=== PATIENT | male | born 1970 | race Two or more races ===

== ENCOUNTER 2017-05-06 15:58 | Inpatient (IN) | payer MEDICAID ==
--- NOTE | 2017-05-06 16:45 | ED Physician Chart ---
ED Chief Complaint/HPI - Patient Information Date Seen:: 05/06/17 Time Seen:: 16:15 Chief Complaint:: TROUBLE WITH FOOD INTAKE History of Present Illness:: THIS IS A 46 YO MALE WITH BARETT'S ESOPHAGUS WITH DYSPHAGIA, SCHIZOPHRENIA AND THYROID DISEASE. Allergies:: Allergies Allergy/AdvReac Type Severity Reaction Status Date / Time No Known Allergies Allergy Verified 05/06/17 16:04 Vitals:: Vital Signs - 8 hr 05/06/17 16:05 Temp 98.7 F HR 67 RR 17 BP 138/91 O2 Sat % 97 Historian:: Patient Review:: Nurse's Note Reviewed, Transfer documents Reviewed ED Review of Systems - Review of Systems General/Constitutional: No fever, No chills, No weight loss, No weakness, No diaphoresis, No edema, No loss of appetite, Other (THIS PATIENT IS NOT ABLE TO GIVE A RELIABLE REVIEW OF SYSTEMS.) Skin: No skin lesions, No rash, No bruising Head: No headache, No light-headedness Eyes: No loss of vision, No pain, No diplopia ENT: No earache, No nasal drainage, No sore throat, No tinnitus Neck: No neck pain, No swelling, No thyromegaly, No stiffness, No mass noted Cardio Vascular: No chest pain, No palpitations, No PND, No orthopnea, No edema Pulmonary: No SOB, No cough, No sputum, No wheezing GI: No nausea, No vomiting, No diarrhea, No pain, No melena, No hematochezia, No constipation, No hematemesis G/U: No dysuria, No frequency, No hematuria Musculoskeletal: No bone or joint pain, No back pain, No muscle pain Endocrine: No polyuria, No polydipsia Psychiatric: No prior psych history, No depression, No anxiety, No suicidal ideation Hematopoietic: No bruising, No lymphadenopathy Allergic/Immuno: No urticaria, No angioedema Neurological: No syncope, No focal symptoms, No weakness, No paresthesia, No headache, No seizure, No dizziness, No confusion, No vertigo ED Past Medical History - Past Medical History Obtainable: Yes Past Medical History: CVA/TIA, PUD/GERD, Thyroid disorder, Arthritis, Dementia Family History: None Social History: Non Smoker, No Alcohol, No Drug Use, Care Facility Surgical History: None Psychiatricy History: Schizophrenia, Dementia Medication: Reviewed Family Medical History - Family Member Mother History Unknown: Yes ED Physical Exam - Physical Examination General/Constitutional: Awake, Well-developed, well-nourished, Alert, No distress, GCS 15, Non-toxic appearing, Ambulatory Other Gen/Cons comments:: DIFFICULTY WITH SPEECH AND THROAT DISORDER. HE IS VERY THIN. Head: Atraumatic Eyes: Lids, conjuctiva normal, PERRL, EOMI Skin: Nl inspection, No rash, No skin lesions, No ecchymosis, Well hydrated, No lymphadenopathy ENMT: External ears, nose nl, Nasal exam nl, Lips, teeth, gums nl Neck: Nontender, Full ROM w/o pain, No JVD, No nuchal rigidity, No bruit, No mass, No stridor Respiratory: Nl effort/Exclusion, Clear to Auscultation, No Wheeze/Rhonchi/Rales Cardio Vascular: RRR, No murmur, gallop, rubs, NL S1 S2 GI: No tenderness/rebounding/guarding, No organomegaly, No hernia, Normal BS's, Nondistended, No mass/bruits, No McBurney tenderness : No CVA tenderness Extremities: No tenderness or effusion, Full ROM, normal strength in all extremities, No edema, Normal digits & nails Neuro/Psych: Alert/oriented, DTR's symmetric, Normal sensory exam, Normal motor strength, Judgement/insight normal, Mood normal, Normal gait, No focal deficits Misc: normal gait, Normal back, No paraspinal tenderness ED Labs/Radiology/EKG Results - Lab Results Results: Abnormal Lab Results 05/06/17 05/06/17 05/06/17 16:20 16:46 16:46 WBC RBC Hgb Hct MCV MCH MCHC Differential RDW Plt Count MPV Neutrophils % Lymphocytes % Monocytes % Eosinophils % Basophils % PT 10.9 INR 1.05 PTT (Actin FS) 25.7 L Sodium Potassium Chloride Carbon Dioxide Anion Gap BUN Creatinine Est GFR ( Amer) Est GFR (Non-Af Amer) BUN/Creatinine Ratio Glucose Calcium Total Bilirubin AST ALT Alkaline Phosphatase Troponin I Total Protein Albumin Globulin Albumin/Globulin Ratio Triglycerides 88 Cholesterol 126 LDL Cholesterol Direct 89 HDL Cholesterol 30 TSH Urine Source CLEAN C Urine Color YELLOW Urine Clarity HAZY Urine pH 5.5 Ur Specific [place] 1.030 Urine Protein 30 H Urine Glucose (UA) NEGATIVE Urine Ketones NEGATIVE Urine Blood NEGATIVE Urine Nitrate NEGATIVE Urine Bilirubin SMALL H Urine Urobilinogen 2.0 Ur Leukocyte Esterase NEGATIVE Urine RBC 0-1 Urine WBC 0-2 Ur Epithelial Cells OCCASIONAL Amorphous Sediment FEW URATES Urine Bacteria FEW Urine Mucus MODERATE 05/06/17 05/06/17 05/06/17 16:46 16:46 16:46 WBC 10.1 RBC 4.43 Hgb 13.8 Hct 41.1 MCV 92.8 MCH 31.1 H MCHC Differential 33.6 RDW 12.2 Plt Count 221 MPV 9.8 Neutrophils % 56.0 Lymphocytes % 35.4 Monocytes % 7.2 Eosinophils % 1.0 Basophils % 0.4 PT INR PTT (Actin FS) Sodium 131 L Potassium 3.4 L Chloride 90 L Carbon Dioxide 36.0 H Anion Gap 8.4 BUN 13 Creatinine 1.2 Est GFR ( Amer) > 60.0 Est GFR (Non-Af Amer) > 60.0 BUN/Creatinine Ratio 10.8 Glucose 98 Calcium 9.9 Total Bilirubin 0.6 AST 18 ALT 18 Alkaline Phosphatase 48 Troponin I 0.03 Total Protein 7.6 Albumin 3.9 L Globulin 3.7 Albumin/Globulin Ratio 1.1 Triglycerides Cholesterol LDL Cholesterol Direct HDL Cholesterol TSH Urine Source Urine Color Urine Clarity Urine pH Ur Specific [place] Urine Protein Urine Glucose (UA) Urine Ketones Urine Blood Urine Nitrate Urine Bilirubin Urine Urobilinogen Ur Leukocyte Esterase Urine RBC Urine WBC Ur Epithelial Cells Amorphous Sediment Urine Bacteria Urine Mucus 05/06/17 16:46 WBC RBC Hgb Hct MCV MCH MCHC Differential RDW Plt Count MPV Neutrophils % Lymphocytes % Monocytes % Eosinophils % Basophils % PT INR PTT (Actin FS) Sodium Potassium Chloride Carbon Dioxide Anion Gap BUN Creatinine Est GFR ( Amer) Est GFR (Non-Af Amer) BUN/Creatinine Ratio Glucose Calcium Total Bilirubin AST ALT Alkaline Phosphatase Troponin I Total Protein Albumin Globulin Albumin/Globulin Ratio Triglycerides Cholesterol LDL Cholesterol Direct HDL Cholesterol TSH 1.23 Urine Source Urine Color Urine Clarity Urine pH Ur Specific [place] Urine Protein Urine Glucose (UA) Urine Ketones Urine Blood Urine Nitrate Urine Bilirubin Urine Urobilinogen Ur Leukocyte Esterase Urine RBC Urine WBC Ur Epithelial Cells Amorphous Sediment Urine Bacteria Urine Mucus ED Assessment - Assessment General Assessment: DYSPHASIA DEMENTIA ED Septic Shock - . Is Septic Shock (SBP<90, OR Lactate>4 mmol\L) present?: No - <6hrs of presentation: Vital Signs: Vital Signs - 8 hr 05/06/17 16:05 Temp 98.7 F HR 67 RR 17 BP 138/91 O2 Sat % 97 ED Reassessment (Disposition) - Reassessment Reassessment Condition:: Unchanged - Diagnosis Diagnosis:: DYSPHAGIA DEHYDRATION DEMENTIA - Patient Disposition Discharge/Transfer:: Acute Care w/in this hosp Admitting Medical Physician:: Gelacio Sterling Condition at Disposition:: Unchanged
[2017-05-06 16:52] LABS: % BASOPHILS 0.4 % (0.0-2.0); % LYMPHOCYTES 35.4 % (20.0-50.0); % MONOCYTES 7.2 % (2.0-10.0); HEMATOCRIT 41.1 % (41.0-60); HEMOGLOBIN 13.8 gm/dL (12-16); MEAN CELL VOLUME 92.8 fl (80-99); MEAN CORPUSCULAR HEMOGLOBIN 31.1 pg (26.0-30.0); MEAN CORPUSCULAR HGB CONC 33.6 pg (28.0-36.0); MEAN PLATELET VOLUME 9.8 fl; NEUTROPHILE ABSOLUTE 5.7 Th/cmm (1.8-8.0); PLATELET COUNT 221 Th/cmm (150-400); RED BLOOD COUNT 4.43 Mil/cmm (4.30-5.70); RED CELL DISTRIBUTION WIDTH 12.2 % (11.5-20.0); WHITE BLOOD COUNT 10.1 Th/cmm (4.8-10.8)
[2017-05-06 17:11] LABS: ALB/GLOB RATIO 1.1 (1.0-1.8); ALKALINE PHOSPHATASE 48 U/L (34-104); ANION GAP 8.4 (7.0-16.0); BILIRUBIN,TOTAL 0.6 mg/dL (0.3-1.0); BUN - UREA NITROGEN 13 mg/dL (7-25); BUN/CREATININE RATIO 10.8; CALCIUM SERUM 9.9 mg/dL (8.6-10.3); CHLORIDE 90 mEq/L (98-107); CHOLESTEROL 126 mg/dL (<200); CREATININE - SERUM 1.2 mg/dL (0.7-1.3); GLUCOSE 98 mg/dL (70-105); POTASSIUM SERUM 3.4 mEq/L (3.5-5.1); SGOT 18 U/L (13-39); SGPT/ALT 18 U/L (7-52); SODIUM SERUM 131 mEq/L (136-145); TRIGLYCERIDES 88 mg/dL (<150)
[2017-05-06 17:12] LABS: INR 1.05 (0.5-1.4); PROTHROMBIN TIME (TEST) 10.9 SECONDS (9.5-11.5)
[2017-05-06 18:27] LABS: URINE BILIRUBIN SMALL (NEGATIVE); URINE BLOOD NEGATIVE (NEGATIVE); URINE COLOR YELLOW; URINE GLUCOSE (UA) NEGATIVE (NEGATIVE); URINE KETONE NEGATIVE (NEGATIVE); URINE PH 5.5 (4.6 - 8.0); URINE PROTEIN 30 mg/dL (NEGATIVE)
[2017-05-06 18:29] LABS: URINE AMORPHOUS SEDIMENT FEW URATES (NONE SEEN); URINE BACTERIA FEW /hpf (NONE SEEN); URINE EPITHELIAL CELLS OCCASIONAL /lpf (FEW); URINE RBC 0-1 /hpf (0-5); URINE WBC 0-2 /hpf (0-5)
[2017-05-06] MEDS ORDERED: guaiFENesin 200 MG/10 ML UDC PO PRN (19:14)
[2017-05-06] MEDS ORDERED: Maalox 30 mL Cup PO PRN (19:14)
[2017-05-06] MEDS ORDERED: Ipratropium Neb 0.5 mg/2.5 mL UD HHN PRN (19:14)
[2017-05-06] MEDS ORDERED: Albuterol Nebulizer 2.5mg/3mL HHN PRN (19:14)
[2017-05-06] MEDS ORDERED: D5-0.9%NS 1,000 ML IV SCH (19:15)
[2017-05-06 20:59] VITALS: BP 118/73
[2017-05-07] MEDS: Levothyroxine 0.075 Mg Tab PO SCH (07:06)
[2017-05-07] MEDS: Pantoprazole 40 mg EC Tab PO SCH ×2 (08:45→17:17)
[2017-05-07] MEDS: Ferrous Sulfate 325 MG TAB PO SCH ×2 (10:00→17:17)
[2017-05-07] MEDS ORDERED: Influenza Vaccine 0.5 mL Syr IM ONE (10:52)
--- NOTE | 2017-05-07 10:56 | Consultation ---
DATE OF CONSULTATION: 05/07/2017 INPATIENT GASTROINTESTINAL CONSULT REFERRING PHYSICIAN: Dr. Sterling. REASON FOR CONSULTATION: Dysphagia. HISTORY OF PRESENT ILLNESS: A 46-year-old male who has underlying schizophrenia, somewhat of an unreliable historian, but is complaining of difficult time swallowing. He denies having any abdominal pain. Denies hematemesis or coffee ground emesis. Denies having any melena or hematochezia. Denies having any diarrhea. PAST MEDICAL HISTORY: Schizophrenia, stroke, TIA, GERD, thyroid disease, arthritis, dementia. PAST SURGICAL HISTORY: None to abdomen. FAMILY HISTORY: Negative for stomach or colon cancer. SOCIAL HISTORY: He denies tobacco, alcohol or IV drug usage. ALLERGIES: None. CURRENT MEDICATIONS: Tylenol, Maalox, albuterol, Depakote, Robitussin, heparin, Atrovent, Synthroid, Zyprexa, Zofran, Protonix, Carafate, and Ambien. REVIEW OF SYSTEMS: Notable for the dysphagia. All other systems were otherwise negative. PHYSICAL EXAMINATION: VITAL SIGNS: Temperature 98.2, breathing 18, pulse of 78, blood pressure is 110/70, satting 98%. GENERAL: In no apparent distress. EYES: Anicteric, normal conjunctivae. HEENT: Normocephalic, atraumatic. Moist mucous membranes. NECK: Soft, supple. CHEST: Clear. No effort. CARDIOVASCULAR: Regular rate and rhythm. ABDOMEN: Soft, nontender, nondistended. SKIN: Warm, dry. EXTREMITIES: Reveal no cyanosis. PSYCHOLOGIC: Awake. LABORATORY DATA: Show white count 10.1, hemoglobin 13.8, platelets of 221. INR 1.05. Total bilirubin 0.6, AST 18, ALT 18, alkaline phosphatase 48. IMPRESSION: A 46-year-old male with complaints of dysphagia. Records indicate the patient may have underlying history of Serna's and gastroesophageal reflux disease, therefore endoscopy can be performed to further evaluate ____ potential therapeutic intervention shows this dilatation can be performed. PLAN: 1. Consider EGD. 2. Continue proton pump inhibitor and Carafate in the meantime. 3. We will need to get consent. Thank you for allowing me to participate. Please call me if any questions. JOB# [id number]
--- NOTE | 2017-05-07 12:20 | Internal Medicine Prog Note ---
Internal Medicine Subjective - Subjective Service Date: 05/07/17 ([id number] dictated hnp) Internal Medicine Objective - Results Result Diagrams: 05/06/17 16:46 05/06/17 16:46 Recent Labs: Laboratory Last Values WBC 10.1 Th/cmm (4.8-10.8) 05/06/17 16:46 RBC 4.43 Mil/cmm (4.30-5.70) 05/06/17 16:46 Hgb 13.8 gm/dL (12-16) 05/06/17 16:46 Hct 41.1 % (41.0-60) 05/06/17 16:46 MCV 92.8 fl (80-99) 05/06/17 16:46 MCH 31.1 pg (26.0-30.0) H 05/06/17 16:46 MCHC Differential 33.6 pg (28.0-36.0) 05/06/17 16:46 RDW 12.2 % (11.5-20.0) 05/06/17 16:46 Plt Count 221 Th/cmm (150-400) 05/06/17 16:46 MPV 9.8 fl 05/06/17 16:46 Neutrophils % 56.0 % (40.0-80.0) 05/06/17 16:46 Lymphocytes % 35.4 % (20.0-50.0) 05/06/17 16:46 Monocytes % 7.2 % (2.0-10.0) 05/06/17 16:46 Eosinophils % 1.0 % (0.0-5.0) 05/06/17 16:46 Basophils % 0.4 % (0.0-2.0) 05/06/17 16:46 PT 10.9 SECONDS (9.5-11.5) 05/06/17 16:46 INR 1.05 (0.5-1.4) 05/06/17 16:46 PTT (Actin FS) 25.7 SECONDS (26.0-38.0) L 05/06/17 16:46 Sodium 131 mEq/L (136-145) L 05/06/17 16:46 Potassium 3.4 mEq/L (3.5-5.1) L 05/06/17 16:46 Chloride 90 mEq/L (98-107) L 05/06/17 16:46 Carbon Dioxide 36.0 mEq/L (21.0-31.0) H 05/06/17 16:46 Anion Gap 8.4 (7.0-16.0) 05/06/17 16:46 BUN 13 mg/dL (7-25) 05/06/17 16:46 Creatinine 1.2 mg/dL (0.7-1.3) 05/06/17 16:46 Est GFR ( Amer) > 60.0 ml/min (>90) 05/06/17 16:46 Est GFR (Non-Af Amer) > 60.0 ml/min 05/06/17 16:46 BUN/Creatinine Ratio 10.8 05/06/17 16:46 Glucose 98 mg/dL (70-105) 05/06/17 16:46 Calcium 9.9 mg/dL (8.6-10.3) 05/06/17 16:46 Total Bilirubin 0.6 mg/dL (0.3-1.0) 05/06/17 16:46 AST 18 U/L (13-39) 05/06/17 16:46 ALT 18 U/L (7-52) 05/06/17 16:46 Alkaline Phosphatase 48 U/L (34-104) 05/06/17 16:46 Troponin I 0.03 ng/mL (0.01-0.05) 05/06/17 16:46 Total Protein 7.6 gm/dL (6.0-8.3) 05/06/17 16:46 Albumin 3.9 gm/dL (4.2-5.5) L 05/06/17 16:46 Globulin 3.7 gm/dL 05/06/17 16:46 Albumin/Globulin Ratio 1.1 (1.0-1.8) 05/06/17 16:46 Triglycerides 88 mg/dL (<150) 05/06/17 16:46 Cholesterol 126 mg/dL (<200) 05/06/17 16:46 LDL Cholesterol Direct 89 mg/dL (75-193) 05/06/17 16:46 HDL Cholesterol 30 mg/dL (23-92) 05/06/17 16:46 TSH 1.23 uIU/ml (0.34-5.60) 05/06/17 16:46 Urine Source CLEAN C 05/06/17 16:20 Urine Color YELLOW 05/06/17 16:20 Urine Clarity HAZY (CLEAR) 05/06/17 16:20 Urine pH 5.5 (4.6 - 8.0) 05/06/17 16:20 Ur Specific [place] 1.030 (1.005-1.030) 05/06/17 16:20 Urine Protein 30 mg/dL (NEGATIVE) H 05/06/17 16:20 Urine Glucose (UA) NEGATIVE mg/dL (NEGATIVE) 05/06/17 16:20 Urine Ketones NEGATIVE mg/dL (NEGATIVE) 05/06/17 16:20 Urine Blood NEGATIVE (NEGATIVE) 05/06/17 16:20 Urine Nitrate NEGATIVE (NEGATIVE) 05/06/17 16:20 Urine Bilirubin SMALL (NEGATIVE) H 05/06/17 16:20 Urine Urobilinogen 2.0 E.U./dL (0.2 - 1.0) 05/06/17 16:20 Ur Leukocyte Esterase NEGATIVE (NEGATIVE) 05/06/17 16:20 Urine RBC 0-1 /hpf (0-5) 05/06/17 16:20 Urine WBC 0-2 /hpf (0-5) 05/06/17 16:20 Ur Epithelial Cells OCCASIONAL /lpf (FEW) 05/06/17 16:20 Amorphous Sediment FEW URATES (NONE SEEN) 05/06/17 16:20 Urine Bacteria FEW /hpf (NONE SEEN) 05/06/17 16:20 Urine Mucus MODERATE /lpf (FEW) 05/06/17 16:20 RPR NONREACTIVE (NONREACTIVE) 05/06/17 16:46 - Physical Exam Vitals and I&O: Vital Signs Temp 98.2 F 05/07/17 08:06 Pulse 74 05/07/17 08:06 Resp 19 05/07/17 08:06 BP 118/86 05/07/17 08:06 Pulse Ox 100 05/07/17 08:06 Intake & Output 05/06/17 05/07/17 05/07/17 18:59 06:59 18:59 Intake Total 200 Balance 200 Weight (lbs) 147 lb Intake: Oral 200 Other: # Voids 2 # Bowel Movements 0 Stool Characteristics Soft Hard Active Medications: Current Medications Acetaminophen (Tylenol) 650 mg PO Q4H PRN PRN Reason: Pain Or Fever above 101 Stop: 11/17/17 19:13 Al Hydrox/Mg Hydrox/Simethicone (Maalox) 30 ml PO Q6H PRN PRN Reason: Dyspepsia Stop: 07/05/17 19:13 Albuterol Sulfate (Albuterol 2.5mg/3ml Neb Ud) 2.5 mg HHN Q2HRT PRN PRN Reason: Shortness of Breath or Wheeze Stop: 07/05/17 19:13 Divalproex Sodium (Depakote Er) 1,000 mg PO BID KAM PRN Reason: Protocol Stop: 07/06/17 08:59 Last Admin: 05/07/17 08:45 Dose: Not Given Ferrous Sulfate (Iron) 325 mg PO BID KAM Stop: 07/06/17 08:59 Last Admin: 05/07/17 10:00 Dose: Not Given Guaifenesin (Robitussin) 200 mg PO Q4HR PRN PRN Reason: Cough or Congestion Stop: 07/05/17 19:13 Heparin Sodium (Porcine) (Heparin) 5,000 units SUBQ Q12HR KAM Stop: 07/05/17 20:59 Last Admin: 05/07/17 08:45 Dose: Not Given Dextrose/Sodium Chloride (D5-0.9%Ns) 1,000 mls @ 100 mls/hr IV .Q10H KAM Stop: 07/05/17 19:14 Ipratropium [place] (Atrovent Neb 0.5mg/2.5ml) 0.5 mg HHN Q2HRT PRN PRN Reason: Shortness of Breath or Wheeze Stop: 07/05/17 19:13 Levothyroxine Sodium (Synthroid) 0.075 mg PO QDAC KAM Stop: 07/06/17 07:29 Last Admin: 05/07/17 07:06 Dose: Not Given Olanzapine (Zyprexa) 10 mg PO HS KAM PRN Reason: Protocol Stop: 07/07/17 20:59 Ondansetron HCl (Zofran) 4 mg IV Q8H PRN PRN Reason: Nausea / Vomiting Stop: 07/05/17 19:13 Pantoprazole Sodium (Protonix) 40 mg PO BID KAM Stop: 07/06/17 08:59 Last Admin: 05/07/17 08:45 Dose: Not Given Sucralfate (Carafate) 1 gm PO QID [facility] Stop: 07/05/17 20:59 Last Admin: 05/07/17 08:45 Dose: Not Given Zolpidem Tartrate (Ambien) 5 mg PO HS PRN PRN Reason: Insomnia Stop: 07/05/17 19:12 Internal Medicine Assmt/Plan - Assessment Assessment: DYSPHAGIA DEHYDRATION FAILURE TO THRIVE HYPONATREMIA HYPOKALEMIA GERD HTN BARETT'S ESOPHAGUS
--- NOTE | 2017-05-07 13:18 | Consultation ---
DATE OF CONSULTATION: 05/07/2017 AGE: 46. SEX: Male. PHYSICIAN: Dr. Sterling. AUTO BODY STRAIGHTENER: Dr. Dunaway. REASON FOR THE CONSULT: Agitation. HISTORY OF PRESENT ILLNESS: The patient is a 46-year-old male with history of schizophrenia. The patient was admitted to the hospital and noted that he has been agitated. The patient has been repeating himself and has been having difficulty expressing himself. Also, has been loud. The patient has been taking Seroquel and Zyprexa. Seroquel is given on a p.r.n. basis. The patient also has hypothyroidism. PAST PSYCHIATRIC HISTORY: The patient has history of what seems to be schizophrenia and also mental challenge. PAST MEDICAL HISTORY: As per Dr. Sterling. SOCIAL HISTORY: The patient lives in [facility]. He was under conservatorship. Drug use, no known alcohol or drug use. MENTAL STATUS EXAM: Anxious. Restless. Repeating answers to the questions. Loud tone of voice, disorganized thoughts. Seems to be preoccupied and paranoid. Also seems to be of mild to moderate mental retardation based on his verbal ability. Denies suicidal or homicidal ideations and denies auditory or visual hallucinations, but seems to be paranoid. PRIMARY DIAGNOSIS: Chronic paranoid schizophrenia with acute exacerbation. SECONDARY DIAGNOSIS: Mental retardation, moderate to severe. TREATMENT PLAN: Continue Seroquel and Zyprexa and we will reevaluate and monitor his condition closely. [facility]# [id number]
--- NOTE | 2017-05-07 13:47 | History & Physical ---
ADMIT DATE: 05/07/2017 CHIEF COMPLAINT: Difficulty swallowing. HISTORY OF PRESENT ILLNESS: This is a 46-year-old -[place] male who is a resident of [facility] who is brought here to [facility] for 1-day history of trouble swallowing. According to the patient, he has been having a hard time swallowing and unable to swallow meat. If he tries to swallow, the patient starts to vomit. For this reason, the patient is now admitted. PAST MEDICAL HISTORY: CVA, TIA, PUD, GERD, hypothyroidism, arthritis, dementia. FAMILY HISTORY: Noncontributory. SOCIAL HISTORY: The [facility] is a [facility], requiring 24-hour nursing care. PAST SURGICAL HISTORY: Previous EGD. PSYCHIATRIC HISTORY: Schizophrenia and dementia. MEDICATIONS: Ferrous gluconate, Synthroid, Zyprexa, Protonix, sucralfate, Depakote. REVIEW OF SYSTEMS: GENERAL: Denies any fevers, any chills. CARDIOVASCULAR: Denies chest pain. RESPIRATORY: Denies any shortness of breath. GASTROINTESTINAL: Denies any abdominal pain complaints of difficulty swallowing. GENITOURINARY: Denies any dysuria. All other systems are reviewed by me and are negative. PHYSICAL EXAMINATION: EXTREMITIES: The patient is well developed, well nourished, no acute distress. VITAL SIGNS: Temperature 98.2, heart rate 74, blood pressure 118/86, respirations 19, O2 100%. HEENT: Head; normocephalic, atraumatic. NECK: Supple. No mass. LUNGS: Clear bilaterally. HEART: Regular rate and rhythm. ABDOMEN: Soft, nontender. LABORATORY DATA: WBC 10.1, H and H 13.8 and 41.1, platelet of 221. Sodium 131, potassium 3.4, chloride 98, carbon dioxide 36.0, BUN 13, creatinine 1.2. Albumin 3.9. ASSESSMENT: Dysphagia, dehydration and failure to thrive, schizophrenia, gastroesophageal reflux disease, hypothyroidism, Serna esophagus, protein-calorie malnutrition, hypokalemia, hyponatremia. PLAN: The patient will be admitted to the med/surg unit. The patient will have a GI consultation, also swallow evaluation as well. The patient to be kept n.p.o. for now and the patient will be kept on IV fluids for hydration. We will monitor patient's electrolytes level and continue to monitor this patient. [facility]# [id number]
[2017-05-08 06:08] LABS: NEUTROPHILE ABSOLUTE 4.1 Th/cmm (1.8-8.0); RED BLOOD COUNT 4.19 Mil/cmm (4.30-5.70)
[2017-05-08 06:15] LABS: % EOSINOPHILS 1.7 % (0.0-5.0); % LYMPHOCYTES 36.4 % (20.0-50.0); % MONOCYTES 8.2 % (2.0-10.0); % NEUTROPHILS 53.7 % (40.0-80.0); HEMATOCRIT 38.4 % (41.0-60); MEAN CELL VOLUME 91.7 fl (80-99); MEAN CORPUSCULAR HGB CONC 33.8 pg (28.0-36.0); RED CELL DISTRIBUTION WIDTH 12.5 % (11.5-20.0)
[2017-05-08 06:16] LABS: PLATELET COUNT 190 Th/cmm (150-400); WHITE BLOOD COUNT 7.5 Th/cmm (4.8-10.8)
[2017-05-08 06:20] LABS: INR 1.09 (0.5-1.4); PROTHROMBIN TIME (TEST) 11.3 SECONDS (9.5-11.5)
[2017-05-08 06:27] LABS: ANION GAP 7.5 (7.0-16.0); BUN - UREA NITROGEN 8 mg/dL (7-25); CALCIUM SERUM 9.5 mg/dL (8.6-10.3); CARBON DIOXIDE 33.4 mEq/L (21.0-31.0); CHLORIDE 95 mEq/L (98-107); GLUCOSE 102 mg/dL (70-105); SODIUM SERUM 133 mEq/L (136-145)
[2017-05-08] MEDS: Levothyroxine 0.075 Mg Tab PO SCH (06:38)
[2017-05-08 06:49] LABS: POTASSIUM SERUM 2.9 mEq/L (3.5-5.1)
--- NOTE | 2017-05-08 08:15 | Diagnostic Imaging Report ---
Portable chest x-ray History: Shortness of breath Allowing for portable technique the heart size is normal. Slight elevation of the right hemidiaphragm. No focal pulmonary parenchymal processes. No hilar or mediastinal abnormalities. Impression: No acute abnormalities.
[2017-05-08] MEDS ORDERED: Potassium Chloride 40 MEQ, Lidocaine 1% 20mL Vial 25 MG in Sodium Chloride 0.9% 250 ML IV ONE (08:30)
[2017-05-08] MEDS: Ferrous Sulfate 325 MG TAB PO SCH ×2 (10:02→17:19)
[2017-05-08] MEDS: Pantoprazole 40 mg EC Tab PO SCH ×2 (10:03→17:19)
[2017-05-08] MEDS ORDERED: Potassium Chloride 20 mEq ER Tab PO ONE (12:30)
--- NOTE | 2017-05-08 12:47 | Internal Medicine Prog Note ---
Internal Medicine Subjective - Subjective Service Date: 05/08/17 Patient seen and examined:: with staff Patient is:: awake, verbal Patient Complaints of:: vomitting Per staff patient has:: tolerating meds Internal Medicine Objective - Results Result Diagrams: 05/08/17 05:45 05/08/17 05:45 Recent Labs: Laboratory Last Values WBC 7.5 Th/cmm (4.8-10.8) D 05/08/17 05:45 RBC 4.19 Mil/cmm (4.30-5.70) L 05/08/17 05:45 Hgb 13.0 gm/dL (12-16) 05/08/17 05:45 Hct 38.4 % (41.0-60) L 05/08/17 05:45 MCV 91.7 fl (80-99) 05/08/17 05:45 MCH 31.0 pg (26.0-30.0) H 05/08/17 05:45 MCHC Differential 33.8 pg (28.0-36.0) 05/08/17 05:45 RDW 12.5 % (11.5-20.0) 05/08/17 05:45 Plt Count 190 Th/cmm (150-400) 05/08/17 05:45 MPV 10.0 fl 05/08/17 05:45 Neutrophils % 53.7 % (40.0-80.0) 05/08/17 05:45 Lymphocytes % 36.4 % (20.0-50.0) 05/08/17 05:45 Monocytes % 8.2 % (2.0-10.0) 05/08/17 05:45 Eosinophils % 1.7 % (0.0-5.0) 05/08/17 05:45 Basophils % 0.0 % (0.0-2.0) 05/08/17 05:45 PT 11.3 SECONDS (9.5-11.5) 05/08/17 05:45 INR 1.09 (0.5-1.4) 05/08/17 05:45 PTT (Actin FS) 25.7 SECONDS (26.0-38.0) L 05/06/17 16:46 Sodium 133 mEq/L (136-145) L 05/08/17 05:45 Potassium 2.9 mEq/L (3.5-5.1) L* 05/08/17 05:45 Chloride 95 mEq/L (98-107) L 05/08/17 05:45 Carbon Dioxide 33.4 mEq/L (21.0-31.0) H 05/08/17 05:45 Anion Gap 7.5 (7.0-16.0) 05/08/17 05:45 BUN 8 mg/dL (7-25) 05/08/17 05:45 Creatinine 1.0 mg/dL (0.7-1.3) 05/08/17 05:45 Est GFR ( Amer) > 60.0 ml/min (>90) 05/08/17 05:45 Est GFR (Non-Af Amer) > 60.0 ml/min 05/08/17 05:45 BUN/Creatinine Ratio 8.0 05/08/17 05:45 Glucose 102 mg/dL (70-105) 05/08/17 05:45 Calcium 9.5 mg/dL (8.6-10.3) 05/08/17 05:45 Total Bilirubin 0.6 mg/dL (0.3-1.0) 05/06/17 16:46 AST 18 U/L (13-39) 05/06/17 16:46 ALT 18 U/L (7-52) 05/06/17 16:46 Alkaline Phosphatase 48 U/L (34-104) 05/06/17 16:46 Troponin I 0.03 ng/mL (0.01-0.05) 05/06/17 16:46 Total Protein 7.6 gm/dL (6.0-8.3) 05/06/17 16:46 Albumin 3.9 gm/dL (4.2-5.5) L 05/06/17 16:46 Globulin 3.7 gm/dL 05/06/17 16:46 Albumin/Globulin Ratio 1.1 (1.0-1.8) 05/06/17 16:46 Triglycerides 88 mg/dL (<150) 05/06/17 16:46 Cholesterol 126 mg/dL (<200) 05/06/17 16:46 LDL Cholesterol Direct 89 mg/dL (75-193) 05/06/17 16:46 HDL Cholesterol 30 mg/dL (23-92) 09/18/17 16:46 TSH 1.23 uIU/ml (0.34-5.60) 05/06/17 16:46 Urine Source CLEAN C 05/06/17 16:20 Urine Color YELLOW 05/06/17 16:20 Urine Clarity HAZY (CLEAR) 05/06/17 16:20 Urine pH 5.5 (4.6 - 8.0) 05/06/17 16:20 Ur Specific [place] 1.030 (1.005-1.030) 05/06/17 16:20 Urine Protein 30 mg/dL (NEGATIVE) H 05/06/17 16:20 Urine Glucose (UA) NEGATIVE mg/dL (NEGATIVE) 05/06/17 16:20 Urine Ketones NEGATIVE mg/dL (NEGATIVE) 05/06/17 16:20 Urine Blood NEGATIVE (NEGATIVE) 05/06/17 16:20 Urine Nitrate NEGATIVE (NEGATIVE) 05/06/17 16:20 Urine Bilirubin SMALL (NEGATIVE) H 05/06/17 16:20 Urine Urobilinogen 2.0 E.U./dL (0.2 - 1.0) 05/06/17 16:20 Ur Leukocyte Esterase NEGATIVE (NEGATIVE) 05/06/17 16:20 Urine RBC 0-1 /hpf (0-5) 05/06/17 16:20 Urine WBC 0-2 /hpf (0-5) 05/06/17 16:20 Ur Epithelial Cells OCCASIONAL /lpf (FEW) 05/06/17 16:20 Amorphous Sediment FEW URATES (NONE SEEN) 05/06/17 16:20 Urine Bacteria FEW /hpf (NONE SEEN) 05/06/17 16:20 Urine Mucus MODERATE /lpf (FEW) 05/06/17 16:20 RPR NONREACTIVE (NONREACTIVE) 05/06/17 16:46 - Physical Exam Vitals and I&O: Vital Signs Temp 99.0 F 05/08/17 11:50 Pulse 68 05/08/17 11:50 Resp 18 05/08/17 11:50 BP 109/65 05/08/17 11:50 Pulse Ox 98 05/08/17 11:50 Intake & Output 05/07/17 05/08/17 05/08/17 18:59 06:59 18:59 Intake Total 1020 Output Total 400 850 Balance 620 -850 Weight (lbs) 147 lb 145 lb Intake: Oral 1020 Output: Urine 400 850 Other: # Voids 2 # Bowel Movements 0 0 Active Medications: Current Medications Acetaminophen (Tylenol) 650 mg PO Q4H PRN PRN Reason: Pain Or Fever above 101 Stop: 07/05/17 19:13 Al Hydrox/Mg Hydrox/Simethicone (Maalox) 30 ml PO Q6H PRN PRN Reason: Dyspepsia Stop: 07/05/17 19:13 Albuterol Sulfate (Albuterol 2.5mg/3ml Neb Ud) 2.5 mg HHN Q2HRT PRN PRN Reason: Shortness of Breath or Wheeze Stop: 07/05/17 19:13 Divalproex Sodium (Depakote Er) 1,000 mg PO BID KAM PRN Reason: Protocol Stop: 07/06/17 08:59 Last Admin: 05/08/17 10:02 Dose: Not Given Ferrous Sulfate (Iron) 325 mg PO BID KAM Stop: 07/06/17 08:59 Last Admin: 05/08/17 10:02 Dose: Not Given Guaifenesin (Robitussin) 200 mg PO Q4HR PRN PRN Reason: Cough or Congestion Stop: 07/05/17 19:13 Heparin Sodium (Porcine) (Heparin) 5,000 units SUBQ Q12HR KAM Stop: 07/05/17 20:59 Last Admin: 05/08/17 10:02 Dose: Not Given Dextrose/Sodium Chloride (D5-0.9%Ns) 1,000 mls @ 100 mls/hr IV .Q10H KAM Stop: 07/05/17 19:14 Last Admin: 05/08/17 10:01 Dose: 100 mls/hr Ipratropium [place] (Atrovent Neb 0.5mg/2.5ml) 0.5 mg HHN Q2HRT PRN PRN Reason: Shortness of Breath or Wheeze Stop: 07/05/17 19:13 Levothyroxine Sodium (Synthroid) 0.075 mg PO QDAC KAM Stop: 07/06/17 07:29 Last Admin: 05/08/17 06:38 Dose: Not Given Olanzapine (Zyprexa) 10 mg PO HS KAM PRN Reason: Protocol Stop: 07/07/17 20:59 Ondansetron HCl (Zofran) 4 mg IV Q8H PRN PRN Reason: Nausea / Vomiting Stop: 07/05/17 19:13 Pantoprazole Sodium (Protonix) 40 mg PO BID KAM Stop: 07/06/17 08:59 Last Admin: 05/08/17 10:03 Dose: Not Given Sucralfate (Carafate) 1 gm PO QID KAM Stop: 07/05/17 20:59 Last Admin: 05/08/17 10:03 Dose: Not Given Zolpidem Tartrate (Ambien) 5 mg PO HS PRN PRN Reason: Insomnia Stop: 07/05/17 19:12 General: alert HEENT: NC/AT, PERRLA Neck: Supple Abdomen: soft, non-tender, non-distended, positive bowel sound Extremities: excoriation Neurological: alert Internal Medicine Assmt/Plan - Assessment Assessment: DYSPHAGIA DEHYDRATION FAILURE TO THRIVE HYPONATREMIA HYPOKALEMIA GERD HTN BARETT'S ESOPHAGUS - Plan Plan: midline to be placed today egd tomorrow replace k+ monitor cbc/bmp ivf for hydration Nutritional Asmnt/Malnutr-PDOC - Dietary Evaluation Malnutrition Findings (Please click <Entered> for more info): Nutritional Asmnt/Malnutrition Start: 05/07/17 10: 39 Text: Status: Complete Freq: Document 05/07/17 14:31 GSUN (Rec: 05/07/17 15:03 [email or web address] [id number]) Nutritional Asmnt/Malnutrition Patient General Information Nutritional Screening Consult Diagnosis Dysphagia, dehydration, FTT, Serna esophagus, PCM Pertinent Medical Hx/Surgical Hx Schizophrenia, stroke, TIA, GERD, thyroid disease, arthritis, dementia Subjective Information 46 year old male from SNF. RD consult for dysphagia. Spoke to ELISE Christina, pt has ulcer in the throat, unable to eat, swallow eval ordered nad pending. Pt is a questionable historian, talkative, however speech unclear and difficult to understand. 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 Pt appeared thin, mild muscle fat wasting to chest and temporals. Current Diet Order/ Nutrition Support Clear liquid Pertinent Medications D5-0.9%ns, Iron, Synthroid, Zofran, Protonix, Carafate Pertinent Labs Reviewed. Nutritional Hx/Data Height 5 ft 9 in Height (Calculated Centimeters) 175.3 Current Weight (lbs) 147 lb Weight (Calculated Kilograms) 66.7 Weight (Calculated Grams) 31826.1 [place] Body Weight 160 Weight Status Approriate GI Symptoms Food Allergies No Skin Integrity/Comment: [place] 13. Skin intact. Estimated Nutritional Goals BEE in Kcals: Using Current wt Calories/Kcals/Kg CBW 147lb/66.8kg Kcals Calculated 1670-2004kcal (25-30kcal/kg) Protein: Using Current wt Protein Calculated 67g (1g/kg) Fluid: ml 1670-2004ml (1ml/kcal) Nutritional Problem 1. 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 GI consult and swallow eval pending, recommend regular diet with diet texture per ST if pt is able to resume oral diet. Nursing staff to ensure pt sit upright during meals to minimize possible reflux. 2. Monitor weight. 3. If unable to resume oral diet, recommend enteral nutrition. Expected Outcomes/Goals Expected Outcomes/Goals 1. Pt to meet at least 75% of estimated nutritional needs orally or enterally.
--- NOTE | 2017-05-08 13:18 | GI Progress Note ---
Subjective - Review of Systems Subjective: HAS DIFFICULTY SWALLOWING Objective - Results Result Diagrams: 05/08/17 05:45 05/08/17 05:45 Recent Labs: Laboratory Last Values WBC 7.5 Th/cmm (4.8-10.8) D 05/08/17 05:45 RBC 4.19 Mil/cmm (4.30-5.70) L 05/08/17 05:45 Hgb 13.0 gm/dL (12-16) 05/08/17 05:45 Hct 38.4 % (41.0-60) L 05/08/17 05:45 MCV 91.7 fl (80-99) 05/08/17 05:45 MCH 31.0 pg (26.0-30.0) H 05/08/17 05:45 MCHC Differential 33.8 pg (28.0-36.0) 05/08/17 05:45 RDW 12.5 % (11.5-20.0) 05/08/17 05:45 Plt Count 190 Th/cmm (150-400) 05/08/17 05:45 MPV 10.0 fl 05/08/17 05:45 Neutrophils % 53.7 % (40.0-80.0) 05/08/17 05:45 Lymphocytes % 36.4 % (20.0-50.0) 05/08/17 05:45 Monocytes % 8.2 % (2.0-10.0) 05/08/17 05:45 Eosinophils % 1.7 % (0.0-5.0) 05/08/17 05:45 Basophils % 0.0 % (0.0-2.0) 05/08/17 05:45 PT 11.3 SECONDS (9.5-11.5) 05/08/17 05:45 INR 1.09 (0.5-1.4) 05/08/17 05:45 PTT (Actin FS) 25.7 SECONDS (26.0-38.0) L 05/06/17 16:46 Sodium 133 mEq/L (136-145) L 05/08/17 05:45 Potassium 2.9 mEq/L (3.5-5.1) L* 05/08/17 05:45 Chloride 95 mEq/L (98-107) L 05/08/17 05:45 Carbon Dioxide 33.4 mEq/L (21.0-31.0) H 05/08/17 05:45 Anion Gap 7.5 (7.0-16.0) 05/08/17 05:45 BUN 8 mg/dL (7-25) 05/08/17 05:45 Creatinine 1.0 mg/dL (0.7-1.3) 05/08/17 05:45 Est GFR ( Amer) > 60.0 ml/min (>90) 05/08/17 05:45 Est GFR (Non-Af Amer) > 60.0 ml/min 05/08/17 05:45 BUN/Creatinine Ratio 8.0 05/08/17 05:45 Glucose 102 mg/dL (70-105) 05/08/17 05:45 Calcium 9.5 mg/dL (8.6-10.3) 05/08/17 05:45 Total Bilirubin 0.6 mg/dL (0.3-1.0) 05/06/17 16:46 AST 18 U/L (13-39) 05/06/17 16:46 ALT 18 U/L (7-52) 05/06/17 16:46 Alkaline Phosphatase 48 U/L (34-104) 05/06/17 16:46 Troponin I 0.03 ng/mL (0.01-0.05) 05/06/17 16:46 Total Protein 7.6 gm/dL (6.0-8.3) 05/06/17 16:46 Albumin 3.9 gm/dL (4.2-5.5) L 05/06/17 16:46 Globulin 3.7 gm/dL 05/06/17 16:46 Albumin/Globulin Ratio 1.1 (1.0-1.8) 05/06/17 16:46 Triglycerides 88 mg/dL (<150) 05/06/17 16:46 Cholesterol 126 mg/dL (<200) 05/06/17 16:46 LDL Cholesterol Direct 89 mg/dL (75-193) 05/06/17 16:46 HDL Cholesterol 30 mg/dL (23-92) 05/06/17 16:46 TSH 1.23 uIU/ml (0.34-5.60) 05/06/17 16:46 Urine Source CLEAN C 05/06/17 16:20 Urine Color YELLOW 05/06/17 16:20 Urine Clarity HAZY (CLEAR) 05/06/17 16:20 Urine pH 5.5 (4.6 - 8.0) 05/06/17 16:20 Ur Specific [place] 1.030 (1.005-1.030) 05/06/17 16:20 Urine Protein 30 mg/dL (NEGATIVE) H 05/06/17 16:20 Urine Glucose (UA) NEGATIVE mg/dL (NEGATIVE) 05/06/17 16:20 Urine Ketones NEGATIVE mg/dL (NEGATIVE) 05/06/17 16:20 Urine Blood NEGATIVE (NEGATIVE) 05/06/17 16:20 Urine Nitrate NEGATIVE (NEGATIVE) 05/06/17 16:20 Urine Bilirubin SMALL (NEGATIVE) H 05/06/17 16:20 Urine Urobilinogen 2.0 E.U./dL (0.2 - 1.0) 05/06/17 16:20 Ur Leukocyte Esterase NEGATIVE (NEGATIVE) 05/06/17 16:20 Urine RBC 0-1 /hpf (0-5) 05/06/17 16:20 Urine WBC 0-2 /hpf (0-5) 05/06/17 16:20 Ur Epithelial Cells OCCASIONAL /lpf (FEW) 05/06/17 16:20 Amorphous Sediment FEW URATES (NONE SEEN) 05/06/17 16:20 Urine Bacteria FEW /hpf (NONE SEEN) 05/06/17 16:20 Urine Mucus MODERATE /lpf (FEW) 05/06/17 16:20 RPR NONREACTIVE (NONREACTIVE) 05/06/17 16:46 - Physical Exam Vitals and I&O: Vital Signs Temp 99.0 F 05/08/17 11:50 Pulse 68 05/08/17 11:50 Resp 18 05/08/17 11:50 BP 109/65 05/08/17 11:50 Pulse Ox 98 05/08/17 11:50 Intake & Output 05/07/17 05/08/17 05/08/17 18:59 06:59 18:59 Intake Total 1020 Output Total 400 850 Balance 620 -850 Weight (lbs) 66.678 kg 65.771 kg Intake: Oral 1020 Output: Urine 400 850 Other: # Voids 2 # Bowel Movements 0 0 Active Medications: Current Medications Acetaminophen (Tylenol) 650 mg PO Q4H PRN PRN Reason: Pain Or Fever above 101 Stop: 07/05/17 19:13 Al Hydrox/Mg Hydrox/Simethicone (Maalox) 30 ml PO Q6H PRN PRN Reason: Dyspepsia Stop: 07/05/17 19:13 Albuterol Sulfate (Albuterol 2.5mg/3ml Neb Ud) 2.5 mg HHN Q2HRT PRN PRN Reason: Shortness of Breath or Wheeze Stop: 07/05/17 19:13 Divalproex Sodium (Depakote Er) 1,000 mg PO BID KAM PRN Reason: Protocol Stop: 07/06/17 08:59 Last Admin: 05/08/17 10:02 Dose: Not Given Ferrous Sulfate (Iron) 325 mg PO BID [facility] Stop: 07/06/17 08:59 Last Admin: 05/08/17 10:02 Dose: Not Given Guaifenesin (Robitussin) 200 mg PO Q4HR PRN PRN Reason: Cough or Congestion Stop: 07/05/17 19:13 Heparin Sodium (Porcine) (Heparin) 5,000 units SUBQ Q12HR KAM Stop: 07/05/17 20:59 Last Admin: 05/08/17 10:02 Dose: Not Given Dextrose/Sodium Chloride (D5-0.9%Ns) 1,000 mls @ 100 mls/hr IV .Q10H [facility] Stop: 07/05/17 19:14 Last Admin: 05/08/17 10:01 Dose: 100 mls/hr Ipratropium [place] (Atrovent Neb 0.5mg/2.5ml) 0.5 mg HHN Q2HRT PRN PRN Reason: Shortness of Breath or Wheeze Stop: 07/05/17 19:13 Levothyroxine Sodium (Synthroid) 0.075 mg PO QDAC KAM Stop: 07/06/17 07:29 Last Admin: 05/08/17 06:38 Dose: Not Given Olanzapine (Zyprexa) 10 mg PO HS KAM PRN Reason: Protocol Stop: 07/07/17 20:59 Ondansetron HCl (Zofran) 4 mg IV Q8H PRN PRN Reason: Nausea / Vomiting Stop: 07/05/17 19:13 Pantoprazole Sodium (Protonix) 40 mg PO BID [facility] Stop: 07/06/17 08:59 Last Admin: 05/08/17 10:03 Dose: Not Given Sucralfate (Carafate) 1 gm PO QID KAM Stop: 07/05/17 20:59 Last Admin: 05/08/17 12:50 Dose: 1 gm Zolpidem Tartrate (Ambien) 5 mg PO HS PRN PRN Reason: Insomnia Stop: 07/05/17 19:12 Assessment/Plan - Problem List Patient Problems: All Active Problems DIFFICULTY IN SWALLOWING/POOR ORAL INTAK (Acute) - Assessment Assessment: 46 YO MALE WITH DYSPHAGIA HAD EGD 1-2 WEEKS AGO BUT DOES NOT FEEL BETTER AND WANTS ANOTHER EGD 1.EGD CAN BE DONE WHEN PT HAS IV ACCESS 2.CONT SUPP CARE 3.CONSIDER ESOPHOGRAM
[2017-05-09 06:19] LABS: % EOSINOPHILS 1.9 % (0.0-5.0); % LYMPHOCYTES 36.5 % (20.0-50.0); % MONOCYTES 9.5 % (2.0-10.0); % NEUTROPHILS 52.1 % (40.0-80.0); HEMATOCRIT 35.8 % (41.0-60); MEAN CELL VOLUME 93.4 fl (80-99); MEAN CORPUSCULAR HEMOGLOBIN 31.2 pg (26.0-30.0); MEAN CORPUSCULAR HGB CONC 33.4 pg (28.0-36.0); MEAN PLATELET VOLUME 10.1 fl; NEUTROPHILE ABSOLUTE 3.4 Th/cmm (1.8-8.0); PLATELET COUNT 171 Th/cmm (150-400); RED BLOOD COUNT 3.84 Mil/cmm (4.30-5.70); RED CELL DISTRIBUTION WIDTH 12.8 % (11.5-20.0); WHITE BLOOD COUNT 6.5 Th/cmm (4.8-10.8)
[2017-05-09 06:32] LABS: INR 1.09 (0.5-1.4); PROTHROMBIN TIME (TEST) 11.3 SECONDS (9.5-11.5)
[2017-05-09 06:39] LABS: ANION GAP 7.7 (7.0-16.0); BUN - UREA NITROGEN 9 mg/dL (7-25); CALCIUM SERUM 9.3 mg/dL (8.6-10.3); CARBON DIOXIDE 28.9 mEq/L (21.0-31.0); CHLORIDE 101 mEq/L (98-107); CREATININE - SERUM 0.9 mg/dL (0.7-1.3); GLUCOSE 108 mg/dL (70-105); MAGNESIUM 1.6 mg/dL (1.9-2.7); POTASSIUM SERUM 3.6 mEq/L (3.5-5.1); SODIUM SERUM 134 mEq/L (136-145)
[2017-05-09] MEDS: Levothyroxine 0.075 Mg Tab PO SCH (11:29)
[2017-05-09] MEDS: Ferrous Sulfate 325 MG TAB PO SCH ×2 (11:30→17:18)
[2017-05-09] MEDS: OLANZapine 5 mg Oral Disintegrating Tab PO SCH (11:31)
[2017-05-09] MEDS: Pantoprazole 40 mg EC Tab PO SCH ×2 (11:32→17:18)
[2017-05-09] MEDS ORDERED: Mag Sulfate 2gm/50mL Premix 2 GM/50 ML BAG IV ONE (12:49)
--- NOTE | 2017-05-09 14:03 | Internal Medicine Prog Note ---
Internal Medicine Subjective - Subjective Service Date: 05/09/17 Patient is:: awake, verbal Patient Complaints of:: vomitting Per staff patient has:: tolerating meds Internal Medicine Objective - Results Result Diagrams: 05/09/17 05:45 05/09/17 05:45 Recent Labs: Laboratory Last Values WBC 6.5 Th/cmm (4.8-10.8) 05/09/17 05:45 RBC 3.84 Mil/cmm (4.30-5.70) L 05/09/17 05:45 Hgb 12.0 gm/dL (12-16) 05/09/17 05:45 Hct 35.8 % (41.0-60) L 05/09/17 05:45 MCV 93.4 fl (80-99) 05/09/17 05:45 MCH 31.2 pg (26.0-30.0) H 05/09/17 05:45 MCHC Differential 33.4 pg (28.0-36.0) 05/09/17 05:45 RDW 12.8 % (11.5-20.0) 05/09/17 05:45 Plt Count 171 Th/cmm (150-400) 05/09/17 05:45 MPV 10.1 fl 05/09/17 05:45 Neutrophils % 52.1 % (40.0-80.0) 05/09/17 05:45 Lymphocytes % 36.5 % (20.0-50.0) 05/09/17 05:45 Monocytes % 9.5 % (2.0-10.0) 05/09/17 05:45 Eosinophils % 1.9 % (0.0-5.0) 05/09/17 05:45 Basophils % 0.0 % (0.0-2.0) 05/09/17 05:45 PT 11.3 SECONDS (9.5-11.5) 05/09/17 05:45 INR 1.09 (0.5-1.4) 05/09/17 05:45 PTT (Actin FS) 25.7 SECONDS (26.0-38.0) L 05/06/17 16:46 Sodium 134 mEq/L (136-145) L 05/09/17 05:45 Potassium 3.6 mEq/L (3.5-5.1) 05/09/17 05:45 Chloride 101 mEq/L (98-107) 05/09/17 05:45 Carbon Dioxide 28.9 mEq/L (21.0-31.0) 05/09/17 05:45 Anion Gap 7.7 (7.0-16.0) 05/09/17 05:45 BUN 9 mg/dL (7-25) 05/09/17 05:45 Creatinine 0.9 mg/dL (0.7-1.3) 05/09/17 05:45 Est GFR ( Amer) > 60.0 ml/min (>90) 05/09/17 05:45 Est GFR (Non-Af Amer) > 60.0 ml/min 05/09/17 05:45 BUN/Creatinine Ratio 10.0 05/09/17 05:45 Glucose 108 mg/dL (70-105) H 05/09/17 05:45 Calcium 9.3 mg/dL (8.6-10.3) 05/09/17 05:45 Magnesium 1.6 mg/dL (1.9-2.7) L 05/09/17 05:45 Total Bilirubin 0.6 mg/dL (0.3-1.0) 05/06/17 16:46 AST 18 U/L (13-39) 05/06/17 16:46 ALT 18 U/L (7-52) 05/06/17 16:46 Alkaline Phosphatase 48 U/L (34-104) 05/06/17 16:46 Troponin I 0.03 ng/mL (0.01-0.05) 05/06/17 16:46 Total Protein 7.6 gm/dL (6.0-8.3) 05/06/17 16:46 Albumin 3.9 gm/dL (4.2-5.5) L 05/06/17 16:46 Globulin 3.7 gm/dL 05/06/17 16:46 Albumin/Globulin Ratio 1.1 (1.0-1.8) 05/06/17 16:46 Triglycerides 88 mg/dL (<150) 05/06/17 16:46 Cholesterol 126 mg/dL (<200) 05/06/17 16:46 LDL Cholesterol Direct 89 mg/dL (75-193) 05/06/17 16:46 HDL Cholesterol 30 mg/dL (23-92) 05/06/17 16:46 TSH 1.23 uIU/ml (0.34-5.60) 05/06/17 16:46 Urine Source CLEAN C 05/06/17 16:20 Urine Color YELLOW 05/06/17 16:20 Urine Clarity HAZY (CLEAR) 05/06/17 16:20 Urine pH 5.5 (4.6 - 8.0) 05/06/17 16:20 Ur Specific [place] 1.030 (1.005-1.030) 05/06/17 16:20 Urine Protein 30 mg/dL (NEGATIVE) H 05/06/17 16:20 Urine Glucose (UA) NEGATIVE mg/dL (NEGATIVE) 05/06/17 16:20 Urine Ketones NEGATIVE mg/dL (NEGATIVE) 05/06/17 16:20 Urine Blood NEGATIVE (NEGATIVE) 05/06/17 16:20 Urine Nitrate NEGATIVE (NEGATIVE) 05/06/17 16:20 Urine Bilirubin SMALL (NEGATIVE) H 05/06/17 16:20 Urine Urobilinogen 2.0 E.U./dL (0.2 - 1.0) 05/06/17 16:20 Ur Leukocyte Esterase NEGATIVE (NEGATIVE) 05/06/17 16:20 Urine RBC 0-1 /hpf (0-5) 05/06/17 16:20 Urine WBC 0-2 /hpf (0-5) 05/06/17 16:20 Ur Epithelial Cells OCCASIONAL /lpf (FEW) 05/06/17 16:20 Amorphous Sediment FEW URATES (NONE SEEN) 05/06/17 16:20 Urine Bacteria FEW /hpf (NONE SEEN) 05/06/17 16:20 Urine Mucus MODERATE /lpf (FEW) 05/06/17 16:20 Valproic Acid < 10.0 ug/mL (50.0-100.0) L 05/09/17 05:45 RPR NONREACTIVE (NONREACTIVE) 05/06/17 16:46 - Physical Exam Vitals and I&O: Vital Signs Temp 98.0 F 05/09/17 11:51 Pulse 58 05/09/17 11:51 Resp 17 05/09/17 11:51 BP 112/60 05/09/17 11:51 Pulse Ox 98 05/09/17 11:51 Intake & Output 05/08/17 05/09/17 05/09/17 18:59 06:59 18:59 Intake Total 605 Output Total 500 500 Balance 105 -500 Weight (lbs) 145 lb 147 lb Intake: Oral 605 Output: Urine 500 500 Active Medications: Current Medications Acetaminophen (Tylenol) 650 mg PO Q4H PRN PRN Reason: Pain Or Fever above 101 Stop: 07/05/17 19:13 Al Hydrox/Mg Hydrox/Simethicone (Maalox) 30 ml PO Q6H PRN PRN Reason: Dyspepsia Stop: 07/05/17 19:13 Albuterol Sulfate (Albuterol 2.5mg/3ml Neb Ud) 2.5 mg HHN Q2HRT PRN PRN Reason: Shortness of Breath or Wheeze Stop: 07/05/17 19:13 Divalproex Sodium (Depakote Er) 1,000 mg PO BID KAM PRN Reason: Protocol Stop: 07/06/17 08:59 Last Admin: 05/09/17 11:29 Dose: Not Given Ferrous Sulfate (Iron) 325 mg PO BID KAM Stop: 07/06/17 08:59 Last Admin: 05/09/17 11:30 Dose: Not Given Guaifenesin (Robitussin) 200 mg PO Q4HR PRN PRN Reason: Cough or Congestion Stop: 07/05/17 19:13 Heparin Sodium (Porcine) (Heparin) 5,000 units SUBQ Q12HR KAM Stop: 07/05/17 20:59 Last Admin: 05/09/17 11:31 Dose: Not Given Dextrose/Sodium Chloride (D5-0.9%Ns) 1,000 mls @ 100 mls/hr IV .Q10H KAM Stop: 07/05/17 19:14 Last Admin: 05/08/17 10:01 Dose: 100 mls/hr Magnesium Sulfate (Magnesium Sulfate Premix) 2 gm in 50 mls @ 25 mls/hr IV X1 ONE Stop: 05/09/17 14:48 Last Admin: 05/09/17 13:26 Dose: 25 mls/hr Ipratropium [place] (Atrovent Neb 0.5mg/2.5ml) 0.5 mg HHN Q2HRT PRN PRN Reason: Shortness of Breath or Wheeze Stop: 07/05/17 19:13 Levothyroxine Sodium (Synthroid) 0.075 mg PO QDAC [facility] Stop: 07/06/17 07:29 Last Admin: 05/09/17 11:29 Dose: Not Given Olanzapine (Zyprexa) 10 mg PO HS KAM PRN Reason: Protocol Stop: 07/07/17 20:59 Last Admin: 05/08/17 21:22 Dose: Not Given Olanzapine (Zyprexa Zydis) 5 mg PO DAILY KAM PRN Reason: Protocol Stop: 07/08/17 08:59 Last Admin: 05/09/17 11:31 Dose: Not Given Ondansetron HCl (Zofran) 4 mg IV Q8H PRN PRN Reason: Nausea / Vomiting Stop: 07/05/17 19:13 Pantoprazole Sodium (Protonix) 40 mg PO BID [facility] Stop: 07/06/17 08:59 Last Admin: 05/09/17 11:32 Dose: Not Given Sucralfate (Carafate) 1 gm PO QID [facility] Stop: 07/05/17 20:59 Last Admin: 05/09/17 11:30 Dose: Not Given Zolpidem Tartrate (Ambien) 5 mg PO HS PRN PRN Reason: Insomnia Stop: 07/05/17 19:12 General: alert HEENT: NC/AT, PERRLA Neck: Supple Abdomen: soft, non-tender, non-distended, positive bowel sound Extremities: excoriation Neurological: alert Internal Medicine Assmt/Plan - Assessment Assessment: DYSPHAGIA DEHYDRATION FAILURE TO THRIVE HYPONATREMIA HYPOKALEMIA GERD HTN BARETT'S ESOPHAGUS - Plan Plan: monitor cbc/bmp ivf for hydration continue current plan of care Nutritional Asmnt/Malnutr-PDOC - Dietary Evaluation Malnutrition Findings (Please click <Entered> for more info): Nutritional Asmnt/Malnutrition Start: 05/07/17 10: 39 Text: Status: Complete Freq: Document 05/07/17 14:31 GSUN (Rec: 05/07/17 15:03 [id number]) Nutritional Asmnt/Malnutrition Patient General Information Nutritional Screening Consult Diagnosis Dysphagia, dehydration, FTT, Serna esophagus, PCM Pertinent Medical Hx/Surgical Hx Schizophrenia, stroke, TIA, GERD, thyroid disease, arthritis, dementia Subjective Information 46 year old male from SNF. RD consult for dysphagia. Spoke to ELISE Christina, pt has ulcer in the throat, unable to eat, swallow eval ordered nad pending. Pt is a questionable historian, talkative, however speech unclear and difficult to understand. 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 Pt appeared thin, mild muscle fat wasting to chest and temporals. Current Diet Order/ Nutrition Support Clear liquid Pertinent Medications D5-0.9%ns, Iron, Synthroid, Zofran, Protonix, Carafate Pertinent Labs Reviewed. Nutritional Hx/Data Height 5 ft 9 in Height (Calculated Centimeters) 175.3 Current Weight (lbs) 147 lb Weight (Calculated Kilograms) 66.7 Weight (Calculated Grams) 75289.1 [place] Body Weight 160 Weight Status Approriate GI Symptoms Food Allergies No Skin Integrity/Comment: [place] 13. Skin intact. Estimated Nutritional Goals BEE in Kcals: Using Current wt Calories/Kcals/Kg CBW 147lb/66.8kg Kcals Calculated 1670-2004kcal (25-30kcal/kg) Protein: Using Current wt Protein Calculated 67g (1g/kg) Fluid: ml 1670-2004ml (1ml/kcal) Nutritional Problem 1. 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 GI consult and swallow eval pending, recommend regular diet with diet texture per ST if pt is able to resume oral diet. Nursing staff to ensure pt sit upright during meals to minimize possible reflux. 2. Monitor weight. 3. If unable to resume oral diet, recommend enteral nutrition. Expected Outcomes/Goals Expected Outcomes/Goals 1. Pt to meet at least 75% of estimated nutritional needs orally or enterally.
--- NOTE | 2017-05-09 16:47 | Operative Report ---
DATE OF SURGERY: 05/09/2017 INPATIENT GASTROINTESTINAL PROCEDURE PROCEDURE: EGD with biopsy and balloon dilatation. REFERRING PHYSICIAN: Dr. Sterling. REASON FOR PROCEDURE: Dysphagia. CONSENT: Risks, benefits, alternatives, nature, indication, possible outcomes were discussed. Mentioned bleeding, infection, perforation, , disability, cardiopulmonary distress and arrest, missed lesion and cancers, need for surgery. The patient and agreeing green party provided informed consent. PREOPERATIVE DIAGNOSIS: Dysphagia. POSTOPERATIVE DIAGNOSIS: Esophagitis. MEDICATIONS: MAC provided by anesthesiologist. DESCRIPTION OF PROCEDURE: The patient was placed on his left side. Upper endoscope was advanced from mouth to second portion of duodenum. Scope brought back in the stomach. Retroflexion view of fundus, cardia, lesser curvature, small hiatal hernia. Scope was straightened and slowly withdrawn through esophagus, mild esophagitis was seen. Biopsies were taken. No esophageal ulcers were seen. At this point, a CRE balloon was introduced and was inflated across the distal esophagus to provide patient with symptomatic relief, although we did not see any obvious strictures. Balloon was inflated to 18 mm and kept there for 60 seconds. Balloon was then deflated and removed. COMPLICATIONS: None. FINDINGS: 1. GE junction at 37 cm with patent esophagus with small hiatal hernia. No esophageal ulcers were seen. No esophageal strictures were seen. 2. Mild esophagitis, status post biopsy. 3. Normal stomach. 4. Normal duodenum. RECOMMENDATIONS: 1. Follow up on biopsy. 2. Provide the patient with proton pump inhibitor. 3. If symptoms persist, consider esophageal manometry and impedance. Thank you for allowing me to participate. Please call me if any questions. JOB# [id number]
--- NOTE | 2017-05-09 21:48 | Progress Notes ---
DATE: 05/09/2017 SUBJECTIVE: Chart reviewed and the patient interviewed. Also discussed the patient's condition with the staff and reviewed records and labs. The patient is still anxious and is still in irritable mood. The patient also is easily agitated. The patient also is hypertalkative and has been talking to himself and singing loudly and severely manicy. He also is still having difficulty interacting with others. Otherwise, the patient is denying any thoughts of suicide or homicide. ASSESSMENT: The patient is still psychotic. TREATMENT PLAN: We will continue monitoring his behavior and his condition closely. Also, we will increase Zyprexa to 5 mg in the morning and 10 mg at bedtime and we will continue to follow up with his behavior and his condition closely. [facility]# [id number]
[2017-05-09] MEDS ORDERED: Metoclopramide 5 mg/mL 2mL Vial IVP PRN (22:22)
[2017-05-10] MEDS: D5-0.9%NS 1,000 ML IV SCH ×2 (01:38→15:37)
[2017-05-10] MEDS: Levothyroxine 0.075 Mg Tab PO SCH (06:46)
--- NOTE | 2017-05-10 09:00 | GI Progress Note ---
Subjective - Review of Systems Subjective: HAS N/V PT DEMANDING ANOTHER EGD EVEN THOUGH IT WAS DONE LESS THAN 24 HRS Objective - Results Result Diagrams: 05/09/17 05:45 05/09/17 05:45 Recent Labs: Laboratory Last Values WBC 6.5 Th/cmm (4.8-10.8) 05/09/17 05:45 RBC 3.84 Mil/cmm (4.30-5.70) L 05/09/17 05:45 Hgb 12.0 gm/dL (12-16) 05/09/17 05:45 Hct 35.8 % (41.0-60) L 05/09/17 05:45 MCV 93.4 fl (80-99) 05/09/17 05:45 MCH 31.2 pg (26.0-30.0) H 05/09/17 05:45 MCHC Differential 33.4 pg (28.0-36.0) 05/09/17 05:45 RDW 12.8 % (11.5-20.0) 05/09/17 05:45 Plt Count 171 Th/cmm (150-400) 05/09/17 05:45 MPV 10.1 fl 05/09/17 05:45 Neutrophils % 52.1 % (40.0-80.0) 05/09/17 05:45 Lymphocytes % 36.5 % (20.0-50.0) 05/09/17 05:45 Monocytes % 9.5 % (2.0-10.0) 05/09/17 05:45 Eosinophils % 1.9 % (0.0-5.0) 05/09/17 05:45 Basophils % 0.0 % (0.0-2.0) 05/09/17 05:45 PT 11.3 SECONDS (9.5-11.5) 05/09/17 05:45 INR 1.09 (0.5-1.4) 05/09/17 05:45 PTT (Actin FS) 25.7 SECONDS (26.0-38.0) L 05/06/17 16:46 Sodium 134 mEq/L (136-145) L 05/09/17 05:45 Potassium 3.6 mEq/L (3.5-5.1) 05/09/17 05:45 Chloride 101 mEq/L (98-107) 05/09/17 05:45 Carbon Dioxide 28.9 mEq/L (21.0-31.0) 05/09/17 05:45 Anion Gap 7.7 (7.0-16.0) 05/09/17 05:45 BUN 9 mg/dL (7-25) 05/09/17 05:45 Creatinine 0.9 mg/dL (0.7-1.3) 05/09/17 05:45 Est GFR ( Amer) > 60.0 ml/min (>90) 05/09/17 05:45 Est GFR (Non-Af Amer) > 60.0 ml/min 05/09/17 05:45 BUN/Creatinine Ratio 10.0 05/09/17 05:45 Glucose 108 mg/dL (70-105) H 05/09/17 05:45 Calcium 9.3 mg/dL (8.6-10.3) 05/09/17 05:45 Magnesium 1.6 mg/dL (1.9-2.7) L 05/09/17 05:45 Total Bilirubin 0.6 mg/dL (0.3-1.0) 05/06/17 16:46 AST 18 U/L (13-39) 05/06/17 16:46 ALT 18 U/L (7-52) 05/06/17 16:46 Alkaline Phosphatase 48 U/L (34-104) 05/06/17 16:46 Troponin I 0.03 ng/mL (0.01-0.05) 05/06/17 16:46 Total Protein 7.6 gm/dL (6.0-8.3) 05/06/17 16:46 Albumin 3.9 gm/dL (4.2-5.5) L 05/06/17 16:46 Globulin 3.7 gm/dL 05/06/17 16:46 Albumin/Globulin Ratio 1.1 (1.0-1.8) 05/06/17 16:46 Triglycerides 88 mg/dL (<150) 05/06/17 16:46 Cholesterol 126 mg/dL (<200) 05/06/17 16:46 LDL Cholesterol Direct 89 mg/dL (75-193) 05/06/17 16:46 HDL Cholesterol 30 mg/dL (23-92) 05/06/17 16:46 TSH 1.23 uIU/ml (0.34-5.60) 05/06/17 16:46 Urine Source CLEAN C 05/06/17 16:20 Urine Color YELLOW 05/06/17 16:20 Urine Clarity HAZY (CLEAR) 05/06/17 16:20 Urine pH 5.5 (4.6 - 8.0) 05/06/17 16:20 Ur Specific [place] 1.030 (1.005-1.030) 05/06/17 16:20 Urine Protein 30 mg/dL (NEGATIVE) H 05/06/17 16:20 Urine Glucose (UA) NEGATIVE mg/dL (NEGATIVE) 05/06/17 16:20 Urine Ketones NEGATIVE mg/dL (NEGATIVE) 05/06/17 16:20 Urine Blood NEGATIVE (NEGATIVE) 05/06/17 16:20 Urine Nitrate NEGATIVE (NEGATIVE) 05/06/17 16:20 Urine Bilirubin SMALL (NEGATIVE) H 05/06/17 16:20 Urine Urobilinogen 2.0 E.U./dL (0.2 - 1.0) 05/06/17 16:20 Ur Leukocyte Esterase NEGATIVE (NEGATIVE) 05/06/17 16:20 Urine RBC 0-1 /hpf (0-5) 05/06/17 16:20 Urine WBC 0-2 /hpf (0-5) 05/06/17 16:20 Ur Epithelial Cells OCCASIONAL /lpf (FEW) 05/06/17 16:20 Amorphous Sediment FEW URATES (NONE SEEN) 05/06/17 16:20 Urine Bacteria FEW /hpf (NONE SEEN) 05/06/17 16:20 Urine Mucus MODERATE /lpf (FEW) 05/06/17 16:20 Valproic Acid < 10.0 ug/mL (50.0-100.0) L 05/09/17 05:45 RPR NONREACTIVE (NONREACTIVE) 05/06/17 16:46 - Physical Exam Vitals and I&O: Vital Signs Temp 98.0 F 05/10/17 04:00 Pulse 81 05/10/17 04:00 Resp 18 05/10/17 04:00 BP 115/85 05/10/17 04:00 Pulse Ox 100 05/10/17 04:00 Intake & Output 05/09/17 05/10/17 05/10/17 18:59 06:59 18:59 Intake Total 0 Output Total 800 Balance -800 Weight (lbs) 66.678 kg 69.536 kg Intake: Oral 0 Output: Urine 100 Emesis 700 Other: # Voids 3 # Bowel Movements 0 Active Medications: Current Medications Acetaminophen (Tylenol) 650 mg PO Q4H PRN PRN Reason: Pain Or Fever above 101 Stop: 07/05/17 19:13 Al Hydrox/Mg Hydrox/Simethicone (Maalox) 30 ml PO Q6H PRN PRN Reason: Dyspepsia Stop: 07/05/17 19:13 Albuterol Sulfate (Albuterol 2.5mg/3ml Neb Ud) 2.5 mg HHN Q2HRT PRN PRN Reason: Shortness of Breath or Wheeze Stop: 07/05/17 19:13 Divalproex Sodium (Depakote Er) 1,000 mg PO BID KAM PRN Reason: Protocol Stop: 07/06/17 08:59 Last Admin: 05/09/17 17:18 Dose: Not Given Ferrous Sulfate (Iron) 325 mg PO BID [facility] Stop: 07/06/17 08:59 Last Admin: 05/09/17 17:18 Dose: Not Given Guaifenesin (Robitussin) 200 mg PO Q4HR PRN PRN Reason: Cough or Congestion Stop: 07/05/17 19:13 Heparin Sodium (Porcine) (Heparin) 5,000 units SUBQ Q12HR [facility] Stop: 07/05/17 20:59 Last Admin: 05/09/17 21:26 Dose: Not Given Dextrose/Sodium Chloride (D5-0.9%Ns) 1,000 mls @ 70 mls/hr IV .[id number] [facility] Stop: 07/05/17 19:14 Last Admin: 05/10/17 01:38 Dose: 70 mls/hr Ipratropium Foster (Atrovent Neb 0.5mg/2.5ml) 0.5 mg HHN Q2HRT PRN PRN Reason: Shortness of Breath or Wheeze Stop: 07/05/17 19:13 Levothyroxine Sodium (Synthroid) 0.075 mg PO QDAC [facility] Stop: 07/06/17 07:29 Last Admin: 05/10/17 06:46 Dose: Not Given Lorazepam (Ativan) 0.5 mg IV Q6H PRN; Protocol PRN Reason: Agitation Stop: 07/08/17 22:33 Last Admin: 05/09/17 22:51 Dose: 0.5 mg Olanzapine (Zyprexa) 10 mg PO HS KAM PRN Reason: Protocol Stop: 07/07/17 20:59 Last Admin: 05/09/17 21:26 Dose: Not Given Olanzapine (Zyprexa Zydis) 5 mg PO DAILY KAM PRN Reason: Protocol Stop: 07/08/17 08:59 Last Admin: 05/09/17 11:31 Dose: Not Given Ondansetron HCl (Zofran) 4 mg IV Q8H PRN PRN Reason: Nausea / Vomiting Stop: 07/05/17 19:13 Last Admin: 05/10/17 04:39 Dose: 4 mg Pantoprazole Sodium (Protonix) 40 mg PO BID [facility] Stop: 07/06/17 08:59 Last Admin: 05/09/17 17:18 Dose: Not Given Sucralfate (Carafate) 1 gm PO QID KAM Stop: 07/05/17 20:59 Last Admin: 05/09/17 21:26 Dose: Not Given Zolpidem Tartrate (Ambien) 5 mg PO HS PRN PRN Reason: Insomnia Stop: 07/05/17 19:12 Assessment/Plan - Problem List Patient Problems: All Active Problems DIFFICULTY IN SWALLOWING/POOR ORAL INTAK (Acute) - Assessment Assessment: 46 YO MALE WITH DYSPHAGIA HAD EGD 1-2 WEEKS AGO BUT DOES NOT FEEL BETTER AND WANTS ANOTHER EGD EGD DONE YESTERDAY SHOWED MILD ESOPHAGITIS WITHOUT STRICTURE THERPEUTIC BALLOON DILATATION PERFORMED FOR RELIEF BUT LIKELY NON SIGNIFICANT SINCE THE ESOPHAGUS WAS WIDELY PATENT 1.ANTI-EMETICS AND ANTACIDS 2.CONT SUPP CARE 3.CONSIDER ESOPH MANOMETRY AND IMPEDENCE 4.CONSIDER PSYCH EVAL PER HOSPITALIST
[2017-05-10] MEDS: OLANZapine 5 mg Oral Disintegrating Tab PO SCH (09:37)
[2017-05-10] MEDS: Pantoprazole 40 mg EC Tab PO SCH ×2 (09:37→21:51)
[2017-05-10] MEDS: Ferrous Sulfate 325 MG TAB PO SCH ×2 (09:37→21:51)
--- NOTE | 2017-05-10 12:31 | Internal Medicine Prog Note ---
Internal Medicine Subjective - Subjective Service Date: 05/10/17 (patient had x5 episodes of emesis) Patient is:: awake, verbal Patient Complaints of:: vomitting Per staff patient has:: tolerating meds Internal Medicine Objective - Results Result Diagrams: 05/09/17 05:45 05/09/17 05:45 Recent Labs: Laboratory Last Values WBC 6.5 Th/cmm (4.8-10.8) 05/09/17 05:45 RBC 3.84 Mil/cmm (4.30-5.70) L 05/09/17 05:45 Hgb 12.0 gm/dL (12-16) 05/09/17 05:45 Hct 35.8 % (41.0-60) L 05/09/17 05:45 MCV 93.4 fl (80-99) 05/09/17 05:45 MCH 31.2 pg (26.0-30.0) H 05/09/17 05:45 MCHC Differential 33.4 pg (28.0-36.0) 05/09/17 05:45 RDW 12.8 % (11.5-20.0) 05/09/17 05:45 Plt Count 171 Th/cmm (150-400) 05/09/17 05:45 MPV 10.1 fl 05/09/17 05:45 Neutrophils % 52.1 % (40.0-80.0) 05/09/17 05:45 Lymphocytes % 36.5 % (20.0-50.0) 05/09/17 05:45 Monocytes % 9.5 % (2.0-10.0) 05/09/17 05:45 Eosinophils % 1.9 % (0.0-5.0) 05/09/17 05:45 Basophils % 0.0 % (0.0-2.0) 05/09/17 05:45 PT 11.3 SECONDS (9.5-11.5) 05/09/17 05:45 INR 1.09 (0.5-1.4) 05/09/17 05:45 PTT (Actin FS) 25.7 SECONDS (26.0-38.0) L 05/06/17 16:46 Sodium 134 mEq/L (136-145) L 05/09/17 05:45 Potassium 3.6 mEq/L (3.5-5.1) 05/09/17 05:45 Chloride 101 mEq/L (98-107) 05/09/17 05:45 Carbon Dioxide 28.9 mEq/L (21.0-31.0) 05/09/17 05:45 Anion Gap 7.7 (7.0-16.0) 05/09/17 05:45 BUN 9 mg/dL (7-25) 05/09/17 05:45 Creatinine 0.9 mg/dL (0.7-1.3) 05/09/17 05:45 Est GFR ( Amer) > 60.0 ml/min (>90) 05/09/17 05:45 Est GFR (Non-Af Amer) > 60.0 ml/min 05/09/17 05:45 BUN/Creatinine Ratio 10.0 05/09/17 05:45 Glucose 108 mg/dL (70-105) H 05/09/17 05:45 Calcium 9.3 mg/dL (8.6-10.3) 05/09/17 05:45 Magnesium 1.6 mg/dL (1.9-2.7) L 05/09/17 05:45 Total Bilirubin 0.6 mg/dL (0.3-1.0) 05/06/17 16:46 AST 18 U/L (13-39) 05/06/17 16:46 ALT 18 U/L (7-52) 05/06/17 16:46 Alkaline Phosphatase 48 U/L (34-104) 05/06/17 16:46 Troponin I 0.03 ng/mL (0.01-0.05) 05/06/17 16:46 Total Protein 7.6 gm/dL (6.0-8.3) 05/06/17 16:46 Albumin 3.9 gm/dL (4.2-5.5) L 05/06/17 16:46 Globulin 3.7 gm/dL 05/06/17 16:46 Albumin/Globulin Ratio 1.1 (1.0-1.8) 05/06/17 16:46 Triglycerides 88 mg/dL (<150) 05/06/17 16:46 Cholesterol 126 mg/dL (<200) 05/06/17 16:46 LDL Cholesterol Direct 89 mg/dL (75-193) 05/06/17 16:46 HDL Cholesterol 30 mg/dL (23-92) 05/06/17 16:46 TSH 1.23 uIU/ml (0.34-5.60) 05/06/17 16:46 Urine Source CLEAN C 05/06/17 16:20 Urine Color YELLOW 05/06/17 16:20 Urine Clarity HAZY (CLEAR) 05/06/17 16:20 Urine pH 5.5 (4.6 - 8.0) 05/06/17 16:20 Ur Specific [place] 1.030 (1.005-1.030) 05/06/17 16:20 Urine Protein 30 mg/dL (NEGATIVE) H 05/06/17 16:20 Urine Glucose (UA) NEGATIVE mg/dL (NEGATIVE) 05/06/17 16:20 Urine Ketones NEGATIVE mg/dL (NEGATIVE) 05/06/17 16:20 Urine Blood NEGATIVE (NEGATIVE) 05/06/17 16:20 Urine Nitrate NEGATIVE (NEGATIVE) 05/06/17 16:20 Urine Bilirubin SMALL (NEGATIVE) H 05/06/17 16:20 Urine Urobilinogen 2.0 E.U./dL (0.2 - 1.0) 05/06/17 16:20 Ur Leukocyte Esterase NEGATIVE (NEGATIVE) 05/06/17 16:20 Urine RBC 0-1 /hpf (0-5) 05/06/17 16:20 Urine WBC 0-2 /hpf (0-5) 05/06/17 16:20 Ur Epithelial Cells OCCASIONAL /lpf (FEW) 05/06/17 16:20 Amorphous Sediment FEW URATES (NONE SEEN) 05/06/17 16:20 Urine Bacteria FEW /hpf (NONE SEEN) 05/06/17 16:20 Urine Mucus MODERATE /lpf (FEW) 05/06/17 16:20 Valproic Acid < 10.0 ug/mL (50.0-100.0) L 05/09/17 05:45 RPR NONREACTIVE (NONREACTIVE) 05/06/17 16:46 - Physical Exam Vitals and I&O: Vital Signs Temp 97.4 F 05/10/17 12:17 Pulse 67 05/10/17 12:17 Resp 18 05/10/17 12:17 BP 125/87 05/10/17 12:17 Pulse Ox 99 05/10/17 12:17 Intake & Output 05/09/17 05/10/17 05/10/17 18:59 06:59 18:59 Intake Total 0 Output Total 800 Balance -800 Weight (lbs) 147 lb 153 lb 4.8 oz Intake: Oral 0 Output: Urine 100 Emesis 700 Other: # Voids 3 # Bowel Movements 0 Active Medications: Current Medications Acetaminophen (Tylenol) 650 mg PO Q4H PRN PRN Reason: Pain Or Fever above 101 Stop: 07/05/17 19:13 Al Hydrox/Mg Hydrox/Simethicone (Maalox) 30 ml PO Q6H PRN PRN Reason: Dyspepsia Stop: 07/05/17 19:13 Albuterol Sulfate (Albuterol 2.5mg/3ml Neb Ud) 2.5 mg HHN Q2HRT PRN PRN Reason: Shortness of Breath or Wheeze Stop: 07/05/17 19:13 Divalproex Sodium (Depakote Er) 1,000 mg PO BID KAM PRN Reason: Protocol Stop: 07/06/17 08:59 Last Admin: 05/10/17 09:37 Dose: Not Given Ferrous Sulfate (Iron) 325 mg PO BID [facility] Stop: 07/06/17 08:59 Last Admin: 05/10/17 09:37 Dose: Not Given Guaifenesin (Robitussin) 200 mg PO Q4HR PRN PRN Reason: Cough or Congestion Stop: 07/05/17 19:13 Heparin Sodium (Porcine) (Heparin) 5,000 units SUBQ Q12HR [facility] Stop: 07/05/17 20:59 Last Admin: 05/10/17 09:37 Dose: Not Given Dextrose/Sodium Chloride (D5-0.9%Ns) 1,000 mls @ 70 mls/hr IV .[id number] [facility] Stop: 07/05/17 19:14 Last Admin: 05/10/17 01:38 Dose: 70 mls/hr Ipratropium Sarah (Atrovent Neb 0.5mg/2.5ml) 0.5 mg HHN Q2HRT PRN PRN Reason: Shortness of Breath or Wheeze Stop: 07/05/17 19:13 Levothyroxine Sodium (Synthroid) 0.075 mg PO QDAC [facility] Stop: 07/06/17 07:29 Last Admin: 05/10/17 06:46 Dose: Not Given Lorazepam (Ativan) 0.5 mg IV Q6H PRN; Protocol PRN Reason: Agitation Stop: 07/08/17 22:33 Last Admin: 05/09/17 22:51 Dose: 0.5 mg Metoclopramide HCl (Reglan) 10 mg IVP Q8HR PRN PRN Reason: Nausea / Vomiting Stop: 07/09/17 11:31 Olanzapine (Zyprexa) 10 mg PO HS KAM PRN Reason: Protocol Stop: 07/07/17 20:59 Last Admin: 05/09/17 21:26 Dose: Not Given Olanzapine (Zyprexa Zydis) 5 mg PO DAILY KAM PRN Reason: Protocol Stop: 07/08/17 08:59 Last Admin: 05/10/17 09:37 Dose: Not Given Ondansetron HCl (Zofran) 4 mg IV Q8H PRN PRN Reason: Nausea / Vomiting Stop: 07/05/17 19:13 Last Admin: 05/10/17 04:39 Dose: 4 mg Pantoprazole Sodium (Protonix) 40 mg PO BID [facility] Stop: 07/06/17 08:59 Last Admin: 05/10/17 09:37 Dose: Not Given Sucralfate (Carafate) 1 gm PO QID [facility] Stop: 07/05/17 20:59 Last Admin: 05/10/17 09:37 Dose: Not Given Zolpidem Tartrate (Ambien) 5 mg PO HS PRN PRN Reason: Insomnia Stop: 07/05/17 19:12 General: alert HEENT: NC/AT, PERRLA Neck: Supple Abdomen: soft, non-tender, non-distended, positive bowel sound Extremities: excoriation Neurological: alert Internal Medicine Assmt/Plan - Assessment Assessment: DYSPHAGIA DEHYDRATION FAILURE TO THRIVE HYPONATREMIA HYPOKALEMIA GERD HTN BARETT'S ESOPHAGUS - Plan Plan: will add reglan and prn zofran monitor cbc/bmp ivf for hydration continue current plan of care Nutritional Asmnt/Malnutr-PDOC - Dietary Evaluation Malnutrition Findings (Please click <Entered> for more info): Nutritional Asmnt/Malnutrition Start: 05/07/17 10: 39 Text: Status: Complete Freq: Document 05/07/17 14:31 GSUN (Rec: 05/07/17 15:03 GSUN [id number]) Nutritional Asmnt/Malnutrition Patient General Information Nutritional Screening Consult Diagnosis Dysphagia, dehydration, FTT, Serna esophagus, PCM Pertinent Medical Hx/Surgical Hx Schizophrenia, stroke, TIA, GERD, thyroid disease, arthritis, dementia Subjective Information 46 year old male from SNF. RD consult for dysphagia. Spoke to ELISE Christina, pt has ulcer in the throat, unable to eat, swallow eval ordered nad pending. Pt is a questionable historian, talkative, however speech unclear and difficult to understand. 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 Pt appeared thin, mild muscle fat wasting to chest and temporals. Current Diet Order/ Nutrition Support Clear liquid Pertinent Medications D5-0.9%ns, Iron, Synthroid, Zofran, Protonix, Carafate Pertinent Labs Reviewed. Nutritional Hx/Data Height 5 ft 9 in Height (Calculated Centimeters) 175.3 Current Weight (lbs) 147 lb Weight (Calculated Kilograms) 66.7 Weight (Calculated Grams) 70510.1 [place] Body Weight 160 Weight Status Approriate GI Symptoms Food Allergies No Skin Integrity/Comment: Murray 13. Skin intact. Estimated Nutritional Goals BEE in Kcals: Using Current wt Calories/Kcals/Kg CBW 147lb/66.8kg Kcals Calculated 1670-2004kcal (25-30kcal/kg) Protein: Using Current wt Protein Calculated 67g (1g/kg) Fluid: ml 1670-2004ml (1ml/kcal) Nutritional Problem 1. 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 GI consult and swallow eval pending, recommend regular diet with diet texture per ST if pt is able to resume oral diet. Nursing staff to ensure pt sit upright during meals to minimize possible reflux. 2. Monitor weight. 3. If unable to resume oral diet, recommend enteral nutrition. Expected Outcomes/Goals Expected Outcomes/Goals 1. Pt to meet at least 75% of estimated nutritional needs orally or enterally.
--- NOTE | 2017-05-10 13:52 | Diagnostic Imaging Report ---
KUB single view HISTORY: Abdominal pain. COMPARISON: None FINDINGS: Moderate amount of stool noted. The bowel gas pattern is overall nonspecific. Degenerative changes of the lower lumbar spine are noted. IMPRESSION: Moderate amount of stool. Overall the bowel gas pattern is nonspecific.
[2017-05-10] MEDS: Metoclopramide 5 mg/mL 2mL Vial IVP PRN (21:53)
[2017-05-11] MEDS: Metoclopramide 5 mg/mL 2mL Vial IVP PRN (06:31)
[2017-05-11] MEDS: Levothyroxine 0.075 Mg Tab PO SCH (07:28)
[2017-05-11] MEDS: Ferrous Sulfate 325 MG TAB PO SCH ×2 (12:25→17:12)
[2017-05-11] MEDS: Pantoprazole 40 mg EC Tab PO SCH ×2 (12:26→17:12)
[2017-05-11] MEDS: OLANZapine 5 mg Oral Disintegrating Tab PO SCH (12:26)
[2017-05-11] MEDS ORDERED: Mag Sulfate 2gm/50mL Premix 2 GM/50 ML BAG IV ONE ×2 (14:20→14:52)
--- NOTE | 2017-05-11 14:22 | Internal Medicine Prog Note ---
Internal Medicine Subjective - Subjective Patient seen and examined:: with staff, chart reviewed Patient is:: awake, verbal Patient Complaints of:: vomitting, constipation Per staff patient has:: no adverse event, noncompliant, confused, tolerating meds Internal Medicine Objective - Results Result Diagrams: 05/09/17 05:45 05/09/17 05:45 Recent Labs: Laboratory Last Values WBC 6.5 Th/cmm (4.8-10.8) 05/09/17 05:45 RBC 3.84 Mil/cmm (4.30-5.70) L 05/09/17 05:45 Hgb 12.0 gm/dL (12-16) 05/09/17 05:45 Hct 35.8 % (41.0-60) L 05/09/17 05:45 MCV 93.4 fl (80-99) 05/09/17 05:45 MCH 31.2 pg (26.0-30.0) H 05/09/17 05:45 MCHC Differential 33.4 pg (28.0-36.0) 05/09/17 05:45 RDW 12.8 % (11.5-20.0) 05/09/17 05:45 Plt Count 171 Th/cmm (150-400) 05/09/17 05:45 MPV 10.1 fl 05/09/17 05:45 Neutrophils % 52.1 % (40.0-80.0) 05/09/17 05:45 Lymphocytes % 36.5 % (20.0-50.0) 05/09/17 05:45 Monocytes % 9.5 % (2.0-10.0) 05/09/17 05:45 Eosinophils % 1.9 % (0.0-5.0) 05/09/17 05:45 Basophils % 0.0 % (0.0-2.0) 05/09/17 05:45 PT 11.3 SECONDS (9.5-11.5) 05/09/17 05:45 INR 1.09 (0.5-1.4) 05/09/17 05:45 PTT (Actin FS) 25.7 SECONDS (26.0-38.0) L 05/06/17 16:46 Sodium 134 mEq/L (136-145) L 05/09/17 05:45 Potassium 3.6 mEq/L (3.5-5.1) 05/09/17 05:45 Chloride 101 mEq/L (98-107) 05/09/17 05:45 Carbon Dioxide 28.9 mEq/L (21.0-31.0) 05/09/17 05:45 Anion Gap 7.7 (7.0-16.0) 05/09/17 05:45 BUN 9 mg/dL (7-25) 05/09/17 05:45 Creatinine 0.9 mg/dL (0.7-1.3) 05/09/17 05:45 Est GFR ( Amer) > 60.0 ml/min (>90) 05/09/17 05:45 Est GFR (Non-Af Amer) > 60.0 ml/min 05/09/17 05:45 BUN/Creatinine Ratio 10.0 05/09/17 05:45 Glucose 108 mg/dL (70-105) H 05/09/17 05:45 Calcium 9.3 mg/dL (8.6-10.3) 05/09/17 05:45 Magnesium 1.6 mg/dL (1.9-2.7) L 05/09/17 05:45 Total Bilirubin 0.6 mg/dL (0.3-1.0) 05/06/17 16:46 AST 18 U/L (13-39) 05/06/17 16:46 ALT 18 U/L (7-52) 05/06/17 16:46 Alkaline Phosphatase 48 U/L (34-104) 05/06/17 16:46 Troponin I 0.03 ng/mL (0.01-0.05) 05/06/17 16:46 Total Protein 7.6 gm/dL (6.0-8.3) 05/06/17 16:46 Albumin 3.9 gm/dL (4.2-5.5) L 05/06/17 16:46 Globulin 3.7 gm/dL 05/06/17 16:46 Albumin/Globulin Ratio 1.1 (1.0-1.8) 05/06/17 16:46 Triglycerides 88 mg/dL (<150) 05/06/17 16:46 Cholesterol 126 mg/dL (<200) 05/06/17 16:46 LDL Cholesterol Direct 89 mg/dL (75-193) 05/06/17 16:46 HDL Cholesterol 30 mg/dL (23-92) 05/06/17 16:46 TSH 1.23 uIU/ml (0.34-5.60) 05/06/17 16:46 Urine Source CLEAN C 05/06/17 16:20 Urine Color YELLOW 05/06/17 16:20 Urine Clarity HAZY (CLEAR) 05/06/17 16:20 Urine pH 5.5 (4.6 - 8.0) 05/06/17 16:20 Ur Specific [place] 1.030 (1.005-1.030) 05/06/17 16:20 Urine Protein 30 mg/dL (NEGATIVE) H 05/06/17 16:20 Urine Glucose (UA) NEGATIVE mg/dL (NEGATIVE) 05/06/17 16:20 Urine Ketones NEGATIVE mg/dL (NEGATIVE) 05/06/17 16:20 Urine Blood NEGATIVE (NEGATIVE) 05/06/17 16:20 Urine Nitrate NEGATIVE (NEGATIVE) 05/06/17 16:20 Urine Bilirubin SMALL (NEGATIVE) H 05/06/17 16:20 Urine Urobilinogen 2.0 E.U./dL (0.2 - 1.0) 05/06/17 16:20 Ur Leukocyte Esterase NEGATIVE (NEGATIVE) 05/06/17 16:20 Urine RBC 0-1 /hpf (0-5) 05/06/17 16:20 Urine WBC 0-2 /hpf (0-5) 05/06/17 16:20 Ur Epithelial Cells OCCASIONAL /lpf (FEW) 05/06/17 16:20 Amorphous Sediment FEW URATES (NONE SEEN) 05/06/17 16:20 Urine Bacteria FEW /hpf (NONE SEEN) 05/06/17 16:20 Urine Mucus MODERATE /lpf (FEW) 05/06/17 16:20 Valproic Acid < 10.0 ug/mL (50.0-100.0) L 05/09/17 05:45 RPR NONREACTIVE (NONREACTIVE) 05/06/17 16:46 - Physical Exam Vitals and I&O: Vital Signs Temp 97.3 F 05/11/17 09:00 Pulse 99 05/11/17 09:00 Resp 18 05/11/17 09:00 BP 123/75 05/11/17 09:00 Pulse Ox 98 05/11/17 08:27 Intake & Output 05/10/17 05/11/17 05/11/17 18:59 06:59 18:59 Intake Total 978.833 0 Output Total 50 Balance 978.833 -50 Weight (lbs) 68.855 kg 68.492 kg Intake: Intake, IV Amount 978.833 D5-0.9%Ns 1,000 ml @ 70 978.833 mls/hr IV .[id number] [facility] Rx #:[id number] Oral 0 Output: Emesis 50 Other: # Voids 2 # Bowel Movements 0 Active Medications: Current Medications Acetaminophen (Tylenol) 650 mg PO Q4H PRN PRN Reason: Pain Or Fever above 101 Stop: 07/05/17 19:13 Al Hydrox/Mg Hydrox/Simethicone (Maalox) 30 ml PO Q6H PRN PRN Reason: Dyspepsia Stop: 07/05/17 19:13 Albuterol Sulfate (Albuterol 2.5mg/3ml Neb Ud) 2.5 mg HHN Q2HRT PRN PRN Reason: Shortness of Breath or Wheeze Stop: 07/05/17 19:13 Divalproex Sodium (Depakote Er) 1,000 mg PO BID [facility] PRN Reason: Protocol Stop: 07/06/17 08:59 Last Admin: 05/11/17 12:25 Dose: Not Given Ferrous Sulfate (Iron) 325 mg PO BID [facility] Stop: 07/06/17 08:59 Last Admin: 05/11/17 12:25 Dose: Not Given Guaifenesin (Robitussin) 200 mg PO Q4HR PRN PRN Reason: Cough or Congestion Stop: 07/05/17 19:13 Heparin Sodium (Porcine) (Heparin) 5,000 units SUBQ Q12HR [facility] Stop: 07/05/17 20:59 Last Admin: 05/11/17 12:25 Dose: Not Given Dextrose/Sodium Chloride (D5-0.9%Ns) 1,000 mls @ 70 mls/hr IV .[id number] KAM Stop: 07/05/17 19:14 Last Admin: 05/10/17 15:37 Dose: 70 mls/hr Magnesium Sulfate (Magnesium Sulfate Premix) 2 gm in 50 mls @ 25 mls/hr IV X1 ONE Stop: 05/11/17 16:19 Ipratropium [place] (Atrovent Neb 0.5mg/2.5ml) 0.5 mg HHN Q2HRT PRN PRN Reason: Shortness of Breath or Wheeze Stop: 07/05/17 19:13 Lactulose (Cephulac) 30 gm PO BID KAM Stop: 07/10/17 16:59 Levothyroxine Sodium (Synthroid) 0.075 mg PO QDAC KAM Stop: 07/06/17 07:29 Last Admin: 05/11/17 07:28 Dose: Not Given Lorazepam (Ativan) 0.5 mg IV Q6H PRN; Protocol PRN Reason: Agitation Stop: 07/08/17 22:33 Last Admin: 05/10/17 21:53 Dose: 0.5 mg Metoclopramide HCl (Reglan) 10 mg IVP Q8HR PRN PRN Reason: Nausea / Vomiting Stop: 07/09/17 11:31 Last Admin: 05/11/17 06:31 Dose: 10 mg Olanzapine (Zyprexa) 10 mg PO HS KAM PRN Reason: Protocol Stop: 07/07/17 20:59 Last Admin: 05/10/17 21:51 Dose: Not Given Olanzapine (Zyprexa Zydis) 5 mg PO DAILY KAM PRN Reason: Protocol Stop: 07/08/17 08:59 Last Admin: 05/11/17 12:26 Dose: Not Given Ondansetron HCl (Zofran) 4 mg IV Q8H PRN PRN Reason: Nausea / Vomiting Stop: 07/05/17 19:13 Last Admin: 05/10/17 13:23 Dose: 4 mg Pantoprazole Sodium (Protonix) 40 mg PO BID [facility]AM Stop: 07/06/17 08:59 Last Admin: 05/11/17 12:26 Dose: Not Given Sucralfate (Carafate) 1 gm PO QID [facility]AM Stop: 07/05/17 20:59 Last Admin: 05/11/17 12:25 Dose: Not Given Zolpidem Tartrate (Ambien) 5 mg PO HS PRN PRN Reason: Insomnia Stop: 07/05/17 19:12 General: alert HEENT: NC/AT, PERRLA Neck: Supple Abdomen: soft, non-tender, non-distended, positive bowel sound Extremities: excoriation Neurological: alert Internal Medicine Assmt/Plan - Assessment Assessment: persistent vomitting DYSPHAGIA DEHYDRATION FAILURE TO THRIVE HYPONATREMIA HYPOKALEMIA GERD HTN BARETT'S ESOPHAGUS - Plan Plan: will add reglan and prn zofran monitor cbc/bmp ivf for hydration continue current plan of care - Plan Plan: will add laxative kub noted Plan: will add reglan and prn zofran monitor cbc/bmp ivf for hydration continue current plan of care Nutritional Asmnt/Malnutr-PDOC - Dietary Evaluation Malnutrition Findings (Please click <Entered> for more info): Nutritional Asmnt/Malnutrition Start: 05/07/17 10: 39 Text: Status: Complete Freq: Document 05/07/17 14:31 GSUN (Rec: 05/07/17 15:03 GSUN [email or web address]) Nutritional Asmnt/Malnutrition Patient General Information Nutritional Screening Consult Diagnosis Dysphagia, dehydration, FTT, Serna esophagus, PCM Pertinent Medical Hx/Surgical Hx Schizophrenia, stroke, TIA, GERD, thyroid disease, arthritis, dementia Subjective Information 46 year old male from SNF. RD consult for dysphagia. Spoke to ELISE Christina, pt has ulcer in the throat, unable to eat, swallow eval ordered nad pending. Pt is a questionable historian, talkative, however speech unclear and difficult to understand. 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 Pt appeared thin, mild muscle fat wasting to chest and temporals. Current Diet Order/ Nutrition Support Clear liquid Pertinent Medications D5-0.9%ns, Iron, Synthroid, Zofran, Protonix, Carafate Pertinent Labs Reviewed. Nutritional Hx/Data Height 1.75 m Height (Calculated Centimeters) 175.3 Current Weight (lbs) 66.678 kg Weight (Calculated Kilograms) 66.7 Weight (Calculated Grams) 84785.1 [place] Body Weight 160 Weight Status Approriate GI Symptoms Food Allergies No Skin Integrity/Comment: [place] 13. Skin intact. Estimated Nutritional Goals BEE in Kcals: Using Current wt Calories/Kcals/Kg CBW 147lb/66.8kg Kcals Calculated 1670-2004kcal (25-30kcal/kg) Protein: Using Current wt Protein Calculated 67g (1g/kg) Fluid: ml 1670-2004ml (1ml/kcal) Nutritional Problem 1. 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 GI consult and swallow eval pending, recommend regular diet with diet texture per ST if pt is able to resume oral diet. Nursing staff to ensure pt sit upright during meals to minimize possible reflux. 2. Monitor weight. 3. If unable to resume oral diet, recommend enteral nutrition. Expected Outcomes/Goals Expected Outcomes/Goals 1. Pt to meet at least 75% of estimated nutritional needs orally or enterally.
[2017-05-11] MEDS ORDERED: Magnesium Citrate 1.75 GM/300 mL Bottle PO ONE (17:03)
[2017-05-11] MEDS: Lactulose 10 Gm/15 mL 30mL UDC PO SCH (17:12)
[2017-05-12] MEDS: Ferrous Sulfate 325 MG TAB PO SCH ×2 (08:36→17:23)
[2017-05-12] MEDS: Lactulose 10 Gm/15 mL 30mL UDC PO SCH ×2 (08:36→17:23)
[2017-05-12] MEDS: OLANZapine 5 mg Oral Disintegrating Tab PO SCH (08:36)
[2017-05-12] MEDS: Levothyroxine 0.075 Mg Tab PO SCH (08:36)
[2017-05-12] MEDS: Pantoprazole 40 mg EC Tab PO SCH ×2 (08:37→17:23)
[2017-05-12] MEDS ORDERED: Fleet Enema 135 mL RC ONE (13:12)
--- NOTE | 2017-05-12 13:14 | Internal Medicine Prog Note ---
Internal Medicine Subjective - Subjective Patient seen and examined:: with staff, chart reviewed Patient is:: awake, verbal Patient Complaints of:: vomitting, constipation Per staff patient has:: no adverse event, noncompliant, confused, tolerating meds Internal Medicine Objective - Results Result Diagrams: 05/09/17 05:45 05/09/17 05:45 Recent Labs: Laboratory Last Values WBC 6.5 Th/cmm (4.8-10.8) 05/09/17 05:45 RBC 3.84 Mil/cmm (4.30-5.70) L 05/09/17 05:45 Hgb 12.0 gm/dL (12-16) 05/09/17 05:45 Hct 35.8 % (41.0-60) L 05/09/17 05:45 MCV 93.4 fl (80-99) 05/09/17 05:45 MCH 31.2 pg (26.0-30.0) H 05/09/17 05:45 MCHC Differential 33.4 pg (28.0-36.0) 05/09/17 05:45 RDW 12.8 % (11.5-20.0) 05/09/17 05:45 Plt Count 171 Th/cmm (150-400) 05/09/17 05:45 MPV 10.1 fl 05/09/17 05:45 Neutrophils % 52.1 % (40.0-80.0) 05/09/17 05:45 Lymphocytes % 36.5 % (20.0-50.0) 05/09/17 05:45 Monocytes % 9.5 % (2.0-10.0) 05/09/17 05:45 Eosinophils % 1.9 % (0.0-5.0) 05/09/17 05:45 Basophils % 0.0 % (0.0-2.0) 05/09/17 05:45 PT 11.3 SECONDS (9.5-11.5) 05/09/17 05:45 INR 1.09 (0.5-1.4) 05/09/17 05:45 PTT (Actin FS) 25.7 SECONDS (26.0-38.0) L 05/06/17 16:46 Sodium 134 mEq/L (136-145) L 05/09/17 05:45 Potassium 3.6 mEq/L (3.5-5.1) 05/09/17 05:45 Chloride 101 mEq/L (98-107) 05/09/17 05:45 Carbon Dioxide 28.9 mEq/L (21.0-31.0) 05/09/17 05:45 Anion Gap 7.7 (7.0-16.0) 05/09/17 05:45 BUN 9 mg/dL (7-25) 05/09/17 05:45 Creatinine 0.9 mg/dL (0.7-1.3) 05/09/17 05:45 Est GFR ( Amer) > 60.0 ml/min (>90) 05/09/17 05:45 Est GFR (Non-Af Amer) > 60.0 ml/min 05/09/17 05:45 BUN/Creatinine Ratio 10.0 05/09/17 05:45 Glucose 108 mg/dL (70-105) H 05/09/17 05:45 Calcium 9.3 mg/dL (8.6-10.3) 05/09/17 05:45 Magnesium 1.6 mg/dL (1.9-2.7) L 05/09/17 05:45 Total Bilirubin 0.6 mg/dL (0.3-1.0) 05/06/17 16:46 AST 18 U/L (13-39) 05/06/17 16:46 ALT 18 U/L (7-52) 05/06/17 16:46 Alkaline Phosphatase 48 U/L (34-104) 05/06/17 16:46 Troponin I 0.03 ng/mL (0.01-0.05) 05/06/17 16:46 Total Protein 7.6 gm/dL (6.0-8.3) 05/06/17 16:46 Albumin 3.9 gm/dL (4.2-5.5) L 05/06/17 16:46 Globulin 3.7 gm/dL 05/06/17 16:46 Albumin/Globulin Ratio 1.1 (1.0-1.8) 05/06/17 16:46 Triglycerides 88 mg/dL (<150) 05/06/17 16:46 Cholesterol 126 mg/dL (<200) 05/06/17 16:46 LDL Cholesterol Direct 89 mg/dL (75-193) 05/06/17 16:46 HDL Cholesterol 30 mg/dL (23-92) 05/06/17 16:46 TSH 1.23 uIU/ml (0.34-5.60) 05/06/17 16:46 Urine Source CLEAN C 05/06/17 16:20 Urine Color YELLOW 05/06/17 16:20 Urine Clarity HAZY (CLEAR) 05/06/17 16:20 Urine pH 5.5 (4.6 - 8.0) 05/06/17 16:20 Ur Specific [place] 1.030 (1.005-1.030) 05/06/17 16:20 Urine Protein 30 mg/dL (NEGATIVE) H 05/06/17 16:20 Urine Glucose (UA) NEGATIVE mg/dL (NEGATIVE) 05/06/17 16:20 Urine Ketones NEGATIVE mg/dL (NEGATIVE) 05/06/17 16:20 Urine Blood NEGATIVE (NEGATIVE) 05/06/17 16:20 Urine Nitrate NEGATIVE (NEGATIVE) 05/06/17 16:20 Urine Bilirubin SMALL (NEGATIVE) H 05/06/17 16:20 Urine Urobilinogen 2.0 E.U./dL (0.2 - 1.0) 05/06/17 16:20 Ur Leukocyte Esterase NEGATIVE (NEGATIVE) 05/06/17 16:20 Urine RBC 0-1 /hpf (0-5) 05/06/17 16:20 Urine WBC 0-2 /hpf (0-5) 05/06/17 16:20 Ur Epithelial Cells OCCASIONAL /lpf (FEW) 05/06/17 16:20 Amorphous Sediment FEW URATES (NONE SEEN) 05/06/17 16:20 Urine Bacteria FEW /hpf (NONE SEEN) 05/06/17 16:20 Urine Mucus MODERATE /lpf (FEW) 05/06/17 16:20 Valproic Acid < 10.0 ug/mL (50.0-100.0) L 05/09/17 05:45 RPR NONREACTIVE (NONREACTIVE) 05/06/17 16:46 - Physical Exam Vitals and I&O: Vital Signs Temp 97.7 F 05/12/17 08:07 Pulse 79 05/12/17 08:07 Resp 18 05/12/17 08:07 BP 103/67 05/12/17 08:07 Pulse Ox 98 05/12/17 08:07 Intake & Output 05/11/17 05/12/17 05/12/17 18:59 06:59 18:59 Intake Total 100 360 Balance 100 360 Weight (lbs) 68.492 kg 68.492 kg 68.492 kg Intake: Oral 100 360 Active Medications: Current Medications Acetaminophen (Tylenol) 650 mg PO Q4H PRN PRN Reason: Pain Or Fever above 101 Stop: 07/05/17 19:13 Al Hydrox/Mg Hydrox/Simethicone (Maalox) 30 ml PO Q6H PRN PRN Reason: Dyspepsia Stop: 07/05/17 19:13 Albuterol Sulfate (Albuterol 2.5mg/3ml Neb Ud) 2.5 mg HHN Q2HRT PRN PRN Reason: Shortness of Breath or Wheeze Stop: 07/05/17 19:13 Divalproex Sodium (Depakote Er) 1,000 mg PO BID KAM PRN Reason: Protocol Stop: 07/06/17 08:59 Last Admin: 05/12/17 08:36 Dose: Not Given Ferrous Sulfate (Iron) 325 mg PO BID [facility] Stop: 07/06/17 08:59 Last Admin: 05/12/17 08:36 Dose: Not Given Guaifenesin (Robitussin) 200 mg PO Q4HR PRN PRN Reason: Cough or Congestion Stop: 07/05/17 19:13 Heparin Sodium (Porcine) (Heparin) 5,000 units SUBQ Q12HR [facility] Stop: 07/05/17 20:59 Last Admin: 05/12/17 08:37 Dose: 5,000 units Dextrose/Sodium Chloride (D5-0.9%Ns) 1,000 mls @ 70 mls/hr IV .[id number] [facility] Stop: 07/05/17 19:14 Last Admin: 05/10/17 15:37 Dose: 70 mls/hr Ipratropium [place] (Atrovent Neb 0.5mg/2.5ml) 0.5 mg HHN Q2HRT PRN PRN Reason: Shortness of Breath or Wheeze Stop: 07/05/17 19:13 Lactulose (Cephulac) 30 gm PO BID [facility] Stop: 07/10/17 16:59 Last Admin: 05/12/17 08:36 Dose: Not Given Levothyroxine Sodium (Synthroid) 0.075 mg PO QDAC KAM Stop: 07/06/17 07:29 Last Admin: 05/12/17 08:36 Dose: Not Given Lorazepam (Ativan) 0.5 mg IV Q6H PRN; Protocol PRN Reason: Agitation Stop: 07/08/17 22:33 Last Admin: 05/10/17 21:53 Dose: 0.5 mg Metoclopramide HCl (Reglan) 10 mg IVP Q8HR PRN PRN Reason: Nausea / Vomiting Stop: 07/09/17 11:31 Last Admin: 05/11/17 06:31 Dose: 10 mg Olanzapine (Zyprexa) 10 mg PO HS KAM PRN Reason: Protocol Stop: 07/07/17 20:59 Last Admin: 05/11/17 21:58 Dose: Not Given Olanzapine (Zyprexa Zydis) 5 mg PO DAILY KAM PRN Reason: Protocol Stop: 07/08/17 08:59 Last Admin: 05/12/17 08:36 Dose: Not Given Ondansetron HCl (Zofran) 4 mg IV Q8H PRN PRN Reason: Nausea / Vomiting Stop: 07/05/17 19:13 Last Admin: 05/10/17 13:23 Dose: 4 mg Pantoprazole Sodium (Protonix) 40 mg PO BID [facility] Stop: 07/06/17 08:59 Last Admin: 05/12/17 08:37 Dose: Not Given Sucralfate (Carafate) 1 gm PO QID KAM Stop: 07/05/17 20:59 Last Admin: 05/12/17 12:40 Dose: Not Given Zolpidem Tartrate (Ambien) 5 mg PO HS PRN PRN Reason: Insomnia Stop: 07/05/17 19:12 General: alert HEENT: NC/AT, PERRLA Neck: Supple Abdomen: soft, non-tender, non-distended, positive bowel sound Extremities: excoriation Neurological: alert Internal Medicine Assmt/Plan - Assessment Assessment: persistent vomitting DYSPHAGIA DEHYDRATION FAILURE TO THRIVE HYPONATREMIA HYPOKALEMIA GERD HTN BARETT'S ESOPHAGUS - Plan Plan: will add reglan and prn zofran monitor cbc/bmp ivf for hydration continue current plan of care - Plan Plan: will add laxative kub noted Plan: will add reglan and prn zofran monitor cbc/bmp ivf for hydration continue current plan of care Nutritional Asmnt/Malnutr-PDOC - Dietary Evaluation Malnutrition Findings (Please click <Entered> for more info): Nutritional Asmnt/Malnutrition Start: 05/07/17 10: 39 Text: Status: Complete Freq: Document 05/07/17 14:31 GSUN (Rec: 05/07/17 15:03 GSUN [email or web address]) Nutritional Asmnt/Malnutrition Patient General Information Nutritional Screening Consult Diagnosis Dysphagia, dehydration, FTT, Serna esophagus, PCM Pertinent Medical Hx/Surgical Hx Schizophrenia, stroke, TIA, GERD, thyroid disease, arthritis, dementia Subjective Information 46 year old male from SNF. RD consult for dysphagia. Spoke to RN Carri, pt has ulcer in the throat, unable to eat, swallow eval ordered nad pending. Pt is a questionable historian, talkative, however speech unclear and difficult to understand. 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 Pt appeared thin, mild muscle fat wasting to chest and temporals. Current Diet Order/ Nutrition Support Clear liquid Pertinent Medications D5-0.9%ns, Iron, Synthroid, Zofran, Protonix, Carafate Pertinent Labs Reviewed. Nutritional Hx/Data Height 1.75 m Height (Calculated Centimeters) 175.3 Current Weight (lbs) 66.678 kg Weight (Calculated Kilograms) 66.7 Weight (Calculated Grams) 18914.1 [place] Body Weight 160 Weight Status Approriate GI Symptoms Food Allergies No Skin Integrity/Comment: [place] 13. Skin intact. Estimated Nutritional Goals BEE in Kcals: Using Current wt Calories/Kcals/Kg CBW 147lb/66.8kg Kcals Calculated 1670-2004kcal (25-30kcal/kg) Protein: Using Current wt Protein Calculated 67g (1g/kg) Fluid: ml 1670-2004ml (1ml/kcal) Nutritional Problem 1. 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 GI consult and swallow eval pending, recommend regular diet with diet texture per ST if pt is able to resume oral diet. Nursing staff to ensure pt sit upright during meals to minimize possible reflux. 2. Monitor weight. 3. If unable to resume oral diet, recommend enteral nutrition. Expected Outcomes/Goals Expected Outcomes/Goals 1. Pt to meet at least 75% of estimated nutritional needs orally or enterally.
[2017-05-13] MEDS: Levothyroxine 0.075 Mg Tab PO SCH (06:43)
[2017-05-13] MEDS ORDERED: Haloperidol Lactate 5 mg/mL 1mL Vial IM PRN ×3 (08:05→08:08)
[2017-05-13] MEDS: Ferrous Sulfate 325 MG TAB PO SCH ×2 (11:44→18:46)
[2017-05-13] MEDS: Pantoprazole 40 mg EC Tab PO SCH ×2 (11:45→18:46)
[2017-05-13] MEDS: Lactulose 10 Gm/15 mL 30mL UDC PO SCH ×2 (11:45→18:46)
[2017-05-13] MEDS: OLANZapine 5 mg Oral Disintegrating Tab PO SCH (11:45)
--- NOTE | 2017-05-13 14:20 | Internal Medicine Prog Note ---
Internal Medicine Subjective - Subjective Patient seen and examined:: with staff, chart reviewed Patient is:: awake, verbal Patient Complaints of:: vomitting, constipation Per staff patient has:: no adverse event, noncompliant, confused, tolerating meds Internal Medicine Objective - Results Result Diagrams: 05/09/17 05:45 05/09/17 05:45 Recent Labs: Laboratory Last Values WBC 6.5 Th/cmm (4.8-10.8) 05/09/17 05:45 RBC 3.84 Mil/cmm (4.30-5.70) L 05/09/17 05:45 Hgb 12.0 gm/dL (12-16) 05/09/17 05:45 Hct 35.8 % (41.0-60) L 05/09/17 05:45 MCV 93.4 fl (80-99) 05/09/17 05:45 MCH 31.2 pg (26.0-30.0) H 05/09/17 05:45 MCHC Differential 33.4 pg (28.0-36.0) 05/09/17 05:45 RDW 12.8 % (11.5-20.0) 05/09/17 05:45 Plt Count 171 Th/cmm (150-400) 05/09/17 05:45 MPV 10.1 fl 05/09/17 05:45 Neutrophils % 52.1 % (40.0-80.0) 05/09/17 05:45 Lymphocytes % 36.5 % (20.0-50.0) 05/09/17 05:45 Monocytes % 9.5 % (2.0-10.0) 05/09/17 05:45 Eosinophils % 1.9 % (0.0-5.0) 05/09/17 05:45 Basophils % 0.0 % (0.0-2.0) 05/09/17 05:45 PT 11.3 SECONDS (9.5-11.5) 05/09/17 05:45 INR 1.09 (0.5-1.4) 05/09/17 05:45 PTT (Actin FS) 25.7 SECONDS (26.0-38.0) L 05/06/17 16:46 Sodium 134 mEq/L (136-145) L 05/09/17 05:45 Potassium 3.6 mEq/L (3.5-5.1) 05/09/17 05:45 Chloride 101 mEq/L (98-107) 05/09/17 05:45 Carbon Dioxide 28.9 mEq/L (21.0-31.0) 05/09/17 05:45 Anion Gap 7.7 (7.0-16.0) 05/09/17 05:45 BUN 9 mg/dL (7-25) 05/09/17 05:45 Creatinine 0.9 mg/dL (0.7-1.3) 05/09/17 05:45 Est GFR ( Amer) > 60.0 ml/min (>90) 05/09/17 05:45 Est GFR (Non-Af Amer) > 60.0 ml/min 05/09/17 05:45 BUN/Creatinine Ratio 10.0 05/09/17 05:45 Glucose 108 mg/dL (70-105) H 05/09/17 05:45 Calcium 9.3 mg/dL (8.6-10.3) 05/09/17 05:45 Magnesium 1.6 mg/dL (1.9-2.7) L 05/09/17 05:45 Total Bilirubin 0.6 mg/dL (0.3-1.0) 05/06/17 16:46 AST 18 U/L (13-39) 05/06/17 16:46 ALT 18 U/L (7-52) 05/06/17 16:46 Alkaline Phosphatase 48 U/L (34-104) 05/06/17 16:46 Troponin I 0.03 ng/mL (0.01-0.05) 05/06/17 16:46 Total Protein 7.6 gm/dL (6.0-8.3) 05/06/17 16:46 Albumin 3.9 gm/dL (4.2-5.5) L 05/06/17 16:46 Globulin 3.7 gm/dL 05/06/17 16:46 Albumin/Globulin Ratio 1.1 (1.0-1.8) 05/06/17 16:46 Triglycerides 88 mg/dL (<150) 05/06/17 16:46 Cholesterol 126 mg/dL (<200) 05/06/17 16:46 LDL Cholesterol Direct 89 mg/dL (75-193) 05/06/17 16:46 HDL Cholesterol 30 mg/dL (23-92) 05/06/17 16:46 TSH 1.23 uIU/ml (0.34-5.60) 05/06/17 16:46 Urine Source CLEAN C 05/06/17 16:20 Urine Color YELLOW 05/06/17 16:20 Urine Clarity HAZY (CLEAR) 05/06/17 16:20 Urine pH 5.5 (4.6 - 8.0) 05/06/17 16:20 Ur Specific [place] 1.030 (1.005-1.030) 05/06/17 16:20 Urine Protein 30 mg/dL (NEGATIVE) H 05/06/17 16:20 Urine Glucose (UA) NEGATIVE mg/dL (NEGATIVE) 05/06/17 16:20 Urine Ketones NEGATIVE mg/dL (NEGATIVE) 05/06/17 16:20 Urine Blood NEGATIVE (NEGATIVE) 05/06/17 16:20 Urine Nitrate NEGATIVE (NEGATIVE) 05/06/17 16:20 Urine Bilirubin SMALL (NEGATIVE) H 05/06/17 16:20 Urine Urobilinogen 2.0 E.U./dL (0.2 - 1.0) 05/06/17 16:20 Ur Leukocyte Esterase NEGATIVE (NEGATIVE) 05/06/17 16:20 Urine RBC 0-1 /hpf (0-5) 05/06/17 16:20 Urine WBC 0-2 /hpf (0-5) 05/06/17 16:20 Ur Epithelial Cells OCCASIONAL /lpf (FEW) 05/06/17 16:20 Amorphous Sediment FEW URATES (NONE SEEN) 05/06/17 16:20 Urine Bacteria FEW /hpf (NONE SEEN) 05/06/17 16:20 Urine Mucus MODERATE /lpf (FEW) 05/06/17 16:20 Valproic Acid < 10.0 ug/mL (50.0-100.0) L 05/09/17 05:45 RPR NONREACTIVE (NONREACTIVE) 05/06/17 16:46 - Physical Exam Vitals and I&O: Vital Signs Temp 97.0 F 05/13/17 07:55 Pulse 63 05/13/17 07:55 Resp 20 05/13/17 07:55 BP 109/69 05/13/17 07:55 Pulse Ox 99 05/13/17 07:55 Intake & Output 05/12/17 05/13/17 05/13/17 18:59 06:59 18:59 Intake Total 1080 Output Total 400 275 Balance 680 -275 Weight (lbs) 69.4 kg 69.763 kg Intake: Oral 1080 Output: Urine 400 275 Other: # Bowel Movements 1 Active Medications: Current Medications Acetaminophen (Tylenol) 650 mg PO Q4H PRN PRN Reason: Pain Or Fever above 101 Stop: 07/05/17 19:13 Al Hydrox/Mg Hydrox/Simethicone (Maalox) 30 ml PO Q6H PRN PRN Reason: Dyspepsia Stop: 07/05/17 19:13 Albuterol Sulfate (Albuterol 2.5mg/3ml Neb Ud) 2.5 mg HHN Q2HRT PRN PRN Reason: Shortness of Breath or Wheeze Stop: 07/05/17 19:13 Benztropine Mesylate (Cogentin) 1 mg PO BID PRN PRN Reason: Agitation Stop: 07/12/17 08:59 Divalproex Sodium (Depakote Er) 1,000 mg PO BID KAM PRN Reason: Protocol Stop: 07/06/17 08:59 Last Admin: 05/13/17 11:44 Dose: Not Given Ferrous Sulfate (Iron) 325 mg PO BID [facility] Stop: 07/06/17 08:59 Last Admin: 05/13/17 11:44 Dose: Not Given Guaifenesin (Robitussin) 200 mg PO Q4HR PRN PRN Reason: Cough or Congestion Stop: 07/05/17 19:13 Haloperidol Lactate (Haldol) 2 mg IM HS PRN PRN Reason: Agitation Stop: 07/12/17 08:04 Haloperidol Lactate (Haldol) 2 mg IM DAILY PRN PRN Reason: Agitation Stop: 07/12/17 08:06 Heparin Sodium (Porcine) (Heparin) 5,000 units SUBQ Q12HR [facility] Stop: 07/05/17 20:59 Last Admin: 05/13/17 11:44 Dose: Not Given Dextrose/Sodium Chloride (D5-0.9%Ns) 1,000 mls @ 70 mls/hr IV .[id number] [facility] Stop: 07/05/17 19:14 Last Admin: 05/10/17 15:37 Dose: 70 mls/hr Ipratropium [place] (Atrovent Neb 0.5mg/2.5ml) 0.5 mg HHN Q2HRT PRN PRN Reason: Shortness of Breath or Wheeze Stop: 07/05/17 19:13 Lactulose (Cephulac) 30 gm PO BID KAM Stop: 07/10/17 16:59 Last Admin: 05/13/17 11:45 Dose: Not Given Levothyroxine Sodium (Synthroid) 0.075 mg PO QDAC KAM Stop: 07/06/17 07:29 Last Admin: 05/13/17 06:43 Dose: Not Given Lorazepam (Ativan) 0.5 mg IV Q6H PRN; Protocol PRN Reason: Agitation Stop: 07/08/17 22:33 Last Admin: 05/10/17 21:53 Dose: 0.5 mg Metoclopramide HCl (Reglan) 10 mg IVP Q8HR PRN PRN Reason: Nausea / Vomiting Stop: 07/09/17 11:31 Last Admin: 05/11/17 06:31 Dose: 10 mg Olanzapine (Zyprexa) 10 mg PO HS KAM PRN Reason: Protocol Stop: 07/07/17 20:59 Last Admin: 05/12/17 21:13 Dose: Not Given Olanzapine (Zyprexa Zydis) 5 mg PO DAILY KAM PRN Reason: Protocol Stop: 07/08/17 08:59 Last Admin: 05/13/17 11:45 Dose: Not Given Ondansetron HCl (Zofran) 4 mg IV Q8H PRN PRN Reason: Nausea / Vomiting Stop: 07/05/17 19:13 Last Admin: 05/13/17 09:56 Dose: 4 mg Pantoprazole Sodium (Protonix) 40 mg PO BID KAM Stop: 07/06/17 08:59 Last Admin: 05/13/17 11:45 Dose: Not Given Sucralfate (Carafate) 1 gm PO QID KAM Stop: 07/05/17 20:59 Last Admin: 05/13/17 13:26 Dose: Not Given Zolpidem Tartrate (Ambien) 5 mg PO HS PRN PRN Reason: Insomnia Stop: 07/05/17 19:12 General: alert HEENT: NC/AT, PERRLA Neck: Supple Abdomen: soft, non-tender, non-distended, positive bowel sound Extremities: excoriation Neurological: alert, disorganized, unsteady, bedbound - Procedures Procedures: Procedures Procedure Code Date DILATION OF LOWER ESOPHAGUS, ENDO [id number] 05/06/17 EGD BIOPSY SINGLE/MULTIPLE 83829 05/06/17 ESOPH EGD DILATION <30 MM 27899 05/06/17 EXCISION OF ESOPHAGUS, ENDO, DIAGN [id number] 05/06/17 Internal Medicine Assmt/Plan - Assessment Assessment: persistent vomitting DYSPHAGIA DEHYDRATION FAILURE TO THRIVE HYPONATREMIA HYPOKALEMIA GERD HTN BARETT'S ESOPHAGUS - Plan Plan: will add reglan and prn zofran monitor cbc/bmp ivf for hydration continue current plan of care - Plan Plan: will add laxative kub noted Plan: will add reglan and prn zofran monitor cbc/bmp ivf for hydration continue current plan of care Nutritional Asmnt/Malnutr-PDOC - Dietary Evaluation Malnutrition Findings (Please click <Entered> for more info): Nutritional Asmnt/Malnutrition Start: 05/07/17 10: 39 Text: Status: Complete Freq: Document 05/07/17 14:31 GSUN (Rec: 05/07/17 15:03 GSUN [id number]) Nutritional Asmnt/Malnutrition Patient General Information Nutritional Screening Consult Diagnosis Dysphagia, dehydration, FTT, Serna esophagus, PCM Pertinent Medical Hx/Surgical Hx Schizophrenia, stroke, TIA, GERD, thyroid disease, arthritis, dementia Subjective Information 46 year old male from SNF. RD consult for dysphagia. Spoke to ELISE Christina, pt has ulcer in the throat, unable to eat, swallow eval ordered nad pending. Pt is a questionable historian, talkative, however speech unclear and difficult to understand. 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 Pt appeared thin, mild muscle fat wasting to chest and temporals. Current Diet Order/ Nutrition Support Clear liquid Pertinent Medications D5-0.9%ns, Iron, Synthroid, Zofran, Protonix, Carafate Pertinent Labs Reviewed. Nutritional Hx/Data Height 1.75 m Height (Calculated Centimeters) 175.3 Current Weight (lbs) 66.678 kg Weight (Calculated Kilograms) 66.7 Weight (Calculated Grams) 26421.1 [place] Body Weight 160 Weight Status Approriate GI Symptoms Food Allergies No Skin Integrity/Comment: [place] 13. Skin intact. Estimated Nutritional Goals BEE in Kcals: Using Current wt Calories/Kcals/Kg CBW 147lb/66.8kg Kcals Calculated 1670-2004kcal (25-30kcal/kg) Protein: Using Current wt Protein Calculated 67g (1g/kg) Fluid: ml 1670-2004ml (1ml/kcal) Nutritional Problem 1. 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 GI consult and swallow eval pending, recommend regular diet with diet texture per ST if pt is able to resume oral diet. Nursing staff to ensure pt sit upright during meals to minimize possible reflux. 2. Monitor weight. 3. If unable to resume oral diet, recommend enteral nutrition. Expected Outcomes/Goals Expected Outcomes/Goals 1. Pt to meet at least 75% of estimated nutritional needs orally or enterally.
--- NOTE | 2017-05-13 14:24 | GI Progress Note ---
Subjective - Review of Systems Subjective: HAS N/V Objective - Results Result Diagrams: 05/09/17 05:45 05/09/17 05:45 Recent Labs: Laboratory Last Values WBC 6.5 Th/cmm (4.8-10.8) 05/09/17 05:45 RBC 3.84 Mil/cmm (4.30-5.70) L 05/09/17 05:45 Hgb 12.0 gm/dL (12-16) 05/09/17 05:45 Hct 35.8 % (41.0-60) L 05/09/17 05:45 MCV 93.4 fl (80-99) 05/09/17 05:45 MCH 31.2 pg (26.0-30.0) H 05/09/17 05:45 MCHC Differential 33.4 pg (28.0-36.0) 05/09/17 05:45 RDW 12.8 % (11.5-20.0) 05/09/17 05:45 Plt Count 171 Th/cmm (150-400) 05/09/17 05:45 MPV 10.1 fl 05/09/17 05:45 Neutrophils % 52.1 % (40.0-80.0) 05/09/17 05:45 Lymphocytes % 36.5 % (20.0-50.0) 05/09/17 05:45 Monocytes % 9.5 % (2.0-10.0) 05/09/17 05:45 Eosinophils % 1.9 % (0.0-5.0) 05/09/17 05:45 Basophils % 0.0 % (0.0-2.0) 05/09/17 05:45 PT 11.3 SECONDS (9.5-11.5) 05/09/17 05:45 INR 1.09 (0.5-1.4) 05/09/17 05:45 PTT (Actin FS) 25.7 SECONDS (26.0-38.0) L 05/06/17 16:46 Sodium 134 mEq/L (136-145) L 05/09/17 05:45 Potassium 3.6 mEq/L (3.5-5.1) 05/09/17 05:45 Chloride 101 mEq/L (98-107) 05/09/17 05:45 Carbon Dioxide 28.9 mEq/L (21.0-31.0) 05/09/17 05:45 Anion Gap 7.7 (7.0-16.0) 05/09/17 05:45 BUN 9 mg/dL (7-25) 05/09/17 05:45 Creatinine 0.9 mg/dL (0.7-1.3) 05/09/17 05:45 Est GFR ( Amer) > 60.0 ml/min (>90) 05/09/17 05:45 Est GFR (Non-Af Amer) > 60.0 ml/min 05/09/17 05:45 BUN/Creatinine Ratio 10.0 05/09/17 05:45 Glucose 108 mg/dL (70-105) H 05/09/17 05:45 Calcium 9.3 mg/dL (8.6-10.3) 05/09/17 05:45 Magnesium 1.6 mg/dL (1.9-2.7) L 05/09/17 05:45 Total Bilirubin 0.6 mg/dL (0.3-1.0) 05/06/17 16:46 AST 18 U/L (13-39) 05/06/17 16:46 ALT 18 U/L (7-52) 05/06/17 16:46 Alkaline Phosphatase 48 U/L (34-104) 05/06/17 16:46 Troponin I 0.03 ng/mL (0.01-0.05) 05/06/17 16:46 Total Protein 7.6 gm/dL (6.0-8.3) 05/06/17 16:46 Albumin 3.9 gm/dL (4.2-5.5) L 05/06/17 16:46 Globulin 3.7 gm/dL 05/06/17 16:46 Albumin/Globulin Ratio 1.1 (1.0-1.8) 05/06/17 16:46 Triglycerides 88 mg/dL (<150) 05/06/17 16:46 Cholesterol 126 mg/dL (<200) 05/06/17 16:46 LDL Cholesterol Direct 89 mg/dL (75-193) 05/06/17 16:46 HDL Cholesterol 30 mg/dL (23-92) 05/06/17 16:46 TSH 1.23 uIU/ml (0.34-5.60) 05/06/17 16:46 Urine Source CLEAN C 05/06/17 16:20 Urine Color YELLOW 05/06/17 16:20 Urine Clarity HAZY (CLEAR) 05/06/17 16:20 Urine pH 5.5 (4.6 - 8.0) 05/06/17 16:20 Ur Specific [place] 1.030 (1.005-1.030) 05/06/17 16:20 Urine Protein 30 mg/dL (NEGATIVE) H 05/06/17 16:20 Urine Glucose (UA) NEGATIVE mg/dL (NEGATIVE) 05/06/17 16:20 Urine Ketones NEGATIVE mg/dL (NEGATIVE) 05/06/17 16:20 Urine Blood NEGATIVE (NEGATIVE) 05/06/17 16:20 Urine Nitrate NEGATIVE (NEGATIVE) 05/06/17 16:20 Urine Bilirubin SMALL (NEGATIVE) H 05/06/17 16:20 Urine Urobilinogen 2.0 E.U./dL (0.2 - 1.0) 05/06/17 16:20 Ur Leukocyte Esterase NEGATIVE (NEGATIVE) 05/06/17 16:20 Urine RBC 0-1 /hpf (0-5) 05/06/17 16:20 Urine WBC 0-2 /hpf (0-5) 05/06/17 16:20 Ur Epithelial Cells OCCASIONAL /lpf (FEW) 05/06/17 16:20 Amorphous Sediment FEW URATES (NONE SEEN) 05/06/17 16:20 Urine Bacteria FEW /hpf (NONE SEEN) 05/06/17 16:20 Urine Mucus MODERATE /lpf (FEW) 05/06/17 16:20 Valproic Acid < 10.0 ug/mL (50.0-100.0) L 05/09/17 05:45 RPR NONREACTIVE (NONREACTIVE) 05/06/17 16:46 - Physical Exam Vitals and I&O: Vital Signs Temp 97.0 F 05/13/17 07:55 Pulse 63 05/13/17 07:55 Resp 20 05/13/17 07:55 BP 109/69 05/13/17 07:55 Pulse Ox 99 05/13/17 07:55 Intake & Output 05/12/17 05/13/17 05/13/17 18:59 06:59 18:59 Intake Total 1080 Output Total 400 275 Balance 680 -275 Weight (lbs) 69.4 kg 69.763 kg Intake: Oral 1080 Output: Urine 400 275 Other: # Bowel Movements 1 Active Medications: Current Medications Acetaminophen (Tylenol) 650 mg PO Q4H PRN PRN Reason: Pain Or Fever above 101 Stop: 07/05/17 19:13 Al Hydrox/Mg Hydrox/Simethicone (Maalox) 30 ml PO Q6H PRN PRN Reason: Dyspepsia Stop: 07/05/17 19:13 Albuterol Sulfate (Albuterol 2.5mg/3ml Neb Ud) 2.5 mg HHN Q2HRT PRN PRN Reason: Shortness of Breath or Wheeze Stop: 07/05/17 19:13 Benztropine Mesylate (Cogentin) 1 mg PO BID PRN PRN Reason: Agitation Stop: 07/12/17 08:59 Divalproex Sodium (Depakote Er) 1,000 mg PO BID KAM PRN Reason: Protocol Stop: 07/06/17 08:59 Last Admin: 05/13/17 11:44 Dose: Not Given Ferrous Sulfate (Iron) 325 mg PO BID [facility] Stop: 07/06/17 08:59 Last Admin: 05/13/17 11:44 Dose: Not Given Guaifenesin (Robitussin) 200 mg PO Q4HR PRN PRN Reason: Cough or Congestion Stop: 07/05/17 19:13 Haloperidol Lactate (Haldol) 2 mg IM HS PRN PRN Reason: Agitation Stop: 07/12/17 08:04 Haloperidol Lactate (Haldol) 2 mg IM DAILY PRN PRN Reason: Agitation Stop: 07/12/17 08:06 Heparin Sodium (Porcine) (Heparin) 5,000 units SUBQ Q12HR [facility] Stop: 07/05/17 20:59 Last Admin: 05/13/17 11:44 Dose: Not Given Dextrose/Sodium Chloride (D5-0.9%Ns) 1,000 mls @ 70 mls/hr IV .[id number] [facility] Stop: 07/05/17 19:14 Last Admin: 05/10/17 15:37 Dose: 70 mls/hr Ipratropium [place] (Atrovent Neb 0.5mg/2.5ml) 0.5 mg HHN Q2HRT PRN PRN Reason: Shortness of Breath or Wheeze Stop: 07/05/17 19:13 Lactulose (Cephulac) 30 gm PO BID KAM Stop: 07/10/17 16:59 Last Admin: 05/13/17 11:45 Dose: Not Given Levothyroxine Sodium (Synthroid) 0.075 mg PO QDAC KAM Stop: 07/06/17 07:29 Last Admin: 05/13/17 06:43 Dose: Not Given Lorazepam (Ativan) 0.5 mg IV Q6H PRN; Protocol PRN Reason: Agitation Stop: 07/08/17 22:33 Last Admin: 05/10/17 21:53 Dose: 0.5 mg Metoclopramide HCl (Reglan) 10 mg IVP Q8HR PRN PRN Reason: Nausea / Vomiting Stop: 07/09/17 11:31 Last Admin: 05/11/17 06:31 Dose: 10 mg Olanzapine (Zyprexa) 10 mg PO HS KAM PRN Reason: Protocol Stop: 07/07/17 20:59 Last Admin: 05/12/17 21:13 Dose: Not Given Olanzapine (Zyprexa Zydis) 5 mg PO DAILY KAM PRN Reason: Protocol Stop: 07/08/17 08:59 Last Admin: 05/13/17 11:45 Dose: Not Given Ondansetron HCl (Zofran) 4 mg IV Q8H PRN PRN Reason: Nausea / Vomiting Stop: 07/05/17 19:13 Last Admin: 05/13/17 09:56 Dose: 4 mg Pantoprazole Sodium (Protonix) 40 mg PO BID KAM Stop: 07/06/17 08:59 Last Admin: 05/13/17 11:45 Dose: Not Given Sucralfate (Carafate) 1 gm PO QID KAM Stop: 07/05/17 20:59 Last Admin: 05/13/17 13:26 Dose: Not Given Zolpidem Tartrate (Ambien) 5 mg PO HS PRN PRN Reason: Insomnia Stop: 07/05/17 19:12 - Procedures Procedures: Procedures Procedure Code Date DILATION OF LOWER ESOPHAGUS, ENDO [id number] 05/06/17 EGD BIOPSY SINGLE/MULTIPLE 38229 05/06/17 ESOPH EGD DILATION <30 MM 49177 05/06/17 EXCISION OF ESOPHAGUS, ENDO, DIAGN [id number] 05/06/17 Assessment/Plan - Problem List Patient Problems: All Active Problems DIFFICULTY IN SWALLOWING/POOR ORAL INTAK (Acute) - Assessment Assessment: 46 YO MALE WITH DYSPHAGIA HAD EGD 1-2 WEEKS AGO BUT DOES NOT FEEL BETTER AND WANTS ANOTHER EGD EGD DONE SHOWED MILD ESOPHAGITIS WITHOUT STRICTURE THERPEUTIC BALLOON DILATATION PERFORMED FOR RELIEF BUT LIKELY NON SIGNIFICANT SINCE THE ESOPHAGUS WAS WIDELY PATENT 1.ANTI-EMETICS AND ANTACIDS 2.CONT SUPP CARE 3.CONSIDER ESOPH MANOMETRY AND IMPEDENCE 4.CONSIDER PSYCH EVAL PER HOSPITALIST 5.WILL ORDER ESOPHOGRAM
--- NOTE | 2017-05-13 17:18 | Pathology Report ---
[id number] Collection Date: 05/09/2017 Surgeon: Dr. Tlyer Cardenas Specimen Description: Esophageal biopsy Gross Description: Received in formalin is a single rodriguez soft tissue fragment measuring 0.2 cm in greatest dimension. Totally submitted in one cassette. Microscopic Description: The histologic sections show a small fragment of benign squamous mucosa consisting of mostly surface epithelium. The PAS stain shows no evidence for fungal organisms. The Alcian blue stain shows no significant pathologic changes. Diagnosis: Small fragment of benign squamous mucosa, esophageal biopsy. [facility]# [id number] [facility]
--- NOTE | 2017-05-13 21:20 | Consultation ---
DATE OF CONSULTATION: 05/13/2017 HISTORY OF PRESENT ILLNESS: The patient is a 46-year-old male with history of schizophrenia, conserved, noted to be agitated, repeating himself, difficulty with experiencing himself, refusing his medications, refusing all medications as well. Conservatorship papers were reviewed, granted chandra of 6, 7, and 8a. Staff noting continued ongoing behaviors. PAST PSYCHIATRIC HISTORY: History of schizophrenia. The patient denies mental illness, but is conserved under the LPS court. SOCIAL HISTORY: Living in a board and care. MENTAL STATUS EXAMINATION: Stated age, poor dentition, loud voice, disorganized thought processes, no overt SI or HI. It is unclear if it is experiencing any psychotic symptoms. PROVISIONAL DIAGNOSIS: Schizophrenia and also developmental possibility. RECOMMENDATIONS AND PLAN: The patient cannot refuse medications under power 8a. We will continue to off medications by mouth, but will also be including back up of Haldol if the patient refuses. [facility]# [id number]
--- NOTE | 2017-05-14 08:16 | GI Progress Note ---
Subjective - Review of Systems Subjective: ZEYNEP SOME OF HIS BREAKFAST Objective - Results Result Diagrams: 05/09/17 05:45 05/09/17 05:45 Recent Labs: Laboratory Last Values WBC 6.5 Th/cmm (4.8-10.8) 05/09/17 05:45 RBC 3.84 Mil/cmm (4.30-5.70) L 05/09/17 05:45 Hgb 12.0 gm/dL (12-16) 05/09/17 05:45 Hct 35.8 % (41.0-60) L 05/09/17 05:45 MCV 93.4 fl (80-99) 05/09/17 05:45 MCH 31.2 pg (26.0-30.0) H 05/09/17 05:45 MCHC Differential 33.4 pg (28.0-36.0) 05/09/17 05:45 RDW 12.8 % (11.5-20.0) 05/09/17 05:45 Plt Count 171 Th/cmm (150-400) 05/09/17 05:45 MPV 10.1 fl 05/09/17 05:45 Neutrophils % 52.1 % (40.0-80.0) 05/09/17 05:45 Lymphocytes % 36.5 % (20.0-50.0) 05/09/17 05:45 Monocytes % 9.5 % (2.0-10.0) 05/09/17 05:45 Eosinophils % 1.9 % (0.0-5.0) 05/09/17 05:45 Basophils % 0.0 % (0.0-2.0) 05/09/17 05:45 PT 11.3 SECONDS (9.5-11.5) 05/09/17 05:45 INR 1.09 (0.5-1.4) 05/09/17 05:45 PTT (Actin FS) 25.7 SECONDS (26.0-38.0) L 05/06/17 16:46 Sodium 134 mEq/L (136-145) L 05/09/17 05:45 Potassium 3.6 mEq/L (3.5-5.1) 05/09/17 05:45 Chloride 101 mEq/L (98-107) 05/09/17 05:45 Carbon Dioxide 28.9 mEq/L (21.0-31.0) 05/09/17 05:45 Anion Gap 7.7 (7.0-16.0) 05/09/17 05:45 BUN 9 mg/dL (7-25) 05/09/17 05:45 Creatinine 0.9 mg/dL (0.7-1.3) 05/09/17 05:45 Est GFR ( Amer) > 60.0 ml/min (>90) 05/09/17 05:45 Est GFR (Non-Af Amer) > 60.0 ml/min 05/09/17 05:45 BUN/Creatinine Ratio 10.0 05/09/17 05:45 Glucose 108 mg/dL (70-105) H 05/09/17 05:45 Calcium 9.3 mg/dL (8.6-10.3) 05/09/17 05:45 Magnesium 1.6 mg/dL (1.9-2.7) L 05/09/17 05:45 Total Bilirubin 0.6 mg/dL (0.3-1.0) 05/06/17 16:46 AST 18 U/L (13-39) 05/06/17 16:46 ALT 18 U/L (7-52) 05/06/17 16:46 Alkaline Phosphatase 48 U/L (34-104) 05/06/17 16:46 Troponin I 0.03 ng/mL (0.01-0.05) 05/06/17 16:46 Total Protein 7.6 gm/dL (6.0-8.3) 05/06/17 16:46 Albumin 3.9 gm/dL (4.2-5.5) L 05/06/17 16:46 Globulin 3.7 gm/dL 05/06/17 16:46 Albumin/Globulin Ratio 1.1 (1.0-1.8) 05/06/17 16:46 Triglycerides 88 mg/dL (<150) 05/06/17 16:46 Cholesterol 126 mg/dL (<200) 05/06/17 16:46 LDL Cholesterol Direct 89 mg/dL (75-193) 05/06/17 16:46 HDL Cholesterol 30 mg/dL (23-92) 05/06/17 16:46 TSH 1.23 uIU/ml (0.34-5.60) 05/06/17 16:46 Urine Source CLEAN C 05/06/17 16:20 Urine Color YELLOW 05/06/17 16:20 Urine Clarity HAZY (CLEAR) 05/06/17 16:20 Urine pH 5.5 (4.6 - 8.0) 05/06/17 16:20 Ur Specific [place] 1.030 (1.005-1.030) 05/06/17 16:20 Urine Protein 30 mg/dL (NEGATIVE) H 05/06/17 16:20 Urine Glucose (UA) NEGATIVE mg/dL (NEGATIVE) 05/06/17 16:20 Urine Ketones NEGATIVE mg/dL (NEGATIVE) 05/06/17 16:20 Urine Blood NEGATIVE (NEGATIVE) 05/06/17 16:20 Urine Nitrate NEGATIVE (NEGATIVE) 05/06/17 16:20 Urine Bilirubin SMALL (NEGATIVE) H 05/06/17 16:20 Urine Urobilinogen 2.0 E.U./dL (0.2 - 1.0) 05/06/17 16:20 Ur Leukocyte Esterase NEGATIVE (NEGATIVE) 05/06/17 16:20 Urine RBC 0-1 /hpf (0-5) 05/06/17 16:20 Urine WBC 0-2 /hpf (0-5) 05/06/17 16:20 Ur Epithelial Cells OCCASIONAL /lpf (FEW) 05/06/17 16:20 Amorphous Sediment FEW URATES (NONE SEEN) 05/06/17 16:20 Urine Bacteria FEW /hpf (NONE SEEN) 05/06/17 16:20 Urine Mucus MODERATE /lpf (FEW) 05/06/17 16:20 Valproic Acid < 10.0 ug/mL (50.0-100.0) L 05/09/17 05:45 RPR NONREACTIVE (NONREACTIVE) 05/06/17 16:46 - Physical Exam Vitals and I&O: Vital Signs Temp 99 F 05/14/17 04:00 Pulse 72 05/14/17 04:00 Resp 18 05/14/17 04:00 BP 108/70 05/14/17 04:00 Pulse Ox 95 05/14/17 04:00 Intake & Output 05/13/17 05/14/17 05/14/17 18:59 06:59 18:59 Intake Total 240 Output Total 350 Balance -110 Weight (lbs) 69.4 kg Intake: Oral 240 Output: Urine 350 Active Medications: Current Medications Acetaminophen (Tylenol) 650 mg PO Q4H PRN PRN Reason: Pain Or Fever above 101 Stop: 07/05/17 19:13 Al Hydrox/Mg Hydrox/Simethicone (Maalox) 30 ml PO Q6H PRN PRN Reason: Dyspepsia Stop: 07/05/17 19:13 Albuterol Sulfate (Albuterol 2.5mg/3ml Neb Ud) 2.5 mg HHN Q2HRT PRN PRN Reason: Shortness of Breath or Wheeze Stop: 07/05/17 19:13 Benztropine Mesylate (Cogentin) 1 mg PO BID PRN PRN Reason: Agitation Stop: 07/12/17 08:59 Divalproex Sodium (Depakote Er) 1,000 mg PO BID KAM PRN Reason: Protocol Stop: 07/06/17 08:59 Last Admin: 05/13/17 18:45 Dose: Not Given Ferrous Sulfate (Iron) 325 mg PO BID [facility] Stop: 07/06/17 08:59 Last Admin: 05/13/17 18:46 Dose: Not Given Guaifenesin (Robitussin) 200 mg PO Q4HR PRN PRN Reason: Cough or Congestion Stop: 07/05/17 19:13 Haloperidol Lactate (Haldol) 2 mg IM HS PRN PRN Reason: Agitation Stop: 07/12/17 08:04 Haloperidol Lactate (Haldol) 2 mg IM DAILY PRN PRN Reason: Agitation Stop: 07/12/17 08:06 Heparin Sodium (Porcine) (Heparin) 5,000 units SUBQ Q12HR [facility] Stop: 07/05/17 20:59 Last Admin: 05/13/17 22:27 Dose: Not Given Dextrose/Sodium Chloride (D5-0.9%Ns) 1,000 mls @ 70 mls/hr IV .[id number] [facility] Stop: 07/05/17 19:14 Last Admin: 05/10/17 15:37 Dose: 70 mls/hr Ipratropium [place] (Atrovent Neb 0.5mg/2.5ml) 0.5 mg HHN Q2HRT PRN PRN Reason: Shortness of Breath or Wheeze Stop: 07/05/17 19:13 Lactulose (Cephulac) 30 gm PO BID KAM Stop: 07/10/17 16:59 Last Admin: 05/13/17 18:46 Dose: Not Given Levothyroxine Sodium (Synthroid) 0.075 mg PO QDAC KAM Stop: 07/06/17 07:29 Last Admin: 05/13/17 06:43 Dose: Not Given Lorazepam (Ativan) 0.5 mg IV Q6H PRN; Protocol PRN Reason: Agitation Stop: 07/08/17 22:33 Last Admin: 05/10/17 21:53 Dose: 0.5 mg Metoclopramide HCl (Reglan) 10 mg IVP Q8HR PRN PRN Reason: Nausea / Vomiting Stop: 07/09/17 11:31 Last Admin: 05/11/17 06:31 Dose: 10 mg Olanzapine (Zyprexa) 10 mg PO HS KAM PRN Reason: Protocol Stop: 07/07/17 20:59 Last Admin: 05/13/17 22:27 Dose: Not Given Olanzapine (Zyprexa Zydis) 5 mg PO DAILY KAM PRN Reason: Protocol Stop: 07/08/17 08:59 Last Admin: 05/13/17 11:45 Dose: Not Given Ondansetron HCl (Zofran) 4 mg IV Q8H PRN PRN Reason: Nausea / Vomiting Stop: 07/05/17 19:13 Last Admin: 05/13/17 09:56 Dose: 4 mg Pantoprazole Sodium (Protonix) 40 mg PO BID KAM Stop: 07/06/17 08:59 Last Admin: 05/13/17 18:46 Dose: Not Given Sucralfate (Carafate) 1 gm PO QID KAM Stop: 07/05/17 20:59 Last Admin: 05/13/17 22:27 Dose: Not Given Zolpidem Tartrate (Ambien) 5 mg PO HS PRN PRN Reason: Insomnia Stop: 07/05/17 19:12 - Procedures Procedures: Procedures Procedure Code Date DILATION OF LOWER ESOPHAGUS, ENDO [id number] 05/06/17 EGD BIOPSY SINGLE/MULTIPLE 41020 05/06/17 ESOPH EGD DILATION <30 MM [id number] 05/06/17 EXCISION OF ESOPHAGUS, ENDO, DIAGN [id number] 05/06/17 Assessment/Plan - Problem List Patient Problems: All Active Problems DIFFICULTY IN SWALLOWING/POOR ORAL INTAK (Acute) - Assessment Assessment: 46 YO MALE WITH DYSPHAGIA HAD EGD 1-2 WEEKS AGO BUT DOES NOT FEEL BETTER AND WANTS ANOTHER EGD EGD DONE SHOWED MILD ESOPHAGITIS WITHOUT STRICTURE THERPEUTIC BALLOON DILATATION PERFORMED FOR RELIEF BUT LIKELY NON SIGNIFICANT SINCE THE ESOPHAGUS WAS WIDELY PATENT 1.ANTI-EMETICS AND ANTACIDS 2.CONT SUPP CARE 3.CONSIDER ESOPH MANOMETRY AND IMPEDENCE 4.CONSIDER PSYCH EVAL PER HOSPITALIST 5.AWAIT ESOPHOGRAM
[2017-05-14] MEDS: Levothyroxine 0.075 Mg Tab PO SCH (10:12)
[2017-05-14] MEDS: OLANZapine 5 mg Oral Disintegrating Tab PO SCH (10:13)
[2017-05-14] MEDS: Ferrous Sulfate 325 MG TAB PO SCH ×2 (10:13→18:19)
[2017-05-14] MEDS: Pantoprazole 40 mg EC Tab PO SCH ×2 (10:13→18:20)
[2017-05-14] MEDS: Lactulose 10 Gm/15 mL 30mL UDC PO SCH ×2 (10:13→18:19)
--- NOTE | 2017-05-14 11:11 | Diagnostic Imaging Report ---
Esophagram History: Dysphagia Comparison: None Technique/procedure: Oral contrast was administered and multiple fluoroscopic images were obtained. Exam is limited based on the static images provided. There is passage of contrast from the esophagus into the stomach. The esophageal mucosal pattern is within normal limits. There is mild irregular filling of the distal esophagus and the GE junction. Evaluation for reflux is limited based on images were provided. No evidence of a hiatal hernia. IMPRESSION: Limited exam. There is slight irregular filling of the distal esophagus and the GE junction. Findings are nonspecific. Inflammatory or infiltrative process would be considered less likely but cannot be excluded. Correlation should be made with endoscopy findings. No evidence of a hiatal hernia.
[2017-05-14 11:45] LABS: % BASOPHILS 0.2 % (0.0-2.0); % EOSINOPHILS 0.9 % (0.0-5.0); % LYMPHOCYTES 26.3 % (20.0-50.0); % MONOCYTES 7.8 % (2.0-10.0); % NEUTROPHILS 64.8 % (40.0-80.0); HEMATOCRIT 39.7 % (41.0-60); HEMOGLOBIN 13.1 gm/dL (12-16); MEAN CELL VOLUME 93.1 fl (80-99); MEAN CORPUSCULAR HEMOGLOBIN 30.8 pg (26.0-30.0); MEAN CORPUSCULAR HGB CONC 33.1 pg (28.0-36.0); MEAN PLATELET VOLUME 9.4 fl; NEUTROPHILE ABSOLUTE 5.9 Th/cmm (1.8-8.0); PLATELET COUNT 221 Th/cmm (150-400); RED BLOOD COUNT 4.26 Mil/cmm (4.30-5.70); RED CELL DISTRIBUTION WIDTH 12.5 % (11.5-20.0)
[2017-05-14 11:49] LABS: WHITE BLOOD COUNT 9.1 Th/cmm (4.8-10.8)
[2017-05-14 11:55] LABS: ALKALINE PHOSPHATASE 45 U/L (34-104); ANION GAP 9.4 (7.0-16.0); BILIRUBIN,TOTAL 0.3 mg/dL (0.3-1.0); BUN - UREA NITROGEN 9 mg/dL (7-25); CALCIUM SERUM 9.9 mg/dL (8.6-10.3); CHLORIDE 94 mEq/L (98-107); CREATININE - SERUM 0.9 mg/dL (0.7-1.3); GLUCOSE 98 mg/dL (70-105); MAGNESIUM 1.7 mg/dL (1.9-2.7); POTASSIUM SERUM 3.4 mEq/L (3.5-5.1); SGOT 12 U/L (13-39); SGPT/ALT 9 U/L (7-52); SODIUM SERUM 131 mEq/L (136-145)
--- NOTE | 2017-05-14 12:29 | Internal Medicine Prog Note ---
Internal Medicine Subjective - Subjective Service Date: 05/14/17 (patient still vomiting ) Patient is:: awake, verbal Patient Complaints of:: vomitting, constipation Per staff patient has:: no adverse event, noncompliant, confused, tolerating meds Internal Medicine Objective - Results Result Diagrams: 05/14/17 11:20 05/14/17 11:20 Recent Labs: Laboratory Last Values WBC 9.1 Th/cmm (4.8-10.8) D 05/14/17 11:20 RBC 4.26 Mil/cmm (4.30-5.70) L 05/14/17 11:20 Hgb 13.1 gm/dL (12-16) 05/14/17 11:20 Hct 39.7 % (41.0-60) L D 05/14/17 11:20 MCV 93.1 fl (80-99) 05/14/17 11:20 MCH 30.8 pg (26.0-30.0) H 05/14/17 11:20 MCHC Differential 33.1 pg (28.0-36.0) 05/14/17 11:20 RDW 12.5 % (11.5-20.0) 05/14/17 11:20 Plt Count 221 Th/cmm (150-400) D 05/14/17 11:20 MPV 9.4 fl 05/14/17 11:20 Neutrophils % 64.8 % (40.0-80.0) 05/14/17 11:20 Lymphocytes % 26.3 % (20.0-50.0) 05/14/17 11:20 Monocytes % 7.8 % (2.0-10.0) 05/14/17 11:20 Eosinophils % 0.9 % (0.0-5.0) 05/14/17 11:20 Basophils % 0.2 % (0.0-2.0) 05/14/17 11:20 PT 11.3 SECONDS (9.5-11.5) 05/09/17 05:45 INR 1.09 (0.5-1.4) 05/09/17 05:45 PTT (Actin FS) 25.7 SECONDS (26.0-38.0) L 05/06/17 16:46 Sodium 131 mEq/L (136-145) L 05/14/17 11:20 Potassium 3.4 mEq/L (3.5-5.1) L 05/14/17 11:20 Chloride 94 mEq/L (98-107) L 05/14/17 11:20 Carbon Dioxide 31.0 mEq/L (21.0-31.0) 05/14/17 11:20 Anion Gap 9.4 (7.0-16.0) 05/14/17 11:20 BUN 9 mg/dL (7-25) 05/14/17 11:20 Creatinine 0.9 mg/dL (0.7-1.3) 05/14/17 11:20 Est GFR ( Amer) > 60.0 ml/min (>90) 05/14/17 11:20 Est GFR (Non-Af Amer) > 60.0 ml/min 05/14/17 11:20 BUN/Creatinine Ratio 10.0 05/14/17 11:20 Glucose 98 mg/dL (70-105) 05/14/17 11:20 Calcium 9.9 mg/dL (8.6-10.3) 05/14/17 11:20 Magnesium 1.7 mg/dL (1.9-2.7) L 05/14/17 11:20 Total Bilirubin 0.3 mg/dL (0.3-1.0) 05/14/17 11:20 AST 12 U/L (13-39) L 05/14/17 11:20 ALT 9 U/L (7-52) 05/14/17 11:20 Alkaline Phosphatase 45 U/L (34-104) 05/14/17 11:20 Troponin I 0.03 ng/mL (0.01-0.05) 05/06/17 16:46 Total Protein 7.4 gm/dL (6.0-8.3) 05/14/17 11:20 Albumin 3.7 gm/dL (4.2-5.5) L 05/14/17 11:20 Globulin 3.7 gm/dL 05/14/17 11:20 Albumin/Globulin Ratio 1.0 (1.0-1.8) 05/14/17 11:20 Triglycerides 88 mg/dL (<150) 05/06/17 16:46 Cholesterol 126 mg/dL (<200) 05/06/17 16:46 LDL Cholesterol Direct 89 mg/dL (75-193) 05/06/17 16:46 HDL Cholesterol 30 mg/dL (23-92) 05/06/17 16:46 TSH 1.23 uIU/ml (0.34-5.60) 05/06/17 16:46 Urine Source CLEAN C 05/06/17 16:20 Urine Color YELLOW 05/06/17 16:20 Urine Clarity HAZY (CLEAR) 05/06/17 16:20 Urine pH 5.5 (4.6 - 8.0) 05/06/17 16:20 Ur Specific [place] 1.030 (1.005-1.030) 05/06/17 16:20 Urine Protein 30 mg/dL (NEGATIVE) H 05/06/17 16:20 Urine Glucose (UA) NEGATIVE mg/dL (NEGATIVE) 05/06/17 16:20 Urine Ketones NEGATIVE mg/dL (NEGATIVE) 05/06/17 16:20 Urine Blood NEGATIVE (NEGATIVE) 05/06/17 16:20 Urine Nitrate NEGATIVE (NEGATIVE) 05/06/17 16:20 Urine Bilirubin SMALL (NEGATIVE) H 05/06/17 16:20 Urine Urobilinogen 2.0 E.U./dL (0.2 - 1.0) 05/06/17 16:20 Ur Leukocyte Esterase NEGATIVE (NEGATIVE) 05/06/17 16:20 Urine RBC 0-1 /hpf (0-5) 05/06/17 16:20 Urine WBC 0-2 /hpf (0-5) 05/06/17 16:20 Ur Epithelial Cells OCCASIONAL /lpf (FEW) 05/06/17 16:20 Amorphous Sediment FEW URATES (NONE SEEN) 05/06/17 16:20 Urine Bacteria FEW /hpf (NONE SEEN) 05/06/17 16:20 Urine Mucus MODERATE /lpf (FEW) 05/06/17 16:20 Valproic Acid < 10.0 ug/mL (50.0-100.0) L 05/09/17 05:45 RPR NONREACTIVE (NONREACTIVE) 05/06/17 16:46 - Physical Exam Vitals and I&O: Vital Signs Temp 98.2 F 05/14/17 08:00 Pulse 77 05/14/17 08:00 Resp 16 05/14/17 08:00 BP 120/89 05/14/17 08:00 Pulse Ox 96 05/14/17 08:00 Intake & Output 05/13/17 05/14/17 05/14/17 18:59 06:59 18:59 Intake Total 240 Output Total 350 Balance -110 Weight (lbs) 153 lb Intake: Oral 240 Output: Urine 350 Active Medications: Current Medications Acetaminophen (Tylenol) 650 mg PO Q4H PRN PRN Reason: Pain Or Fever above 101 Stop: 07/05/17 19:13 Al Hydrox/Mg Hydrox/Simethicone (Maalox) 30 ml PO Q6H PRN PRN Reason: Dyspepsia Stop: 07/05/17 19:13 Albuterol Sulfate (Albuterol 2.5mg/3ml Neb Ud) 2.5 mg HHN Q2HRT PRN PRN Reason: Shortness of Breath or Wheeze Stop: 07/05/17 19:13 Benztropine Mesylate (Cogentin) 1 mg PO BID PRN PRN Reason: Agitation Stop: 07/12/17 08:59 Divalproex Sodium (Depakote Er) 1,000 mg PO BID KAM PRN Reason: Protocol Stop: 07/06/17 08:59 Last Admin: 05/14/17 10:12 Dose: Not Given Ferrous Sulfate (Iron) 325 mg PO BID [facility] Stop: 07/06/17 08:59 Last Admin: 05/14/17 10:13 Dose: Not Given Guaifenesin (Robitussin) 200 mg PO Q4HR PRN PRN Reason: Cough or Congestion Stop: 07/05/17 19:13 Haloperidol Lactate (Haldol) 2 mg IM HS PRN PRN Reason: Agitation Stop: 07/12/17 08:04 Haloperidol Lactate (Haldol) 2 mg IM DAILY PRN PRN Reason: Agitation Stop: 07/12/17 08:06 Heparin Sodium (Porcine) (Heparin) 5,000 units SUBQ Q12HR [facility] Stop: 07/05/17 20:59 Last Admin: 05/14/17 10:13 Dose: Not Given Dextrose/Sodium Chloride (D5-0.9%Ns) 1,000 mls @ 70 mls/hr IV .[id number] [facility] Stop: 07/05/17 19:14 Last Admin: 05/10/17 15:37 Dose: 70 mls/hr Ipratropium [place] (Atrovent Neb 0.5mg/2.5ml) 0.5 mg HHN Q2HRT PRN PRN Reason: Shortness of Breath or Wheeze Stop: 07/05/17 19:13 Lactulose (Cephulac) 30 gm PO BID KAM Stop: 07/10/17 16:59 Last Admin: 05/14/17 10:13 Dose: Not Given Levothyroxine Sodium (Synthroid) 0.075 mg PO QDAC KAM Stop: 07/06/17 07:29 Last Admin: 05/14/17 10:12 Dose: Not Given Lorazepam (Ativan) 0.5 mg IV Q6H PRN; Protocol PRN Reason: Agitation Stop: 07/08/17 22:33 Last Admin: 05/10/17 21:53 Dose: 0.5 mg Metoclopramide HCl (Reglan) 10 mg IVP Q8HR PRN PRN Reason: Nausea / Vomiting Stop: 07/09/17 11:31 Last Admin: 05/11/17 06:31 Dose: 10 mg Olanzapine (Zyprexa) 10 mg PO HS KAM PRN Reason: Protocol Stop: 07/07/17 20:59 Last Admin: 05/13/17 22:27 Dose: Not Given Olanzapine (Zyprexa Zydis) 5 mg PO DAILY KAM PRN Reason: Protocol Stop: 07/08/17 08:59 Last Admin: 05/14/17 10:13 Dose: Not Given Ondansetron HCl (Zofran) 4 mg IV Q8H PRN PRN Reason: Nausea / Vomiting Stop: 07/05/17 19:13 Last Admin: 05/13/17 09:56 Dose: 4 mg Pantoprazole Sodium (Protonix) 40 mg PO BID KAM Stop: 07/06/17 08:59 Last Admin: 05/14/17 10:13 Dose: Not Given Sucralfate (Carafate) 1 gm PO QID KAM Stop: 07/05/17 20:59 Last Admin: 05/14/17 10:12 Dose: Not Given Zolpidem Tartrate (Ambien) 5 mg PO HS PRN PRN Reason: Insomnia Stop: 07/05/17 19:12 General: alert HEENT: NC/AT, PERRLA Neck: Supple Abdomen: soft, non-tender, non-distended, positive bowel sound Extremities: excoriation Neurological: alert, disorganized, unsteady, bedbound - Procedures Procedures: Procedures Procedure Code Date DILATION OF LOWER ESOPHAGUS, ENDO [id number] 05/06/17 EGD BIOPSY SINGLE/MULTIPLE 09485 05/06/17 ESOPH EGD DILATION <30 MM [id number] 05/06/17 EXCISION OF ESOPHAGUS, ENDO, DIAGN [id number] 05/06/17 Internal Medicine Assmt/Plan - Assessment Assessment: DYSPHAGIA DEHYDRATION FAILURE TO THRIVE HYPONATREMIA HYPOKALEMIA GERD HTN BARETT'S ESOPHAGUS - Plan Plan: continue with reglan and zofran await for esophagram monitor cbc/bmp ivf for hydration continue current plan of care Nutritional Asmnt/Malnutr-PDOC - Dietary Evaluation Malnutrition Findings (Please click <Entered> for more info): Nutritional Asmnt/Malnutrition Start: 05/07/17 10: 39 Text: Status: Complete Freq: Document 05/07/17 14:31 GSUN (Rec: 05/07/17 15:03 GSUN [id number]) Nutritional Asmnt/Malnutrition Patient General Information Nutritional Screening Consult Diagnosis Dysphagia, dehydration, FTT, Serna esophagus, PCM Pertinent Medical Hx/Surgical Hx Schizophrenia, stroke, TIA, GERD, thyroid disease, arthritis, dementia Subjective Information 46 year old male from SNF. RD consult for dysphagia. Spoke to ELISE Christina, pt has ulcer in the throat, unable to eat, swallow eval ordered nad pending. Pt is a questionable historian, talkative, however speech unclear and difficult to understand. 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 Pt appeared thin, mild muscle fat wasting to chest and temporals. Current Diet Order/ Nutrition Support Clear liquid Pertinent Medications D5-0.9%ns, Iron, Synthroid, Zofran, Protonix, Carafate Pertinent Labs Reviewed. Nutritional Hx/Data Height 5 ft 9 in Height (Calculated Centimeters) 175.3 Current Weight (lbs) 147 lb Weight (Calculated Kilograms) 66.7 Weight (Calculated Grams) 67500.1 [place] Body Weight 160 Weight Status Approriate GI Symptoms Food Allergies No Skin Integrity/Comment: [place] 13. Skin intact. Estimated Nutritional Goals BEE in Kcals: Using Current wt Calories/Kcals/Kg CBW 147lb/66.8kg Kcals Calculated 1670-2004kcal (25-30kcal/kg) Protein: Using Current wt Protein Calculated 67g (1g/kg) Fluid: ml 1670-2004ml (1ml/kcal) Nutritional Problem 1. 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 GI consult and swallow eval pending, recommend regular diet with diet texture per ST if pt is able to resume oral diet. Nursing staff to ensure pt sit upright during meals to minimize possible reflux. 2. Monitor weight. 3. If unable to resume oral diet, recommend enteral nutrition. Expected Outcomes/Goals Expected Outcomes/Goals 1. Pt to meet at least 75% of estimated nutritional needs orally or enterally.
[2017-05-14] MEDS ORDERED: Potassium Chloride 20 mEq ER Tab PO ONE (12:30)
[2017-05-15] MEDS: Levothyroxine 0.075 Mg Tab PO SCH (06:36)
[2017-05-15] MEDS: Ferrous Sulfate 325 MG TAB PO SCH ×2 (10:09→16:11)
[2017-05-15] MEDS: OLANZapine 5 mg Oral Disintegrating Tab PO SCH (10:10)
[2017-05-15] MEDS: Pantoprazole 40 mg EC Tab PO SCH ×2 (10:10→16:11)
[2017-05-15] MEDS: Lactulose 10 Gm/15 mL 30mL UDC PO SCH ×2 (10:10→16:11)
--- NOTE | 2017-05-15 13:16 | GI Progress Note ---
Subjective - Review of Systems Subjective: ZEYNEP SOME OF HIS BREAKFAST STILL REQUESTING ANOTHER EGD Objective - Results Result Diagrams: 05/14/17 11:20 05/14/17 11:20 Recent Labs: Laboratory Last Values WBC 9.1 Th/cmm (4.8-10.8) D 05/14/17 11:20 RBC 4.26 Mil/cmm (4.30-5.70) L 05/14/17 11:20 Hgb 13.1 gm/dL (12-16) 05/14/17 11:20 Hct 39.7 % (41.0-60) L D 05/14/17 11:20 MCV 93.1 fl (80-99) 05/14/17 11:20 MCH 30.8 pg (26.0-30.0) H 05/14/17 11:20 MCHC Differential 33.1 pg (28.0-36.0) 05/14/17 11:20 RDW 12.5 % (11.5-20.0) 05/14/17 11:20 Plt Count 221 Th/cmm (150-400) D 05/14/17 11:20 MPV 9.4 fl 05/14/17 11:20 Neutrophils % 64.8 % (40.0-80.0) 05/14/17 11:20 Lymphocytes % 26.3 % (20.0-50.0) 05/14/17 11:20 Monocytes % 7.8 % (2.0-10.0) 05/14/17 11:20 Eosinophils % 0.9 % (0.0-5.0) 05/14/17 11:20 Basophils % 0.2 % (0.0-2.0) 05/14/17 11:20 PT 11.3 SECONDS (9.5-11.5) 05/09/17 05:45 INR 1.09 (0.5-1.4) 05/09/17 05:45 PTT (Actin FS) 25.7 SECONDS (26.0-38.0) L 05/06/17 16:46 Sodium 131 mEq/L (136-145) L 05/14/17 11:20 Potassium 3.4 mEq/L (3.5-5.1) L 05/14/17 11:20 Chloride 94 mEq/L (98-107) L 05/14/17 11:20 Carbon Dioxide 31.0 mEq/L (21.0-31.0) 05/14/17 11:20 Anion Gap 9.4 (7.0-16.0) 05/14/17 11:20 BUN 9 mg/dL (7-25) 05/14/17 11:20 Creatinine 0.9 mg/dL (0.7-1.3) 05/14/17 11:20 Est GFR ( Amer) > 60.0 ml/min (>90) 05/14/17 11:20 Est GFR (Non-Af Amer) > 60.0 ml/min 05/14/17 11:20 BUN/Creatinine Ratio 10.0 05/14/17 11:20 Glucose 98 mg/dL (70-105) 05/14/17 11:20 Calcium 9.9 mg/dL (8.6-10.3) 05/14/17 11:20 Magnesium 1.7 mg/dL (1.9-2.7) L 05/14/17 11:20 Total Bilirubin 0.3 mg/dL (0.3-1.0) 05/14/17 11:20 AST 12 U/L (13-39) L 05/14/17 11:20 ALT 9 U/L (7-52) 05/14/17 11:20 Alkaline Phosphatase 45 U/L (34-104) 05/14/17 11:20 Troponin I 0.03 ng/mL (0.01-0.05) 05/06/17 16:46 Total Protein 7.4 gm/dL (6.0-8.3) 05/14/17 11:20 Albumin 3.7 gm/dL (4.2-5.5) L 05/14/17 11:20 Globulin 3.7 gm/dL 05/14/17 11:20 Albumin/Globulin Ratio 1.0 (1.0-1.8) 05/14/17 11:20 Triglycerides 88 mg/dL (<150) 05/06/17 16:46 Cholesterol 126 mg/dL (<200) 05/06/17 16:46 LDL Cholesterol Direct 89 mg/dL (75-193) 05/06/17 16:46 HDL Cholesterol 30 mg/dL (23-92) 05/06/17 16:46 TSH 1.23 uIU/ml (0.34-5.60) 05/06/17 16:46 Urine Source CLEAN C 05/06/17 16:20 Urine Color YELLOW 05/06/17 16:20 Urine Clarity HAZY (CLEAR) 05/06/17 16:20 Urine pH 5.5 (4.6 - 8.0) 05/06/17 16:20 Ur Specific [place] 1.030 (1.005-1.030) 05/06/17 16:20 Urine Protein 30 mg/dL (NEGATIVE) H 05/06/17 16:20 Urine Glucose (UA) NEGATIVE mg/dL (NEGATIVE) 05/06/17 16:20 Urine Ketones NEGATIVE mg/dL (NEGATIVE) 05/06/17 16:20 Urine Blood NEGATIVE (NEGATIVE) 05/06/17 16:20 Urine Nitrate NEGATIVE (NEGATIVE) 05/06/17 16:20 Urine Bilirubin SMALL (NEGATIVE) H 05/06/17 16:20 Urine Urobilinogen 2.0 E.U./dL (0.2 - 1.0) 05/06/17 16:20 Ur Leukocyte Esterase NEGATIVE (NEGATIVE) 05/06/17 16:20 Urine RBC 0-1 /hpf (0-5) 05/06/17 16:20 Urine WBC 0-2 /hpf (0-5) 05/06/17 16:20 Ur Epithelial Cells OCCASIONAL /lpf (FEW) 05/06/17 16:20 Amorphous Sediment FEW URATES (NONE SEEN) 05/06/17 16:20 Urine Bacteria FEW /hpf (NONE SEEN) 05/06/17 16:20 Urine Mucus MODERATE /lpf (FEW) 05/06/17 16:20 Valproic Acid < 10.0 ug/mL (50.0-100.0) L 05/09/17 05:45 RPR NONREACTIVE (NONREACTIVE) 05/06/17 16:46 - Physical Exam Vitals and I&O: Vital Signs Temp 98.1 F 05/15/17 12:00 Pulse 81 05/15/17 12:00 Resp 18 05/15/17 12:00 BP 123/97 05/15/17 12:00 Pulse Ox 100 05/15/17 12:00 Intake & Output 05/14/17 05/15/17 05/15/17 18:59 06:59 18:59 Intake Total 500 Balance 500 Weight (lbs) 69.4 kg 68.039 kg 68.039 kg Intake: Oral 500 Other: # Voids 4 1 # Bowel Movements 0 Active Medications: Current Medications Acetaminophen (Tylenol) 650 mg PO Q4H PRN PRN Reason: Pain Or Fever above 101 Stop: 07/05/17 19:13 Al Hydrox/Mg Hydrox/Simethicone (Maalox) 30 ml PO Q6H PRN PRN Reason: Dyspepsia Stop: 07/05/17 19:13 Albuterol Sulfate (Albuterol 2.5mg/3ml Neb Ud) 2.5 mg HHN Q2HRT PRN PRN Reason: Shortness of Breath or Wheeze Stop: 07/05/17 19:13 Benztropine Mesylate (Cogentin) 1 mg PO BID PRN PRN Reason: Agitation Stop: 07/12/17 08:59 Divalproex Sodium (Depakote Er) 1,000 mg PO BID KAM PRN Reason: Protocol Stop: 07/06/17 08:59 Last Admin: 05/15/17 10:09 Dose: Not Given Ferrous Sulfate (Iron) 325 mg PO BID [facility] Stop: 07/06/17 08:59 Last Admin: 05/15/17 10:09 Dose: Not Given Guaifenesin (Robitussin) 200 mg PO Q4HR PRN PRN Reason: Cough or Congestion Stop: 07/05/17 19:13 Haloperidol Lactate (Haldol) 2 mg IM HS PRN PRN Reason: Agitation Stop: 07/12/17 08:04 Haloperidol Lactate (Haldol) 2 mg IM DAILY PRN PRN Reason: Agitation Stop: 07/12/17 08:06 Heparin Sodium (Porcine) (Heparin) 5,000 units SUBQ Q12HR [facility] Stop: 07/05/17 20:59 Last Admin: 05/15/17 10:09 Dose: Not Given Dextrose/Sodium Chloride (D5-0.9%Ns) 1,000 mls @ 70 mls/hr IV .[id number] [facility] Stop: 07/05/17 19:14 Last Admin: 05/10/17 15:37 Dose: 70 mls/hr Ipratropium [place] (Atrovent Neb 0.5mg/2.5ml) 0.5 mg HHN Q2HRT PRN PRN Reason: Shortness of Breath or Wheeze Stop: 07/05/17 19:13 Lactulose (Cephulac) 30 gm PO BID KAM Stop: 07/10/17 16:59 Last Admin: 05/15/17 10:10 Dose: Not Given Levothyroxine Sodium (Synthroid) 0.075 mg PO QDAC KAM Stop: 07/06/17 07:29 Last Admin: 05/15/17 06:36 Dose: Not Given Lorazepam (Ativan) 0.5 mg IV Q6H PRN; Protocol PRN Reason: Agitation Stop: 07/08/17 22:33 Last Admin: 05/10/17 21:53 Dose: 0.5 mg Metoclopramide HCl (Reglan) 10 mg IVP Q8HR PRN PRN Reason: Nausea / Vomiting Stop: 07/09/17 11:31 Last Admin: 05/11/17 06:31 Dose: 10 mg Olanzapine (Zyprexa) 10 mg PO HS KAM PRN Reason: Protocol Stop: 07/07/17 20:59 Last Admin: 05/14/17 21:32 Dose: Not Given Olanzapine (Zyprexa Zydis) 5 mg PO DAILY KAM PRN Reason: Protocol Stop: 07/08/17 08:59 Last Admin: 05/15/17 10:10 Dose: Not Given Ondansetron HCl (Zofran) 4 mg IV Q8H PRN PRN Reason: Nausea / Vomiting Stop: 07/05/17 19:13 Last Admin: 05/13/17 09:56 Dose: 4 mg Pantoprazole Sodium (Protonix) 40 mg PO BID KAM Stop: 07/06/17 08:59 Last Admin: 05/15/17 10:10 Dose: Not Given Sucralfate (Carafate) 1 gm PO QID KAM Stop: 07/05/17 20:59 Last Admin: 05/15/17 10:09 Dose: Not Given Zolpidem Tartrate (Ambien) 5 mg PO HS PRN PRN Reason: Insomnia Stop: 07/05/17 19:12 - Procedures Procedures: Procedures Procedure Code Date DILATION OF LOWER ESOPHAGUS, ENDO [id number] 05/06/17 EGD BIOPSY SINGLE/MULTIPLE 53506 05/06/17 ESOPH EGD DILATION <30 [place] 43959 05/06/17 EXCISION OF ESOPHAGUS, ENDO, DIAGN [id number] 05/06/17 Assessment/Plan - Problem List Patient Problems: All Active Problems DIFFICULTY IN SWALLOWING/POOR ORAL INTAK (Acute) - Assessment Assessment: 46 YO MALE WITH DYSPHAGIA HAD EGD 1-2 WEEKS AGO BUT DOES NOT FEEL BETTER AND WANTED ANOTHER EGD EGD DONE SHOWED MILD DISTAL ESOPHAGITIS WITHOUT STRICTURE THERPEUTIC BALLOON DILATATION PERFORMED FOR RELIEF BUT LIKELY NON SIGNIFICANT SINCE THE ESOPHAGUS WAS WIDELY PATENT ESOPHOGRAM SHOWED PATENT ESOPHAGUS WITH SOME IRREGULARITY AT THE GE JUNCTION PT SEEMS TO HAVE ACTIVE PSYCH ISSUES 1.ANTI-EMETICS AND ANTACIDS 2.CONT SUPP CARE 3.CONSIDER ESOPH MANOMETRY AND IMPEDENCE 4.CONSIDER PSYCH EVAL PER HOSPITALIST
--- NOTE | 2017-05-15 13:25 | Internal Medicine Prog Note ---
Internal Medicine Subjective - Subjective Service Date: 05/15/17 Patient seen and examined:: with staff Patient is:: awake, verbal Patient Complaints of:: vomitting Per staff patient has:: no adverse event, noncompliant, confused, tolerating meds Internal Medicine Objective - Results Result Diagrams: 05/14/17 11:20 05/14/17 11:20 Recent Labs: Laboratory Last Values WBC 9.1 Th/cmm (4.8-10.8) D 05/14/17 11:20 RBC 4.26 Mil/cmm (4.30-5.70) L 05/14/17 11:20 Hgb 13.1 gm/dL (12-16) 05/14/17 11:20 Hct 39.7 % (41.0-60) L D 05/14/17 11:20 MCV 93.1 fl (80-99) 05/14/17 11:20 MCH 30.8 pg (26.0-30.0) H 05/14/17 11:20 MCHC Differential 33.1 pg (28.0-36.0) 05/14/17 11:20 RDW 12.5 % (11.5-20.0) 05/14/17 11:20 Plt Count 221 Th/cmm (150-400) D 05/14/17 11:20 MPV 9.4 fl 05/14/17 11:20 Neutrophils % 64.8 % (40.0-80.0) 05/14/17 11:20 Lymphocytes % 26.3 % (20.0-50.0) 05/14/17 11:20 Monocytes % 7.8 % (2.0-10.0) 05/14/17 11:20 Eosinophils % 0.9 % (0.0-5.0) 05/14/17 11:20 Basophils % 0.2 % (0.0-2.0) 05/14/17 11:20 PT 11.3 SECONDS (9.5-11.5) 05/09/17 05:45 INR 1.09 (0.5-1.4) 05/09/17 05:45 PTT (Actin FS) 25.7 SECONDS (26.0-38.0) L 05/06/17 16:46 Sodium 131 mEq/L (136-145) L 05/14/17 11:20 Potassium 3.4 mEq/L (3.5-5.1) L 05/14/17 11:20 Chloride 94 mEq/L (98-107) L 05/14/17 11:20 Carbon Dioxide 31.0 mEq/L (21.0-31.0) 05/14/17 11:20 Anion Gap 9.4 (7.0-16.0) 05/14/17 11:20 BUN 9 mg/dL (7-25) 05/14/17 11:20 Creatinine 0.9 mg/dL (0.7-1.3) 05/14/17 11:20 Est GFR ( Amer) > 60.0 ml/min (>90) 05/14/17 11:20 Est GFR (Non-Af Amer) > 60.0 ml/min 05/14/17 11:20 BUN/Creatinine Ratio 10.0 05/14/17 11:20 Glucose 98 mg/dL (70-105) 05/14/17 11:20 Calcium 9.9 mg/dL (8.6-10.3) 05/14/17 11:20 Magnesium 1.7 mg/dL (1.9-2.7) L 05/14/17 11:20 Total Bilirubin 0.3 mg/dL (0.3-1.0) 05/14/17 11:20 AST 12 U/L (13-39) L 05/14/17 11:20 ALT 9 U/L (7-52) 05/14/17 11:20 Alkaline Phosphatase 45 U/L (34-104) 05/14/17 11:20 Troponin I 0.03 ng/mL (0.01-0.05) 05/06/17 16:46 Total Protein 7.4 gm/dL (6.0-8.3) 05/14/17 11:20 Albumin 3.7 gm/dL (4.2-5.5) L 05/14/17 11:20 Globulin 3.7 gm/dL 05/14/17 11:20 Albumin/Globulin Ratio 1.0 (1.0-1.8) 05/14/17 11:20 Triglycerides 88 mg/dL (<150) 05/06/17 16:46 Cholesterol 126 mg/dL (<200) 05/06/17 16:46 LDL Cholesterol Direct 89 mg/dL (75-193) 05/06/17 16:46 HDL Cholesterol 30 mg/dL (23-92) 05/06/17 16:46 TSH 1.23 uIU/ml (0.34-5.60) 05/06/17 16:46 Urine Source CLEAN C 05/06/17 16:20 Urine Color YELLOW 05/06/17 16:20 Urine Clarity HAZY (CLEAR) 05/06/17 16:20 Urine pH 5.5 (4.6 - 8.0) 05/06/17 16:20 Ur Specific [place] 1.030 (1.005-1.030) 05/06/17 16:20 Urine Protein 30 mg/dL (NEGATIVE) H 05/06/17 16:20 Urine Glucose (UA) NEGATIVE mg/dL (NEGATIVE) 05/06/17 16:20 Urine Ketones NEGATIVE mg/dL (NEGATIVE) 05/06/17 16:20 Urine Blood NEGATIVE (NEGATIVE) 05/06/17 16:20 Urine Nitrate NEGATIVE (NEGATIVE) 05/06/17 16:20 Urine Bilirubin SMALL (NEGATIVE) H 05/06/17 16:20 Urine Urobilinogen 2.0 E.U./dL (0.2 - 1.0) 05/06/17 16:20 Ur Leukocyte Esterase NEGATIVE (NEGATIVE) 05/06/17 16:20 Urine RBC 0-1 /hpf (0-5) 05/06/17 16:20 Urine WBC 0-2 /hpf (0-5) 05/06/17 16:20 Ur Epithelial Cells OCCASIONAL /lpf (FEW) 05/06/17 16:20 Amorphous Sediment FEW URATES (NONE SEEN) 05/06/17 16:20 Urine Bacteria FEW /hpf (NONE SEEN) 05/06/17 16:20 Urine Mucus MODERATE /lpf (FEW) 05/06/17 16:20 Valproic Acid < 10.0 ug/mL (50.0-100.0) L 05/09/17 05:45 RPR NONREACTIVE (NONREACTIVE) 05/06/17 16:46 - Physical Exam Vitals and I&O: Vital Signs Temp 98.1 F 05/15/17 12:00 Pulse 81 05/15/17 12:00 Resp 18 05/15/17 12:00 BP 123/97 05/15/17 12:00 Pulse Ox 100 05/15/17 12:00 Intake & Output 05/14/17 05/15/17 05/15/17 18:59 06:59 18:59 Intake Total 500 Balance 500 Weight (lbs) 153 lb 150 lb 150 lb Intake: Oral 500 Other: # Voids 4 1 # Bowel Movements 0 Active Medications: Current Medications Acetaminophen (Tylenol) 650 mg PO Q4H PRN PRN Reason: Pain Or Fever above 101 Stop: 07/05/17 19:13 Al Hydrox/Mg Hydrox/Simethicone (Maalox) 30 ml PO Q6H PRN PRN Reason: Dyspepsia Stop: 07/05/17 19:13 Albuterol Sulfate (Albuterol 2.5mg/3ml Neb Ud) 2.5 mg HHN Q2HRT PRN PRN Reason: Shortness of Breath or Wheeze Stop: 07/05/17 19:13 Benztropine Mesylate (Cogentin) 1 mg PO BID PRN PRN Reason: Agitation Stop: 07/12/17 08:59 Divalproex Sodium (Depakote Er) 1,000 mg PO BID KAM PRN Reason: Protocol Stop: 07/06/17 08:59 Last Admin: 05/15/17 10:09 Dose: Not Given Ferrous Sulfate (Iron) 325 mg PO BID [facility] Stop: 07/06/17 08:59 Last Admin: 05/15/17 10:09 Dose: Not Given Guaifenesin (Robitussin) 200 mg PO Q4HR PRN PRN Reason: Cough or Congestion Stop: 07/05/17 19:13 Haloperidol Lactate (Haldol) 2 mg IM HS PRN PRN Reason: Agitation Stop: 07/12/17 08:04 Haloperidol Lactate (Haldol) 2 mg IM DAILY PRN PRN Reason: Agitation Stop: 07/12/17 08:06 Heparin Sodium (Porcine) (Heparin) 5,000 units SUBQ Q12HR [facility] Stop: 07/05/17 20:59 Last Admin: 05/15/17 10:09 Dose: Not Given Dextrose/Sodium Chloride (D5-0.9%Ns) 1,000 mls @ 70 mls/hr IV .[id number] [facility] Stop: 07/05/17 19:14 Last Admin: 05/10/17 15:37 Dose: 70 mls/hr Ipratropium [place] (Atrovent Neb 0.5mg/2.5ml) 0.5 mg HHN Q2HRT PRN PRN Reason: Shortness of Breath or Wheeze Stop: 07/05/17 19:13 Lactulose (Cephulac) 30 gm PO BID [facility] Stop: 07/10/17 16:59 Last Admin: 05/15/17 10:10 Dose: Not Given Levothyroxine Sodium (Synthroid) 0.075 mg PO QDAC KAM Stop: 07/06/17 07:29 Last Admin: 05/15/17 06:36 Dose: Not Given Lorazepam (Ativan) 0.5 mg IV Q6H PRN; Protocol PRN Reason: Agitation Stop: 07/08/17 22:33 Last Admin: 05/10/17 21:53 Dose: 0.5 mg Metoclopramide HCl (Reglan) 10 mg IVP Q8HR PRN PRN Reason: Nausea / Vomiting Stop: 07/09/17 11:31 Last Admin: 05/11/17 06:31 Dose: 10 mg Olanzapine (Zyprexa) 10 mg PO HS KAM PRN Reason: Protocol Stop: 07/07/17 20:59 Last Admin: 05/14/17 21:32 Dose: Not Given Olanzapine (Zyprexa Zydis) 5 mg PO DAILY KAM PRN Reason: Protocol Stop: 07/08/17 08:59 Last Admin: 05/15/17 10:10 Dose: Not Given Ondansetron HCl (Zofran) 4 mg IV Q8H PRN PRN Reason: Nausea / Vomiting Stop: 07/05/17 19:13 Last Admin: 05/13/17 09:56 Dose: 4 mg Pantoprazole Sodium (Protonix) 40 mg PO BID KAM Stop: 07/06/17 08:59 Last Admin: 05/15/17 10:10 Dose: Not Given Sucralfate (Carafate) 1 gm PO QID KAM Stop: 07/05/17 20:59 Last Admin: 05/15/17 10:09 Dose: Not Given Zolpidem Tartrate (Ambien) 5 mg PO HS PRN PRN Reason: Insomnia Stop: 07/05/17 19:12 General: alert HEENT: NC/AT, PERRLA Neck: Supple Abdomen: soft, non-tender, non-distended, positive bowel sound Extremities: excoriation Neurological: alert, disorganized, unsteady, bedbound - Procedures Procedures: Procedures Procedure Code Date DILATION OF LOWER ESOPHAGUS, ENDO [id number] 05/06/17 EGD BIOPSY SINGLE/MULTIPLE 12097 05/06/17 ESOPH EGD DILATION <30 MM [id number] 05/06/17 EXCISION OF ESOPHAGUS, ENDO, DIAGN [id number] 05/06/17 Internal Medicine Assmt/Plan - Assessment Assessment: DYSPHAGIA DEHYDRATION FAILURE TO THRIVE HYPONATREMIA HYPOKALEMIA GERD HTN BARETT'S ESOPHAGUS - Plan Plan: continue with reglan and zofran placement issues monitor cbc/bmp ivf for hydration continue current plan of care Nutritional Asmnt/Malnutr-PDOC - Dietary Evaluation Malnutrition Findings (Please click <Entered> for more info): Nutritional Asmnt/Malnutrition Start: 05/07/17 10: 39 Text: Status: Complete Freq: Document 05/07/17 14:31 GSUN (Rec: 05/07/17 15:03 GSUN [id number]) Nutritional Asmnt/Malnutrition Patient General Information Nutritional Screening Consult Diagnosis Dysphagia, dehydration, FTT, Serna esophagus, PCM Pertinent Medical Hx/Surgical Hx Schizophrenia, stroke, TIA, GERD, thyroid disease, arthritis, dementia Subjective Information 46 year old male from SNF. RD consult for dysphagia. Spoke to ELISE Christina, pt has ulcer in the throat, unable to eat, swallow eval ordered nad pending. Pt is a questionable historian, talkative, however speech unclear and difficult to understand. 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 Pt appeared thin, mild muscle fat wasting to chest and temporals. Current Diet Order/ Nutrition Support Clear liquid Pertinent Medications D5-0.9%ns, Iron, Synthroid, Zofran, Protonix, Carafate Pertinent Labs Reviewed. Nutritional Hx/Data Height 5 ft 9 in Height (Calculated Centimeters) 175.3 Current Weight (lbs) 147 lb Weight (Calculated Kilograms) 66.7 Weight (Calculated Grams) 77695.1 [place] Body Weight 160 Weight Status Approriate GI Symptoms Food Allergies No Skin Integrity/Comment: [place] 13. Skin intact. Estimated Nutritional Goals BEE in Kcals: Using Current wt Calories/Kcals/Kg CBW 147lb/66.8kg Kcals Calculated 1670-2004kcal (25-30kcal/kg) Protein: Using Current wt Protein Calculated 67g (1g/kg) Fluid: ml 1670-2004ml (1ml/kcal) Nutritional Problem 1. 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 GI consult and swallow eval pending, recommend regular diet with diet texture per ST if pt is able to resume oral diet. Nursing staff to ensure pt sit upright during meals to minimize possible reflux. 2. Monitor weight. 3. If unable to resume oral diet, recommend enteral nutrition. Expected Outcomes/Goals Expected Outcomes/Goals 1. Pt to meet at least 75% of estimated nutritional needs orally or enterally.
[2017-05-15 15:04] LABS: % BASOPHILS 0.1 % (0.0-2.0); % LYMPHOCYTES 30.2 % (20.0-50.0); % MONOCYTES 10.7 % (2.0-10.0); HEMATOCRIT 38.8 % (41.0-60); HEMOGLOBIN 12.7 gm/dL (12-16); MEAN CELL VOLUME 92.3 fl (80-99); MEAN CORPUSCULAR HEMOGLOBIN 30.3 pg (26.0-30.0); MEAN CORPUSCULAR HGB CONC 32.8 pg (28.0-36.0); MEAN PLATELET VOLUME 8.3 fl; NEUTROPHILE ABSOLUTE 5.6 Th/cmm (1.8-8.0); PLATELET COUNT 236 Th/cmm (150-400); RED BLOOD COUNT 4.21 Mil/cmm (4.30-5.70); RED CELL DISTRIBUTION WIDTH 12.8 % (11.5-20.0); WHITE BLOOD COUNT 9.6 Th/cmm (4.8-10.8)
[2017-05-15 15:31] LABS: ANION GAP 8.3 (7.0-16.0); BUN - UREA NITROGEN 10 mg/dL (7-25); BUN/CREATININE RATIO 11.1; CALCIUM SERUM 9.7 mg/dL (8.6-10.3); CARBON DIOXIDE 30.6 mEq/L (21.0-31.0); CHLORIDE 101 mEq/L (98-107); CREATININE - SERUM 0.9 mg/dL (0.7-1.3); GLUCOSE 109 mg/dL (70-105); POTASSIUM SERUM 3.9 mEq/L (3.5-5.1); SODIUM SERUM 136 mEq/L (136-145)
[2017-05-16] MEDS: Levothyroxine 0.075 Mg Tab PO SCH (07:05)
[2017-05-16] MEDS: Ferrous Sulfate 325 MG TAB PO SCH ×2 (09:56→17:52)
[2017-05-16] MEDS: Lactulose 10 Gm/15 mL 30mL UDC PO SCH ×2 (09:57→17:52)
[2017-05-16] MEDS: Pantoprazole 40 mg EC Tab PO SCH ×2 (09:57→17:52)
[2017-05-16] MEDS: OLANZapine 5 mg Oral Disintegrating Tab PO SCH (09:57)
--- NOTE | 2017-05-16 13:38 | Internal Medicine Prog Note ---
Internal Medicine Subjective - Subjective Service Date: 05/16/17 Patient is:: awake, verbal Patient Complaints of:: vomitting Per staff patient has:: no adverse event, noncompliant, confused, tolerating meds Internal Medicine Objective - Results Result Diagrams: 05/15/17 14:54 05/15/17 14:54 Recent Labs: Laboratory Last Values WBC 9.6 Th/cmm (4.8-10.8) 05/15/17 14:54 RBC 4.21 Mil/cmm (4.30-5.70) L 05/15/17 14:54 Hgb 12.7 gm/dL (12-16) 05/15/17 14:54 Hct 38.8 % (41.0-60) L 05/15/17 14:54 MCV 92.3 fl (80-99) 05/15/17 14:54 MCH 30.3 pg (26.0-30.0) H 05/15/17 14:54 MCHC Differential 32.8 pg (28.0-36.0) 05/15/17 14:54 RDW 12.8 % (11.5-20.0) 05/15/17 14:54 Plt Count 236 Th/cmm (150-400) 05/15/17 14:54 MPV 8.3 fl 05/15/17 14:54 Neutrophils % 58.0 % (40.0-80.0) 05/15/17 14:54 Lymphocytes % 30.2 % (20.0-50.0) 05/15/17 14:54 Monocytes % 10.7 % (2.0-10.0) H 05/15/17 14:54 Eosinophils % 1.0 % (0.0-5.0) 05/15/17 14:54 Basophils % 0.1 % (0.0-2.0) 05/15/17 14:54 PT 11.3 SECONDS (9.5-11.5) 05/09/17 05:45 INR 1.09 (0.5-1.4) 05/09/17 05:45 PTT (Actin FS) 25.7 SECONDS (26.0-38.0) L 05/06/17 16:46 Sodium 136 mEq/L (136-145) 05/15/17 14:54 Potassium 3.9 mEq/L (3.5-5.1) 05/15/17 14:54 Chloride 101 mEq/L (98-107) 05/15/17 14:54 Carbon Dioxide 30.6 mEq/L (21.0-31.0) 05/15/17 14:54 Anion Gap 8.3 (7.0-16.0) 05/15/17 14:54 BUN 10 mg/dL (7-25) 05/15/17 14:54 Creatinine 0.9 mg/dL (0.7-1.3) 05/15/17 14:54 Est GFR ( Amer) > 60.0 ml/min (>90) 05/15/17 14:54 Est GFR (Non-Af Amer) > 60.0 ml/min 05/15/17 14:54 BUN/Creatinine Ratio 11.1 05/15/17 14:54 Glucose 109 mg/dL (70-105) H 05/15/17 14:54 Calcium 9.7 mg/dL (8.6-10.3) 05/15/17 14:54 Magnesium 1.7 mg/dL (1.9-2.7) L 05/14/17 11:20 Total Bilirubin 0.3 mg/dL (0.3-1.0) 05/14/17 11:20 AST 12 U/L (13-39) L 05/14/17 11:20 ALT 9 U/L (7-52) 05/14/17 11:20 Alkaline Phosphatase 45 U/L (34-104) 05/14/17 11:20 Troponin I 0.03 ng/mL (0.01-0.05) 05/06/17 16:46 Total Protein 7.4 gm/dL (6.0-8.3) 05/14/17 11:20 Albumin 3.7 gm/dL (4.2-5.5) L 05/14/17 11:20 Globulin 3.7 gm/dL 05/14/17 11:20 Albumin/Globulin Ratio 1.0 (1.0-1.8) 05/14/17 11:20 Triglycerides 88 mg/dL (<150) 05/06/17 16:46 Cholesterol 126 mg/dL (<200) 05/06/17 16:46 LDL Cholesterol Direct 89 mg/dL (75-193) 05/06/17 16:46 HDL Cholesterol 30 mg/dL (23-92) 05/06/17 16:46 TSH 1.23 uIU/ml (0.34-5.60) 05/06/17 16:46 Urine Source CLEAN C 05/06/17 16:20 Urine Color YELLOW 05/06/17 16:20 Urine Clarity HAZY (CLEAR) 05/06/17 16:20 Urine pH 5.5 (4.6 - 8.0) 05/06/17 16:20 Ur Specific [place] 1.030 (1.005-1.030) 05/06/17 16:20 Urine Protein 30 mg/dL (NEGATIVE) H 05/06/17 16:20 Urine Glucose (UA) NEGATIVE mg/dL (NEGATIVE) 05/06/17 16:20 Urine Ketones NEGATIVE mg/dL (NEGATIVE) 05/06/17 16:20 Urine Blood NEGATIVE (NEGATIVE) 05/06/17 16:20 Urine Nitrate NEGATIVE (NEGATIVE) 05/06/17 16:20 Urine Bilirubin SMALL (NEGATIVE) H 05/06/17 16:20 Urine Urobilinogen 2.0 E.U./dL (0.2 - 1.0) 05/06/17 16:20 Ur Leukocyte Esterase NEGATIVE (NEGATIVE) 05/06/17 16:20 Urine RBC 0-1 /hpf (0-5) 05/06/17 16:20 Urine WBC 0-2 /hpf (0-5) 05/06/17 16:20 Ur Epithelial Cells OCCASIONAL /lpf (FEW) 05/06/17 16:20 Amorphous Sediment FEW URATES (NONE SEEN) 05/06/17 16:20 Urine Bacteria FEW /hpf (NONE SEEN) 05/06/17 16:20 Urine Mucus MODERATE /lpf (FEW) 05/06/17 16:20 Valproic Acid < 10.0 ug/mL (50.0-100.0) L 05/09/17 05:45 RPR NONREACTIVE (NONREACTIVE) 05/06/17 16:46 - Physical Exam Vitals and I&O: Vital Signs Temp 98 F 05/16/17 08:00 Pulse 82 05/16/17 08:16 Resp 17 05/16/17 10:29 BP 153/104 05/16/17 08:00 Pulse Ox 100 05/16/17 08:16 Intake & Output 05/15/17 05/16/17 05/16/17 18:59 06:59 18:59 Intake Total 200 200 Balance 200 200 Weight (lbs) 150 lb 150 lb 150 lb Intake: Oral 200 200 Other: # Voids 2 2 # Bowel Movements 1 Active Medications: Current Medications Acetaminophen (Tylenol) 650 mg PO Q4H PRN PRN Reason: Pain Or Fever above 101 Stop: 07/05/17 19:13 Al Hydrox/Mg Hydrox/Simethicone (Maalox) 30 ml PO Q6H PRN PRN Reason: Dyspepsia Stop: 07/05/17 19:13 Albuterol Sulfate (Albuterol 2.5mg/3ml Neb Ud) 2.5 mg HHN Q2HRT PRN PRN Reason: Shortness of Breath or Wheeze Stop: 07/05/17 19:13 Benztropine Mesylate (Cogentin) 1 mg PO BID PRN PRN Reason: Agitation Stop: 07/12/17 08:59 Divalproex Sodium (Depakote Er) 1,000 mg PO BID KAM PRN Reason: Protocol Stop: 07/06/17 08:59 Last Admin: 05/16/17 09:56 Dose: Not Given Ferrous Sulfate (Iron) 325 mg PO BID [facility] Stop: 07/06/17 08:59 Last Admin: 05/16/17 09:56 Dose: Not Given Guaifenesin (Robitussin) 200 mg PO Q4HR PRN PRN Reason: Cough or Congestion Stop: 07/05/17 19:13 Haloperidol Lactate (Haldol) 2 mg IM HS PRN PRN Reason: Agitation Stop: 07/12/17 08:04 Haloperidol Lactate (Haldol) 2 mg IM DAILY PRN PRN Reason: Agitation Stop: 07/12/17 08:06 Heparin Sodium (Porcine) (Heparin) 5,000 units SUBQ Q12HR [facility] Stop: 07/05/17 20:59 Last Admin: 05/16/17 09:56 Dose: Not Given Dextrose/Sodium Chloride (D5-0.9%Ns) 1,000 mls @ 70 mls/hr IV .[id number] [facility] Stop: 07/05/17 19:14 Last Admin: 05/10/17 15:37 Dose: 70 mls/hr Ipratropium [place] (Atrovent Neb 0.5mg/2.5ml) 0.5 mg HHN Q2HRT PRN PRN Reason: Shortness of Breath or Wheeze Stop: 07/05/17 19:13 Lactulose (Cephulac) 30 gm PO BID KMA Stop: 07/10/17 16:59 Last Admin: 05/16/17 09:57 Dose: Not Given Levothyroxine Sodium (Synthroid) 0.075 mg PO QDAC KAM Stop: 07/06/17 07:29 Last Admin: 05/16/17 07:05 Dose: Not Given Lorazepam (Ativan) 0.5 mg IV Q6H PRN; Protocol PRN Reason: Agitation Stop: 07/08/17 22:33 Last Admin: 05/10/17 21:53 Dose: 0.5 mg Metoclopramide HCl (Reglan) 10 mg IVP Q8HR PRN PRN Reason: Nausea / Vomiting Stop: 07/09/17 11:31 Last Admin: 05/11/17 06:31 Dose: 10 mg Metoclopramide HCl (Reglan) 5 mg IVP Q8HR KAM Stop: 07/15/17 20:59 Olanzapine (Zyprexa) 10 mg PO HS KAM PRN Reason: Protocol Stop: 07/07/17 20:59 Last Admin: 05/15/17 21:26 Dose: Not Given Olanzapine (Zyprexa Zydis) 5 mg PO DAILY KAM PRN Reason: Protocol Stop: 07/08/17 08:59 Last Admin: 05/16/17 09:57 Dose: Not Given Ondansetron HCl (Zofran) 4 mg IV Q4H PRN PRN Reason: Nausea / Vomiting Stop: 07/05/17 19:13 Pantoprazole Sodium (Protonix) 40 mg PO BID KAM Stop: 07/06/17 08:59 Last Admin: 05/16/17 09:57 Dose: Not Given Sucralfate (Carafate) 1 gm PO QID KAM Stop: 07/05/17 20:59 Last Admin: 05/16/17 09:56 Dose: Not Given Zolpidem Tartrate (Ambien) 5 mg PO HS PRN PRN Reason: Insomnia Stop: 07/05/17 19:12 General: alert HEENT: NC/AT, PERRLA Neck: Supple Abdomen: soft, non-tender, non-distended, positive bowel sound Extremities: excoriation Neurological: alert, disorganized, unsteady, bedbound - Procedures Procedures: Procedures Procedure Code Date DILATION OF LOWER ESOPHAGUS, ENDO [id number] 05/06/17 EGD BIOPSY SINGLE/MULTIPLE 48462 05/06/17 ESOPH EGD DILATION <30 MM 83354 05/06/17 EXCISION OF ESOPHAGUS, ENDO, DIAGN [id number] 05/06/17 Internal Medicine Assmt/Plan - Assessment Assessment: DYSPHAGIA DEHYDRATION FAILURE TO THRIVE HYPONATREMIA HYPOKALEMIA GERD HTN BARETT'S ESOPHAGUS - Plan Plan: continue with reglan and zofran placement issues monitor cbc/bmp ivf for hydration continue current plan of care Nutritional Asmnt/Malnutr-PDOC - Dietary Evaluation Malnutrition Findings (Please click <Entered> for more info): Nutritional Asmnt/Malnutrition Start: 05/07/17 10: 39 Text: Status: Complete Freq: Document 05/07/17 14:31 GSUN (Rec: 05/07/17 15:03 GSUN [id number]) Nutritional Asmnt/Malnutrition Patient General Information Nutritional Screening Consult Diagnosis Dysphagia, dehydration, FTT, Serna esophagus, PCM Pertinent Medical Hx/Surgical Hx Schizophrenia, stroke, TIA, GERD, thyroid disease, arthritis, dementia Subjective Information 46 year old male from SNF. RD consult for dysphagia. Spoke to ELISE Christina, pt has ulcer in the throat, unable to eat, swallow eval ordered nad pending. Pt is a questionable historian, talkative, however speech unclear and difficult to understand. 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 Pt appeared thin, mild muscle fat wasting to chest and temporals. Current Diet Order/ Nutrition Support Clear liquid Pertinent Medications D5-0.9%ns, Iron, Synthroid, Zofran, Protonix, Carafate Pertinent Labs Reviewed. Nutritional Hx/Data Height 5 ft 9 in Height (Calculated Centimeters) 175.3 Current Weight (lbs) 147 lb Weight (Calculated Kilograms) 66.7 Weight (Calculated Grams) 81163.1 [place] Body Weight 160 Weight Status Approriate GI Symptoms Food Allergies No Skin Integrity/Comment: [place] 13. Skin intact. Estimated Nutritional Goals BEE in Kcals: Using Current wt Calories/Kcals/Kg CBW 147lb/66.8kg Kcals Calculated 1670-2004kcal (25-30kcal/kg) Protein: Using Current wt Protein Calculated 67g (1g/kg) Fluid: ml 1670-2004ml (1ml/kcal) Nutritional Problem 1. 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 GI consult and swallow eval pending, recommend regular diet with diet texture per ST if pt is able to resume oral diet. Nursing staff to ensure pt sit upright during meals to minimize possible reflux. 2. Monitor weight. 3. If unable to resume oral diet, recommend enteral nutrition. Expected Outcomes/Goals Expected Outcomes/Goals 1. Pt to meet at least 75% of estimated nutritional needs orally or enterally.
[2017-05-16] MEDS: Metoclopramide 5 mg/mL 2mL Vial IVP SCH (22:04)
--- NOTE | 2017-05-17 07:49 | Progress Notes ---
DATE: 05/17/2017 SUBJECTIVE: Chart reviewed and the patient interviewed. Also discussed the patient's condition with the staff and reviewed records and labs. The patient is still mumbling and still has difficulty expressing himself. The patient also is restless and at times is still resisting care according to the staff. The patient also seems to be slightly confused and irritable. Also, during interview, the patient articulate his words and talking about his needs. Also, personal hygiene is still poor. ASSESSMENT: The patient is still psychotic. TREATMENT PLAN: We will continue monitoring his behavior. Also, we will increase Zyprexa to 10 mg in the morning and 10 mg at bedtime, and we will continue to monitor his behavior and his condition closely. JOB# [id number]
[2017-05-17] MEDS: Pantoprazole 40 mg EC Tab PO SCH ×2 (09:06→17:32)
[2017-05-17] MEDS: Lactulose 10 Gm/15 mL 30mL UDC PO SCH ×2 (09:06→17:32)
[2017-05-17] MEDS: Ferrous Sulfate 325 MG TAB PO SCH ×2 (09:06→17:32)
--- NOTE | 2017-05-17 10:14 | GI Progress Note ---
Subjective - Review of Systems Subjective: NO NEW EVENTS Objective - Results Result Diagrams: 05/15/17 14:54 05/15/17 14:54 Recent Labs: Laboratory Last Values WBC 9.6 Th/cmm (4.8-10.8) 05/15/17 14:54 RBC 4.21 Mil/cmm (4.30-5.70) L 05/15/17 14:54 Hgb 12.7 gm/dL (12-16) 05/15/17 14:54 Hct 38.8 % (41.0-60) L 05/15/17 14:54 MCV 92.3 fl (80-99) 05/15/17 14:54 MCH 30.3 pg (26.0-30.0) H 05/15/17 14:54 MCHC Differential 32.8 pg (28.0-36.0) 05/15/17 14:54 RDW 12.8 % (11.5-20.0) 05/15/17 14:54 Plt Count 236 Th/cmm (150-400) 05/15/17 14:54 MPV 8.3 fl 05/15/17 14:54 Neutrophils % 58.0 % (40.0-80.0) 05/15/17 14:54 Lymphocytes % 30.2 % (20.0-50.0) 05/15/17 14:54 Monocytes % 10.7 % (2.0-10.0) H 05/15/17 14:54 Eosinophils % 1.0 % (0.0-5.0) 05/15/17 14:54 Basophils % 0.1 % (0.0-2.0) 05/15/17 14:54 PT 11.3 SECONDS (9.5-11.5) 05/09/17 05:45 INR 1.09 (0.5-1.4) 05/09/17 05:45 PTT (Actin FS) 25.7 SECONDS (26.0-38.0) L 05/06/17 16:46 Sodium 136 mEq/L (136-145) 05/15/17 14:54 Potassium 3.9 mEq/L (3.5-5.1) 05/15/17 14:54 Chloride 101 mEq/L (98-107) 05/15/17 14:54 Carbon Dioxide 30.6 mEq/L (21.0-31.0) 05/15/17 14:54 Anion Gap 8.3 (7.0-16.0) 05/15/17 14:54 BUN 10 mg/dL (7-25) 05/15/17 14:54 Creatinine 0.9 mg/dL (0.7-1.3) 05/15/17 14:54 Est GFR ( Amer) > 60.0 ml/min (>90) 05/15/17 14:54 Est GFR (Non-Af Amer) > 60.0 ml/min 05/15/17 14:54 BUN/Creatinine Ratio 11.1 05/15/17 14:54 Glucose 109 mg/dL (70-105) H 05/15/17 14:54 Calcium 9.7 mg/dL (8.6-10.3) 05/15/17 14:54 Magnesium 1.7 mg/dL (1.9-2.7) L 05/14/17 11:20 Total Bilirubin 0.3 mg/dL (0.3-1.0) 05/14/17 11:20 AST 12 U/L (13-39) L 05/14/17 11:20 ALT 9 U/L (7-52) 05/14/17 11:20 Alkaline Phosphatase 45 U/L (34-104) 05/14/17 11:20 Troponin I 0.03 ng/mL (0.01-0.05) 05/06/17 16:46 Total Protein 7.4 gm/dL (6.0-8.3) 05/14/17 11:20 Albumin 3.7 gm/dL (4.2-5.5) L 05/14/17 11:20 Globulin 3.7 gm/dL 05/14/17 11:20 Albumin/Globulin Ratio 1.0 (1.0-1.8) 05/14/17 11:20 Triglycerides 88 mg/dL (<150) 05/06/17 16:46 Cholesterol 126 mg/dL (<200) 05/06/17 16:46 LDL Cholesterol Direct 89 mg/dL (75-193) 05/06/17 16:46 HDL Cholesterol 30 mg/dL (23-92) 05/06/17 16:46 TSH 1.23 uIU/ml (0.34-5.60) 05/06/17 16:46 Urine Source CLEAN C 05/06/17 16:20 Urine Color YELLOW 05/06/17 16:20 Urine Clarity HAZY (CLEAR) 05/06/17 16:20 Urine pH 5.5 (4.6 - 8.0) 05/06/17 16:20 Ur Specific [place] 1.030 (1.005-1.030) 05/06/17 16:20 Urine Protein 30 mg/dL (NEGATIVE) H 05/06/17 16:20 Urine Glucose (UA) NEGATIVE mg/dL (NEGATIVE) 05/06/17 16:20 Urine Ketones NEGATIVE mg/dL (NEGATIVE) 05/06/17 16:20 Urine Blood NEGATIVE (NEGATIVE) 05/06/17 16:20 Urine Nitrate NEGATIVE (NEGATIVE) 05/06/17 16:20 Urine Bilirubin SMALL (NEGATIVE) H 05/06/17 16:20 Urine Urobilinogen 2.0 E.U./dL (0.2 - 1.0) 05/06/17 16:20 Ur Leukocyte Esterase NEGATIVE (NEGATIVE) 05/06/17 16:20 Urine RBC 0-1 /hpf (0-5) 05/06/17 16:20 Urine WBC 0-2 /hpf (0-5) 05/06/17 16:20 Ur Epithelial Cells OCCASIONAL /lpf (FEW) 05/06/17 16:20 Amorphous Sediment FEW URATES (NONE SEEN) 05/06/17 16:20 Urine Bacteria FEW /hpf (NONE SEEN) 05/06/17 16:20 Urine Mucus MODERATE /lpf (FEW) 05/06/17 16:20 Valproic Acid < 10.0 ug/mL (50.0-100.0) L 05/09/17 05:45 RPR NONREACTIVE (NONREACTIVE) 05/06/17 16:46 - Physical Exam Vitals and I&O: Vital Signs Temp 98.2 F 05/17/17 04:00 Pulse 76 05/17/17 08:01 Resp 18 05/17/17 08:01 BP 136/75 05/17/17 04:00 Pulse Ox 96 05/17/17 08:01 Intake & Output 05/16/17 05/17/17 05/17/17 18:59 06:59 18:59 Intake Total 200 400 Balance 200 400 Weight (lbs) 68.039 kg 68.402 kg Intake: Oral 200 400 Other: # Voids 2 4 # Bowel Movements 1 Active Medications: Current Medications Acetaminophen (Tylenol) 650 mg PO Q4H PRN PRN Reason: Pain Or Fever above 101 Stop: 07/05/17 19:13 Al Hydrox/Mg Hydrox/Simethicone (Maalox) 30 ml PO Q6H PRN PRN Reason: Dyspepsia Stop: 07/05/17 19:13 Albuterol Sulfate (Albuterol 2.5mg/3ml Neb Ud) 2.5 mg HHN Q2HRT PRN PRN Reason: Shortness of Breath or Wheeze Stop: 07/05/17 19:13 Benztropine Mesylate (Cogentin) 1 mg PO BID PRN PRN Reason: Agitation Stop: 07/12/17 08:59 Divalproex Sodium (Depakote Er) 1,000 mg PO BID KAM PRN Reason: Protocol Stop: 07/06/17 08:59 Last Admin: 05/17/17 09:06 Dose: Not Given Ferrous Sulfate (Iron) 325 mg PO BID [facility] Stop: 07/06/17 08:59 Last Admin: 05/17/17 09:06 Dose: Not Given Guaifenesin (Robitussin) 200 mg PO Q4HR PRN PRN Reason: Cough or Congestion Stop: 07/05/17 19:13 Haloperidol Lactate (Haldol) 2 mg IM HS PRN PRN Reason: Agitation Stop: 07/12/17 08:04 Haloperidol Lactate (Haldol) 2 mg IM DAILY PRN PRN Reason: Agitation Stop: 07/12/17 08:06 Heparin Sodium (Porcine) (Heparin) 5,000 units SUBQ Q12HR [facility] Stop: 07/05/17 20:59 Last Admin: 05/17/17 09:06 Dose: Not Given Dextrose/Sodium Chloride (D5-0.9%Ns) 1,000 mls @ 70 mls/hr IV .[id number] [facility] Stop: 07/05/17 19:14 Last Admin: 05/10/17 15:37 Dose: 70 mls/hr Ipratropium [place] (Atrovent Neb 0.5mg/2.5ml) 0.5 mg HHN Q2HRT PRN PRN Reason: Shortness of Breath or Wheeze Stop: 07/05/17 19:13 Lactulose (Cephulac) 30 gm PO BID KAM Stop: 07/10/17 16:59 Last Admin: 05/17/17 09:06 Dose: Not Given Levothyroxine Sodium (Synthroid) 0.075 mg PO QDAC KAM Stop: 07/06/17 07:29 Last Admin: 05/16/17 07:05 Dose: Not Given Lorazepam (Ativan) 0.5 mg IV Q6H PRN; Protocol PRN Reason: Agitation Stop: 07/08/17 22:33 Last Admin: 05/10/17 21:53 Dose: 0.5 mg Metoclopramide HCl (Reglan) 10 mg IVP Q8HR PRN PRN Reason: Nausea / Vomiting Stop: 07/09/17 11:31 Last Admin: 05/11/17 06:31 Dose: 10 mg Metoclopramide HCl (Reglan) 5 mg IVP Q8HR KAM Stop: 07/15/17 20:59 Last Admin: 05/16/17 22:04 Dose: Not Given Olanzapine (Zyprexa) 10 mg PO HS KAM PRN Reason: Protocol Stop: 07/07/17 20:59 Last Admin: 05/16/17 22:05 Dose: Not Given Olanzapine (Zyprexa Zydis) 10 mg PO DAILY KAM PRN Reason: Protocol Stop: 07/08/17 08:59 Ondansetron HCl (Zofran) 4 mg IV Q4H PRN PRN Reason: Nausea / Vomiting Stop: 07/05/17 19:13 Pantoprazole Sodium (Protonix) 40 mg PO BID KAM Stop: 07/06/17 08:59 Last Admin: 05/17/17 09:06 Dose: Not Given Sucralfate (Carafate) 1 gm PO QID KAM Stop: 07/05/17 20:59 Last Admin: 05/17/17 09:05 Dose: Not Given Zolpidem Tartrate (Ambien) 5 mg PO HS PRN PRN Reason: Insomnia Stop: 07/05/17 19:12 - Procedures Procedures: Procedures Procedure Code Date DILATION OF LOWER ESOPHAGUS, ENDO [id number] 05/06/17 EGD BIOPSY SINGLE/MULTIPLE 99737 05/06/17 ESOPH EGD DILATION <30 MM 14375 05/06/17 EXCISION OF ESOPHAGUS, ENDO, DIAGN [id number] 05/06/17 Assessment/Plan - Problem List Patient Problems: All Active Problems DIFFICULTY IN SWALLOWING/POOR ORAL INTAK (Acute) - Assessment Assessment: 46 YO MALE WITH DYSPHAGIA HAD EGD 1-2 WEEKS AGO BUT DOES NOT FEEL BETTER AND WANTED ANOTHER EGD EGD DONE SHOWED MILD DISTAL ESOPHAGITIS WITHOUT STRICTURE THERPEUTIC BALLOON DILATATION PERFORMED FOR RELIEF BUT LIKELY NON SIGNIFICANT SINCE THE ESOPHAGUS WAS WIDELY PATENT ESOPHOGRAM SHOWED PATENT ESOPHAGUS WITH SOME IRREGULARITY AT THE GE JUNCTION PT SEEMS TO HAVE ACTIVE PSYCH ISSUES 1.ANTI-EMETICS AND ANTACIDS 2.CONT SUPP CARE 3.LIMITED GI OPTIONS AT THIS POINT AT PRESENT HOSPTIAT CONSIDER ESOPH MANOMETRY AND IMPEDENCE AT TERTIARY CENTER BUT BEST AFTER PSYCH ISSUES HAVE BEEN CONTROLLED 4.CONT PSYCH MANAGEMENT 5.WILL SEE NEEDED; CALL IF QUESTIONS
--- NOTE | 2017-05-17 11:00 | Internal Medicine Prog Note ---
Internal Medicine Subjective - Subjective Service Date: 05/17/17 Patient is:: awake, verbal Patient Complaints of:: vomitting Per staff patient has:: no adverse event, noncompliant, confused, tolerating meds Internal Medicine Objective - Results Result Diagrams: 05/15/17 14:54 05/15/17 14:54 Recent Labs: Laboratory Last Values WBC 9.6 Th/cmm (4.8-10.8) 05/15/17 14:54 RBC 4.21 Mil/cmm (4.30-5.70) L 05/15/17 14:54 Hgb 12.7 gm/dL (12-16) 05/15/17 14:54 Hct 38.8 % (41.0-60) L 05/15/17 14:54 MCV 92.3 fl (80-99) 05/15/17 14:54 MCH 30.3 pg (26.0-30.0) H 05/15/17 14:54 MCHC Differential 32.8 pg (28.0-36.0) 05/15/17 14:54 RDW 12.8 % (11.5-20.0) 05/15/17 14:54 Plt Count 236 Th/cmm (150-400) 05/15/17 14:54 MPV 8.3 fl 05/15/17 14:54 Neutrophils % 58.0 % (40.0-80.0) 05/15/17 14:54 Lymphocytes % 30.2 % (20.0-50.0) 05/15/17 14:54 Monocytes % 10.7 % (2.0-10.0) H 05/15/17 14:54 Eosinophils % 1.0 % (0.0-5.0) 05/15/17 14:54 Basophils % 0.1 % (0.0-2.0) 05/15/17 14:54 PT 11.3 SECONDS (9.5-11.5) 05/09/17 05:45 INR 1.09 (0.5-1.4) 05/09/17 05:45 PTT (Actin FS) 25.7 SECONDS (26.0-38.0) L 05/06/17 16:46 Sodium 136 mEq/L (136-145) 05/15/17 14:54 Potassium 3.9 mEq/L (3.5-5.1) 05/15/17 14:54 Chloride 101 mEq/L (98-107) 05/15/17 14:54 Carbon Dioxide 30.6 mEq/L (21.0-31.0) 05/15/17 14:54 Anion Gap 8.3 (7.0-16.0) 05/15/17 14:54 BUN 10 mg/dL (7-25) 05/15/17 14:54 Creatinine 0.9 mg/dL (0.7-1.3) 05/15/17 14:54 Est GFR ( Amer) > 60.0 ml/min (>90) 05/15/17 14:54 Est GFR (Non-Af Amer) > 60.0 ml/min 05/15/17 14:54 BUN/Creatinine Ratio 11.1 05/15/17 14:54 Glucose 109 mg/dL (70-105) H 05/15/17 14:54 Calcium 9.7 mg/dL (8.6-10.3) 05/15/17 14:54 Magnesium 1.7 mg/dL (1.9-2.7) L 05/14/17 11:20 Total Bilirubin 0.3 mg/dL (0.3-1.0) 05/14/17 11:20 AST 12 U/L (13-39) L 05/14/17 11:20 ALT 9 U/L (7-52) 05/14/17 11:20 Alkaline Phosphatase 45 U/L (34-104) 05/14/17 11:20 Troponin I 0.03 ng/mL (0.01-0.05) 05/06/17 16:46 Total Protein 7.4 gm/dL (6.0-8.3) 05/14/17 11:20 Albumin 3.7 gm/dL (4.2-5.5) L 05/14/17 11:20 Globulin 3.7 gm/dL 05/14/17 11:20 Albumin/Globulin Ratio 1.0 (1.0-1.8) 05/14/17 11:20 Triglycerides 88 mg/dL (<150) 05/06/17 16:46 Cholesterol 126 mg/dL (<200) 05/06/17 16:46 LDL Cholesterol Direct 89 mg/dL (75-193) 05/06/17 16:46 HDL Cholesterol 30 mg/dL (23-92) 05/06/17 16:46 TSH 1.23 uIU/ml (0.34-5.60) 05/06/17 16:46 Urine Source CLEAN C 05/06/17 16:20 Urine Color YELLOW 05/06/17 16:20 Urine Clarity HAZY (CLEAR) 05/06/17 16:20 Urine pH 5.5 (4.6 - 8.0) 05/06/17 16:20 Ur Specific [place] 1.030 (1.005-1.030) 05/06/17 16:20 Urine Protein 30 mg/dL (NEGATIVE) H 05/06/17 16:20 Urine Glucose (UA) NEGATIVE mg/dL (NEGATIVE) 05/06/17 16:20 Urine Ketones NEGATIVE mg/dL (NEGATIVE) 05/06/17 16:20 Urine Blood NEGATIVE (NEGATIVE) 05/06/17 16:20 Urine Nitrate NEGATIVE (NEGATIVE) 05/06/17 16:20 Urine Bilirubin SMALL (NEGATIVE) H 05/06/17 16:20 Urine Urobilinogen 2.0 E.U./dL (0.2 - 1.0) 05/06/17 16:20 Ur Leukocyte Esterase NEGATIVE (NEGATIVE) 05/06/17 16:20 Urine RBC 0-1 /hpf (0-5) 05/06/17 16:20 Urine WBC 0-2 /hpf (0-5) 05/06/17 16:20 Ur Epithelial Cells OCCASIONAL /lpf (FEW) 05/06/17 16:20 Amorphous Sediment FEW URATES (NONE SEEN) 05/06/17 16:20 Urine Bacteria FEW /hpf (NONE SEEN) 05/06/17 16:20 Urine Mucus MODERATE /lpf (FEW) 05/06/17 16:20 Valproic Acid < 10.0 ug/mL (50.0-100.0) L 05/09/17 05:45 RPR NONREACTIVE (NONREACTIVE) 05/06/17 16:46 - Physical Exam Vitals and I&O: Vital Signs Temp 98.2 F 05/17/17 04:00 Pulse 76 05/17/17 08:01 Resp 18 05/17/17 08:01 BP 136/75 05/17/17 04:00 Pulse Ox 96 05/17/17 08:01 Intake & Output 05/16/17 05/17/17 05/17/17 18:59 06:59 18:59 Intake Total 200 400 Balance 200 400 Weight (lbs) 150 lb 150 lb 12.8 oz Intake: Oral 200 400 Other: # Voids 2 4 # Bowel Movements 1 Active Medications: Current Medications Acetaminophen (Tylenol) 650 mg PO Q4H PRN PRN Reason: Pain Or Fever above 101 Stop: 07/05/17 19:13 Al Hydrox/Mg Hydrox/Simethicone (Maalox) 30 ml PO Q6H PRN PRN Reason: Dyspepsia Stop: 07/05/17 19:13 Albuterol Sulfate (Albuterol 2.5mg/3ml Neb Ud) 2.5 mg HHN Q2HRT PRN PRN Reason: Shortness of Breath or Wheeze Stop: 07/05/17 19:13 Benztropine Mesylate (Cogentin) 1 mg PO BID PRN PRN Reason: Agitation Stop: 07/12/17 08:59 Divalproex Sodium (Depakote Er) 1,000 mg PO BID KAM PRN Reason: Protocol Stop: 07/06/17 08:59 Last Admin: 05/17/17 09:06 Dose: Not Given Ferrous Sulfate (Iron) 325 mg PO BID [facility] Stop: 07/06/17 08:59 Last Admin: 05/17/17 09:06 Dose: Not Given Guaifenesin (Robitussin) 200 mg PO Q4HR PRN PRN Reason: Cough or Congestion Stop: 07/05/17 19:13 Haloperidol Lactate (Haldol) 2 mg IM HS PRN PRN Reason: Agitation Stop: 07/12/17 08:04 Haloperidol Lactate (Haldol) 2 mg IM DAILY PRN PRN Reason: Agitation Stop: 07/12/17 08:06 Heparin Sodium (Porcine) (Heparin) 5,000 units SUBQ Q12HR [facility] Stop: 07/05/17 20:59 Last Admin: 05/17/17 09:06 Dose: Not Given Dextrose/Sodium Chloride (D5-0.9%Ns) 1,000 mls @ 70 mls/hr IV .[id number] [facility] Stop: 07/05/17 19:14 Last Admin: 05/10/17 15:37 Dose: 70 mls/hr Ipratropium [place] (Atrovent Neb 0.5mg/2.5ml) 0.5 mg HHN Q2HRT PRN PRN Reason: Shortness of Breath or Wheeze Stop: 07/05/17 19:13 Lactulose (Cephulac) 30 gm PO BID [facility] Stop: 07/10/17 16:59 Last Admin: 05/17/17 09:06 Dose: Not Given Levothyroxine Sodium (Synthroid) 0.075 mg PO QDAC [facility] Stop: 07/06/17 07:29 Last Admin: 05/16/17 07:05 Dose: Not Given Metoclopramide HCl (Reglan) 10 mg IVP Q8HR PRN PRN Reason: Nausea / Vomiting Stop: 07/09/17 11:31 Last Admin: 05/11/17 06:31 Dose: 10 mg Metoclopramide HCl (Reglan) 5 mg IVP Q8HR KAM Stop: 07/15/17 20:59 Last Admin: 05/16/17 22:04 Dose: Not Given Olanzapine (Zyprexa) 10 mg PO HS KAM PRN Reason: Protocol Stop: 07/07/17 20:59 Last Admin: 05/16/17 22:05 Dose: Not Given Olanzapine (Zyprexa Zydis) 10 mg PO DAILY KAM PRN Reason: Protocol Stop: 07/08/17 08:59 Ondansetron HCl (Zofran) 4 mg IV Q4H PRN PRN Reason: Nausea / Vomiting Stop: 07/05/17 19:13 Pantoprazole Sodium (Protonix) 40 mg PO BID [facility] Stop: 07/06/17 08:59 Last Admin: 05/17/17 09:06 Dose: Not Given Sucralfate (Carafate) 1 gm PO QID KAM Stop: 07/05/17 20:59 Last Admin: 05/17/17 09:05 Dose: Not Given Zolpidem Tartrate (Ambien) 5 mg PO HS PRN PRN Reason: Insomnia Stop: 07/05/17 19:12 General: alert HEENT: NC/AT, PERRLA Neck: Supple Abdomen: soft, non-tender, non-distended, positive bowel sound Extremities: excoriation Neurological: alert, disorganized, unsteady, bedbound - Procedures Procedures: Procedures Procedure Code Date DILATION OF LOWER ESOPHAGUS, ENDO [id number] 05/06/17 EGD BIOPSY SINGLE/MULTIPLE 24362 05/06/17 ESOPH EGD DILATION <30 MM 14173 05/06/17 EXCISION OF ESOPHAGUS, ENDO, DIAGN [id number] 05/06/17 Internal Medicine Assmt/Plan - Assessment Assessment: DYSPHAGIA DEHYDRATION- FAILURE TO THRIVE HYPONATREMIA HYPOKALEMIA GERD HTN BARETT'S ESOPHAGUS - Plan Plan: complex case manager arranging placement monitor cbc/bmp ivf for hydration continue current plan of care Nutritional Asmnt/Malnutr-PDOC - Dietary Evaluation Malnutrition Findings (Please click <Entered> for more info): Nutritional Asmnt/Malnutrition Start: 05/07/17 10: 39 Text: Status: Complete Freq: Document 05/07/17 14:31 GSUN (Rec: 05/07/17 15:03 GSUN [email or web address]) Nutritional Asmnt/Malnutrition Patient General Information Nutritional Screening Consult Diagnosis Dysphagia, dehydration, FTT, Serna esophagus, PCM Pertinent Medical Hx/Surgical Hx Schizophrenia, stroke, TIA, GERD, thyroid disease, arthritis, dementia Subjective Information 46 year old male from SNF. RD consult for dysphagia. Spoke to ELISE Christina, pt has ulcer in the throat, unable to eat, swallow eval ordered nad pending. Pt is a questionable historian, talkative, however speech unclear and difficult to understand. 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 Pt appeared thin, mild muscle fat wasting to chest and temporals. Current Diet Order/ Nutrition Support Clear liquid Pertinent Medications D5-0.9%ns, Iron, Synthroid, Zofran, Protonix, Carafate Pertinent Labs Reviewed. Nutritional Hx/Data Height 5 ft 9 in Height (Calculated Centimeters) 175.3 Current Weight (lbs) 147 lb Weight (Calculated Kilograms) 66.7 Weight (Calculated Grams) 86300.1 [place] Body Weight 160 Weight Status Approriate GI Symptoms Food Allergies No Skin Integrity/Comment: Murray Clifford. Skin intact. Estimated Nutritional Goals BEE in Kcals: Using Current wt Calories/Kcals/Kg CBW 147lb/66.8kg Kcals Calculated 1670-2004kcal (25-30kcal/kg) Protein: Using Current wt Protein Calculated 67g (1g/kg) Fluid: ml 1670-2004ml (1ml/kcal) Nutritional Problem 1. 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 GI consult and swallow eval pending, recommend regular diet with diet texture per ST if pt is able to resume oral diet. Nursing staff to ensure pt sit upright during meals to minimize possible reflux. 2. Monitor weight. 3. If unable to resume oral diet, recommend enteral nutrition. Expected Outcomes/Goals Expected Outcomes/Goals 1. Pt to meet at least 75% of estimated nutritional needs orally or enterally.
[2017-05-17] MEDS: Metoclopramide 5 mg/mL 2mL Vial IVP SCH ×2 (12:26→20:57)
[2017-05-18] MEDS: Metoclopramide 5 mg/mL 2mL Vial IVP SCH ×3 (06:09→22:22)
--- NOTE | 2017-05-18 10:57 | Internal Medicine Prog Note ---
Internal Medicine Subjective - Subjective Service Date: 05/18/17 Patient seen and examined:: with staff Patient is:: awake, verbal Patient Complaints of:: vomitting Per staff patient has:: no adverse event, noncompliant, confused, tolerating meds Internal Medicine Objective - Results Result Diagrams: 05/15/17 14:54 05/15/17 14:54 Recent Labs: Laboratory Last Values WBC 9.6 Th/cmm (4.8-10.8) 05/15/17 14:54 RBC 4.21 Mil/cmm (4.30-5.70) L 05/15/17 14:54 Hgb 12.7 gm/dL (12-16) 05/15/17 14:54 Hct 38.8 % (41.0-60) L 05/15/17 14:54 MCV 92.3 fl (80-99) 05/15/17 14:54 MCH 30.3 pg (26.0-30.0) H 05/15/17 14:54 MCHC Differential 32.8 pg (28.0-36.0) 05/15/17 14:54 RDW 12.8 % (11.5-20.0) 05/15/17 14:54 Plt Count 236 Th/cmm (150-400) 05/15/17 14:54 MPV 8.3 fl 05/15/17 14:54 Neutrophils % 58.0 % (40.0-80.0) 05/15/17 14:54 Lymphocytes % 30.2 % (20.0-50.0) 05/15/17 14:54 Monocytes % 10.7 % (2.0-10.0) H 05/15/17 14:54 Eosinophils % 1.0 % (0.0-5.0) 05/15/17 14:54 Basophils % 0.1 % (0.0-2.0) 05/15/17 14:54 PT 11.3 SECONDS (9.5-11.5) 05/09/17 05:45 INR 1.09 (0.5-1.4) 05/09/17 05:45 PTT (Actin FS) 25.7 SECONDS (26.0-38.0) L 05/06/17 16:46 Sodium 136 mEq/L (136-145) 05/15/17 14:54 Potassium 3.9 mEq/L (3.5-5.1) 05/15/17 14:54 Chloride 101 mEq/L (98-107) 05/15/17 14:54 Carbon Dioxide 30.6 mEq/L (21.0-31.0) 05/15/17 14:54 Anion Gap 8.3 (7.0-16.0) 05/15/17 14:54 BUN 10 mg/dL (7-25) 05/15/17 14:54 Creatinine 0.9 mg/dL (0.7-1.3) 05/15/17 14:54 Est GFR ( Amer) > 60.0 ml/min (>90) 05/15/17 14:54 Est GFR (Non-Af Amer) > 60.0 ml/min 05/15/17 14:54 BUN/Creatinine Ratio 11.1 05/15/17 14:54 Glucose 109 mg/dL (70-105) H 05/15/17 14:54 Calcium 9.7 mg/dL (8.6-10.3) 05/15/17 14:54 Magnesium 1.7 mg/dL (1.9-2.7) L 05/14/17 11:20 Total Bilirubin 0.3 mg/dL (0.3-1.0) 05/14/17 11:20 AST 12 U/L (13-39) L 05/14/17 11:20 ALT 9 U/L (7-52) 05/14/17 11:20 Alkaline Phosphatase 45 U/L (34-104) 05/14/17 11:20 Troponin I 0.03 ng/mL (0.01-0.05) 05/06/17 16:46 Total Protein 7.4 gm/dL (6.0-8.3) 05/14/17 11:20 Albumin 3.7 gm/dL (4.2-5.5) L 05/14/17 11:20 Globulin 3.7 gm/dL 05/14/17 11:20 Albumin/Globulin Ratio 1.0 (1.0-1.8) 05/14/17 11:20 Triglycerides 88 mg/dL (<150) 05/06/17 16:46 Cholesterol 126 mg/dL (<200) 05/06/17 16:46 LDL Cholesterol Direct 89 mg/dL (75-193) 05/06/17 16:46 HDL Cholesterol 30 mg/dL (23-92) 05/06/17 16:46 TSH 1.23 uIU/ml (0.34-5.60) 05/06/17 16:46 Urine Source CLEAN C 05/06/17 16:20 Urine Color YELLOW 05/06/17 16:20 Urine Clarity HAZY (CLEAR) 05/06/17 16:20 Urine pH 5.5 (4.6 - 8.0) 05/06/17 16:20 Ur Specific [place] 1.030 (1.005-1.030) 05/06/17 16:20 Urine Protein 30 mg/dL (NEGATIVE) H 05/06/17 16:20 Urine Glucose (UA) NEGATIVE mg/dL (NEGATIVE) 05/06/17 16:20 Urine Ketones NEGATIVE mg/dL (NEGATIVE) 05/06/17 16:20 Urine Blood NEGATIVE (NEGATIVE) 05/06/17 16:20 Urine Nitrate NEGATIVE (NEGATIVE) 05/06/17 16:20 Urine Bilirubin SMALL (NEGATIVE) H 05/06/17 16:20 Urine Urobilinogen 2.0 E.U./dL (0.2 - 1.0) 05/06/17 16:20 Ur Leukocyte Esterase NEGATIVE (NEGATIVE) 05/06/17 16:20 Urine RBC 0-1 /hpf (0-5) 05/06/17 16:20 Urine WBC 0-2 /hpf (0-5) 05/06/17 16:20 Ur Epithelial Cells OCCASIONAL /lpf (FEW) 05/06/17 16:20 Amorphous Sediment FEW URATES (NONE SEEN) 05/06/17 16:20 Urine Bacteria FEW /hpf (NONE SEEN) 05/06/17 16:20 Urine Mucus MODERATE /lpf (FEW) 05/06/17 16:20 Valproic Acid < 10.0 ug/mL (50.0-100.0) L 05/09/17 05:45 RPR NONREACTIVE (NONREACTIVE) 05/06/17 16:46 - Physical Exam Vitals and I&O: Vital Signs Temp 99.4 F 05/18/17 08:00 Pulse 84 05/18/17 08:00 Resp 18 05/18/17 08:00 BP 122/90 05/18/17 08:00 Pulse Ox 96 05/18/17 08:00 Intake & Output 05/17/17 05/18/17 05/18/17 18:59 06:59 18:59 Output Total 150 Balance -150 Weight (lbs) 150 lb 141 lb 14.4 oz Output: Urine 150 Other: # Voids 3 Active Medications: Current Medications Acetaminophen (Tylenol) 650 mg PO Q4H PRN PRN Reason: Pain Or Fever above 101 Stop: 07/05/17 19:13 Al Hydrox/Mg Hydrox/Simethicone (Maalox) 30 ml PO Q6H PRN PRN Reason: Dyspepsia Stop: 07/05/17 19:13 Albuterol Sulfate (Albuterol 2.5mg/3ml Neb Ud) 2.5 mg HHN Q2HRT PRN PRN Reason: Shortness of Breath or Wheeze Stop: 07/05/17 19:13 Benztropine Mesylate (Cogentin) 1 mg PO BID PRN PRN Reason: Agitation Stop: 07/12/17 08:59 Divalproex Sodium (Depakote Er) 1,000 mg PO BID KAM PRN Reason: Protocol Stop: 07/06/17 08:59 Last Admin: 05/17/17 17:32 Dose: Not Given Ferrous Sulfate (Iron) 325 mg PO BID [facility] Stop: 07/06/17 08:59 Last Admin: 05/17/17 17:32 Dose: Not Given Guaifenesin (Robitussin) 200 mg PO Q4HR PRN PRN Reason: Cough or Congestion Stop: 07/05/17 19:13 Haloperidol Lactate (Haldol) 2 mg IM HS PRN PRN Reason: Agitation Stop: 07/12/17 08:04 Haloperidol Lactate (Haldol) 2 mg IM DAILY PRN PRN Reason: Agitation Stop: 07/12/17 08:06 Heparin Sodium (Porcine) (Heparin) 5,000 units SUBQ Q12HR [facility] Stop: 07/05/17 20:59 Last Admin: 05/17/17 20:57 Dose: Not Given Dextrose/Sodium Chloride (D5-0.9%Ns) 1,000 mls @ 70 mls/hr IV .[id number] [facility] Stop: 07/05/17 19:14 Last Admin: 05/10/17 15:37 Dose: 70 mls/hr Ipratropium [place] (Atrovent Neb 0.5mg/2.5ml) 0.5 mg HHN Q2HRT PRN PRN Reason: Shortness of Breath or Wheeze Stop: 07/05/17 19:13 Lactulose (Cephulac) 30 gm PO BID [facility] Stop: 07/10/17 16:59 Last Admin: 05/17/17 17:32 Dose: Not Given Levothyroxine Sodium (Synthroid) 0.075 mg PO QDAC [facility] Stop: 07/06/17 07:29 Last Admin: 05/16/17 07:05 Dose: Not Given Metoclopramide HCl (Reglan) 10 mg IVP Q8HR PRN PRN Reason: Nausea / Vomiting Stop: 07/09/17 11:31 Last Admin: 05/11/17 06:31 Dose: 10 mg Metoclopramide HCl (Reglan) 5 mg IVP Q8HR KAM Stop: 07/15/17 20:59 Last Admin: 05/18/17 06:09 Dose: Not Given Olanzapine (Zyprexa) 10 mg PO HS KAM PRN Reason: Protocol Stop: 07/07/17 20:59 Last Admin: 05/17/17 20:57 Dose: Not Given Olanzapine (Zyprexa Zydis) 10 mg PO DAILY KAM PRN Reason: Protocol Stop: 07/08/17 08:59 Ondansetron HCl (Zofran) 4 mg IV Q4H PRN PRN Reason: Nausea / Vomiting Stop: 07/05/17 19:13 Pantoprazole Sodium (Protonix) 40 mg PO BID [facility] Stop: 07/06/17 08:59 Last Admin: 05/17/17 17:32 Dose: Not Given Sucralfate (Carafate) 1 gm PO QID [facility] Stop: 07/05/17 20:59 Last Admin: 05/17/17 20:57 Dose: Not Given Zolpidem Tartrate (Ambien) 5 mg PO HS PRN PRN Reason: Insomnia Stop: 07/05/17 19:12 General: alert HEENT: NC/AT, PERRLA Neck: Supple Abdomen: soft, non-tender, non-distended, positive bowel sound Extremities: excoriation Neurological: alert, disorganized, unsteady, bedbound - Procedures Procedures: Procedures Procedure Code Date DILATION OF LOWER ESOPHAGUS, ENDO [id number] 05/06/17 EGD BIOPSY SINGLE/MULTIPLE 21741 05/06/17 ESOPH EGD DILATION <30 MM [address]11 05/06/17 EXCISION OF ESOPHAGUS, ENDO, DIAGN [id number] 05/06/17 Internal Medicine Assmt/Plan - Assessment Assessment: DYSPHAGIA DEHYDRATION- FAILURE TO THRIVE HYPONATREMIA HYPOKALEMIA GERD HTN BARETT'S ESOPHAGUS - Plan Plan: patient case coordinator arranging placement monitor cbc/bmp ivf for hydration continue current plan of care Nutritional Asmnt/Malnutr-PDOC - Dietary Evaluation Malnutrition Findings (Please click <Entered> for more info): Nutritional Asmnt/Malnutrition Start: 05/07/17 10: 39 Text: Status: Complete Freq: Document 05/07/17 14:31 GSUN (Rec: 05/07/17 15:03 GSUN [email or web address]) Nutritional Asmnt/Malnutrition Patient General Information Nutritional Screening Consult Diagnosis Dysphagia, dehydration, FTT, Serna esophagus, PCM Pertinent Medical Hx/Surgical Hx Schizophrenia, stroke, TIA, GERD, thyroid disease, arthritis, dementia Subjective Information 46 year old male from SNF. RD consult for dysphagia. Spoke to ELISE Christina, pt has ulcer in the throat, unable to eat, swallow eval ordered nad pending. Pt is a questionable historian, talkative, however speech unclear and difficult to understand. 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 Pt appeared thin, mild muscle fat wasting to chest and temporals. Current Diet Order/ Nutrition Support Clear liquid Pertinent Medications D5-0.9%ns, Iron, Synthroid, Zofran, Protonix, Carafate Pertinent Labs Reviewed. Nutritional Hx/Data Height 5 ft 9 in Height (Calculated Centimeters) 175.3 Current Weight (lbs) 147 lb Weight (Calculated Kilograms) 66.7 Weight (Calculated Grams) 29694.1 [place] Body Weight 160 Weight Status Approriate GI Symptoms Food Allergies No Skin Integrity/Comment: [place] 13. Skin intact. Estimated Nutritional Goals BEE in Kcals: Using Current wt Calories/Kcals/Kg CBW 147lb/66.8kg Kcals Calculated 1670-2004kcal (25-30kcal/kg) Protein: Using Current wt Protein Calculated 67g (1g/kg) Fluid: ml 1670-2004ml (1ml/kcal) Nutritional Problem 1. 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 GI consult and swallow eval pending, recommend regular diet with diet texture per ST if pt is able to resume oral diet. Nursing staff to ensure pt sit upright during meals to minimize possible reflux. 2. Monitor weight. 3. If unable to resume oral diet, recommend enteral nutrition. Expected Outcomes/Goals Expected Outcomes/Goals 1. Pt to meet at least 75% of estimated nutritional needs orally or enterally.
[2017-05-18] MEDS: Ferrous Sulfate 325 MG TAB PO SCH ×2 (13:06→19:41)
[2017-05-18] MEDS: Levothyroxine 0.075 Mg Tab PO SCH (13:06)
[2017-05-18] MEDS: Pantoprazole 40 mg EC Tab PO SCH ×2 (13:06→19:41)
[2017-05-18] MEDS: Lactulose 10 Gm/15 mL 30mL UDC PO SCH ×2 (13:06→19:41)
[2017-05-18] MEDS: OLANZapine 5 mg Oral Disintegrating Tab PO SCH (19:41)
[2017-05-19] MEDS: Metoclopramide 5 mg/mL 2mL Vial IVP SCH ×3 (04:47→23:37)
[2017-05-19] MEDS: Levothyroxine 0.075 Mg Tab PO SCH (09:15)
[2017-05-19] MEDS: Ferrous Sulfate 325 MG TAB PO SCH ×2 (09:16→18:46)
[2017-05-19] MEDS: Lactulose 10 Gm/15 mL 30mL UDC PO SCH ×2 (09:16→18:46)
[2017-05-19] MEDS: Pantoprazole 40 mg EC Tab PO SCH ×2 (09:16→18:46)
[2017-05-19] MEDS: OLANZapine 5 mg Oral Disintegrating Tab PO SCH (09:16)
--- NOTE | 2017-05-19 17:03 | Internal Medicine Prog Note ---
Internal Medicine Subjective - Subjective Service Date: 05/19/17 Patient is:: awake, verbal Patient Complaints of:: vomitting Per staff patient has:: no adverse event, noncompliant, confused, tolerating meds Internal Medicine Objective - Results Result Diagrams: 05/15/17 14:54 05/15/17 14:54 Recent Labs: Laboratory Last Values WBC 9.6 Th/cmm (4.8-10.8) 05/15/17 14:54 RBC 4.21 Mil/cmm (4.30-5.70) L 05/15/17 14:54 Hgb 12.7 gm/dL (12-16) 05/15/17 14:54 Hct 38.8 % (41.0-60) L 05/15/17 14:54 MCV 92.3 fl (80-99) 05/15/17 14:54 MCH 30.3 pg (26.0-30.0) H 05/15/17 14:54 MCHC Differential 32.8 pg (28.0-36.0) 05/15/17 14:54 RDW 12.8 % (11.5-20.0) 05/15/17 14:54 Plt Count 236 Th/cmm (150-400) 05/15/17 14:54 MPV 8.3 fl 05/15/17 14:54 Neutrophils % 58.0 % (40.0-80.0) 05/15/17 14:54 Lymphocytes % 30.2 % (20.0-50.0) 05/15/17 14:54 Monocytes % 10.7 % (2.0-10.0) H 05/15/17 14:54 Eosinophils % 1.0 % (0.0-5.0) 05/15/17 14:54 Basophils % 0.1 % (0.0-2.0) 05/15/17 14:54 PT 11.3 SECONDS (9.5-11.5) 05/09/17 05:45 INR 1.09 (0.5-1.4) 05/09/17 05:45 PTT (Actin FS) 25.7 SECONDS (26.0-38.0) L 05/06/17 16:46 Sodium 136 mEq/L (136-145) 05/15/17 14:54 Potassium 3.9 mEq/L (3.5-5.1) 05/15/17 14:54 Chloride 101 mEq/L (98-107) 05/15/17 14:54 Carbon Dioxide 30.6 mEq/L (21.0-31.0) 05/15/17 14:54 Anion Gap 8.3 (7.0-16.0) 05/15/17 14:54 BUN 10 mg/dL (7-25) 05/15/17 14:54 Creatinine 0.9 mg/dL (0.7-1.3) 05/15/17 14:54 Est GFR ( Amer) > 60.0 ml/min (>90) 05/15/17 14:54 Est GFR (Non-Af Amer) > 60.0 ml/min 05/15/17 14:54 BUN/Creatinine Ratio 11.1 05/15/17 14:54 Glucose 109 mg/dL (70-105) H 05/15/17 14:54 Calcium 9.7 mg/dL (8.6-10.3) 05/15/17 14:54 Magnesium 1.7 mg/dL (1.9-2.7) L 05/14/17 11:20 Total Bilirubin 0.3 mg/dL (0.3-1.0) 05/14/17 11:20 AST 12 U/L (13-39) L 05/14/17 11:20 ALT 9 U/L (7-52) 05/14/17 11:20 Alkaline Phosphatase 45 U/L (34-104) 05/14/17 11:20 Troponin I 0.03 ng/mL (0.01-0.05) 05/06/17 16:46 Total Protein 7.4 gm/dL (6.0-8.3) 05/14/17 11:20 Albumin 3.7 gm/dL (4.2-5.5) L 05/14/17 11:20 Globulin 3.7 gm/dL 05/14/17 11:20 Albumin/Globulin Ratio 1.0 (1.0-1.8) 05/14/17 11:20 Triglycerides 88 mg/dL (<150) 05/06/17 16:46 Cholesterol 126 mg/dL (<200) 05/06/17 16:46 LDL Cholesterol Direct 89 mg/dL (75-193) 05/06/17 16:46 HDL Cholesterol 30 mg/dL (23-92) 05/06/17 16:46 TSH 1.23 uIU/ml (0.34-5.60) 05/06/17 16:46 Urine Source CLEAN C 05/06/17 16:20 Urine Color YELLOW 05/06/17 16:20 Urine Clarity HAZY (CLEAR) 05/06/17 16:20 Urine pH 5.5 (4.6 - 8.0) 05/06/17 16:20 Ur Specific [place] 1.030 (1.005-1.030) 05/06/17 16:20 Urine Protein 30 mg/dL (NEGATIVE) H 05/06/17 16:20 Urine Glucose (UA) NEGATIVE mg/dL (NEGATIVE) 05/06/17 16:20 Urine Ketones NEGATIVE mg/dL (NEGATIVE) 05/06/17 16:20 Urine Blood NEGATIVE (NEGATIVE) 05/06/17 16:20 Urine Nitrate NEGATIVE (NEGATIVE) 05/06/17 16:20 Urine Bilirubin SMALL (NEGATIVE) H 05/06/17 16:20 Urine Urobilinogen 2.0 E.U./dL (0.2 - 1.0) 05/06/17 16:20 Ur Leukocyte Esterase NEGATIVE (NEGATIVE) 05/06/17 16:20 Urine RBC 0-1 /hpf (0-5) 05/06/17 16:20 Urine WBC 0-2 /hpf (0-5) 05/06/17 16:20 Ur Epithelial Cells OCCASIONAL /lpf (FEW) 05/06/17 16:20 Amorphous Sediment FEW URATES (NONE SEEN) 05/06/17 16:20 Urine Bacteria FEW /hpf (NONE SEEN) 05/06/17 16:20 Urine Mucus MODERATE /lpf (FEW) 05/06/17 16:20 Valproic Acid < 10.0 ug/mL (50.0-100.0) L 05/09/17 05:45 RPR NONREACTIVE (NONREACTIVE) 05/06/17 16:46 - Physical Exam Vitals and I&O: Vital Signs Temp 97.7 F 05/19/17 15:37 Pulse 120 05/19/17 15:37 Resp 18 05/19/17 15:37 BP 169/70 05/19/17 15:37 Pulse Ox 96 05/19/17 15:37 Intake & Output 05/18/17 05/19/17 05/19/17 18:59 06:59 18:59 Intake Total 500 0 Balance 500 0 Weight (lbs) 141 lb 14.4 oz 146 lb Intake: Oral 500 0 Other: # Voids 3 1 Active Medications: Current Medications Acetaminophen (Tylenol) 650 mg PO Q4H PRN PRN Reason: Pain Or Fever above 101 Stop: 07/05/17 19:13 Al Hydrox/Mg Hydrox/Simethicone (Maalox) 30 ml PO Q6H PRN PRN Reason: Dyspepsia Stop: 07/05/17 19:13 Albuterol Sulfate (Albuterol 2.5mg/3ml Neb Ud) 2.5 mg HHN Q2HRT PRN PRN Reason: Shortness of Breath or Wheeze Stop: 07/05/17 19:13 Benztropine Mesylate (Cogentin) 1 mg PO BID PRN PRN Reason: Agitation Stop: 07/12/17 08:59 Divalproex Sodium (Depakote Er) 1,000 mg PO BID KAM PRN Reason: Protocol Stop: 07/06/17 08:59 Last Admin: 05/19/17 09:16 Dose: Not Given Ferrous Sulfate (Iron) 325 mg PO BID COUNTS INCLUDE 234 BEDS AT THE [facility] Stop: 07/06/17 08:59 Last Admin: 05/19/17 09:16 Dose: Not Given Guaifenesin (Robitussin) 200 mg PO Q4HR PRN PRN Reason: Cough or Congestion Stop: 07/05/17 19:13 Haloperidol Lactate (Haldol) 2 mg IM HS PRN PRN Reason: Agitation Stop: 07/12/17 08:04 Haloperidol Lactate (Haldol) 2 mg IM DAILY PRN PRN Reason: Agitation Stop: 07/12/17 08:06 Heparin Sodium (Porcine) (Heparin) 5,000 units SUBQ Q12HR COUNTS INCLUDE 234 BEDS AT THE [facility] Stop: 07/05/17 20:59 Last Admin: 05/19/17 09:16 Dose: Not Given Dextrose/Sodium Chloride (D5-0.9%Ns) 1,000 mls @ 70 mls/hr IV .[id number] COUNTS INCLUDE 234 BEDS AT THE [facility] Stop: 07/05/17 19:14 Last Admin: 05/10/17 15:37 Dose: 70 mls/hr Ipratropium [place] (Atrovent Neb 0.5mg/2.5ml) 0.5 mg HHN Q2HRT PRN PRN Reason: Shortness of Breath or Wheeze Stop: 07/05/17 19:13 Lactulose (Cephulac) 30 gm PO BID KAM Stop: 07/10/17 16:59 Last Admin: 05/19/17 09:16 Dose: Not Given Levothyroxine Sodium (Synthroid) 0.075 mg PO QDAC KAM Stop: 07/06/17 07:29 Last Admin: 05/19/17 09:15 Dose: Not Given Metoclopramide HCl (Reglan) 10 mg IVP Q8HR PRN PRN Reason: Nausea / Vomiting Stop: 07/09/17 11:31 Last Admin: 05/11/17 06:31 Dose: 10 mg Metoclopramide HCl (Reglan) 5 mg IVP Q8HR KAM Stop: 07/15/17 20:59 Last Admin: 05/19/17 15:17 Dose: Not Given Olanzapine (Zyprexa) 10 mg PO HS KAM PRN Reason: Protocol Stop: 07/07/17 20:59 Last Admin: 05/18/17 22:22 Dose: Not Given Olanzapine (Zyprexa Zydis) 10 mg PO DAILY KAM PRN Reason: Protocol Stop: 07/08/17 08:59 Last Admin: 05/19/17 09:16 Dose: Not Given Ondansetron HCl (Zofran) 4 mg IV Q4H PRN PRN Reason: Nausea / Vomiting Stop: 07/05/17 19:13 Last Admin: 05/19/17 15:22 Dose: 4 mg Pantoprazole Sodium (Protonix) 40 mg PO BID KAM Stop: 07/06/17 08:59 Last Admin: 05/19/17 09:16 Dose: Not Given Sucralfate (Carafate) 1 gm PO QID KAM Stop: 07/05/17 20:59 Last Admin: 05/19/17 15:17 Dose: Not Given Zolpidem Tartrate (Ambien) 5 mg PO HS PRN PRN Reason: Insomnia Stop: 07/05/17 19:12 General: alert HEENT: NC/AT, PERRLA Neck: Supple Abdomen: soft, non-tender, non-distended, positive bowel sound Extremities: excoriation Neurological: alert, disorganized, unsteady, bedbound - Procedures Procedures: Procedures Procedure Code Date DILATION OF LOWER ESOPHAGUS, ENDO [id number] 05/06/17 EGD BIOPSY SINGLE/MULTIPLE 30552 05/06/17 ESOPH EGD DILATION <30 [place] [address] 05/06/17 EXCISION OF ESOPHAGUS, ENDO, DIAGN [id number] 05/06/17 Internal Medicine Assmt/Plan - Assessment Assessment: DYSPHAGIA DEHYDRATION- FAILURE TO THRIVE HYPONATREMIA HYPOKALEMIA GERD HTN BARETT'S ESOPHAGUS - Plan Plan: manager rn case arranging placement monitor cbc/bmp ivf for hydration continue current plan of care Nutritional Asmnt/Malnutr-PDOC - Dietary Evaluation Malnutrition Findings (Please click <Entered> for more info): Nutritional Asmnt/Malnutrition Start: 05/07/17 10: 39 Text: Status: Complete Freq: Document 05/07/17 14:31 GSUN (Rec: 05/07/17 15:03 GSUN [email or web address]) Nutritional Asmnt/Malnutrition Patient General Information Nutritional Screening Consult Diagnosis Dysphagia, dehydration, FTT, Serna esophagus, PCM Pertinent Medical Hx/Surgical Hx Schizophrenia, stroke, TIA, GERD, thyroid disease, arthritis, dementia Subjective Information 46 year old male from SNF. RD consult for dysphagia. Spoke to ELISE Christina, pt has ulcer in the throat, unable to eat, swallow eval ordered nad pending. Pt is a questionable historian, talkative, however speech unclear and difficult to understand. 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 Pt appeared thin, mild muscle fat wasting to chest and temporals. Current Diet Order/ Nutrition Support Clear liquid Pertinent Medications D5-0.9%ns, Iron, Synthroid, Zofran, Protonix, Carafate Pertinent Labs Reviewed. Nutritional Hx/Data Height 5 ft 9 in Height (Calculated Centimeters) 175.3 Current Weight (lbs) 147 lb Weight (Calculated Kilograms) 66.7 Weight (Calculated Grams) 98248.1 [place] Body Weight 160 Weight Status Approriate GI Symptoms Food Allergies No Skin Integrity/Comment: [place] 13. Skin intact. Estimated Nutritional Goals BEE in Kcals: Using Current wt Calories/Kcals/Kg CBW 147lb/66.8kg Kcals Calculated 1670-2004kcal (25-30kcal/kg) Protein: Using Current wt Protein Calculated 67g (1g/kg) Fluid: ml 1670-2004ml (1ml/kcal) Nutritional Problem 1. 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 GI consult and swallow eval pending, recommend regular diet with diet texture per ST if pt is able to resume oral diet. Nursing staff to ensure pt sit upright during meals to minimize possible reflux. 2. Monitor weight. 3. If unable to resume oral diet, recommend enteral nutrition. Expected Outcomes/Goals Expected Outcomes/Goals 1. Pt to meet at least 75% of estimated nutritional needs orally or enterally.
--- NOTE | 2017-05-19 17:04 | Internal Medicine Prog Note ---
Internal Medicine Subjective - Subjective Service Date: 05/19/17 Patient is:: awake, verbal Patient Complaints of:: vomitting Per staff patient has:: no adverse event, noncompliant, confused, tolerating meds Internal Medicine Objective - Results Result Diagrams: 05/15/17 14:54 05/15/17 14:54 Recent Labs: Laboratory Last Values WBC 9.6 Th/cmm (4.8-10.8) 05/15/17 14:54 RBC 4.21 Mil/cmm (4.30-5.70) L 05/15/17 14:54 Hgb 12.7 gm/dL (12-16) 05/15/17 14:54 Hct 38.8 % (41.0-60) L 05/15/17 14:54 MCV 92.3 fl (80-99) 05/15/17 14:54 MCH 30.3 pg (26.0-30.0) H 05/15/17 14:54 MCHC Differential 32.8 pg (28.0-36.0) 05/15/17 14:54 RDW 12.8 % (11.5-20.0) 05/15/17 14:54 Plt Count 236 Th/cmm (150-400) 05/15/17 14:54 MPV 8.3 fl 05/15/17 14:54 Neutrophils % 58.0 % (40.0-80.0) 05/15/17 14:54 Lymphocytes % 30.2 % (20.0-50.0) 05/15/17 14:54 Monocytes % 10.7 % (2.0-10.0) H 05/15/17 14:54 Eosinophils % 1.0 % (0.0-5.0) 05/15/17 14:54 Basophils % 0.1 % (0.0-2.0) 05/15/17 14:54 PT 11.3 SECONDS (9.5-11.5) 05/09/17 05:45 INR 1.09 (0.5-1.4) 05/09/17 05:45 PTT (Actin FS) 25.7 SECONDS (26.0-38.0) L 05/06/17 16:46 Sodium 136 mEq/L (136-145) 05/15/17 14:54 Potassium 3.9 mEq/L (3.5-5.1) 05/15/17 14:54 Chloride 101 mEq/L (98-107) 05/15/17 14:54 Carbon Dioxide 30.6 mEq/L (21.0-31.0) 05/15/17 14:54 Anion Gap 8.3 (7.0-16.0) 05/15/17 14:54 BUN 10 mg/dL (7-25) 05/15/17 14:54 Creatinine 0.9 mg/dL (0.7-1.3) 05/15/17 14:54 Est GFR ( Amer) > 60.0 ml/min (>90) 05/15/17 14:54 Est GFR (Non-Af Amer) > 60.0 ml/min 05/15/17 14:54 BUN/Creatinine Ratio 11.1 05/15/17 14:54 Glucose 109 mg/dL (70-105) H 05/15/17 14:54 Calcium 9.7 mg/dL (8.6-10.3) 05/15/17 14:54 Magnesium 1.7 mg/dL (1.9-2.7) L 05/14/17 11:20 Total Bilirubin 0.3 mg/dL (0.3-1.0) 05/14/17 11:20 AST 12 U/L (13-39) L 05/14/17 11:20 ALT 9 U/L (7-52) 05/14/17 11:20 Alkaline Phosphatase 45 U/L (34-104) 05/14/17 11:20 Troponin I 0.03 ng/mL (0.01-0.05) 05/06/17 16:46 Total Protein 7.4 gm/dL (6.0-8.3) 05/14/17 11:20 Albumin 3.7 gm/dL (4.2-5.5) L 05/14/17 11:20 Globulin 3.7 gm/dL 05/14/17 11:20 Albumin/Globulin Ratio 1.0 (1.0-1.8) 05/14/17 11:20 Triglycerides 88 mg/dL (<150) 05/06/17 16:46 Cholesterol 126 mg/dL (<200) 05/06/17 16:46 LDL Cholesterol Direct 89 mg/dL (75-193) 05/06/17 16:46 HDL Cholesterol 30 mg/dL (23-92) 05/06/17 16:46 TSH 1.23 uIU/ml (0.34-5.60) 05/06/17 16:46 Urine Source CLEAN C 05/06/17 16:20 Urine Color YELLOW 05/06/17 16:20 Urine Clarity HAZY (CLEAR) 05/06/17 16:20 Urine pH 5.5 (4.6 - 8.0) 05/06/17 16:20 Ur Specific [place] 1.030 (1.005-1.030) 05/06/17 16:20 Urine Protein 30 mg/dL (NEGATIVE) H 05/06/17 16:20 Urine Glucose (UA) NEGATIVE mg/dL (NEGATIVE) 05/06/17 16:20 Urine Ketones NEGATIVE mg/dL (NEGATIVE) 05/06/17 16:20 Urine Blood NEGATIVE (NEGATIVE) 05/06/17 16:20 Urine Nitrate NEGATIVE (NEGATIVE) 05/06/17 16:20 Urine Bilirubin SMALL (NEGATIVE) H 05/06/17 16:20 Urine Urobilinogen 2.0 E.U./dL (0.2 - 1.0) 05/06/17 16:20 Ur Leukocyte Esterase NEGATIVE (NEGATIVE) 05/06/17 16:20 Urine RBC 0-1 /hpf (0-5) 05/06/17 16:20 Urine WBC 0-2 /hpf (0-5) 05/06/17 16:20 Ur Epithelial Cells OCCASIONAL /lpf (FEW) 05/06/17 16:20 Amorphous Sediment FEW URATES (NONE SEEN) 05/06/17 16:20 Urine Bacteria FEW /hpf (NONE SEEN) 05/06/17 16:20 Urine Mucus MODERATE /lpf (FEW) 05/06/17 16:20 Valproic Acid < 10.0 ug/mL (50.0-100.0) L 05/09/17 05:45 RPR NONREACTIVE (NONREACTIVE) 05/06/17 16:46 - Physical Exam Vitals and I&O: Vital Signs Temp 97.7 F 05/19/17 15:37 Pulse 120 05/19/17 15:37 Resp 18 05/19/17 15:37 BP 169/70 05/19/17 15:37 Pulse Ox 96 05/19/17 15:37 Intake & Output 05/18/17 05/19/17 05/19/17 18:59 06:59 18:59 Intake Total 500 0 Balance 500 0 Weight (lbs) 141 lb 14.4 oz 146 lb Intake: Oral 500 0 Other: # Voids 3 1 Active Medications: Current Medications Acetaminophen (Tylenol) 650 mg PO Q4H PRN PRN Reason: Pain Or Fever above 101 Stop: 07/05/17 19:13 Al Hydrox/Mg Hydrox/Simethicone (Maalox) 30 ml PO Q6H PRN PRN Reason: Dyspepsia Stop: 07/05/17 19:13 Albuterol Sulfate (Albuterol 2.5mg/3ml Neb Ud) 2.5 mg HHN Q2HRT PRN PRN Reason: Shortness of Breath or Wheeze Stop: 07/05/17 19:13 Benztropine Mesylate (Cogentin) 1 mg PO BID PRN PRN Reason: Agitation Stop: 07/12/17 08:59 Divalproex Sodium (Depakote Er) 1,000 mg PO BID KAM PRN Reason: Protocol Stop: 07/06/17 08:59 Last Admin: 05/19/17 09:16 Dose: Not Given Ferrous Sulfate (Iron) 325 mg PO BID [facility] Stop: 07/06/17 08:59 Last Admin: 05/19/17 09:16 Dose: Not Given Guaifenesin (Robitussin) 200 mg PO Q4HR PRN PRN Reason: Cough or Congestion Stop: 07/05/17 19:13 Haloperidol Lactate (Haldol) 2 mg IM HS PRN PRN Reason: Agitation Stop: 07/12/17 08:04 Haloperidol Lactate (Haldol) 2 mg IM DAILY PRN PRN Reason: Agitation Stop: 07/12/17 08:06 Heparin Sodium (Porcine) (Heparin) 5,000 units SUBQ Q12HR [facility] Stop: 07/05/17 20:59 Last Admin: 05/19/17 09:16 Dose: Not Given Dextrose/Sodium Chloride (D5-0.9%Ns) 1,000 mls @ 70 mls/hr IV .[id number] [facility] Stop: 07/05/17 19:14 Last Admin: 05/10/17 15:37 Dose: 70 mls/hr Ipratropium [place] (Atrovent Neb 0.5mg/2.5ml) 0.5 mg HHN Q2HRT PRN PRN Reason: Shortness of Breath or Wheeze Stop: 07/05/17 19:13 Lactulose (Cephulac) 30 gm PO BID KAM Stop: 07/10/17 16:59 Last Admin: 05/19/17 09:16 Dose: Not Given Levothyroxine Sodium (Synthroid) 0.075 mg PO QDAC KAM Stop: 07/06/17 07:29 Last Admin: 05/19/17 09:15 Dose: Not Given Metoclopramide HCl (Reglan) 10 mg IVP Q8HR PRN PRN Reason: Nausea / Vomiting Stop: 07/09/17 11:31 Last Admin: 05/11/17 06:31 Dose: 10 mg Metoclopramide HCl (Reglan) 5 mg IVP Q8HR KAM Stop: 07/15/17 20:59 Last Admin: 05/19/17 15:17 Dose: Not Given Olanzapine (Zyprexa) 10 mg PO HS KAM PRN Reason: Protocol Stop: 07/07/17 20:59 Last Admin: 05/18/17 22:22 Dose: Not Given Olanzapine (Zyprexa Zydis) 10 mg PO DAILY KAM PRN Reason: Protocol Stop: 07/08/17 08:59 Last Admin: 05/19/17 09:16 Dose: Not Given Ondansetron HCl (Zofran) 4 mg IV Q4H PRN PRN Reason: Nausea / Vomiting Stop: 07/05/17 19:13 Last Admin: 05/19/17 15:22 Dose: 4 mg Pantoprazole Sodium (Protonix) 40 mg PO BID KAM Stop: 07/06/17 08:59 Last Admin: 05/19/17 09:16 Dose: Not Given Sucralfate (Carafate) 1 gm PO QID KAM Stop: 07/05/17 20:59 Last Admin: 05/19/17 15:17 Dose: Not Given Zolpidem Tartrate (Ambien) 5 mg PO HS PRN PRN Reason: Insomnia Stop: 07/05/17 19:12 General: alert HEENT: NC/AT, PERRLA Neck: Supple Abdomen: soft, non-tender, non-distended, positive bowel sound Extremities: excoriation Neurological: alert, disorganized, unsteady, bedbound - Procedures Procedures: Procedures Procedure Code Date DILATION OF LOWER ESOPHAGUS, ENDO [id number] 05/06/17 EGD BIOPSY SINGLE/MULTIPLE 01570 05/06/17 ESOPH EGD DILATION <30 MM [id number] 05/06/17 EXCISION OF ESOPHAGUS, ENDO, DIAGN [id number] 05/06/17 Internal Medicine Assmt/Plan - Assessment Assessment: DYSPHAGIA DEHYDRATION- FAILURE TO THRIVE HYPONATREMIA HYPOKALEMIA GERD HTN BARETT'S ESOPHAGUS - Plan Plan: correctional casework specialist arranging placement monitor cbc/bmp ivf for hydration continue current plan of care Nutritional Asmnt/Malnutr-PDOC - Dietary Evaluation Malnutrition Findings (Please click <Entered> for more info): Nutritional Asmnt/Malnutrition Start: 05/07/17 10: 39 Text: Status: Complete Freq: Document 05/07/17 14:31 GSUN (Rec: 05/07/17 15:03 GSUN [email or web address]) Nutritional Asmnt/Malnutrition Patient General Information Nutritional Screening Consult Diagnosis Dysphagia, dehydration, FTT, Serna esophagus, PCM Pertinent Medical Hx/Surgical Hx Schizophrenia, stroke, TIA, GERD, thyroid disease, arthritis, dementia Subjective Information 46 year old male from SNF. RD consult for dysphagia. Spoke to ELISE Christina, pt has ulcer in the throat, unable to eat, swallow eval ordered nad pending. Pt is a questionable historian, talkative, however speech unclear and difficult to understand. 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 Pt appeared thin, mild muscle fat wasting to chest and temporals. Current Diet Order/ Nutrition Support Clear liquid Pertinent Medications D5-0.9%ns, Iron, Synthroid, Zofran, Protonix, Carafate Pertinent Labs Reviewed. Nutritional Hx/Data Height 5 ft 9 in Height (Calculated Centimeters) 175.3 Current Weight (lbs) 147 lb Weight (Calculated Kilograms) 66.7 Weight (Calculated Grams) 91709.1 [place] Body Weight 160 Weight Status Approriate GI Symptoms Food Allergies No Skin Integrity/Comment: [place] 13. Skin intact. Estimated Nutritional Goals BEE in Kcals: Using Current wt Calories/Kcals/Kg CBW 147lb/66.8kg Kcals Calculated 1670-2004kcal (25-30kcal/kg) Protein: Using Current wt Protein Calculated 67g (1g/kg) Fluid: ml 1670-2004ml (1ml/kcal) Nutritional Problem 1. 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 GI consult and swallow eval pending, recommend regular diet with diet texture per ST if pt is able to resume oral diet. Nursing staff to ensure pt sit upright during meals to minimize possible reflux. 2. Monitor weight. 3. If unable to resume oral diet, recommend enteral nutrition. Expected Outcomes/Goals Expected Outcomes/Goals 1. Pt to meet at least 75% of estimated nutritional needs orally or enterally.
[2017-05-20 01:52] LABS: % EOSINOPHILS 0.5 % (0.0-5.0); % LYMPHOCYTES 18.9 % (20.0-50.0); % MONOCYTES 5.8 % (2.0-10.0); % NEUTROPHILS 74.8 % (40.0-80.0); HEMATOCRIT 40.4 % (41.0-60); HEMOGLOBIN 13.9 gm/dL (12-16); MEAN CELL VOLUME 92.4 fl (80-99); MEAN CORPUSCULAR HEMOGLOBIN 31.7 pg (26.0-30.0); MEAN CORPUSCULAR HGB CONC 34.3 pg (28.0-36.0); MEAN PLATELET VOLUME 8.3 fl; NEUTROPHILE ABSOLUTE 10.3 Th/cmm (1.8-8.0); RED BLOOD COUNT 4.38 Mil/cmm (4.30-5.70); RED CELL DISTRIBUTION WIDTH 13.1 % (11.5-20.0)
[2017-05-20 01:56] LABS: PLATELET COUNT 322 Th/cmm (150-400); WHITE BLOOD COUNT 13.8 Th/cmm (4.8-10.8)
[2017-05-20 02:10] LABS: ANION GAP 11.6 (7.0-16.0); BUN - UREA NITROGEN 12 mg/dL (7-25); BUN/CREATININE RATIO 10.9; CALCIUM SERUM 10.3 mg/dL (8.6-10.3); CARBON DIOXIDE 31.9 mEq/L (21.0-31.0); CHLORIDE 96 mEq/L (98-107); CREATININE - SERUM 1.1 mg/dL (0.7-1.3); GLUCOSE 128 mg/dL (70-105); POTASSIUM SERUM 3.5 mEq/L (3.5-5.1); SODIUM SERUM 136 mEq/L (136-145)
[2017-05-20] MEDS: D5-0.9%NS 1,000 ML IV SCH ×3 (02:47→22:08)
[2017-05-20] MEDS: Metoclopramide 5 mg/mL 2mL Vial IVP SCH ×3 (05:27→21:54)
[2017-05-20] MEDS: Levothyroxine 0.075 Mg Tab PO SCH (06:37)
[2017-05-20] MEDS: Lactulose 10 Gm/15 mL 30mL UDC PO SCH ×2 (09:55→17:04)
[2017-05-20] MEDS: OLANZapine 5 mg Oral Disintegrating Tab PO SCH (09:55)
[2017-05-20] MEDS: Ferrous Sulfate 325 MG TAB PO SCH ×2 (09:55→17:04)
[2017-05-20] MEDS: Pantoprazole 40 mg EC Tab PO SCH ×2 (09:56→17:05)
--- NOTE | 2017-05-20 12:55 | Internal Medicine Prog Note ---
Internal Medicine Subjective - Subjective Service Date: 05/20/17 (patient was noted with coffee ground emesis yesterday ) Patient is:: awake, verbal Patient Complaints of:: vomitting Per staff patient has:: no adverse event, noncompliant, confused, tolerating meds Internal Medicine Objective - Results Result Diagrams: 05/20/17 01:35 05/20/17 01:35 Recent Labs: Laboratory Last Values WBC 13.8 Th/cmm (4.8-10.8) H D 05/20/17 01:35 RBC 4.38 Mil/cmm (4.30-5.70) 05/20/17 01:35 Hgb 13.9 gm/dL (12-16) 05/20/17 01:35 Hct 40.4 % (41.0-60) L 05/20/17 01:35 MCV 92.4 fl (80-99) 05/20/17 01:35 MCH 31.7 pg (26.0-30.0) H 05/20/17 01:35 MCHC Differential 34.3 pg (28.0-36.0) 05/20/17 01:35 RDW 13.1 % (11.5-20.0) 05/20/17 01:35 Plt Count 322 Th/cmm (150-400) D 05/20/17 01:35 MPV 8.3 fl 05/20/17 01:35 Neutrophils % 74.8 % (40.0-80.0) 05/20/17 01:35 Lymphocytes % 18.9 % (20.0-50.0) L 05/20/17 01:35 Monocytes % 5.8 % (2.0-10.0) 05/20/17 01:35 Eosinophils % 0.5 % (0.0-5.0) 05/20/17 01:35 Basophils % 0.0 % (0.0-2.0) 05/20/17 01:35 PT 11.3 SECONDS (9.5-11.5) 05/09/17 05:45 INR 1.09 (0.5-1.4) 05/09/17 05:45 PTT (Actin FS) 25.7 SECONDS (26.0-38.0) L 05/06/17 16:46 Sodium 136 mEq/L (136-145) 05/20/17 01:35 Potassium 3.5 mEq/L (3.5-5.1) 05/20/17 01:35 Chloride 96 mEq/L (98-107) L 05/20/17 01:35 Carbon Dioxide 31.9 mEq/L (21.0-31.0) H 05/20/17 01:35 Anion Gap 11.6 (7.0-16.0) 05/20/17 01:35 BUN 12 mg/dL (7-25) 05/20/17 01:35 Creatinine 1.1 mg/dL (0.7-1.3) 05/20/17 01:35 Est GFR ( Amer) > 60.0 ml/min (>90) 05/20/17 01:35 Est GFR (Non-Af Amer) > 60.0 ml/min 05/20/17 01:35 BUN/Creatinine Ratio 10.9 05/20/17 01:35 Glucose 128 mg/dL (70-105) H 05/20/17 01:35 Calcium 10.3 mg/dL (8.6-10.3) 05/20/17 01:35 Magnesium 1.7 mg/dL (1.9-2.7) L 05/14/17 11:20 Total Bilirubin 0.3 mg/dL (0.3-1.0) 05/14/17 11:20 AST 12 U/L (13-39) L 05/14/17 11:20 ALT 9 U/L (7-52) 05/14/17 11:20 Alkaline Phosphatase 45 U/L (34-104) 05/14/17 11:20 Troponin I 0.03 ng/mL (0.01-0.05) 05/06/17 16:46 Total Protein 7.4 gm/dL (6.0-8.3) 05/14/17 11:20 Albumin 3.7 gm/dL (4.2-5.5) L 05/14/17 11:20 Globulin 3.7 gm/dL 05/14/17 11:20 Albumin/Globulin Ratio 1.0 (1.0-1.8) 05/14/17 11:20 Triglycerides 88 mg/dL (<150) 05/06/17 16:46 Cholesterol 126 mg/dL (<200) 05/06/17 16:46 LDL Cholesterol Direct 89 mg/dL (75-193) 05/06/17 16:46 HDL Cholesterol 30 mg/dL (23-92) 05/06/17 16:46 TSH 1.23 uIU/ml (0.34-5.60) 05/06/17 16:46 Urine Source CLEAN C 05/06/17 16:20 Urine Color YELLOW 05/06/17 16:20 Urine Clarity HAZY (CLEAR) 05/06/17 16:20 Urine pH 5.5 (4.6 - 8.0) 05/06/17 16:20 Ur Specific [place] 1.030 (1.005-1.030) 05/06/17 16:20 Urine Protein 30 mg/dL (NEGATIVE) H 05/06/17 16:20 Urine Glucose (UA) NEGATIVE mg/dL (NEGATIVE) 05/06/17 16:20 Urine Ketones NEGATIVE mg/dL (NEGATIVE) 05/06/17 16:20 Urine Blood NEGATIVE (NEGATIVE) 05/06/17 16:20 Urine Nitrate NEGATIVE (NEGATIVE) 05/06/17 16:20 Urine Bilirubin SMALL (NEGATIVE) H 05/06/17 16:20 Urine Urobilinogen 2.0 E.U./dL (0.2 - 1.0) 05/06/17 16:20 Ur Leukocyte Esterase NEGATIVE (NEGATIVE) 05/06/17 16:20 Urine RBC 0-1 /hpf (0-5) 05/06/17 16:20 Urine WBC 0-2 /hpf (0-5) 05/06/17 16:20 Ur Epithelial Cells OCCASIONAL /lpf (FEW) 05/06/17 16:20 Amorphous Sediment FEW URATES (NONE SEEN) 05/06/17 16:20 Urine Bacteria FEW /hpf (NONE SEEN) 05/06/17 16:20 Urine Mucus MODERATE /lpf (FEW) 05/06/17 16:20 Valproic Acid < 10.0 ug/mL (50.0-100.0) L 05/09/17 05:45 RPR NONREACTIVE (NONREACTIVE) 05/06/17 16:46 - Physical Exam Vitals and I&O: Vital Signs Temp 97.8 F 05/20/17 11:36 Pulse 77 05/20/17 11:36 Resp 19 05/20/17 11:36 BP 128/89 05/20/17 11:36 Pulse Ox 96 05/20/17 11:36 Intake & Output 05/19/17 05/20/17 05/20/17 18:59 06:59 18:59 Intake Total 80 Balance 80 Weight (lbs) 141 lb 14.4 oz 147 lb 12.8 oz Intake: Oral 80 Other: # Voids 1 1 Active Medications: Current Medications Acetaminophen (Tylenol) 650 mg PO Q4H PRN PRN Reason: Pain Or Fever above 101 Stop: 07/05/17 19:13 Al Hydrox/Mg Hydrox/Simethicone (Maalox) 30 ml PO Q6H PRN PRN Reason: Dyspepsia Stop: 07/05/17 19:13 Albuterol Sulfate (Albuterol 2.5mg/3ml Neb Ud) 2.5 mg HHN Q2HRT PRN PRN Reason: Shortness of Breath or Wheeze Stop: 07/05/17 19:13 Benztropine Mesylate (Cogentin) 1 mg PO BID PRN PRN Reason: Agitation Stop: 07/12/17 08:59 Divalproex Sodium (Depakote Er) 1,000 mg PO BID KAM PRN Reason: Protocol Stop: 07/06/17 08:59 Last Admin: 05/20/17 09:55 Dose: Not Given Ferrous Sulfate (Iron) 325 mg PO BID [facility] Stop: 07/06/17 08:59 Last Admin: 05/20/17 09:55 Dose: Not Given Guaifenesin (Robitussin) 200 mg PO Q4HR PRN PRN Reason: Cough or Congestion Stop: 07/05/17 19:13 Haloperidol Lactate (Haldol) 2 mg IM HS PRN PRN Reason: Agitation Stop: 07/12/17 08:04 Haloperidol Lactate (Haldol) 2 mg IM DAILY PRN PRN Reason: Agitation Stop: 07/12/17 08:06 Heparin Sodium (Porcine) (Heparin) 5,000 units SUBQ Q12HR [facility] Stop: 07/05/17 20:59 Last Admin: 05/19/17 23:37 Dose: Not Given Dextrose/Sodium Chloride (D5-0.9%Ns) 1,000 mls @ 70 mls/hr IV .[id number] [facility] Stop: 07/05/17 19:14 Last Admin: 05/20/17 02:47 Dose: 70 mls/hr Ipratropium [place] (Atrovent Neb 0.5mg/2.5ml) 0.5 mg HHN Q2HRT PRN PRN Reason: Shortness of Breath or Wheeze Stop: 07/05/17 19:13 Lactulose (Cephulac) 30 gm PO BID KAM Stop: 07/10/17 16:59 Last Admin: 05/20/17 09:55 Dose: Not Given Levothyroxine Sodium (Synthroid) 0.075 mg PO QDAC [facility] Stop: 07/06/17 07:29 Last Admin: 05/20/17 06:37 Dose: Not Given Metoclopramide HCl (Reglan) 10 mg IVP Q8HR PRN PRN Reason: Nausea / Vomiting Stop: 07/09/17 11:31 Last Admin: 05/11/17 06:31 Dose: 10 mg Metoclopramide HCl (Reglan) 5 mg IVP Q8HR [facility] Stop: 07/15/17 20:59 Last Admin: 05/20/17 05:27 Dose: 5 mg Olanzapine (Zyprexa) 10 mg PO HS KAM PRN Reason: Protocol Stop: 07/07/17 20:59 Last Admin: 05/19/17 23:37 Dose: Not Given Olanzapine (Zyprexa Zydis) 10 mg PO DAILY KAM PRN Reason: Protocol Stop: 07/08/17 08:59 Last Admin: 05/20/17 09:55 Dose: Not Given Ondansetron HCl (Zofran) 4 mg IV Q4H PRN PRN Reason: Nausea / Vomiting Stop: 07/05/17 19:13 Last Admin: 05/19/17 15:22 Dose: 4 mg Pantoprazole Sodium (Protonix) 40 mg PO BID [facility] Stop: 07/06/17 08:59 Last Admin: 05/20/17 09:56 Dose: Not Given Pantoprazole Sodium (Protonix) 40 mg IVP BID [facility] Stop: 07/18/17 18:32 Last Admin: 05/20/17 09:56 Dose: Not Given Sucralfate (Carafate) 1 gm PO QID [facility] Stop: 07/05/17 20:59 Last Admin: 05/20/17 09:55 Dose: Not Given Zolpidem Tartrate (Ambien) 5 mg PO HS PRN PRN Reason: Insomnia Stop: 07/05/17 19:12 General: alert HEENT: NC/AT, PERRLA Neck: Supple Abdomen: soft, non-tender, non-distended, positive bowel sound Extremities: excoriation Neurological: alert, disorganized, unsteady, bedbound - Procedures Procedures: Procedures Procedure Code Date DILATION OF LOWER ESOPHAGUS, ENDO [id number] 05/06/17 EGD BIOPSY SINGLE/MULTIPLE 76763 05/06/17 ESOPH EGD DILATION <30 MM 34058 05/06/17 EXCISION OF ESOPHAGUS, ENDO, DIAGN [id number] 05/06/17 Internal Medicine Assmt/Plan - Assessment Assessment: DYSPHAGIA DEHYDRATION- FAILURE TO THRIVE HYPONATREMIA HYPOKALEMIA GERD HTN BARETT'S ESOPHAGUS - Plan Plan: continue with iv protonix rehabilitation case coordinator arranging placement monitor cbc/bmp ivf for hydration continue current plan of care Nutritional Asmnt/Malnutr-PDOC - Dietary Evaluation Malnutrition Findings (Please click <Entered> for more info): Nutritional Asmnt/Malnutrition Start: 05/07/17 10: 39 Text: Status: Complete Freq: Document 05/07/17 14:31 GSUN (Rec: 05/07/17 15:03 GSUN [email or web address]) Nutritional Asmnt/Malnutrition Patient General Information Nutritional Screening Consult Diagnosis Dysphagia, dehydration, FTT, Serna esophagus, PCM Pertinent Medical Hx/Surgical Hx Schizophrenia, stroke, TIA, GERD, thyroid disease, arthritis, dementia Subjective Information 46 year old male from SNF. RD consult for dysphagia. Spoke to ELISE Christina, pt has ulcer in the throat, unable to eat, swallow eval ordered nad pending. Pt is a questionable historian, talkative, however speech unclear and difficult to understand. 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 Pt appeared thin, mild muscle fat wasting to chest and temporals. Current Diet Order/ Nutrition Support Clear liquid Pertinent Medications D5-0.9%ns, Iron, Synthroid, Zofran, Protonix, Carafate Pertinent Labs Reviewed. Nutritional Hx/Data Height 5 ft 9 in Height (Calculated Centimeters) 175.3 Current Weight (lbs) 147 lb Weight (Calculated Kilograms) 66.7 Weight (Calculated Grams) 10575.1 [place] Body Weight 160 Weight Status Approriate GI Symptoms Food Allergies No Skin Integrity/Comment: [place] 13. Skin intact. Estimated Nutritional Goals BEE in Kcals: Using Current wt Calories/Kcals/Kg CBW 147lb/66.8kg Kcals Calculated 1670-2004kcal (25-30kcal/kg) Protein: Using Current wt Protein Calculated 67g (1g/kg) Fluid: ml 1670-2004ml (1ml/kcal) Nutritional Problem 1. 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 GI consult and swallow eval pending, recommend regular diet with diet texture per ST if pt is able to resume oral diet. Nursing staff to ensure pt sit upright during meals to minimize possible reflux. 2. Monitor weight. 3. If unable to resume oral diet, recommend enteral nutrition. Expected Outcomes/Goals Expected Outcomes/Goals 1. Pt to meet at least 75% of estimated nutritional needs orally or enterally.
[2017-05-21] MEDS ORDERED: Metoclopramide 5 mg/mL 2mL Vial ONE (04:26)
[2017-05-21] MEDS: Metoclopramide 5 mg/mL 2mL Vial IVP SCH ×2 (04:27→14:19)
[2017-05-21 05:52] LABS: HEMOGLOBIN 12.2 gm/dL (12-16)
[2017-05-21 05:54] LABS: HEMATOCRIT 35.7 % (41.0-60); MEAN CELL VOLUME 92.9 fl (80-99); MEAN CORPUSCULAR HEMOGLOBIN 31.7 pg (26.0-30.0); MEAN CORPUSCULAR HGB CONC 34.1 pg (28.0-36.0); MEAN PLATELET VOLUME 8.3 fl; NEUTROPHILE ABSOLUTE 17.7 Th/cmm (1.8-8.0); PLATELET COUNT 260 Th/cmm (150-400); RED BLOOD COUNT 3.84 Mil/cmm (4.30-5.70); RED CELL DISTRIBUTION WIDTH 13.3 % (11.5-20.0)
[2017-05-21 05:59] LABS: WHITE BLOOD COUNT 20.4 Th/cmm (4.8-10.8)
[2017-05-21 06:14] LABS: ANION GAP 10.1 (7.0-16.0); BUN - UREA NITROGEN 10 mg/dL (7-25); CARBON DIOXIDE 27.1 mEq/L (21.0-31.0); CHLORIDE 103 mEq/L (98-107); GLUCOSE 122 mg/dL (70-105); POTASSIUM SERUM 3.2 mEq/L (3.5-5.1); SODIUM SERUM 137 mEq/L (136-145)
[2017-05-21 06:29] LABS: TOTAL CELLS COUNTED 100
[2017-05-21 06:30] LABS: BAND NEUTROPHILE 3 % (0-10); NEUTROPHILS 86 % (40-80)
[2017-05-21] MEDS: D5-0.9%NS 1,000 ML IV SCH (06:41)
[2017-05-21] MEDS: Levothyroxine 0.075 Mg Tab PO SCH (06:49)
--- NOTE | 2017-05-21 08:26 | Diagnostic Imaging Report ---
CHEST X-RAY: AP view INDICATION: Aspiration COMPARISON: 05/07/2017 FINDINGS: Hyperinflated lungs are noted. There is no focal consolidation or pleural effusions The heart is normal in size. The osseous structures demonstrate no acute abnormalities. Old lower fractures are noted. IMPRESSION: No focal airspace consolidation identified.
--- NOTE | 2017-05-21 08:28 | Diagnostic Imaging Report ---
Head CT without intravenous contrast Indication: CVA Comparison: None Technique: Axial images were obtained from the vertex to the skull base without IV contrast. Coronal reconstructions were made. Total DLP: 721 CTDI36.6 FINDINGS: Images of the brain obtained without contrast demonstrate no evidence of an acute hemorrhage. Atrophy is noted. Diffuse areas of encephalomalacia are seen along the left frontal, temporal lobe and right frontal, temporal lobes. Bilateral cerebellar encephalomalacia is also noted. There is areas ex vacuo dilatation involving the posterior horns of the bilateral lateral ventricles. No mass effect or midline shift. The osseous structures demonstrate no acute abnormalities. No focal soft tissue swelling. Old left injury of the left parietal scalp is noted. IMPRESSION: No evidence of an acute intracranial hemorrhage. Diffuse areas of encephalomalacia likely due to old infarcts. If indicated follow up MRI may be obtained for further assessment. Atrophy.
[2017-05-21] MEDS: OLANZapine 5 mg Oral Disintegrating Tab PO SCH (08:46)
[2017-05-21] MEDS: Ferrous Sulfate 325 MG TAB PO SCH ×2 (08:46→17:52)
[2017-05-21] MEDS: Lactulose 10 Gm/15 mL 30mL UDC PO SCH ×2 (08:47→17:52)
--- NOTE | 2017-05-21 12:02 | Progress Notes ---
DATE: 05/21/2017 SUBJECTIVE: Chart reviewed and the patient interviewed. Also discussed the patient's condition with the staff and reviewed records and labs. The patient is unable to swallow and he has been having difficulty taking medications because of swallowing. The patient was not able to take Zyprexa last night because of his difficulty swallowing. He is still taking Haldol on a p.r.n. basis intramuscular. The patient currently is calm and cooperative and alert. Yesterday, the patient was agitated in the morning and the patient did take Haldol yesterday morning. Otherwise, the patient is compliant with taking his medications except that he is unable to swallow. We will continue Haldol on p.r.n. basis complete evaluation of the patient's swallowing and until he is able to swallow. Also, we will repeat Depakote blood level that was low upon admission. Also, we will continue to follow up with his behavior closely. [facility]# [id number]
--- NOTE | 2017-05-21 12:55 | Internal Medicine Prog Note ---
Internal Medicine Subjective - Subjective Service Date: 05/21/17 Patient is:: awake, verbal Patient Complaints of:: vomitting Per staff patient has:: no adverse event, noncompliant, confused, tolerating meds Internal Medicine Objective - Results Result Diagrams: 05/21/17 05:45 05/21/17 05:45 Recent Labs: Laboratory Last Values WBC 20.4 Th/cmm (4.8-10.8) H* D 05/21/17 05:45 RBC 3.84 Mil/cmm (4.30-5.70) L 05/21/17 05:45 Hgb 12.2 gm/dL (12-16) 05/21/17 05:45 Hct 35.7 % (41.0-60) L D 05/21/17 05:45 MCV 92.9 fl (80-99) 05/21/17 05:45 MCH 31.7 pg (26.0-30.0) H 05/21/17 05:45 MCHC Differential 34.1 pg (28.0-36.0) 05/21/17 05:45 RDW 13.3 % (11.5-20.0) 05/21/17 05:45 Plt Count 260 Th/cmm (150-400) 05/21/17 05:45 MPV 8.3 fl 05/21/17 05:45 Neutrophils % [employer]IOR [employer] 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 05/21/17 05:45 Band Neutrophils % 3 % (0-10) 05/21/17 05:45 Lymphocytes % [employer]IOR [employer] 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 05/21/17 05:45 Monocytes % [employer]IOR [employer]ORE 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 05/21/17 05:45 Eosinophils % [employer]IOR C[employer] 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 05/21/17 05:45 Basophils % [employer]IOR [employer] 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 05/21/17 05:45 Neutrophils (Manual) 86 % (40-80) H 05/21/17 05:45 Lymphocytes 10 % (20-50) L 05/21/17 05:45 Monocytes 1 % (2-10) L 05/21/17 05:45 PT 11.3 SECONDS (9.5-11.5) 05/09/17 05:45 INR 1.09 (0.5-1.4) 05/09/17 05:45 PTT (Actin FS) 25.7 SECONDS (26.0-38.0) L 05/06/17 16:46 Sodium 137 mEq/L (136-145) 05/21/17 05:45 Potassium 3.2 mEq/L (3.5-5.1) L 05/21/17 05:45 Chloride 103 mEq/L (98-107) 05/21/17 05:45 Carbon Dioxide 27.1 mEq/L (21.0-31.0) 05/21/17 05:45 Anion Gap 10.1 (7.0-16.0) 05/21/17 05:45 BUN 10 mg/dL (7-25) 05/21/17 05:45 Creatinine 1.0 mg/dL (0.7-1.3) 05/21/17 05:45 Est GFR ( Amer) > 60.0 ml/min (>90) 05/21/17 05:45 Est GFR (Non-Af Amer) > 60.0 ml/min 05/21/17 05:45 BUN/Creatinine Ratio 10.0 05/21/17 05:45 Glucose 122 mg/dL (70-105) H 05/21/17 05:45 Calcium 9.0 mg/dL (8.6-10.3) 05/21/17 05:45 Magnesium 1.7 mg/dL (1.9-2.7) L 05/14/17 11:20 Total Bilirubin 0.3 mg/dL (0.3-1.0) 05/14/17 11:20 AST 12 U/L (13-39) L 05/14/17 11:20 ALT 9 U/L (7-52) 05/14/17 11:20 Alkaline Phosphatase 45 U/L (34-104) 05/14/17 11:20 Troponin I 0.03 ng/mL (0.01-0.05) 05/06/17 16:46 Total Protein 7.4 gm/dL (6.0-8.3) 05/14/17 11:20 Albumin 3.7 gm/dL (4.2-5.5) L 05/14/17 11:20 Globulin 3.7 gm/dL 05/14/17 11:20 Albumin/Globulin Ratio 1.0 (1.0-1.8) 05/14/17 11:20 Triglycerides 88 mg/dL (<150) 05/06/17 16:46 Cholesterol 126 mg/dL (<200) 05/06/17 16:46 LDL Cholesterol Direct 89 mg/dL (75-193) 05/06/17 16:46 HDL Cholesterol 30 mg/dL (23-92) 05/06/17 16:46 TSH 1.23 uIU/ml (0.34-5.60) 05/06/17 16:46 Urine Source CLEAN C 05/06/17 16:20 Urine Color YELLOW 05/06/17 16:20 Urine Clarity HAZY (CLEAR) 05/06/17 16:20 Urine pH 5.5 (4.6 - 8.0) 05/06/17 16:20 Ur Specific [place] 1.030 (1.005-1.030) 05/06/17 16:20 Urine Protein 30 mg/dL (NEGATIVE) H 05/06/17 16:20 Urine Glucose (UA) NEGATIVE mg/dL (NEGATIVE) 05/06/17 16:20 Urine Ketones NEGATIVE mg/dL (NEGATIVE) 05/06/17 16:20 Urine Blood NEGATIVE (NEGATIVE) 05/06/17 16:20 Urine Nitrate NEGATIVE (NEGATIVE) 05/06/17 16:20 Urine Bilirubin SMALL (NEGATIVE) H 05/06/17 16:20 Urine Urobilinogen 2.0 E.U./dL (0.2 - 1.0) 05/06/17 16:20 Ur Leukocyte Esterase NEGATIVE (NEGATIVE) 05/06/17 16:20 Urine RBC 0-1 /hpf (0-5) 05/06/17 16:20 Urine WBC 0-2 /hpf (0-5) 05/06/17 16:20 Ur Epithelial Cells OCCASIONAL /lpf (FEW) 05/06/17 16:20 Amorphous Sediment FEW URATES (NONE SEEN) 05/06/17 16:20 Urine Bacteria FEW /hpf (NONE SEEN) 05/06/17 16:20 Urine Mucus MODERATE /lpf (FEW) 05/06/17 16:20 Valproic Acid < 10.0 ug/mL (50.0-100.0) L 05/21/17 05:45 RPR NONREACTIVE (NONREACTIVE) 05/06/17 16:46 - Physical Exam Vitals and I&O: Vital Signs Temp 98.6 F 05/21/17 07:29 Pulse 82 05/21/17 07:29 Resp 18 05/21/17 07:29 BP 129/92 05/21/17 07:29 Pulse Ox 100 05/21/17 07:29 Intake & Output 05/20/17 05/21/17 05/21/17 18:59 06:59 18:59 Intake Total 963.667 905 Balance 963.667 905 Weight (lbs) 148 lb 1.6 oz Intake: Intake, IV Amount 963.667 905 Cefepime 1 gm In Dextrose 50 5% 50 ml @ 100 mls/hr IV Q12H K[facility] Rx#:[id number] D5-0.9%Ns 1,000 ml @ 100 855 mls/hr IV .Q10H KAM Rx#: [id number] D5-0.9%Ns 1,000 ml @ 70 963.667 mls/hr IV .[id number] K[facility] Rx #:[id number] Other: # Voids 2 # Bowel Movements 0 Active Medications: Current Medications Acetaminophen (Tylenol) 650 mg PO Q4H PRN PRN Reason: Pain Or Fever above 101 Stop: 07/05/17 19:13 Al Hydrox/Mg Hydrox/Simethicone (Maalox) 30 ml PO Q6H PRN PRN Reason: Dyspepsia Stop: 07/05/17 19:13 Albuterol Sulfate (Albuterol 2.5mg/3ml Neb Ud) 2.5 mg HHN Q2HRT PRN PRN Reason: Shortness of Breath or Wheeze Stop: 07/05/17 19:13 Benztropine Mesylate (Cogentin) 1 mg PO BID PRN PRN Reason: Agitation Stop: 07/12/17 08:59 Divalproex Sodium (Depakote Er) 1,000 mg PO BID [facility] PRN Reason: Protocol Stop: 07/06/17 08:59 Last Admin: 05/21/17 08:46 Dose: Not Given Ferrous Sulfate (Iron) 325 mg PO BID [facility] Stop: 07/06/17 08:59 Last Admin: 05/21/17 08:46 Dose: Not Given Guaifenesin (Robitussin) 200 mg PO Q4HR PRN PRN Reason: Cough or Congestion Stop: 07/05/17 19:13 Haloperidol Lactate (Haldol) 2 mg IM HS PRN PRN Reason: Agitation Stop: 07/12/17 08:04 Haloperidol Lactate (Haldol) 2 mg IM DAILY PRN PRN Reason: Agitation Stop: 07/12/17 08:06 Last Admin: 05/20/17 13:32 Dose: 2 mg Heparin Sodium (Porcine) (Heparin) 5,000 units SUBQ Q12HR [facility] Stop: 07/05/17 20:59 Last Admin: 05/21/17 08:49 Dose: 5,000 units Dextrose/Sodium Chloride (D5-0.9%Ns) 1,000 mls @ 100 mls/hr IV .Q10H [facility] Stop: 07/05/17 19:14 Last Admin: 05/21/17 06:41 Dose: 100 mls/hr Cefepime HCl 1 gm/ Dextrose 50 mls @ 100 mls/hr IV Q12H [facility] Stop: 07/19/17 20:59 Last Admin: 05/21/17 08:45 Dose: 100 mls/hr Vancomycin HCl 1 gm/ Sodium (Chloride) 250 mls @ 166.667 mls/hr IV Q24H [facility] Stop: 07/20/17 08:59 Last Admin: 05/21/17 09:46 Dose: 166.667 mls/hr Potassium Chloride 20 meq/Lidocaine HCl 25 mg/ Sodium Chloride 262.5 mls @ 68 mls/hr IV X1 ONE Stop: 05/21/17 18:51 Ipratropium [place] (Atrovent Neb 0.5mg/2.5ml) 0.5 mg HHN Q2HRT PRN PRN Reason: Shortness of Breath or Wheeze Stop: 07/05/17 19:13 Lactulose (Cephulac) 30 gm PO BID [facility] Stop: 07/10/17 16:59 Last Admin: 05/21/17 08:47 Dose: Not Given Levothyroxine Sodium (Synthroid) 0.075 mg PO QDAC [facility] Stop: 07/06/17 07:29 Last Admin: 05/21/17 06:49 Dose: Not Given Metoclopramide HCl (Reglan) 10 mg IVP Q8HR PRN PRN Reason: Nausea / Vomiting Stop: 07/09/17 11:31 Last Admin: 05/11/17 06:31 Dose: 10 mg Metoclopramide HCl (Reglan) 5 mg IVP Q8HR [facility] Stop: 07/15/17 20:59 Last Admin: 05/21/17 04:27 Dose: 5 mg Olanzapine (Zyprexa) 10 mg PO HS [facility]AM PRN Reason: Protocol Stop: 07/07/17 20:59 Last Admin: 05/20/17 21:31 Dose: Not Given Olanzapine (Zyprexa Zydis) 10 mg PO DAILY KAM PRN Reason: Protocol Stop: 07/08/17 08:59 Last Admin: 05/21/17 08:46 Dose: Not Given Ondansetron HCl (Zofran) 4 mg IV Q4H PRN PRN Reason: Nausea / Vomiting Stop: 07/05/17 19:13 Last Admin: 05/19/17 15:22 Dose: 4 mg Pantoprazole Sodium (Protonix) 40 mg IVP BID [facility] Stop: 07/18/17 18:32 Last Admin: 05/21/17 08:45 Dose: 40 mg Sucralfate (Carafate) 1 gm PO QID [facility] Stop: 07/05/17 20:59 Last Admin: 05/21/17 08:46 Dose: Not Given Zolpidem Tartrate (Ambien) 5 mg PO HS PRN PRN Reason: Insomnia Stop: 07/05/17 19:12 General: alert HEENT: NC/AT, PERRLA Neck: Supple Abdomen: soft, non-tender, non-distended, positive bowel sound Extremities: excoriation Neurological: alert, disorganized, unsteady, bedbound - Procedures Procedures: Procedures Procedure Code Date DILATION OF LOWER ESOPHAGUS, ENDO [id number] 05/06/17 EGD BIOPSY SINGLE/MULTIPLE 91448 05/06/17 ESOPH EGD DILATION <30 MM 11478 05/06/17 EXCISION OF ESOPHAGUS, ENDO, DIAGN [id number] 05/06/17 Internal Medicine Assmt/Plan - Assessment Assessment: DYSPHAGIA DEHYDRATION- FAILURE TO THRIVE HYPONATREMIA HYPOKALEMIA GERD HTN BARETT'S ESOPHAGUS - Plan Plan: continue with iv protonix case worker arranging placement monitor cbc/bmp ivf for hydration continue current plan of care Nutritional Asmnt/Malnutr-PDOC - Dietary Evaluation Malnutrition Findings (Please click <Entered> for more info): Nutritional Asmnt/Malnutrition Start: 05/07/17 10: 39 Text: Status: Complete Freq: Document 05/07/17 14:31 GSUN (Rec: 05/07/17 15:03 GSUN [email or web address]) Nutritional Asmnt/Malnutrition Patient General Information Nutritional Screening Consult Diagnosis Dysphagia, dehydration, FTT, Serna esophagus, PCM Pertinent Medical Hx/Surgical Hx Schizophrenia, stroke, TIA, GERD, thyroid disease, arthritis, dementia Subjective Information 46 year old male from SNF. RD consult for dysphagia. Spoke to RN Carri, pt has ulcer in the throat, unable to eat, swallow eval ordered nad pending. Pt is a questionable historian, talkative, however speech unclear and difficult to understand. 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 Pt appeared thin, mild muscle fat wasting to chest and temporals. Current Diet Order/ Nutrition Support Clear liquid Pertinent Medications D5-0.9%ns, Iron, Synthroid, Zofran, Protonix, Carafate Pertinent Labs Reviewed. Nutritional Hx/Data Height 5 ft 9 in Height (Calculated Centimeters) 175.3 Current Weight (lbs) 147 lb Weight (Calculated Kilograms) 66.7 Weight (Calculated Grams) 88572.1 [place] Body Weight 160 Weight Status Approriate GI Symptoms Food Allergies No Skin Integrity/Comment: [place] 13. Skin intact. Estimated Nutritional Goals BEE in Kcals: Using Current wt Calories/Kcals/Kg CBW 147lb/66.8kg Kcals Calculated 1670-2004kcal (25-30kcal/kg) Protein: Using Current wt Protein Calculated 67g (1g/kg) Fluid: ml 1670-2004ml (1ml/kcal) Nutritional Problem 1. 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 GI consult and swallow eval pending, recommend regular diet with diet texture per ST if pt is able to resume oral diet. Nursing staff to ensure pt sit upright during meals to minimize possible reflux. 2. Monitor weight. 3. If unable to resume oral diet, recommend enteral nutrition. Expected Outcomes/Goals Expected Outcomes/Goals 1. Pt to meet at least 75% of estimated nutritional needs orally or enterally.
[2017-05-21] MEDS ORDERED: Potassium Chloride 20 MEQ, Lidocaine 1% 20mL Vial 25 MG in Sodium Chloride 0.9% 250 ML IV ONE (16:00)
[2017-05-21] MEDS ORDERED: Amino Acids 3% / Electrolytes 1,000 ML IV SCH (16:00)
[2017-05-21] MEDS ORDERED: Probiotic Screen MC PRN (17:00)
[2017-05-22] MEDS: Metoclopramide 5 mg/mL 2mL Vial IVP SCH ×4 (05:33→18:26)
[2017-05-22] MEDS ORDERED: Metoclopramide 5 mg/mL 2mL Vial ONE (06:14)
[2017-05-22] MEDS: Levothyroxine 0.075 Mg Tab PO SCH (06:32)
[2017-05-22] MEDS: OLANZapine 5 mg Oral Disintegrating Tab PO SCH (10:24)
[2017-05-22] MEDS: Lactobacillus Rhamnosus 10 Billion CFU Capsule PO SCH (10:25)
[2017-05-22] MEDS: Ferrous Sulfate 325 MG TAB PO SCH ×2 (10:25→18:27)
[2017-05-22] MEDS: Lactulose 10 Gm/15 mL 30mL UDC PO SCH ×2 (10:25→18:27)
[2017-05-22] MEDS: Potassium Chloride Elixir 20 mEq /15 mL UDC GT SCH (10:36)
--- NOTE | 2017-05-22 14:12 | Internal Medicine Prog Note ---
Internal Medicine Subjective - Subjective Service Date: 05/22/17 Patient is:: awake, verbal Patient Complaints of:: vomitting Per staff patient has:: no adverse event, noncompliant, confused, tolerating meds Internal Medicine Objective - Results Result Diagrams: 05/21/17 05:45 05/21/17 05:45 Recent Labs: Laboratory Last Values WBC 20.4 Th/cmm (4.8-10.8) H* D 05/21/17 05:45 RBC 3.84 Mil/cmm (4.30-5.70) L 05/21/17 05:45 Hgb 12.2 gm/dL (12-16) 05/21/17 05:45 Hct 35.7 % (41.0-60) L D 05/21/17 05:45 MCV 92.9 fl (80-99) 05/21/17 05:45 MCH 31.7 pg (26.0-30.0) H 05/21/17 05:45 MCHC Differential 34.1 pg (28.0-36.0) 05/21/17 05:45 RDW 13.3 % (11.5-20.0) 05/21/17 05:45 Plt Count 260 Th/cmm (150-400) 05/21/17 05:45 MPV 8.3 fl 05/21/17 05:45 Neutrophils % [employer] TENDER 05/21/17 05:45 Band Neutrophils % 3 % (0-10) 05/21/17 05:45 Lymphocytes % [employer] T[employer]ER 05/21/17 05:45 Monocytes % [employer] TENDER 05/21/17 05:45 Eosinophils % FISH TENDER 05/21/17 05:45 Basophils % FISH TENDER 05/21/17 05:45 Neutrophils (Manual) 86 % (40-80) H 05/21/17 05:45 Lymphocytes 10 % (20-50) L 05/21/17 05:45 Monocytes 1 % (2-10) L 05/21/17 05:45 PT 11.3 SECONDS (9.5-11.5) 05/09/17 05:45 INR 1.09 (0.5-1.4) 05/09/17 05:45 PTT (Actin FS) 25.7 SECONDS (26.0-38.0) L 05/06/17 16:46 Sodium 137 mEq/L (136-145) 05/21/17 05:45 Potassium 3.2 mEq/L (3.5-5.1) L 05/21/17 05:45 Chloride 103 mEq/L (98-107) 05/21/17 05:45 Carbon Dioxide 27.1 mEq/L (21.0-31.0) 05/21/17 05:45 Anion Gap 10.1 (7.0-16.0) 05/21/17 05:45 BUN 10 mg/dL (7-25) 05/21/17 05:45 Creatinine 1.0 mg/dL (0.7-1.3) 05/21/17 05:45 Est GFR ( Amer) > 60.0 ml/min (>90) 05/21/17 05:45 Est GFR (Non-Af Amer) > 60.0 ml/min 05/21/17 05:45 BUN/Creatinine Ratio 10.0 05/21/17 05:45 Glucose 122 mg/dL (70-105) H 05/21/17 05:45 Calcium 9.0 mg/dL (8.6-10.3) 05/21/17 05:45 Magnesium 1.7 mg/dL (1.9-2.7) L 05/14/17 11:20 Total Bilirubin 0.3 mg/dL (0.3-1.0) 05/14/17 11:20 AST 12 U/L (13-39) L 05/14/17 11:20 ALT 9 U/L (7-52) 05/14/17 11:20 Alkaline Phosphatase 45 U/L (34-104) 05/14/17 11:20 Troponin I 0.03 ng/mL (0.01-0.05) 05/06/17 16:46 Total Protein 7.4 gm/dL (6.0-8.3) 05/14/17 11:20 Albumin 3.7 gm/dL (4.2-5.5) L 05/14/17 11:20 Globulin 3.7 gm/dL 05/14/17 11:20 Albumin/Globulin Ratio 1.0 (1.0-1.8) 05/14/17 11:20 Triglycerides 88 mg/dL (<150) 05/06/17 16:46 Cholesterol 126 mg/dL (<200) 05/06/17 16:46 LDL Cholesterol Direct 89 mg/dL (75-193) 05/06/17 16:46 HDL Cholesterol 30 mg/dL (23-92) 05/06/17 16:46 TSH 1.23 uIU/ml (0.34-5.60) 05/06/17 16:46 Urine Source CLEAN C 05/06/17 16:20 Urine Color YELLOW 05/06/17 16:20 Urine Clarity HAZY (CLEAR) 05/06/17 16:20 Urine pH 5.5 (4.6 - 8.0) 05/06/17 16:20 Ur Specific [place] 1.030 (1.005-1.030) 05/06/17 16:20 Urine Protein 30 mg/dL (NEGATIVE) H 05/06/17 16:20 Urine Glucose (UA) NEGATIVE mg/dL (NEGATIVE) 05/06/17 16:20 Urine Ketones NEGATIVE mg/dL (NEGATIVE) 05/06/17 16:20 Urine Blood NEGATIVE (NEGATIVE) 05/06/17 16:20 Urine Nitrate NEGATIVE (NEGATIVE) 05/06/17 16:20 Urine Bilirubin SMALL (NEGATIVE) H 05/06/17 16:20 Urine Urobilinogen 2.0 E.U./dL (0.2 - 1.0) 05/06/17 16:20 Ur Leukocyte Esterase NEGATIVE (NEGATIVE) 05/06/17 16:20 Urine RBC 0-1 /hpf (0-5) 05/06/17 16:20 Urine WBC 0-2 /hpf (0-5) 05/06/17 16:20 Ur Epithelial Cells OCCASIONAL /lpf (FEW) 05/06/17 16:20 Amorphous Sediment FEW URATES (NONE SEEN) 05/06/17 16:20 Urine Bacteria FEW /hpf (NONE SEEN) 05/06/17 16:20 Urine Mucus MODERATE /lpf (FEW) 05/06/17 16:20 Valproic Acid < 10.0 ug/mL (50.0-100.0) L 05/21/17 05:45 RPR NONREACTIVE (NONREACTIVE) 05/06/17 16:46 - Physical Exam Vitals and I&O: Vital Signs Temp 98.3 F 05/22/17 12:00 Pulse 99 05/22/17 12:00 Resp 18 05/22/17 12:00 BP 140/85 05/22/17 12:00 Pulse Ox 98 05/22/17 12:00 Intake & Output 05/21/17 05/22/17 05/22/17 18:59 06:59 18:59 Intake Total 50 400 Balance 50 400 Weight (lbs) 147 lb 1.6 oz 139 lb Intake: Intake, IV Amount 50 Cefepime 1 gm In Dextrose 50 5% 50 ml @ 100 mls/hr IV Q12H KAM Rx#:[id number] TPN/PPN 400 Other: # Voids 2 # Bowel Movements 0 Active Medications: Current Medications Acetaminophen (Tylenol) 650 mg PO Q4H PRN PRN Reason: Pain Or Fever above 101 Stop: 07/05/17 19:13 Al Hydrox/Mg Hydrox/Simethicone (Maalox) 30 ml PO Q6H PRN PRN Reason: Dyspepsia Stop: 07/05/17 19:13 Albuterol Sulfate (Albuterol 2.5mg/3ml Neb Ud) 2.5 mg HHN Q2HRT PRN PRN Reason: Shortness of Breath or Wheeze Stop: 07/05/17 19:13 Benztropine Mesylate (Cogentin) 1 mg PO BID PRN PRN Reason: Agitation Stop: 07/12/17 08:59 Divalproex Sodium (Depakote Er) 1,000 mg PO BID KAM PRN Reason: Protocol Stop: 07/06/17 08:59 Last Admin: 05/22/17 10:25 Dose: Not Given Ferrous Sulfate (Iron) 325 mg PO BID KAM Stop: 07/06/17 08:59 Last Admin: 05/22/17 10:25 Dose: Not Given Guaifenesin (Robitussin) 200 mg PO Q4HR PRN PRN Reason: Cough or Congestion Stop: 07/05/17 19:13 Haloperidol Lactate (Haldol) 2 mg IM HS PRN PRN Reason: Agitation Stop: 07/12/17 08:04 Haloperidol Lactate (Haldol) 2 mg IM DAILY PRN PRN Reason: Agitation Stop: 07/12/17 08:06 Last Admin: 05/20/17 13:32 Dose: 2 mg Heparin Sodium (Porcine) (Heparin) 5,000 units SUBQ Q12HR [facility] Stop: 07/05/17 20:59 Last Admin: 05/22/17 10:29 Dose: 5,000 units Dextrose/Sodium Chloride (D5-0.9%Ns) 1,000 mls @ 100 mls/hr IV .Q10H [facility] Stop: 07/05/17 19:14 Last Admin: 05/21/17 06:41 Dose: 100 mls/hr Cefepime HCl 1 gm/ Dextrose 50 mls @ 100 mls/hr IV Q12H [facility] Stop: 07/19/17 20:59 Last Admin: 05/22/17 10:35 Dose: Not Given Vancomycin HCl 1 gm/ Sodium (Chloride) 250 mls @ 166.667 mls/hr IV Q24H [facility] Stop: 07/20/17 08:59 Last Admin: 05/22/17 10:36 Dose: Not Given Amino Acids/Electrolytes (Procalamine) 1,000 mls @ 40 mls/hr IV .Q24H [facility] Stop: 05/22/17 16:59 Last Admin: 05/21/17 17:53 Dose: 40 mls/hr Ipratropium [place] (Atrovent Neb 0.5mg/2.5ml) 0.5 mg HHN Q2HRT PRN PRN Reason: Shortness of Breath or Wheeze Stop: 07/05/17 19:13 Lactobacillus Rhamnosus (Culturelle) 1 each PO DAILY [facility] Stop: 07/21/17 08:59 Last Admin: 05/22/17 10:25 Dose: Not Given Lactulose (Cephulac) 30 gm PO BID [facility] Stop: 07/10/17 16:59 Last Admin: 05/22/17 10:25 Dose: Not Given Levothyroxine Sodium (Synthroid) 0.075 mg PO QDAC [facility] Stop: 07/06/17 07:29 Last Admin: 05/22/17 06:32 Dose: Not Given Metoclopramide HCl (Reglan) 10 mg IVP Q8HR PRN PRN Reason: Nausea / Vomiting Stop: 07/09/17 11:31 Last Admin: 05/11/17 06:31 Dose: 10 mg Metoclopramide HCl (Reglan) 5 mg IVP Q8HR [facility] Stop: 07/15/17 20:59 Last Admin: 05/22/17 10:35 Dose: Not Given Miscellaneous (Ppn Per Pharmacy) 1 ea MC PRN PRN PRN Reason: PROTOCOL Stop: 07/20/17 13:24 Miscellaneous (Probiotic Screen) 1 ea MC PRN PRN PRN Reason: PROTOCOL Stop: 07/20/17 16:59 Olanzapine (Zyprexa) 10 mg PO HS KAM PRN Reason: Protocol Stop: 07/07/17 20:59 Last Admin: 05/22/17 06:37 Dose: Not Given Olanzapine (Zyprexa Zydis) 10 mg PO DAILY KAM PRN Reason: Protocol Stop: 07/08/17 08:59 Last Admin: 05/22/17 10:24 Dose: Not Given Ondansetron HCl (Zofran) 4 mg IV Q4H PRN PRN Reason: Nausea / Vomiting Stop: 07/05/17 19:13 Last Admin: 05/19/17 15:22 Dose: 4 mg Pantoprazole Sodium (Protonix) 40 mg IVP BID [facility] Stop: 07/18/17 18:32 Last Admin: 05/22/17 10:35 Dose: Not Given Potassium Chloride (Potassium Chloride Elixir) 40 meq GT DAILY [facility] Stop: 07/21/17 08:59 Last Admin: 05/22/17 10:36 Dose: Not Given Sucralfate (Carafate) 1 gm PO QID KAM Stop: 07/05/17 20:59 Last Admin: 05/22/17 10:36 Dose: Not Given Zolpidem Tartrate (Ambien) 5 mg PO HS PRN PRN Reason: Insomnia Stop: 07/05/17 19:12 General: alert HEENT: NC/AT, PERRLA Neck: Supple Abdomen: soft, non-tender, non-distended, positive bowel sound Extremities: excoriation Neurological: alert, disorganized, unsteady, bedbound - Procedures Procedures: Procedures Procedure Code Date DILATION OF LOWER ESOPHAGUS, ENDO [id number] 05/06/17 EGD BIOPSY SINGLE/MULTIPLE 56318 05/06/17 ESOPH EGD DILATION <30 MM 25150 05/06/17 EXCISION OF ESOPHAGUS, ENDO, DIAGN [id number] 05/06/17 Internal Medicine Assmt/Plan - Assessment Assessment: DYSPHAGIA DEHYDRATION- FAILURE TO THRIVE HYPONATREMIA HYPOKALEMIA GERD HTN BARETT'S ESOPHAGUS - Plan Plan: monitor k+ continue with iv protonix caseworker protective services arranging placement monitor cbc/bmp ivf for hydration continue current plan of care Nutritional Asmnt/Malnutr-PDOC - Dietary Evaluation Malnutrition Findings (Please click <Entered> for more info): Nutritional Asmnt/Malnutrition Start: 05/07/17 10: 39 Text: Status: Complete Freq: Document 05/07/17 14:31 GSUN (Rec: 05/07/17 15:03 [email or web address]) Nutritional Asmnt/Malnutrition Patient General Information Nutritional Screening Consult Diagnosis Dysphagia, dehydration, FTT, Serna esophagus, PCM Pertinent Medical Hx/Surgical Hx Schizophrenia, stroke, TIA, GERD, thyroid disease, arthritis, dementia Subjective Information 46 year old male from SNF. RD consult for dysphagia. Spoke to RN Carri, pt has ulcer in the throat, unable to eat, swallow eval ordered nad pending. Pt is a questionable historian, talkative, however speech unclear and difficult to understand. 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 Pt appeared thin, mild muscle fat wasting to chest and temporals. Current Diet Order/ Nutrition Support Clear liquid Pertinent Medications D5-0.9%ns, Iron, Synthroid, Zofran, Protonix, Carafate Pertinent Labs Reviewed. Nutritional Hx/Data Height 5 ft 9 in Height (Calculated Centimeters) 175.3 Current Weight (lbs) 147 lb Weight (Calculated Kilograms) 66.7 Weight (Calculated Grams) 26918.1 Melissa Body Weight 160 Weight Status Approriate GI Symptoms Food Allergies No Skin Integrity/Comment: [place] 13. Skin intact. Estimated Nutritional Goals BEE in Kcals: Using Current wt Calories/Kcals/Kg CBW 147lb/66.8kg Kcals Calculated 1670-2004kcal (25-30kcal/kg) Protein: Using Current wt Protein Calculated 67g (1g/kg) Fluid: ml 1670-2004ml (1ml/kcal) Nutritional Problem 1. 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 GI consult and swallow eval pending, recommend regular diet with diet texture per ST if pt is able to resume oral diet. Nursing staff to ensure pt sit upright during meals to minimize possible reflux. 2. Monitor weight. 3. If unable to resume oral diet, recommend enteral nutrition. Expected Outcomes/Goals Expected Outcomes/Goals 1. Pt to meet at least 75% of estimated nutritional needs orally or enterally.
[2017-05-22] MEDS: Amino Acids 3% / Electrolytes 1,000 ML IV SCH (18:26)
--- NOTE | 2017-05-22 22:23 | Progress Notes ---
DATE: 05/22/2017 SUBJECTIVE: Chart reviewed and the patient interviewed. Also discussed the patient's condition with the staff and reviewed records and labs. The patient still has difficulty swallowing and has been able to take his medications orally and only IV medications. The patient is still having episodes of restlessness, but easier to redirect him. The patient also is anxious and is in irritable mood. Otherwise, the patient is compliant with taking his medications and no side effects of medications when he is able to swallow and the medications that he took before so far, no side effects. Depakote blood level is pending. ASSESSMENT: The patient is still agitated, but easier to redirect. TREATMENT PLAN: We will continue monitoring his behavior and his medications closely. Also, continue to work on his anger and his irritability, and we will continue to follow up. JOB# [id number]
[2017-05-23] MEDS: Metoclopramide 5 mg/mL 2mL Vial IVP SCH ×4 (05:06→22:21)
[2017-05-23 08:06] LABS: % BASOPHILS 0.7 % (0.0-2.0); % LYMPHOCYTES 20.4 % (20.0-50.0); % MONOCYTES 4.1 % (2.0-10.0); % NEUTROPHILS 72.8 % (40.0-80.0); HEMATOCRIT 35.6 % (41.0-60); HEMOGLOBIN 12.2 gm/dL (12-16); MEAN CELL VOLUME 92.2 fl (80-99); MEAN CORPUSCULAR HEMOGLOBIN 31.6 pg (26.0-30.0); MEAN CORPUSCULAR HGB CONC 34.3 pg (28.0-36.0); MEAN PLATELET VOLUME 8.2 fl; NEUTROPHILE ABSOLUTE 7.2 Th/cmm (1.8-8.0); PLATELET COUNT 266 Th/cmm (150-400); RED BLOOD COUNT 3.86 Mil/cmm (4.30-5.70); RED CELL DISTRIBUTION WIDTH 13.3 % (11.5-20.0)
[2017-05-23 08:07] LABS: WHITE BLOOD COUNT 9.9 Th/cmm (4.8-10.8)
[2017-05-23 08:30] LABS: ANION GAP 11.4 (7.0-16.0); BUN - UREA NITROGEN 11 mg/dL (7-25); BUN/CREATININE RATIO 12.2; CALCIUM SERUM 9.5 mg/dL (8.6-10.3); CARBON DIOXIDE 22.6 mEq/L (21.0-31.0); CHLORIDE 107 mEq/L (98-107); CREATININE - SERUM 0.9 mg/dL (0.7-1.3); GLUCOSE 89 mg/dL (70-105); MAGNESIUM 1.6 mg/dL (1.9-2.7); PHOSPHOROUS 3.2 mg/dL (2.5-5.0); SODIUM SERUM 137 mEq/L (136-145)
[2017-05-23] MEDS ORDERED: Amino Acids 3% / Electrolytes 1,000 ML IV SCH (09:30)
[2017-05-23] MEDS ORDERED: Mag Sulfate 2gm/50mL Premix 2 GM/50 ML BAG IV ONE (09:30)
[2017-05-23] MEDS: Lactulose 10 Gm/15 mL 30mL UDC PO SCH ×2 (10:01→18:38)
[2017-05-23] MEDS: Lactobacillus Rhamnosus 10 Billion CFU Capsule PO SCH (10:01)
[2017-05-23] MEDS: Ferrous Sulfate 325 MG TAB PO SCH ×2 (10:01→18:38)
[2017-05-23] MEDS: OLANZapine 5 mg Oral Disintegrating Tab PO SCH (10:02)
[2017-05-23] MEDS: Levothyroxine 0.075 Mg Tab PO SCH (10:02)
[2017-05-23] MEDS: D5-0.9%NS 1,000 ML IV SCH (10:58)
--- NOTE | 2017-05-23 12:19 | Internal Medicine Prog Note ---
Internal Medicine Subjective - Subjective Service Date: 05/23/17 Patient is:: awake, verbal Patient Complaints of:: vomitting Per staff patient has:: no adverse event, noncompliant, confused, tolerating meds Internal Medicine Objective - Results Result Diagrams: 05/23/17 08:00 05/23/17 08:00 Recent Labs: Laboratory Last Values WBC 9.9 Th/cmm (4.8-10.8) D 05/23/17 08:00 RBC 3.86 Mil/cmm (4.30-5.70) L 05/23/17 08:00 Hgb 12.2 gm/dL (12-16) 05/23/17 08:00 Hct 35.6 % (41.0-60) L 05/23/17 08:00 MCV 92.2 fl (80-99) 05/23/17 08:00 MCH 31.6 pg (26.0-30.0) H 05/23/17 08:00 MCHC Differential 34.3 pg (28.0-36.0) 05/23/17 08:00 RDW 13.3 % (11.5-20.0) 05/23/17 08:00 Plt Count 266 Th/cmm (150-400) 05/23/17 08:00 MPV 8.2 fl 05/23/17 08:00 Neutrophils % 72.8 % (40.0-80.0) 05/23/17 08:00 Band Neutrophils % 3 % (0-10) 05/21/17 05:45 Lymphocytes % 20.4 % (20.0-50.0) 05/23/17 08:00 Monocytes % 4.1 % (2.0-10.0) 05/23/17 08:00 Eosinophils % 2.0 % (0.0-5.0) 05/23/17 08:00 Basophils % 0.7 % (0.0-2.0) 05/23/17 08:00 Neutrophils (Manual) 86 % (40-80) H 05/21/17 05:45 Lymphocytes 10 % (20-50) L 05/21/17 05:45 Monocytes 1 % (2-10) L 05/21/17 05:45 PT 11.3 SECONDS (9.5-11.5) 05/09/17 05:45 INR 1.09 (0.5-1.4) 05/09/17 05:45 PTT (Actin FS) 25.7 SECONDS (26.0-38.0) L 05/06/17 16:46 Sodium 137 mEq/L (136-145) 05/23/17 08:00 Potassium 4.0 mEq/L (3.5-5.1) 05/23/17 08:00 Chloride 107 mEq/L (98-107) 05/23/17 08:00 Carbon Dioxide 22.6 mEq/L (21.0-31.0) 05/23/17 08:00 Anion Gap 11.4 (7.0-16.0) 05/23/17 08:00 BUN 11 mg/dL (7-25) 05/23/17 08:00 Creatinine 0.9 mg/dL (0.7-1.3) 05/23/17 08:00 Est GFR ( Amer) > 60.0 ml/min (>90) 05/23/17 08:00 Est GFR (Non-Af Amer) > 60.0 ml/min 05/23/17 08:00 BUN/Creatinine Ratio 12.2 05/23/17 08:00 Glucose 89 mg/dL (70-105) 05/23/17 08:00 Calcium 9.5 mg/dL (8.6-10.3) 05/23/17 08:00 Phosphorus 3.2 mg/dL (2.5-5.0) 05/23/17 08:00 Magnesium 1.6 mg/dL (1.9-2.7) L 05/23/17 08:00 Total Bilirubin 0.3 mg/dL (0.3-1.0) 05/14/17 11:20 AST 12 U/L (13-39) L 05/14/17 11:20 ALT 9 U/L (7-52) 05/14/17 11:20 Alkaline Phosphatase 45 U/L (34-104) 05/14/17 11:20 Troponin I 0.03 ng/mL (0.01-0.05) 05/06/17 16:46 Total Protein 7.4 gm/dL (6.0-8.3) 05/14/17 11:20 Albumin 3.7 gm/dL (4.2-5.5) L 05/14/17 11:20 Globulin 3.7 gm/dL 05/14/17 11:20 Albumin/Globulin Ratio 1.0 (1.0-1.8) 05/14/17 11:20 Triglycerides 88 mg/dL (<150) 05/06/17 16:46 Cholesterol 126 mg/dL (<200) 05/06/17 16:46 LDL Cholesterol Direct 89 mg/dL (75-193) 05/06/17 16:46 HDL Cholesterol 30 mg/dL (23-92) 05/06/17 16:46 TSH 1.23 uIU/ml (0.34-5.60) 05/06/17 16:46 Urine Source CLEAN C 05/06/17 16:20 Urine Color YELLOW 05/06/17 16:20 Urine Clarity HAZY (CLEAR) 05/06/17 16:20 Urine pH 5.5 (4.6 - 8.0) 05/06/17 16:20 Ur Specific [place] 1.030 (1.005-1.030) 05/06/17 16:20 Urine Protein 30 mg/dL (NEGATIVE) H 05/06/17 16:20 Urine Glucose (UA) NEGATIVE mg/dL (NEGATIVE) 05/06/17 16:20 Urine Ketones NEGATIVE mg/dL (NEGATIVE) 05/06/17 16:20 Urine Blood NEGATIVE (NEGATIVE) 05/06/17 16:20 Urine Nitrate NEGATIVE (NEGATIVE) 05/06/17 16:20 Urine Bilirubin SMALL (NEGATIVE) H 05/06/17 16:20 Urine Urobilinogen 2.0 E.U./dL (0.2 - 1.0) 05/06/17 16:20 Ur Leukocyte Esterase NEGATIVE (NEGATIVE) 05/06/17 16:20 Urine RBC 0-1 /hpf (0-5) 05/06/17 16:20 Urine WBC 0-2 /hpf (0-5) 05/06/17 16:20 Ur Epithelial Cells OCCASIONAL /lpf (FEW) 05/06/17 16:20 Amorphous Sediment FEW URATES (NONE SEEN) 05/06/17 16:20 Urine Bacteria FEW /hpf (NONE SEEN) 05/06/17 16:20 Urine Mucus MODERATE /lpf (FEW) 05/06/17 16:20 Vancomycin Trough < 2.0 ug/mL (10-20) L 05/23/17 08:00 Valproic Acid < 10.0 ug/mL (50.0-100.0) L 05/21/17 05:45 RPR NONREACTIVE (NONREACTIVE) 05/06/17 16:46 - Physical Exam Vitals and I&O: Vital Signs Temp 97.7 F 05/23/17 08:00 Pulse 94 05/23/17 08:00 Resp 16 05/23/17 08:00 BP 132/96 05/23/17 08:00 Pulse Ox 98 05/23/17 08:00 Intake & Output 05/22/17 05/23/17 05/23/17 18:59 06:59 18:59 Intake Total 0 Balance 0 Weight (lbs) 139 lb Intake: Oral 0 Other: # Voids 3 # Bowel Movements 0 Active Medications: Current Medications Acetaminophen (Tylenol) 650 mg PO Q4H PRN PRN Reason: Pain Or Fever above 101 Stop: 07/05/17 19:13 Al Hydrox/Mg Hydrox/Simethicone (Maalox) 30 ml PO Q6H PRN PRN Reason: Dyspepsia Stop: 07/05/17 19:13 Albuterol Sulfate (Albuterol 2.5mg/3ml Neb Ud) 2.5 mg HHN Q2HRT PRN PRN Reason: Shortness of Breath or Wheeze Stop: 07/05/17 19:13 Benztropine Mesylate (Cogentin) 1 mg PO BID PRN PRN Reason: Agitation Stop: 07/12/17 08:59 Bisacodyl (Dulcolax 10 Mg Supp) 10 mg RC DAILY PRN PRN Reason: Constipation Stop: 07/21/17 14:25 Divalproex Sodium (Depakote Er) 1,000 mg PO BID KAM PRN Reason: Protocol Stop: 07/06/17 08:59 Last Admin: 05/23/17 10:00 Dose: Not Given Ferrous Sulfate (Iron) 325 mg PO BID KAM Stop: 07/06/17 08:59 Last Admin: 05/23/17 10:01 Dose: Not Given Guaifenesin (Robitussin) 200 mg PO Q4HR PRN PRN Reason: Cough or Congestion Stop: 07/05/17 19:13 Haloperidol Lactate (Haldol) 2 mg IM HS PRN PRN Reason: Agitation Stop: 07/12/17 08:04 Haloperidol Lactate (Haldol) 2 mg IM DAILY PRN PRN Reason: Agitation Stop: 07/12/17 08:06 Last Admin: 05/20/17 13:32 Dose: 2 mg Heparin Sodium (Porcine) (Heparin) 5,000 units SUBQ Q12HR [facility] Stop: 07/05/17 20:59 Last Admin: 05/23/17 09:59 Dose: 5,000 units Dextrose/Sodium Chloride (D5-0.9%Ns) 1,000 mls @ 100 mls/hr IV .Q10H [facility] Stop: 07/05/17 19:14 Last Admin: 05/23/17 10:58 Dose: 100 mls/hr Cefepime HCl 1 gm/ Dextrose 50 mls @ 100 mls/hr IV Q12H [facility] Stop: 07/19/17 20:59 Last Admin: 05/23/17 09:59 Dose: 100 mls/hr Amino Acids/Electrolytes (Procalamine) 1,000 mls @ 40 mls/hr IV .Q24H [facility] Stop: 05/23/17 16:59 Last Admin: 05/22/17 18:26 Dose: Not Given Vancomycin HCl 1.25 gm/ Sodium (Chloride) 250 mls @ 165 mls/hr IV Q12H [facility] Stop: 07/22/17 09:59 Amino Acids/Electrolytes (Procalamine) 1,000 mls @ 40 mls/hr IV .Q24H [facility] Stop: 07/22/17 09:29 Last Admin: 05/23/17 11:27 Dose: 40 mls/hr Ipratropium [place] (Atrovent Neb 0.5mg/2.5ml) 0.5 mg HHN Q2HRT PRN PRN Reason: Shortness of Breath or Wheeze Stop: 07/05/17 19:13 Lactobacillus Rhamnosus (Culturelle) 1 each PO DAILY [facility] Stop: 07/21/17 08:59 Last Admin: 05/23/17 10:01 Dose: Not Given Lactulose (Cephulac) 30 gm PO BID [facility] Stop: 07/10/17 16:59 Last Admin: 05/23/17 10:01 Dose: Not Given Levothyroxine Sodium (Synthroid) 0.075 mg PO QDAC [facility] Stop: 07/06/17 07:29 Last Admin: 05/23/17 10:02 Dose: Not Given Metoclopramide HCl (Reglan) 10 mg IVP Q8HR PRN PRN Reason: Nausea / Vomiting Stop: 07/09/17 11:31 Last Admin: 05/11/17 06:31 Dose: 10 mg Metoclopramide HCl (Reglan) 5 mg IVP Q8HR [facility] Stop: 07/15/17 20:59 Last Admin: 05/23/17 06:42 Dose: Not Given Miscellaneous (Ppn Per Pharmacy) 1 ea PRN PRN PRN Reason: PROTOCOL Stop: 07/20/17 13:24 Miscellaneous (Probiotic Screen) 1 ea PRN PRN PRN Reason: PROTOCOL Stop: 07/20/17 16:59 Miscellaneous (Vancomycin Iv Per Pharmacy) 1 ea DAILY [facility] Stop: 07/22/17 08:59 Olanzapine (Zyprexa) 10 mg PO HS KAM PRN Reason: Protocol Stop: 07/07/17 20:59 Last Admin: 05/23/17 05:06 Dose: Not Given Olanzapine (Zyprexa Zydis) 10 mg PO DAILY KAM PRN Reason: Protocol Stop: 07/08/17 08:59 Last Admin: 05/23/17 10:02 Dose: Not Given Ondansetron HCl (Zofran) 4 mg IV Q4H PRN PRN Reason: Nausea / Vomiting Stop: 07/05/17 19:13 Last Admin: 05/19/17 15:22 Dose: 4 mg Pantoprazole Sodium (Protonix) 40 mg IVP BID [facility] Stop: 07/18/17 18:32 Last Admin: 05/23/17 09:59 Dose: 40 mg Potassium Chloride (Potassium Chloride Elixir) 40 meq GT DAILY [facility] Stop: 07/21/17 08:59 Last Admin: 05/22/17 10:36 Dose: Not Given Sucralfate (Carafate) 1 gm PO QID [facility] Stop: 07/05/17 20:59 Last Admin: 05/23/17 10:02 Dose: Not Given Zolpidem Tartrate (Ambien) 5 mg PO HS PRN PRN Reason: Insomnia Stop: 07/05/17 19:12 General: alert HEENT: NC/AT, PERRLA Neck: Supple Abdomen: soft, non-tender, non-distended, positive bowel sound Extremities: excoriation Neurological: alert, disorganized, unsteady, bedbound - Procedures Procedures: Procedures Procedure Code Date DILATION OF LOWER ESOPHAGUS, ENDO [id number] 05/06/17 EGD BIOPSY SINGLE/MULTIPLE 43108 05/06/17 ESOPH EGD DILATION <30 MM 43381 05/06/17 EXCISION OF ESOPHAGUS, ENDO, DIAGN [id number] 05/06/17 Internal Medicine Assmt/Plan - Assessment Assessment: DYSPHAGIA DEHYDRATION- FAILURE TO THRIVE HYPONATREMIA HYPOKALEMIA GERD HTN BARETT'S ESOPHAGUS - Plan Plan: monitor k+ continue with iv protonix rn case management arranging placement monitor cbc/bmp ivf for hydration continue current plan of care Nutritional Asmnt/Malnutr-PDOC - Dietary Evaluation Malnutrition Findings (Please click <Entered> for more info): Nutritional Asmnt/Malnutrition Start: 05/07/17 10: 39 Text: Status: Complete Freq: Document 05/07/17 14:31 GSUN (Rec: 05/07/17 15:03 GSUN [id number]) Nutritional Asmnt/Malnutrition Patient General Information Nutritional Screening Consult Diagnosis Dysphagia, dehydration, FTT, Serna esophagus, PCM Pertinent Medical Hx/Surgical Hx Schizophrenia, stroke, TIA, GERD, thyroid disease, arthritis, dementia Subjective Information 46 year old male from SNF. RD consult for dysphagia. Spoke to ELISE Christina, pt has ulcer in the throat, unable to eat, swallow eval ordered nad pending. Pt is a questionable historian, talkative, however speech unclear and difficult to understand. 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 Pt appeared thin, mild muscle fat wasting to chest and temporals. Current Diet Order/ Nutrition Support Clear liquid Pertinent Medications D5-0.9%ns, Iron, Synthroid, Zofran, Protonix, Carafate Pertinent Labs Reviewed. Nutritional Hx/Data Height 5 ft 9 in Height (Calculated Centimeters) 175.3 Current Weight (lbs) 147 lb Weight (Calculated Kilograms) 66.7 Weight (Calculated Grams) 20035.1 [place] Body Weight 160 Weight Status Approriate GI Symptoms Food Allergies No Skin Integrity/Comment: Murray 13. Skin intact. Estimated Nutritional Goals BEE in Kcals: Using Current wt Calories/Kcals/Kg CBW 147lb/66.8kg Kcals Calculated 1670-2004kcal (25-30kcal/kg) Protein: Using Current wt Protein Calculated 67g (1g/kg) Fluid: ml 1670-2004ml (1ml/kcal) Nutritional Problem 1. 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 GI consult and swallow eval pending, recommend regular diet with diet texture per ST if pt is able to resume oral diet. Nursing staff to ensure pt sit upright during meals to minimize possible reflux. 2. Monitor weight. 3. If unable to resume oral diet, recommend enteral nutrition. Expected Outcomes/Goals Expected Outcomes/Goals 1. Pt to meet at least 75% of estimated nutritional needs orally or enterally.
[2017-05-23] MEDS: Potassium Chloride Elixir 20 mEq /15 mL UDC GT SCH (18:38)
[2017-05-23] MEDS: Amino Acids 3% / Electrolytes 1,000 ML IV SCH (18:39)
--- NOTE | 2017-05-23 22:53 | Consultation ---
DATE OF CONSULTATION: 05/23/2017 HISTORY OF PRESENT ILLNESS: This is a 46-year-old male with history of schizophrenia, conserved, agitated, repeating himself, needs a G-tube, refusing everything, medications. PAST PSYCH HISTORY: Schizophrenia. MENTAL STATUS EXAMINATION: Stated age. Poor dentition. Rambling nonsensically. AO x 0. Disorganized. No overt SI or HI. Unclear psychotic symptoms. PROVISIONAL DIAGNOSIS: Schizophrenia, developmental disability. RECOMMENDATIONS AND PLAN: The patient is confused, disoriented. We will fill out ___form. Unable to partic in discussion in regards to treatment, nor risks and benefits JOB# [id number] DARRYN
[2017-05-24] MEDS: Metoclopramide 5 mg/mL 2mL Vial IVP SCH (05:13)
[2017-05-24] MEDS: D5-0.9%NS 1,000 ML IV SCH (06:00)
[2017-05-24] MEDS: Levothyroxine 0.075 Mg Tab PO SCH (06:36)
[2017-05-24 08:40] LABS: % BASOPHILS 0.6 % (0.0-2.0); % LYMPHOCYTES 20.5 % (20.0-50.0); % MONOCYTES 8.2 % (2.0-10.0); % NEUTROPHILS 68.7 % (40.0-80.0); HEMATOCRIT 33.3 % (41.0-60); HEMOGLOBIN 11.1 gm/dL (12-16); MEAN CELL VOLUME 92.5 fl (80-99); MEAN CORPUSCULAR HEMOGLOBIN 30.8 pg (26.0-30.0); MEAN CORPUSCULAR HGB CONC 33.3 pg (28.0-36.0); MEAN PLATELET VOLUME 8.7 fl; NEUTROPHILE ABSOLUTE 6.4 Th/cmm (1.8-8.0); PLATELET COUNT 248 Th/cmm (150-400); RED BLOOD COUNT 3.59 Mil/cmm (4.30-5.70); RED CELL DISTRIBUTION WIDTH 13.1 % (11.5-20.0); WHITE BLOOD COUNT 9.4 Th/cmm (4.8-10.8)
[2017-05-24 09:00] LABS: ANION GAP 8.5 (7.0-16.0); BUN - UREA NITROGEN 7 mg/dL (7-25); BUN/CREATININE RATIO 8.8; CALCIUM SERUM 8.7 mg/dL (8.6-10.3); CARBON DIOXIDE 24.2 mEq/L (21.0-31.0); CHLORIDE 104 mEq/L (98-107); CREATININE - SERUM 0.8 mg/dL (0.7-1.3); GLUCOSE 103 mg/dL (70-105); MAGNESIUM 1.6 mg/dL (1.9-2.7); PHOSPHOROUS 2.7 mg/dL (2.5-5.0); POTASSIUM SERUM 3.7 mEq/L (3.5-5.1); SODIUM SERUM 133 mEq/L (136-145); TRIGLYCERIDES 90 mg/dL (<150)
--- NOTE | 2017-05-24 09:37 | Progress Notes ---
DATE: 05/24/2017 SUBJECTIVE: Chart reviewed and the patient interviewed. Also discussed the patient's condition with the staff and reviewed records and labs. The patient is still anxious, but no major behavioral problems. The patient still needs redirections at times, easier to redirect him. The patient also is compliant with taking his medications, but still unable to swallow. Dr. Rodriguez will continue to work on his medical problems. At the same time, we will continue p.r.n. medications the patient is able to swallow. TREATMENT PLAN: We will continue to monitor his behavior. JOB# [id number]
[2017-05-24] MEDS ORDERED: Mag Sulfate 2gm/50mL Premix 2 GM/50 ML BAG IV ONE (10:00)
[2017-05-24] MEDS: Ferrous Sulfate 325 MG TAB PO SCH ×2 (10:08→17:37)
[2017-05-24] MEDS: OLANZapine 5 mg Oral Disintegrating Tab PO SCH (10:08)
[2017-05-24] MEDS: Lactobacillus Rhamnosus 10 Billion CFU Capsule PO SCH (10:08)
[2017-05-24] MEDS: Lactulose 10 Gm/15 mL 30mL UDC PO SCH ×2 (10:09→17:37)
--- NOTE | 2017-05-24 12:04 | Internal Medicine Prog Note ---
Internal Medicine Subjective - Subjective Service Date: 05/24/17 Patient is:: awake, verbal Patient Complaints of:: vomitting Per staff patient has:: no adverse event, noncompliant, confused, tolerating meds Internal Medicine Objective - Results Result Diagrams: 05/24/17 08:30 05/24/17 08:30 Recent Labs: Laboratory Last Values WBC 9.4 Th/cmm (4.8-10.8) 05/24/17 08:30 RBC 3.59 Mil/cmm (4.30-5.70) L 05/24/17 08:30 Hgb 11.1 gm/dL (12-16) L 05/24/17 08:30 Hct 33.3 % (41.0-60) L 05/24/17 08:30 MCV 92.5 fl (80-99) 05/24/17 08:30 MCH 30.8 pg (26.0-30.0) H 05/24/17 08:30 MCHC Differential 33.3 pg (28.0-36.0) 05/24/17 08:30 RDW 13.1 % (11.5-20.0) 05/24/17 08:30 Plt Count 248 Th/cmm (150-400) 05/24/17 08:30 MPV 8.7 fl 05/24/17 08:30 Neutrophils % 68.7 % (40.0-80.0) 05/24/17 08:30 Band Neutrophils % 3 % (0-10) 05/21/17 05:45 Lymphocytes % 20.5 % (20.0-50.0) 05/24/17 08:30 Monocytes % 8.2 % (2.0-10.0) 05/24/17 08:30 Eosinophils % 2.0 % (0.0-5.0) 05/24/17 08:30 Basophils % 0.6 % (0.0-2.0) 05/24/17 08:30 Neutrophils (Manual) 86 % (40-80) H 05/21/17 05:45 Lymphocytes 10 % (20-50) L 05/21/17 05:45 Monocytes 1 % (2-10) L 05/21/17 05:45 PT 11.3 SECONDS (9.5-11.5) 05/09/17 05:45 INR 1.09 (0.5-1.4) 05/09/17 05:45 PTT (Actin FS) 25.7 SECONDS (26.0-38.0) L 05/06/17 16:46 Sodium 133 mEq/L (136-145) L 05/24/17 08:30 Potassium 3.7 mEq/L (3.5-5.1) 05/24/17 08:30 Chloride 104 mEq/L (98-107) 05/24/17 08:30 Carbon Dioxide 24.2 mEq/L (21.0-31.0) 05/24/17 08:30 Anion Gap 8.5 (7.0-16.0) 05/24/17 08:30 BUN 7 mg/dL (7-25) 05/24/17 08:30 Creatinine 0.8 mg/dL (0.7-1.3) 05/24/17 08:30 Est GFR ( Amer) > 60.0 ml/min (>90) 05/24/17 08:30 Est GFR (Non-Af Amer) > 60.0 ml/min 05/24/17 08:30 BUN/Creatinine Ratio 8.8 05/24/17 08:30 Glucose 103 mg/dL (70-105) 05/24/17 08:30 Calcium 8.7 mg/dL (8.6-10.3) 05/24/17 08:30 Phosphorus 2.7 mg/dL (2.5-5.0) 05/24/17 08:30 Magnesium 1.6 mg/dL (1.9-2.7) L 05/24/17 08:30 Total Bilirubin 0.3 mg/dL (0.3-1.0) 05/14/17 11:20 AST 12 U/L (13-39) L 05/14/17 11:20 ALT 9 U/L (7-52) 05/14/17 11:20 Alkaline Phosphatase 45 U/L (34-104) 05/14/17 11:20 Troponin I 0.03 ng/mL (0.01-0.05) 05/06/17 16:46 C-Reactive Protein 3.9 mg/dL (0.0-0.9) H 05/24/17 08:30 Total Protein 7.4 gm/dL (6.0-8.3) 05/14/17 11:20 Albumin 3.7 gm/dL (4.2-5.5) L 05/14/17 11:20 Globulin 3.7 gm/dL 05/14/17 11:20 Albumin/Globulin Ratio 1.0 (1.0-1.8) 05/14/17 11:20 Triglycerides 90 mg/dL (<150) 05/24/17 08:30 Cholesterol 126 mg/dL (<200) 05/06/17 16:46 LDL Cholesterol Direct 89 mg/dL (75-193) 05/06/17 16:46 HDL Cholesterol 30 mg/dL (23-92) 05/06/17 16:46 TSH 1.23 uIU/ml (0.34-5.60) 05/06/17 16:46 Urine Source CLEAN C 05/06/17 16:20 Urine Color YELLOW 05/06/17 16:20 Urine Clarity HAZY (CLEAR) 05/06/17 16:20 Urine pH 5.5 (4.6 - 8.0) 05/06/17 16:20 Ur Specific [place] 1.030 (1.005-1.030) 05/06/17 16:20 Urine Protein 30 mg/dL (NEGATIVE) H 05/06/17 16:20 Urine Glucose (UA) NEGATIVE mg/dL (NEGATIVE) 05/06/17 16:20 Urine Ketones NEGATIVE mg/dL (NEGATIVE) 05/06/17 16:20 Urine Blood NEGATIVE (NEGATIVE) 05/06/17 16:20 Urine Nitrate NEGATIVE (NEGATIVE) 05/06/17 16:20 Urine Bilirubin SMALL (NEGATIVE) H 05/06/17 16:20 Urine Urobilinogen 2.0 E.U./dL (0.2 - 1.0) 05/06/17 16:20 Ur Leukocyte Esterase NEGATIVE (NEGATIVE) 05/06/17 16:20 Urine RBC 0-1 /hpf (0-5) 05/06/17 16:20 Urine WBC 0-2 /hpf (0-5) 05/06/17 16:20 Ur Epithelial Cells OCCASIONAL /lpf (FEW) 05/06/17 16:20 Amorphous Sediment FEW URATES (NONE SEEN) 05/06/17 16:20 Urine Bacteria FEW /hpf (NONE SEEN) 05/06/17 16:20 Urine Mucus MODERATE /lpf (FEW) 05/06/17 16:20 Vancomycin Trough < 2.0 ug/mL (10-20) L 05/23/17 08:00 Valproic Acid < 10.0 ug/mL (50.0-100.0) L 05/21/17 05:45 RPR NONREACTIVE (NONREACTIVE) 05/06/17 16:46 - Physical Exam Vitals and I&O: Vital Signs Temp 98.8 F 05/24/17 08:00 Pulse 74 05/24/17 11:43 Resp 18 05/24/17 11:43 BP 119/86 05/24/17 08:00 Pulse Ox 97 05/24/17 11:43 Intake & Output 05/23/17 05/24/17 05/24/17 18:59 06:59 18:59 Intake Total 300 1341.667 50 Output Total 400 Balance 300 941.667 50 Weight (lbs) 146 lb 3.2 oz Intake: Intake, IV Amount 300 1341.667 50 Cefepime 1 gm In Dextrose 50 50 50 5% 50 ml @ 100 mls/hr IV Q12H [facility] Rx#:[id number] D5-0.9%Ns 1,000 ml @ 100 1041.667 mls/hr IV .Q10H [facility] Rx#: [id number] Vancomycin HCl 1.25 gm In 250 250 Sodium Chloride 0.9% 250 ml @ 165 mls/hr IV Q12H [facility] Rx#:[id number] Output: Urine 400 Active Medications: Current Medications Acetaminophen (Tylenol) 650 mg PO Q4H PRN PRN Reason: Pain Or Fever above 101 Stop: 07/05/17 19:13 Al Hydrox/Mg Hydrox/Simethicone (Maalox) 30 ml PO Q6H PRN PRN Reason: Dyspepsia Stop: 07/05/17 19:13 Albuterol Sulfate (Albuterol 2.5mg/3ml Neb Ud) 2.5 mg HHN Q2HRT PRN PRN Reason: Shortness of Breath or Wheeze Stop: 07/05/17 19:13 Benztropine Mesylate (Cogentin) 1 mg PO BID PRN PRN Reason: Agitation Stop: 07/12/17 08:59 Bisacodyl (Dulcolax 10 Mg Supp) 10 mg RC DAILY PRN PRN Reason: Constipation Stop: 07/21/17 14:25 Divalproex Sodium (Depakote Er) 1,000 mg PO BID [facility] PRN Reason: Protocol Stop: 07/06/17 08:59 Last Admin: 05/24/17 10:08 Dose: Not Given Ferrous Sulfate (Iron) 325 mg PO BID [facility] Stop: 07/06/17 08:59 Last Admin: 05/24/17 10:08 Dose: Not Given Guaifenesin (Robitussin) 200 mg PO Q4HR PRN PRN Reason: Cough or Congestion Stop: 07/05/17 19:13 Haloperidol Lactate (Haldol) 2 mg IM HS PRN PRN Reason: Agitation Stop: 07/12/17 08:04 Haloperidol Lactate (Haldol) 2 mg IM DAILY PRN PRN Reason: Agitation Stop: 07/12/17 08:06 Last Admin: 05/20/17 13:32 Dose: 2 mg Heparin Sodium (Porcine) (Heparin) 5,000 units SUBQ Q12HR [facility] Stop: 07/05/17 20:59 Last Admin: 05/24/17 09:27 Dose: 5,000 units Dextrose/Sodium Chloride (D5-0.9%Ns) 1,000 mls @ 100 mls/hr IV .Q10H [facility] Stop: 05/24/17 21:00 Last Infusion: 05/24/17 06:25 Dose: 100 mls/hr Cefepime HCl 1 gm/ Dextrose 50 mls @ 100 mls/hr IV Q12H [facility] Stop: 07/19/17 20:59 Last Infusion: 05/24/17 10:16 Dose: Infused Vancomycin HCl 1.25 gm/ Sodium (Chloride) 250 mls @ 165 mls/hr IV Q12H [facility] Stop: 07/22/17 09:59 Last Admin: 05/24/17 10:15 Dose: 165 mls/hr Amino Acids/Electrolytes (Procalamine) 1,000 mls @ 40 mls/hr IV .Q24H [facility] Stop: 05/24/17 16:00 Last Admin: 05/23/17 11:27 Dose: 40 mls/hr Sodium Chloride (Nacl 0.9%) 1,000 mls @ 40 mls/hr IV .Q24H [facility] Stop: 07/23/17 15:59 Multivitamins/Minerals 10 ml/Amino Acids/Electrolytes/Dextrose/ Fat Emulsion Intravenous/ Sterile Water 2,500 mls @ 100 mls/hr IV .Q24H [facility] Stop: 07/23/17 15:59 Insulin Aspart (Novolog Insulin Sliding Scale) 0 units SUBQ QID [facility] PRN Reason: Protocol Stop: 07/23/17 16:59 Ipratropium [place] (Atrovent Neb 0.5mg/2.5ml) 0.5 mg HHN Q2HRT PRN PRN Reason: Shortness of Breath or Wheeze Stop: 07/05/17 19:13 Lactobacillus Rhamnosus (Culturelle) 1 each PO DAILY [facility] Stop: 07/21/17 08:59 Last Admin: 05/24/17 10:08 Dose: Not Given Lactulose (Cephulac) 30 gm PO BID [facility] Stop: 07/10/17 16:59 Last Admin: 05/24/17 10:09 Dose: Not Given Levothyroxine Sodium (Synthroid) 0.075 mg PO QDAC [facility] Stop: 07/06/17 07:29 Last Admin: 05/24/17 06:36 Dose: Not Given Metoclopramide HCl (Reglan) 10 mg IVP Q8HR PRN PRN Reason: Nausea / Vomiting Stop: 07/09/17 11:31 Last Admin: 05/11/17 06:31 Dose: 10 mg Metoclopramide HCl (Reglan) 5 mg IVP Q8HR [facility] Stop: 07/15/17 20:59 Last Admin: 05/24/17 05:13 Dose: Not Given Miscellaneous (Ppn Per Pharmacy) 1 ea PRN PRN PRN Reason: PROTOCOL Stop: 07/20/17 13:24 Miscellaneous (Probiotic Screen) 1 ea MC PRN PRN PRN Reason: PROTOCOL Stop: 07/20/17 16:59 Miscellaneous (Vancomycin Iv Per Pharmacy) 1 ea MC DAILY [facility] Stop: 07/22/17 08:59 Olanzapine (Zyprexa) 10 mg PO HS [facility] PRN Reason: Protocol Stop: 07/07/17 20:59 Last Admin: 05/23/17 21:45 Dose: Not Given Olanzapine (Zyprexa Zydis) 10 mg PO DAILY [facility] PRN Reason: Protocol Stop: 07/08/17 08:59 Last Admin: 05/24/17 10:08 Dose: Not Given Ondansetron HCl (Zofran) 4 mg IV Q4H PRN PRN Reason: Nausea / Vomiting Stop: 07/05/17 19:13 Last Admin: 05/19/17 15:22 Dose: 4 mg Pantoprazole Sodium (Protonix) 40 mg IVP BID [facility] Stop: 07/18/17 18:32 Last Admin: 05/24/17 09:27 Dose: 40 mg Sucralfate (Carafate) 1 gm PO QID [facility] Stop: 07/05/17 20:59 Last Admin: 05/24/17 10:07 Dose: Not Given Zolpidem Tartrate (Ambien) 5 mg PO HS PRN PRN Reason: Insomnia Stop: 07/05/17 19:12 General: alert HEENT: NC/AT, PERRLA Neck: Supple Abdomen: soft, non-tender, non-distended, positive bowel sound Extremities: excoriation Neurological: alert, disorganized, unsteady, bedbound - Procedures Procedures: Procedures Procedure Code Date DILATION OF LOWER ESOPHAGUS, ENDO [id number] 05/06/17 EGD BIOPSY SINGLE/MULTIPLE 02559 05/06/17 ESOPH EGD DILATION <30 MM 06676 05/06/17 EXCISION OF ESOPHAGUS, ENDO, DIAGN [id number] 05/06/17 Internal Medicine Assmt/Plan - Assessment Assessment: DYSPHAGIA DEHYDRATION- FAILURE TO THRIVE HYPONATREMIA HYPOKALEMIA GERD HTN BARETT'S ESOPHAGUS - Plan Plan: monitor k+ continue with iv protonix case monitor arranging placement monitor cbc/bmp ivf for hydration continue current plan of care Nutritional Asmnt/Malnutr-PDOC - Dietary Evaluation Malnutrition Findings (Please click <Entered> for more info): Nutritional Asmnt/Malnutrition Start: 05/07/17 10: 39 Text: Status: Complete Freq: Document 05/07/17 14:31 GSUN (Rec: 05/07/17 15:03 [email or web address]) Nutritional Asmnt/Malnutrition Patient General Information Nutritional Screening Consult Diagnosis Dysphagia, dehydration, FTT, Serna esophagus, PCM Pertinent Medical Hx/Surgical Hx Schizophrenia, stroke, TIA, GERD, thyroid disease, arthritis, dementia Subjective Information 46 year old male from SNF. RD consult for dysphagia. Spoke to ELISE Christina, pt has ulcer in the throat, unable to eat, swallow eval ordered nad pending. Pt is a questionable historian, talkative, however speech unclear and difficult to understand. 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 Pt appeared thin, mild muscle fat wasting to chest and temporals. Current Diet Order/ Nutrition Support Clear liquid Pertinent Medications D5-0.9%ns, Iron, Synthroid, Zofran, Protonix, Carafate Pertinent Labs Reviewed. Nutritional Hx/Data Height 5 ft 9 in Height (Calculated Centimeters) 175.3 Current Weight (lbs) 147 lb Weight (Calculated Kilograms) 66.7 Weight (Calculated Grams) 36348.1 [place] Body Weight 160 Weight Status Approriate GI Symptoms Food Allergies No Skin Integrity/Comment: Murray Clifford. Skin intact. Estimated Nutritional Goals BEE in Kcals: Using Current wt Calories/Kcals/Kg CBW 147lb/66.8kg Kcals Calculated 1670-2004kcal (25-30kcal/kg) Protein: Using Current wt Protein Calculated 67g (1g/kg) Fluid: ml 1670-2004ml (1ml/kcal) Nutritional Problem 1. 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 GI consult and swallow eval pending, recommend regular diet with diet texture per ST if pt is able to resume oral diet. Nursing staff to ensure pt sit upright during meals to minimize possible reflux. 2. Monitor weight. 3. If unable to resume oral diet, recommend enteral nutrition. Expected Outcomes/Goals Expected Outcomes/Goals 1. Pt to meet at least 75% of estimated nutritional needs orally or enterally.
[2017-05-24] MEDS ORDERED: D5-0.9%NS 1,000 ML IV SCH (14:25)
[2017-05-24] MEDS ORDERED: Sodium Chloride 0.9% 1,000 ML IV SCH ×2 (16:00→16:15)
[2017-05-24] MEDS: INSULIN ASPART SLIDING SCALE 100 UNITS/ML UNIT SUBQ SCH ×2 (17:45→22:11)
[2017-05-24] MEDS: [UNRECOGNIZED DRUG - OTHER] IV SCH (17:55)
[2017-05-25 06:17] LABS: % BASOPHILS 0.4 % (0.0-2.0); % EOSINOPHILS 2.4 % (0.0-5.0); % LYMPHOCYTES 27.2 % (20.0-50.0); % MONOCYTES 9.7 % (2.0-10.0); % NEUTROPHILS 60.3 % (40.0-80.0); HEMATOCRIT 32.4 % (41.0-60); HEMOGLOBIN 11.3 gm/dL (12-16); MEAN CELL VOLUME 90.6 fl (80-99); MEAN CORPUSCULAR HEMOGLOBIN 31.7 pg (26.0-30.0); MEAN PLATELET VOLUME 8.2 fl; PLATELET COUNT 265 Th/cmm (150-400); RED BLOOD COUNT 3.57 Mil/cmm (4.30-5.70); RED CELL DISTRIBUTION WIDTH 12.9 % (11.5-20.0); WHITE BLOOD COUNT 8.2 Th/cmm (4.8-10.8)
[2017-05-25 06:34] LABS: ANION GAP 5.5 (7.0-16.0); BUN - UREA NITROGEN 6 mg/dL (7-25); BUN/CREATININE RATIO 6.7; CALCIUM SERUM 8.5 mg/dL (8.6-10.3); CARBON DIOXIDE 27.2 mEq/L (21.0-31.0); CHLORIDE 105 mEq/L (98-107); CREATININE - SERUM 0.9 mg/dL (0.7-1.3); GLUCOSE 120 mg/dL (70-105); MAGNESIUM 1.9 mg/dL (1.9-2.7); PHOSPHOROUS 3.1 mg/dL (2.5-5.0); POTASSIUM SERUM 3.7 mEq/L (3.5-5.1); SODIUM SERUM 134 mEq/L (136-145)
[2017-05-25] MEDS: Ferrous Sulfate 325 MG TAB PO SCH ×3 (08:23→17:48)
[2017-05-25] MEDS: Lactobacillus Rhamnosus 10 Billion CFU Capsule PO SCH (08:24)
[2017-05-25] MEDS: OLANZapine 5 mg Oral Disintegrating Tab PO SCH (08:24)
[2017-05-25] MEDS: Lactulose 10 Gm/15 mL 30mL UDC PO SCH ×3 (08:31→17:49)
[2017-05-25] MEDS: INSULIN ASPART SLIDING SCALE 100 UNITS/ML UNIT SUBQ SCH ×4 (09:38→21:15)
--- NOTE | 2017-05-25 14:43 | Internal Medicine Prog Note ---
Internal Medicine Subjective - Subjective Patient seen and examined:: with staff, chart reviewed, other (vomitted) Patient is:: awake, verbal Patient Complaints of:: vomitting Per staff patient has:: no adverse event, noncompliant, confused, tolerating meds Internal Medicine Objective - Results Result Diagrams: 05/25/17 06:05 05/25/17 06:05 Recent Labs: Laboratory Last Values WBC 8.2 Th/cmm (4.8-10.8) 05/25/17 06:05 RBC 3.57 Mil/cmm (4.30-5.70) L 05/25/17 06:05 Hgb 11.3 gm/dL (12-16) L 05/25/17 06:05 Hct 32.4 % (41.0-60) L 05/25/17 06:05 MCV 90.6 fl (80-99) 05/25/17 06:05 MCH 31.7 pg (26.0-30.0) H 05/25/17 06:05 MCHC Differential 35.0 pg (28.0-36.0) 05/25/17 06:05 RDW 12.9 % (11.5-20.0) 05/25/17 06:05 Plt Count 265 Th/cmm (150-400) 05/25/17 06:05 MPV 8.2 fl 05/25/17 06:05 Neutrophils % 60.3 % (40.0-80.0) 05/25/17 06:05 Band Neutrophils % 3 % (0-10) 05/21/17 05:45 Lymphocytes % 27.2 % (20.0-50.0) 05/25/17 06:05 Monocytes % 9.7 % (2.0-10.0) 05/25/17 06:05 Eosinophils % 2.4 % (0.0-5.0) 05/25/17 06:05 Basophils % 0.4 % (0.0-2.0) 05/25/17 06:05 Neutrophils (Manual) 86 % (40-80) H 05/21/17 05:45 Lymphocytes 10 % (20-50) L 05/21/17 05:45 Monocytes 1 % (2-10) L 05/21/17 05:45 PT 11.3 SECONDS (9.5-11.5) 05/09/17 05:45 INR 1.09 (0.5-1.4) 05/09/17 05:45 PTT (Actin FS) 25.7 SECONDS (26.0-38.0) L 05/06/17 16:46 Sodium 134 mEq/L (136-145) L 05/25/17 06:05 Potassium 3.7 mEq/L (3.5-5.1) 05/25/17 06:05 Chloride 105 mEq/L (98-107) 05/25/17 06:05 Carbon Dioxide 27.2 mEq/L (21.0-31.0) 05/25/17 06:05 Anion Gap 5.5 (7.0-16.0) L 05/25/17 06:05 BUN 6 mg/dL (7-25) L 05/25/17 06:05 Creatinine 0.9 mg/dL (0.7-1.3) 05/25/17 06:05 Est GFR ( Amer) > 60.0 ml/min (>90) 05/25/17 06:05 Est GFR (Non-Af Amer) > 60.0 ml/min 05/25/17 06:05 BUN/Creatinine Ratio 6.7 05/25/17 06:05 Glucose 120 mg/dL (70-105) H 05/25/17 06:05 POC Glucose 127 MG/DL (70 - 105) H 05/25/17 09:37 Calcium 8.5 mg/dL (8.6-10.3) L 05/25/17 06:05 Phosphorus 3.1 mg/dL (2.5-5.0) 05/25/17 06:05 Magnesium 1.9 mg/dL (1.9-2.7) 05/25/17 06:05 Total Bilirubin 0.3 mg/dL (0.3-1.0) 05/14/17 11:20 AST 12 U/L (13-39) L 05/14/17 11:20 ALT 9 U/L (7-52) 05/14/17 11:20 Alkaline Phosphatase 45 U/L (34-104) 05/14/17 11:20 Troponin I 0.03 ng/mL (0.01-0.05) 05/06/17 16:46 C-Reactive Protein 3.9 mg/dL (0.0-0.9) H 05/24/17 08:30 Total Protein 7.4 gm/dL (6.0-8.3) 05/14/17 11:20 Albumin 3.7 gm/dL (4.2-5.5) L 05/14/17 11:20 Globulin 3.7 gm/dL 05/14/17 11:20 Albumin/Globulin Ratio 1.0 (1.0-1.8) 05/14/17 11:20 Prealbumin 10 mg/dL (12-34) L 05/24/17 08:30 Triglycerides 90 mg/dL (<150) 05/24/17 08:30 Cholesterol 126 mg/dL (<200) 05/06/17 16:46 LDL Cholesterol Direct 89 mg/dL (75-193) 05/06/17 16:46 HDL Cholesterol 30 mg/dL (23-92) 05/06/17 16:46 TSH 1.23 uIU/ml (0.34-5.60) 05/06/17 16:46 Urine Source CLEAN C 05/06/17 16:20 Urine Color YELLOW 05/06/17 16:20 Urine Clarity HAZY (CLEAR) 05/06/17 16:20 Urine pH 5.5 (4.6 - 8.0) 05/06/17 16:20 Ur Specific [place] 1.030 (1.005-1.030) 05/06/17 16:20 Urine Protein 30 mg/dL (NEGATIVE) H 05/06/17 16:20 Urine Glucose (UA) NEGATIVE mg/dL (NEGATIVE) 05/06/17 16:20 Urine Ketones NEGATIVE mg/dL (NEGATIVE) 05/06/17 16:20 Urine Blood NEGATIVE (NEGATIVE) 05/06/17 16:20 Urine Nitrate NEGATIVE (NEGATIVE) 05/06/17 16:20 Urine Bilirubin SMALL (NEGATIVE) H 05/06/17 16:20 Urine Urobilinogen 2.0 E.U./dL (0.2 - 1.0) 05/06/17 16:20 Ur Leukocyte Esterase NEGATIVE (NEGATIVE) 05/06/17 16:20 Urine RBC 0-1 /hpf (0-5) 05/06/17 16:20 Urine WBC 0-2 /hpf (0-5) 05/06/17 16:20 Ur Epithelial Cells OCCASIONAL /lpf (FEW) 05/06/17 16:20 Amorphous Sediment FEW URATES (NONE SEEN) 05/06/17 16:20 Urine Bacteria FEW /hpf (NONE SEEN) 05/06/17 16:20 Urine Mucus MODERATE /lpf (FEW) 05/06/17 16:20 Vancomycin Trough 13.3 ug/mL (10-20) 05/24/17 21:09 Valproic Acid < 10.0 ug/mL (50.0-100.0) L 05/21/17 05:45 RPR NONREACTIVE (NONREACTIVE) 05/06/17 16:46 - Physical Exam Vitals and I&O: Vital Signs Temp 98.0 F 05/25/17 04:00 Pulse 66 05/25/17 07:50 Resp 18 05/25/17 10:18 BP 104/64 05/25/17 04:00 Pulse Ox 100 05/25/17 07:50 Intake & Output 05/24/17 05/25/17 05/25/17 18:59 06:59 18:59 Intake Total 300 1893.334 Output Total 900 Balance 300 993.334 Weight (lbs) 67.812 kg Intake: Intake, IV Amount 300 1893.334 Cefepime 1 gm In Dextrose 50 50 5% 50 ml @ 100 mls/hr IV Q12H [facility] Rx#:[id number] Multivitamin Inj 10 ml In 1256.667 Amino Acids 15% 520 ml In Dextrose 70% 300 ml In Intralipids 20% 270 ml In Water, Sterile 1,400 ml @ 100 mls/hr IV .Q24H [facility] Rx#:[id number] Sodium Chloride 0.9% 1, 336.667 000 ml @ 40 mls/hr IV . Q24H [facility] Rx#:[id number] Vancomycin HCl 1.25 gm In 250 250 Sodium Chloride 0.9% 250 ml @ 165 mls/hr IV Q12H [facility] Rx#:[id number] Output: Urine 900 Other: # Bowel Movements 0 Active Medications: Current Medications Acetaminophen (Tylenol) 650 mg PO Q4H PRN PRN Reason: Pain Or Fever above 101 Stop: 07/05/17 19:13 Al Hydrox/Mg Hydrox/Simethicone (Maalox) 30 ml PO Q6H PRN PRN Reason: Dyspepsia Stop: 07/05/17 19:13 Albuterol Sulfate (Albuterol 2.5mg/3ml Neb Ud) 2.5 mg HHN Q2HRT PRN PRN Reason: Shortness of Breath or Wheeze Stop: 07/05/17 19:13 Benztropine Mesylate (Cogentin) 1 mg PO BID PRN PRN Reason: Agitation Stop: 07/12/17 08:59 Bisacodyl (Dulcolax 10 Mg Supp) 10 mg RC DAILY PRN PRN Reason: Constipation Stop: 07/21/17 14:25 Divalproex Sodium (Depakote Er) 1,000 mg PO BID [facility] PRN Reason: Protocol Stop: 07/06/17 08:59 Last Admin: 05/25/17 08:23 Dose: 1,000 mg Ferrous Sulfate (Iron) 325 mg PO BID [facility] Stop: 07/06/17 08:59 Last Admin: 05/25/17 08:23 Dose: 325 mg Guaifenesin (Robitussin) 200 mg PO Q4HR PRN PRN Reason: Cough or Congestion Stop: 07/05/17 19:13 Haloperidol Lactate (Haldol) 2 mg IM HS PRN PRN Reason: Agitation Stop: 07/12/17 08:04 Haloperidol Lactate (Haldol) 2 mg IM DAILY PRN PRN Reason: Agitation Stop: 07/12/17 08:06 Last Admin: 05/20/17 13:32 Dose: 2 mg Heparin Sodium (Porcine) (Heparin) 5,000 units SUBQ Q12HR [facility] Stop: 07/05/17 20:59 Last Admin: 05/25/17 08:24 Dose: 5,000 units Cefepime HCl 1 gm/ Dextrose 50 mls @ 100 mls/hr IV Q12H [facility] Stop: 07/19/17 20:59 Last Admin: 05/25/17 09:34 Dose: 100 mls/hr Vancomycin HCl 1.25 gm/ Sodium (Chloride) 250 mls @ 165 mls/hr IV Q12H [facility] Stop: 07/22/17 09:59 Last Admin: 05/25/17 12:11 Dose: 165 mls/hr Multivitamins/Minerals 10 ml/Amino Acids/Electrolytes/Dextrose/ Fat Emulsion Intravenous/ Sterile Water 2,500 mls @ 100 mls/hr IV .Q24H [facility] Stop: 07/23/17 15:59 Last Infusion: 05/25/17 06:29 Dose: 100 mls/hr Sodium Chloride (Nacl 0.9%) 1,000 mls @ 40 mls/hr IV .Q24H [facility] Stop: 07/23/17 16:14 Last Infusion: 05/25/17 06:29 Dose: 40 mls/hr Insulin Aspart (Novolog Insulin Sliding Scale) 0 units SUBQ QID [facility] PRN Reason: Protocol Stop: 07/23/17 16:59 Last Admin: 05/25/17 13:24 Dose: Not Given Ipratropium [place] (Atrovent Neb 0.5mg/2.5ml) 0.5 mg HHN Q2HRT PRN PRN Reason: Shortness of Breath or Wheeze Stop: 07/05/17 19:13 Lactobacillus Rhamnosus (Culturelle) 1 each PO DAILY [facility] Stop: 07/21/17 08:59 Last Admin: 05/25/17 08:24 Dose: 1 each Lactulose (Cephulac) 30 gm PO BID [facility] Stop: 07/10/17 16:59 Last Admin: 05/25/17 08:31 Dose: 30 gm Levothyroxine Sodium (Synthroid) 0.05 mg IVP DAILY [facility] Stop: 07/24/17 08:59 Last Admin: 05/25/17 10:24 Dose: 0.05 mg Metoclopramide HCl (Reglan) 10 mg IVP Q8HR PRN PRN Reason: Nausea / Vomiting Stop: 07/09/17 11:31 Last Admin: 05/11/17 06:31 Dose: 10 mg Miscellaneous (Ppn Per Pharmacy) 1 ea MC PRN PRN PRN Reason: PROTOCOL Stop: 07/20/17 13:24 Miscellaneous (Probiotic Screen) 1 ea MC PRN PRN PRN Reason: PROTOCOL Stop: 07/20/17 16:59 Miscellaneous (Vancomycin Iv Per Pharmacy) 1 ea MC DAILY [facility] Stop: 07/22/17 08:59 Olanzapine (Zyprexa) 10 mg PO HS [facility] PRN Reason: Protocol Stop: 07/07/17 20:59 Last Admin: 05/24/17 21:38 Dose: 10 mg Olanzapine (Zyprexa Zydis) 10 mg PO DAILY KAM PRN Reason: Protocol Stop: 07/08/17 08:59 Last Admin: 05/25/17 08:24 Dose: 10 mg Ondansetron HCl (Zofran) 4 mg IV Q4H PRN PRN Reason: Nausea / Vomiting Stop: 07/05/17 19:13 Last Admin: 05/19/17 15:22 Dose: 4 mg Pantoprazole Sodium (Protonix) 40 mg IVP BID [facility] Stop: 07/18/17 18:32 Last Admin: 05/25/17 08:24 Dose: 40 mg Sucralfate (Carafate) 1 gm PO QID KAM Stop: 07/05/17 20:59 Last Admin: 05/25/17 13:24 Dose: Not Given Zolpidem Tartrate (Ambien) 5 mg PO HS PRN PRN Reason: Insomnia Stop: 07/05/17 19:12 General: alert HEENT: NC/AT, PERRLA Neck: Supple Abdomen: soft, non-tender, non-distended, positive bowel sound Extremities: excoriation Neurological: alert, disorganized, unsteady, bedbound - Procedures Procedures: Procedures Procedure Code Date DILATION OF LOWER ESOPHAGUS, ENDO [id number] 05/06/17 EGD BIOPSY SINGLE/MULTIPLE [id number] 05/06/17 ESOPH EGD DILATION <30 MM [id number] 05/06/17 EXCISION OF ESOPHAGUS, ENDO, DIAGN [id number] 05/06/17 Internal Medicine Assmt/Plan - Assessment Assessment: persistent vomitting DYSPHAGIA DEHYDRATION FAILURE TO THRIVE HYPONATREMIA HYPOKALEMIA GERD HTN BARETT'S ESOPHAGUS - Plan Plan: will add laxative kub noted Plan: will add reglan and prn zofran monitor cbc/bmp ivf for hydration continue current plan of care Nutritional Asmnt/Malnutr-PDOC - Dietary Evaluation Malnutrition Findings (Please click <Entered> for more info): Nutritional Asmnt/Malnutrition Start: 05/07/17 10: 39 Text: Status: Complete Freq: Document 05/07/17 14:31 GSUN (Rec: 05/07/17 15:03 DILLAN [email or web address]) Nutritional Asmnt/Malnutrition Patient General Information Nutritional Screening Consult Diagnosis Dysphagia, dehydration, FTT, Serna esophagus, PCM Pertinent Medical Hx/Surgical Hx Schizophrenia, stroke, TIA, GERD, thyroid disease, arthritis, dementia Subjective Information 46 year old male from SNF. RD consult for dysphagia. Spoke to ELISE Christina, pt has ulcer in the throat, unable to eat, swallow eval ordered nad pending. Pt is a questionable historian, talkative, however speech unclear and difficult to understand. 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 Pt appeared thin, mild muscle fat wasting to chest and temporals. Current Diet Order/ Nutrition Support Clear liquid Pertinent Medications D5-0.9%ns, Iron, Synthroid, Zofran, Protonix, Carafate Pertinent Labs Reviewed. Nutritional Hx/Data Height 1.75 m Height (Calculated Centimeters) 175.3 Current Weight (lbs) 66.678 kg Weight (Calculated Kilograms) 66.7 Weight (Calculated Grams) 88912.1 [place] Body Weight 160 Weight Status Approriate GI Symptoms Food Allergies No Skin Integrity/Comment: Murray Clifford. Skin intact. Estimated Nutritional Goals BEE in Kcals: Using Current wt Calories/Kcals/Kg CBW 147lb/66.8kg Kcals Calculated 1670-2004kcal (25-30kcal/kg) Protein: Using Current wt Protein Calculated 67g (1g/kg) Fluid: ml 1670-2004ml (1ml/kcal) Nutritional Problem 1. 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 GI consult and swallow eval pending, recommend regular diet with diet texture per ST if pt is able to resume oral diet. Nursing staff to ensure pt sit upright during meals to minimize possible reflux. 2. Monitor weight. 3. If unable to resume oral diet, recommend enteral nutrition. Expected Outcomes/Goals Expected Outcomes/Goals 1. Pt to meet at least 75% of estimated nutritional needs orally or enterally.
[2017-05-25] MEDS: [UNRECOGNIZED DRUG - OTHER] IV SCH (17:33)
[2017-05-26 07:47] LABS: ANION GAP 7.1 (7.0-16.0); BUN - UREA NITROGEN 9 mg/dL (7-25); BUN/CREATININE RATIO 11.3; CALCIUM SERUM 8.6 mg/dL (8.6-10.3); CARBON DIOXIDE 28.2 mEq/L (21.0-31.0); CHLORIDE 104 mEq/L (98-107); CREATININE - SERUM 0.8 mg/dL (0.7-1.3); GLUCOSE 112 mg/dL (70-105); MAGNESIUM 1.7 mg/dL (1.9-2.7); PHOSPHOROUS 3.7 mg/dL (2.5-5.0); POTASSIUM SERUM 4.3 mEq/L (3.5-5.1); SODIUM SERUM 135 mEq/L (136-145)
[2017-05-26] MEDS ORDERED: Magnesium Sulfate 2 gm/50 mL Premix Bag IV SCH (08:45)
[2017-05-26] MEDS: Lactobacillus Rhamnosus 10 Billion CFU Capsule PO SCH ×2 (09:26→09:44)
[2017-05-26] MEDS: Ferrous Sulfate 325 MG TAB PO SCH ×3 (09:26→18:03)
[2017-05-26] MEDS: OLANZapine 5 mg Oral Disintegrating Tab PO SCH ×2 (09:26→09:44)
[2017-05-26] MEDS: Lactulose 10 Gm/15 mL 30mL UDC PO SCH ×4 (09:27→18:04)
[2017-05-26] MEDS: INSULIN ASPART SLIDING SCALE 100 UNITS/ML UNIT SUBQ SCH ×4 (09:58→21:39)
--- NOTE | 2017-05-26 10:51 | Internal Medicine Prog Note ---
Internal Medicine Subjective - Subjective Patient seen and examined:: with staff, chart reviewed Patient is:: awake, verbal Patient Complaints of:: vomitting Per staff patient has:: no adverse event, noncompliant, confused, tolerating meds Internal Medicine Objective - Results Result Diagrams: 05/25/17 06:05 05/26/17 07:17 Recent Labs: Laboratory Last Values WBC 8.2 Th/cmm (4.8-10.8) 05/25/17 06:05 RBC 3.57 Mil/cmm (4.30-5.70) L 05/25/17 06:05 Hgb 11.3 gm/dL (12-16) L 05/25/17 06:05 Hct 32.4 % (41.0-60) L 05/25/17 06:05 MCV 90.6 fl (80-99) 05/25/17 06:05 MCH 31.7 pg (26.0-30.0) H 05/25/17 06:05 MCHC Differential 35.0 pg (28.0-36.0) 05/25/17 06:05 RDW 12.9 % (11.5-20.0) 05/25/17 06:05 Plt Count 265 Th/cmm (150-400) 05/25/17 06:05 MPV 8.2 fl 05/25/17 06:05 Neutrophils % 60.3 % (40.0-80.0) 05/25/17 06:05 Band Neutrophils % 3 % (0-10) 05/21/17 05:45 Lymphocytes % 27.2 % (20.0-50.0) 05/25/17 06:05 Monocytes % 9.7 % (2.0-10.0) 05/25/17 06:05 Eosinophils % 2.4 % (0.0-5.0) 05/25/17 06:05 Basophils % 0.4 % (0.0-2.0) 05/25/17 06:05 Neutrophils (Manual) 86 % (40-80) H 05/21/17 05:45 Lymphocytes 10 % (20-50) L 05/21/17 05:45 Monocytes 1 % (2-10) L 05/21/17 05:45 PT 11.3 SECONDS (9.5-11.5) 05/09/17 05:45 INR 1.09 (0.5-1.4) 05/09/17 05:45 PTT (Actin FS) 25.7 SECONDS (26.0-38.0) L 05/06/17 16:46 Sodium 135 mEq/L (136-145) L 05/26/17 07:17 Potassium 4.3 mEq/L (3.5-5.1) 05/26/17 07:17 Chloride 104 mEq/L (98-107) 05/26/17 07:17 Carbon Dioxide 28.2 mEq/L (21.0-31.0) 05/26/17 07:17 Anion Gap 7.1 (7.0-16.0) 05/26/17 07:17 BUN 9 mg/dL (7-25) 05/26/17 07:17 Creatinine 0.8 mg/dL (0.7-1.3) 05/26/17 07:17 Est GFR ( Amer) > 60.0 ml/min (>90) 05/26/17 07:17 Est GFR (Non-Af Amer) > 60.0 ml/min 05/26/17 07:17 BUN/Creatinine Ratio 11.3 05/26/17 07:17 Glucose 112 mg/dL (70-105) H 05/26/17 07:17 POC Glucose 112 MG/DL (70 - 105) H 05/26/17 09:55 Calcium 8.6 mg/dL (8.6-10.3) 05/26/17 07:17 Phosphorus 3.7 mg/dL (2.5-5.0) 05/26/17 07:17 Magnesium 1.7 mg/dL (1.9-2.7) L 05/26/17 07:17 Total Bilirubin 0.3 mg/dL (0.3-1.0) 05/14/17 11:20 AST 12 U/L (13-39) L 05/14/17 11:20 ALT 9 U/L (7-52) 05/14/17 11:20 Alkaline Phosphatase 45 U/L (34-104) 05/14/17 11:20 Troponin I 0.03 ng/mL (0.01-0.05) 05/06/17 16:46 C-Reactive Protein 3.9 mg/dL (0.0-0.9) H 05/24/17 08:30 Total Protein 7.4 gm/dL (6.0-8.3) 05/14/17 11:20 Albumin 3.7 gm/dL (4.2-5.5) L 05/14/17 11:20 Globulin 3.7 gm/dL 05/14/17 11:20 Albumin/Globulin Ratio 1.0 (1.0-1.8) 05/14/17 11:20 Prealbumin 10 mg/dL (12-34) L 05/24/17 08:30 Triglycerides 90 mg/dL (<150) 05/24/17 08:30 Cholesterol 126 mg/dL (<200) 05/06/17 16:46 LDL Cholesterol Direct 89 mg/dL (75-193) 05/06/17 16:46 HDL Cholesterol 30 mg/dL (23-92) 05/06/17 16:46 TSH 1.23 uIU/ml (0.34-5.60) 05/06/17 16:46 Urine Source CLEAN C 05/06/17 16:20 Urine Color YELLOW 05/06/17 16:20 Urine Clarity HAZY (CLEAR) 05/06/17 16:20 Urine pH 5.5 (4.6 - 8.0) 05/06/17 16:20 Ur Specific [place] 1.030 (1.005-1.030) 05/06/17 16:20 Urine Protein 30 mg/dL (NEGATIVE) H 05/06/17 16:20 Urine Glucose (UA) NEGATIVE mg/dL (NEGATIVE) 05/06/17 16:20 Urine Ketones NEGATIVE mg/dL (NEGATIVE) 05/06/17 16:20 Urine Blood NEGATIVE (NEGATIVE) 05/06/17 16:20 Urine Nitrate NEGATIVE (NEGATIVE) 05/06/17 16:20 Urine Bilirubin SMALL (NEGATIVE) H 05/06/17 16:20 Urine Urobilinogen 2.0 E.U./dL (0.2 - 1.0) 05/06/17 16:20 Ur Leukocyte Esterase NEGATIVE (NEGATIVE) 05/06/17 16:20 Urine RBC 0-1 /hpf (0-5) 05/06/17 16:20 Urine WBC 0-2 /hpf (0-5) 05/06/17 16:20 Ur Epithelial Cells OCCASIONAL /lpf (FEW) 05/06/17 16:20 Amorphous Sediment FEW URATES (NONE SEEN) 05/06/17 16:20 Urine Bacteria FEW /hpf (NONE SEEN) 05/06/17 16:20 Urine Mucus MODERATE /lpf (FEW) 05/06/17 16:20 Vancomycin Trough 13.3 ug/mL (10-20) 05/24/17 21:09 Valproic Acid < 10.0 ug/mL (50.0-100.0) L 05/21/17 05:45 RPR NONREACTIVE (NONREACTIVE) 05/06/17 16:46 - Physical Exam Vitals and I&O: Vital Signs Temp 100 F 05/26/17 08:00 Pulse 73 05/26/17 08:00 Resp 18 05/26/17 10:08 BP 127/52 05/26/17 08:00 Pulse Ox 98 05/26/17 08:00 Intake & Output 05/25/17 05/26/17 05/26/17 18:59 06:59 18:59 Intake Total 1406.667 250 Balance 1406.667 250 Weight (lbs) 67.812 kg Intake: Intake, IV Amount 1406.667 250 Cefepime 1 gm In Dextrose 50 5% 50 ml @ 100 mls/hr IV Q12H [facility] Rx#:[id number] Multivitamin Inj 10 ml In 1106.667 Amino Acids 15% 520 ml In Dextrose 70% 300 ml In Intralipids 20% 270 ml In Water, Sterile 1,400 ml @ 100 mls/hr IV .Q24H [facility] Rx#:[id number] Vancomycin HCl 1.25 gm In 250 250 Sodium Chloride 0.9% 250 ml @ 165 mls/hr IV Q12H [facility] Rx#:[id number] Other: # Voids 4 Active Medications: Current Medications Acetaminophen (Tylenol) 650 mg PO Q4H PRN PRN Reason: Pain Or Fever above 101 Stop: 07/05/17 19:13 Al Hydrox/Mg Hydrox/Simethicone (Maalox) 30 ml PO Q6H PRN PRN Reason: Dyspepsia Stop: 07/05/17 19:13 Albuterol Sulfate (Albuterol 2.5mg/3ml Neb Ud) 2.5 mg HHN Q2HRT PRN PRN Reason: Shortness of Breath or Wheeze Stop: 07/05/17 19:13 Benztropine Mesylate (Cogentin) 1 mg PO BID PRN PRN Reason: Agitation Stop: 07/12/17 08:59 Bisacodyl (Dulcolax 10 Mg Supp) 10 mg RC DAILY PRN PRN Reason: Constipation Stop: 07/21/17 14:25 Divalproex Sodium (Depakote Er) 1,000 mg PO BID KAM PRN Reason: Protocol Stop: 07/06/17 08:59 Last Admin: 05/26/17 09:42 Dose: Not Given Ferrous Sulfate (Iron) 325 mg PO BID [facility] Stop: 07/06/17 08:59 Last Admin: 05/26/17 09:44 Dose: Not Given Guaifenesin (Robitussin) 200 mg PO Q4HR PRN PRN Reason: Cough or Congestion Stop: 07/05/17 19:13 Haloperidol Lactate (Haldol) 2 mg IM HS PRN PRN Reason: Agitation Stop: 07/12/17 08:04 Haloperidol Lactate (Haldol) 2 mg IM DAILY PRN PRN Reason: Agitation Stop: 07/12/17 08:06 Last Admin: 05/20/17 13:32 Dose: 2 mg Heparin Sodium (Porcine) (Heparin) 5,000 units SUBQ Q12HR [facility] Stop: 07/05/17 20:59 Last Admin: 05/26/17 09:25 Dose: 5,000 units Vancomycin HCl 1.25 gm/ Sodium (Chloride) 250 mls @ 165 mls/hr IV Q12H [facility] Stop: 07/22/17 09:59 Last Infusion: 05/26/17 00:16 Dose: Infused Multivitamins/Minerals 10 ml/Amino Acids/Electrolytes/Dextrose/ Fat Emulsion Intravenous/ Sterile Water 2,500 mls @ 100 mls/hr IV .Q24H [facility] Stop: 05/26/17 15:59 Last Admin: 05/25/17 17:33 Dose: 100 mls/hr Sodium Chloride (Nacl 0.9%) 1,000 mls @ 40 mls/hr IV .Q24H [facility] Stop: 05/26/17 15:59 Last Infusion: 05/25/17 06:29 Dose: 40 mls/hr Sodium Chloride (Nacl 0.9%) 1,000 mls @ 30 mls/hr IV .Q24H [facility] Stop: 07/25/17 15:59 Multivitamins/Minerals 10 ml/Dextrose/ Amino Acids/Electrolytes/ Fat Emulsion Intravenous 2,640 mls @ 110 mls/hr IV .Q24H [facility] Stop: 07/25/17 15:59 Magnesium Sulfate (Magnesium Sulfate Premix) 2 gm in 50 mls @ 25 mls/hr IV 0845 [facility] Stop: 05/26/17 13:00 Last Admin: 05/26/17 09:27 Dose: 25 mls/hr Insulin Aspart (Novolog Insulin Sliding Scale) 0 units SUBQ QID KAM PRN Reason: Protocol Stop: 07/23/17 16:59 Last Admin: 05/26/17 09:58 Dose: Not Given Ipratropium [place] (Atrovent Neb 0.5mg/2.5ml) 0.5 mg HHN Q2HRT PRN PRN Reason: Shortness of Breath or Wheeze Stop: 07/05/17 19:13 Lactobacillus Rhamnosus (Culturelle) 1 each PO DAILY [facility] Stop: 07/21/17 08:59 Last Admin: 05/26/17 09:44 Dose: Not Given Lactulose (Cephulac) 30 gm PO BID [facility] Stop: 07/10/17 16:59 Last Admin: 05/26/17 09:44 Dose: Not Given Levothyroxine Sodium (Synthroid) 0.05 mg IVP DAILY [facility] Stop: 07/24/17 08:59 Last Admin: 05/26/17 10:01 Dose: 0.05 mg Metoclopramide HCl (Reglan) 10 mg IVP Q8HR PRN PRN Reason: Nausea / Vomiting Stop: 07/09/17 11:31 Last Admin: 05/11/17 06:31 Dose: 10 mg Miscellaneous (Ppn Per Pharmacy) 1 ea MC PRN PRN PRN Reason: PROTOCOL Stop: 07/20/17 13:24 Miscellaneous (Probiotic Screen) 1 ea MC PRN PRN PRN Reason: PROTOCOL Stop: 07/20/17 16:59 Miscellaneous (Vancomycin Iv Per Pharmacy) 1 ea MC DAILY [facility] Stop: 07/22/17 08:59 Olanzapine (Zyprexa) 10 mg PO HS KAM PRN Reason: Protocol Stop: 07/07/17 20:59 Last Admin: 05/25/17 21:11 Dose: Not Given Olanzapine (Zyprexa Zydis) 10 mg PO DAILY KAM PRN Reason: Protocol Stop: 07/08/17 08:59 Last Admin: 05/26/17 09:44 Dose: Not Given Ondansetron HCl (Zofran) 4 mg IV Q4H PRN PRN Reason: Nausea / Vomiting Stop: 07/05/17 19:13 Last Admin: 05/19/17 15:22 Dose: 4 mg Pantoprazole Sodium (Protonix) 40 mg IVP BID KAM Stop: 07/18/17 18:32 Last Admin: 05/26/17 09:26 Dose: 40 mg Sucralfate (Carafate) 1 gm PO QID KAM Stop: 07/05/17 20:59 Last Admin: 05/26/17 09:43 Dose: Not Given Zolpidem Tartrate (Ambien) 5 mg PO HS PRN PRN Reason: Insomnia Stop: 07/05/17 19:12 General: lethargic, demented HEENT: NC/AT, PERRLA Neck: Supple Abdomen: soft, non-tender, non-distended, positive bowel sound Extremities: excoriation Neurological: alert, disorganized, unsteady, bedbound - Procedures Procedures: Procedures Procedure Code Date DILATION OF LOWER ESOPHAGUS, ENDO [id number] 05/06/17 EGD BIOPSY SINGLE/MULTIPLE 81899 05/06/17 ESOPH EGD DILATION <30 MM 85700 05/06/17 EXCISION OF ESOPHAGUS, ENDO, DIAGN [id number] 05/06/17 Internal Medicine Assmt/Plan - Assessment Assessment: persistent vomitting DYSPHAGIA DEHYDRATION FAILURE TO THRIVE HYPONATREMIA HYPOKALEMIA GERD HTN BARETT'S ESOPHAGUS fever - Plan Plan: will add laxative kub noted Plan: will add reglan and prn zofran monitor cbc/bmp ivf for hydration continue current plan of care Nutritional Asmnt/Malnutr-PDOC - Dietary Evaluation Malnutrition Findings (Please click <Entered> for more info): Nutritional Asmnt/Malnutrition Start: 05/07/17 10: 39 Text: Status: Complete Freq: Document 05/07/17 14:31 GSUN (Rec: 05/07/17 15:03 GSUN [id number]) Nutritional Asmnt/Malnutrition Patient General Information Nutritional Screening Consult Diagnosis Dysphagia, dehydration, FTT, Serna esophagus, PCM Pertinent Medical Hx/Surgical Hx Schizophrenia, stroke, TIA, GERD, thyroid disease, arthritis, dementia Subjective Information 46 year old male from SNF. RD consult for dysphagia. Spoke to RN Carri, pt has ulcer in the throat, unable to eat, swallow eval ordered nad pending. Pt is a questionable historian, talkative, however speech unclear and difficult to understand. Pt unable to tell handbook writer usual diet, repeatedly stated "can't swallow, need procedure, fix it." Front teeth missing only. Pt appeared thin, mild muscle fat wasting to chest and temporals. Current Diet Order/ Nutrition Support Clear liquid Pertinent Medications D5-0.9%ns, Iron, Synthroid, Zofran, Protonix, Carafate Pertinent Labs Reviewed. Nutritional Hx/Data Height 1.75 m Height (Calculated Centimeters) 175.3 Current Weight (lbs) 66.678 kg Weight (Calculated Kilograms) 66.7 Weight (Calculated Grams) 19566.1 [place] Body Weight 160 Weight Status Approriate GI Symptoms Food Allergies No Skin Integrity/Comment: [place] 13. Skin intact. Estimated Nutritional Goals BEE in Kcals: Using Current wt Calories/Kcals/Kg CBW 147lb/66.8kg Kcals Calculated 1670-2004kcal (25-30kcal/kg) Protein: Using Current wt Protein Calculated 67g (1g/kg) Fluid: ml 1670-2004ml (1ml/kcal) Nutritional Problem 1. 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 GI consult and swallow eval pending, recommend regular diet with diet texture per ST if pt is able to resume oral diet. Nursing staff to ensure pt sit upright during meals to minimize possible reflux. 2. Monitor weight. 3. If unable to resume oral diet, recommend enteral nutrition. Expected Outcomes/Goals Expected Outcomes/Goals 1. Pt to meet at least 75% of estimated nutritional needs orally or enterally.
[2017-05-26 15:38] LABS: URINE BILIRUBIN NEGATIVE (NEGATIVE); URINE BLOOD NEGATIVE (NEGATIVE); URINE GLUCOSE (UA) NEGATIVE (NEGATIVE); URINE KETONE NEGATIVE (NEGATIVE); URINE PROTEIN NEGATIVE (NEGATIVE)
[2017-05-26 15:42] LABS: URINE COLOR YELLOW
[2017-05-26 15:43] LABS: URINE BACTERIA NONE SEEN /hpf (NONE SEEN); URINE EPITHELIAL CELLS NONE SEEN /lpf (FEW); URINE RBC NONE SEEN /hpf (0-5); URINE WBC NONE SEEN /hpf (0-5)
[2017-05-26] MEDS: Sodium Chloride 0.9% 1,000 ML IV SCH (16:17)
[2017-05-26] MEDS: [UNRECOGNIZED DRUG - OTHER] IV SCH (16:54)
[2017-05-26] MEDS: MULTIVITAMIN IV SCH (16:54)
[2017-05-26] MEDS: DEXTROSE IV SCH (16:54)
[2017-05-27 05:53] LABS: % BASOPHILS 0.3 % (0.0-2.0); % EOSINOPHILS 0.8 % (0.0-5.0); % LYMPHOCYTES 21.1 % (20.0-50.0); % MONOCYTES 8.8 % (2.0-10.0); HEMATOCRIT 31.4 % (41.0-60); HEMOGLOBIN 10.9 gm/dL (12-16); MEAN CELL VOLUME 91.7 fl (80-99); MEAN CORPUSCULAR HEMOGLOBIN 31.8 pg (26.0-30.0); MEAN CORPUSCULAR HGB CONC 34.6 pg (28.0-36.0); MEAN PLATELET VOLUME 8.7 fl; NEUTROPHILE ABSOLUTE 6.3 Th/cmm (1.8-8.0); PLATELET COUNT 264 Th/cmm (150-400); RED BLOOD COUNT 3.42 Mil/cmm (4.30-5.70); WHITE BLOOD COUNT 9.1 Th/cmm (4.8-10.8)
[2017-05-27 06:10] LABS: ANION GAP 8.2 (7.0-16.0); BUN - UREA NITROGEN 10 mg/dL (7-25); BUN/CREATININE RATIO 14.3; CALCIUM SERUM 8.5 mg/dL (8.6-10.3); CARBON DIOXIDE 25.8 mEq/L (21.0-31.0); CHLORIDE 102 mEq/L (98-107); CREATININE - SERUM 0.7 mg/dL (0.7-1.3); GLUCOSE 119 mg/dL (70-105); MAGNESIUM 1.7 mg/dL (1.9-2.7); PHOSPHOROUS 3.1 mg/dL (2.5-5.0); SODIUM SERUM 132 mEq/L (136-145)
--- NOTE | 2017-05-27 08:20 | Diagnostic Imaging Report ---
Portable chest x-ray Time: 1058 History: Fever Allowing for portable technique the heart size is normal. No focal pulmonary parenchymal processes. No hilar or mediastinal abnormalities. Impression: No acute abnormalities.
[2017-05-27] MEDS: Lactulose 10 Gm/15 mL 30mL UDC PO SCH ×2 (09:40→17:33)
[2017-05-27] MEDS: Ferrous Sulfate 325 MG TAB PO SCH ×2 (09:40→17:33)
[2017-05-27] MEDS: Lactobacillus Rhamnosus 10 Billion CFU Capsule PO SCH (09:40)
[2017-05-27] MEDS: OLANZapine 5 mg Oral Disintegrating Tab PO SCH (09:40)
[2017-05-27] MEDS: INSULIN ASPART SLIDING SCALE 100 UNITS/ML UNIT SUBQ SCH ×4 (09:48→21:00)
--- NOTE | 2017-05-27 12:09 | Internal Medicine Prog Note ---
Internal Medicine Subjective - Subjective Service Date: 05/27/17 Patient is:: awake, verbal Patient Complaints of:: vomitting Per staff patient has:: no adverse event, noncompliant, confused, tolerating meds Internal Medicine Objective - Results Result Diagrams: 05/27/17 05:30 05/27/17 05:30 Recent Labs: Laboratory Last Values WBC 9.1 Th/cmm (4.8-10.8) 05/27/17 05:30 RBC 3.42 Mil/cmm (4.30-5.70) L 05/27/17 05:30 Hgb 10.9 gm/dL (12-16) L 05/27/17 05:30 Hct 31.4 % (41.0-60) L 05/27/17 05:30 MCV 91.7 fl (80-99) 05/27/17 05:30 MCH 31.8 pg (26.0-30.0) H 05/27/17 05:30 MCHC Differential 34.6 pg (28.0-36.0) 05/27/17 05:30 RDW 13.0 % (11.5-20.0) 05/27/17 05:30 Plt Count 264 Th/cmm (150-400) 05/27/17 05:30 MPV 8.7 fl 05/27/17 05:30 Neutrophils % 69.0 % (40.0-80.0) 05/27/17 05:30 Band Neutrophils % 3 % (0-10) 05/21/17 05:45 Lymphocytes % 21.1 % (20.0-50.0) 05/27/17 05:30 Monocytes % 8.8 % (2.0-10.0) 05/27/17 05:30 Eosinophils % 0.8 % (0.0-5.0) 05/27/17 05:30 Basophils % 0.3 % (0.0-2.0) 05/27/17 05:30 Neutrophils (Manual) 86 % (40-80) H 05/21/17 05:45 Lymphocytes 10 % (20-50) L 05/21/17 05:45 Monocytes 1 % (2-10) L 05/21/17 05:45 PT 11.3 SECONDS (9.5-11.5) 05/09/17 05:45 INR 1.09 (0.5-1.4) 05/09/17 05:45 PTT (Actin FS) 25.7 SECONDS (26.0-38.0) L 05/06/17 16:46 Sodium 132 mEq/L (136-145) L 05/27/17 05:30 Potassium 4.0 mEq/L (3.5-5.1) 05/27/17 05:30 Chloride 102 mEq/L (98-107) 05/27/17 05:30 Carbon Dioxide 25.8 mEq/L (21.0-31.0) 05/27/17 05:30 Anion Gap 8.2 (7.0-16.0) 05/27/17 05:30 BUN 10 mg/dL (7-25) 05/27/17 05:30 Creatinine 0.7 mg/dL (0.7-1.3) 05/27/17 05:30 Est GFR ( Amer) > 60.0 ml/min (>90) 05/27/17 05:30 Est GFR (Non-Af Amer) > 60.0 ml/min 05/27/17 05:30 BUN/Creatinine Ratio 14.3 05/27/17 05:30 Glucose 119 mg/dL (70-105) H 05/27/17 05:30 POC Glucose 107 MG/DL (70 - 105) H 05/27/17 09:46 Calcium 8.5 mg/dL (8.6-10.3) L 05/27/17 05:30 Phosphorus 3.1 mg/dL (2.5-5.0) 05/27/17 05:30 Magnesium 1.7 mg/dL (1.9-2.7) L 05/27/17 05:30 Total Bilirubin 0.3 mg/dL (0.3-1.0) 05/14/17 11:20 AST 12 U/L (13-39) L 05/14/17 11:20 ALT 9 U/L (7-52) 05/14/17 11:20 Alkaline Phosphatase 45 U/L (34-104) 05/14/17 11:20 Ammonia 52 umol/L (16-53) 05/27/17 05:30 Troponin I 0.03 ng/mL (0.01-0.05) 05/06/17 16:46 C-Reactive Protein 3.9 mg/dL (0.0-0.9) H 05/24/17 08:30 Total Protein 7.4 gm/dL (6.0-8.3) 05/14/17 11:20 Albumin 2.7 gm/dL (4.2-5.5) L 05/27/17 05:30 Globulin 3.7 gm/dL 05/14/17 11:20 Albumin/Globulin Ratio 1.0 (1.0-1.8) 05/14/17 11:20 Prealbumin 10 mg/dL (12-34) L 05/24/17 08:30 Triglycerides 90 mg/dL (<150) 05/24/17 08:30 Cholesterol 126 mg/dL (<200) 05/06/17 16:46 LDL Cholesterol Direct 89 mg/dL (75-193) 05/06/17 16:46 HDL Cholesterol 30 mg/dL (23-92) 05/06/17 16:46 TSH 1.23 uIU/ml (0.34-5.60) 05/06/17 16:46 Urine Source CATH 05/26/17 15:10 Urine Color YELLOW 05/26/17 15:10 Urine Clarity CLEAR (CLEAR) 05/26/17 15:10 Urine pH 7.0 (4.6 - 8.0) 05/26/17 15:10 Ur Specific [place] 1.025 (1.005-1.030) 05/26/17 15:10 Urine Protein NEGATIVE mg/dL (NEGATIVE) 05/26/17 15:10 Urine Glucose (UA) NEGATIVE mg/dL (NEGATIVE) 05/26/17 15:10 Urine Ketones NEGATIVE mg/dL (NEGATIVE) 05/26/17 15:10 Urine Blood NEGATIVE (NEGATIVE) 05/26/17 15:10 Urine Nitrate NEGATIVE (NEGATIVE) 05/26/17 15:10 Urine Bilirubin NEGATIVE (NEGATIVE) 05/26/17 15:10 Urine Urobilinogen 1.0 E.U./dL (0.2 - 1.0) 05/26/17 15:10 Ur Leukocyte Esterase NEGATIVE (NEGATIVE) 05/26/17 15:10 Urine RBC NONE SEEN /hpf (0-5) 05/26/17 15:10 Urine WBC NONE SEEN /hpf (0-5) 05/26/17 15:10 Ur Epithelial Cells NONE SEEN /lpf (FEW) 05/26/17 15:10 Amorphous Sediment FEW URATES (NONE SEEN) 05/06/17 16:20 Urine Bacteria NONE SEEN /hpf (NONE SEEN) 05/26/17 15:10 Urine Mucus MODERATE /lpf (FEW) 05/06/17 16:20 Vancomycin Trough 16.8 ug/mL (10-20) 05/26/17 21:03 Valproic Acid < 10.0 ug/mL (50.0-100.0) L 05/21/17 05:45 RPR NONREACTIVE (NONREACTIVE) 05/06/17 16:46 - Physical Exam Vitals and I&O: Vital Signs Temp 97.6 F 05/27/17 04:00 Pulse 85 05/27/17 07:45 Resp 14 05/27/17 07:45 BP 128/58 05/27/17 04:00 Pulse Ox 96 05/27/17 07:45 Intake & Output 05/26/17 05/27/17 05/27/17 18:59 06:59 18:59 Intake Total 300 2123.5 Output Total 600 Balance 300 1523.5 Weight (lbs) 151 lb 3.2 oz Intake: Intake, IV Amount 300 2123.5 Mag Sulfate 2gm/50mL 50 Premix 2 gm In 50 ml @ 25 mls/hr IV 0845 KAM Rx#: [id number] Multivitamin Inj 10 ml In 1457.5 Dextrose 10% 1,380 ml In Amino Acids 3% / Electrolytes 1,000 ml In Intralipids 20% 250 ml @ 110 mls/hr IV .Q24H KAM Rx#:[id number] Sodium Chloride 0.9% 1, 416 000 ml @ 30 mls/hr IV . Q24H [facility]AM Rx#:[id number] Vancomycin HCl 1.25 gm In 250 250 Sodium Chloride 0.9% 250 ml @ 165 mls/hr IV Q12H [facility] Rx#:[id number] Output: Urine 600 Active Medications: Current Medications Acetaminophen (Tylenol) 650 mg PO Q4H PRN PRN Reason: Pain Or Fever above 101 Stop: 07/05/17 19:13 Al Hydrox/Mg Hydrox/Simethicone (Maalox) 30 ml PO Q6H PRN PRN Reason: Dyspepsia Stop: 07/05/17 19:13 Albuterol Sulfate (Albuterol 2.5mg/3ml Neb Ud) 2.5 mg HHN Q2HRT PRN PRN Reason: Shortness of Breath or Wheeze Stop: 07/05/17 19:13 Benztropine Mesylate (Cogentin) 1 mg PO BID PRN PRN Reason: Agitation Stop: 07/12/17 08:59 Bisacodyl (Dulcolax 10 Mg Supp) 10 mg RC DAILY PRN PRN Reason: Constipation Stop: 07/21/17 14:25 Divalproex Sodium (Depakote Er) 1,000 mg PO BID KAM PRN Reason: Protocol Stop: 07/06/17 08:59 Last Admin: 05/27/17 09:40 Dose: Not Given Ferrous Sulfate (Iron) 325 mg PO BID [facility] Stop: 07/06/17 08:59 Last Admin: 05/27/17 09:40 Dose: Not Given Guaifenesin (Robitussin) 200 mg PO Q4HR PRN PRN Reason: Cough or Congestion Stop: 07/05/17 19:13 Haloperidol Lactate (Haldol) 2 mg IM HS PRN PRN Reason: Agitation Stop: 07/12/17 08:04 Haloperidol Lactate (Haldol) 2 mg IM DAILY PRN PRN Reason: Agitation Stop: 07/12/17 08:06 Last Admin: 05/20/17 13:32 Dose: 2 mg Heparin Sodium (Porcine) (Heparin) 5,000 units SUBQ Q12HR [facility] Stop: 07/05/17 20:59 Last Admin: 05/27/17 09:33 Dose: 5,000 units Vancomycin HCl 1.25 gm/ Sodium (Chloride) 250 mls @ 165 mls/hr IV Q12H [facility] Stop: 07/22/17 09:59 Last Infusion: 05/27/17 06:09 Dose: Infused Sodium Chloride (Nacl 0.9%) 1,000 mls @ 30 mls/hr IV .Q24H [facility] Stop: 07/25/17 15:59 Last Infusion: 05/27/17 06:09 Dose: 30 mls/hr Multivitamins/Minerals 10 ml/Dextrose/ Amino Acids/Electrolytes/ Fat Emulsion Intravenous 2,640 mls @ 110 mls/hr IV .Q24H [facility] Stop: 07/25/17 15:59 Last Infusion: 05/27/17 06:09 Dose: 110 mls/hr Insulin Aspart (Novolog Insulin Sliding Scale) 0 units SUBQ QID KAM PRN Reason: Protocol Stop: 07/23/17 16:59 Last Admin: 05/27/17 09:48 Dose: Not Given Ipratropium [place] (Atrovent Neb 0.5mg/2.5ml) 0.5 mg HHN Q2HRT PRN PRN Reason: Shortness of Breath or Wheeze Stop: 07/05/17 19:13 Lactobacillus Rhamnosus (Culturelle) 1 each PO DAILY [facility] Stop: 07/21/17 08:59 Last Admin: 05/27/17 09:40 Dose: Not Given Lactulose (Cephulac) 30 gm PO BID [facility] Stop: 07/10/17 16:59 Last Admin: 05/27/17 09:40 Dose: Not Given Levothyroxine Sodium (Synthroid) 0.05 mg IVP DAILY [facility] Stop: 07/24/17 08:59 Last Admin: 05/27/17 09:40 Dose: Not Given Metoclopramide HCl (Reglan) 10 mg IVP Q8HR PRN PRN Reason: Nausea / Vomiting Stop: 07/09/17 11:31 Last Admin: 05/11/17 06:31 Dose: 10 mg Miscellaneous (Ppn Per Pharmacy) 1 ea MC PRN PRN PRN Reason: PROTOCOL Stop: 07/20/17 13:24 Miscellaneous (Probiotic Screen) 1 ea MC PRN PRN PRN Reason: PROTOCOL Stop: 07/20/17 16:59 Miscellaneous (Vancomycin Iv Per Pharmacy) 1 ea MC DAILY [facility] Stop: 07/22/17 08:59 Olanzapine (Zyprexa) 10 mg PO HS KAM PRN Reason: Protocol Stop: 07/07/17 20:59 Last Admin: 05/26/17 21:28 Dose: Not Given Olanzapine (Zyprexa Zydis) 10 mg PO DAILY [facility] PRN Reason: Protocol Stop: 07/08/17 08:59 Last Admin: 05/27/17 09:40 Dose: Not Given Ondansetron HCl (Zofran) 4 mg IV Q4H PRN PRN Reason: Nausea / Vomiting Stop: 07/05/17 19:13 Last Admin: 05/19/17 15:22 Dose: 4 mg Pantoprazole Sodium (Protonix) 40 mg IVP BID [facility] Stop: 07/18/17 18:32 Last Admin: 05/27/17 09:33 Dose: 40 mg Sucralfate (Carafate) 1 gm PO QID KAM Stop: 07/05/17 20:59 Last Admin: 05/27/17 09:40 Dose: Not Given Zolpidem Tartrate (Ambien) 5 mg PO HS PRN PRN Reason: Insomnia Stop: 07/05/17 19:12 General: lethargic, demented HEENT: NC/AT, PERRLA Neck: Supple Abdomen: soft, non-tender, non-distended, positive bowel sound Extremities: excoriation Neurological: alert, disorganized, unsteady, bedbound - Procedures Procedures: Procedures Procedure Code Date DILATION OF LOWER ESOPHAGUS, ENDO [id number] 05/06/17 EGD BIOPSY SINGLE/MULTIPLE 26313 05/06/17 ESOPH EGD DILATION <30 MM 70764 05/06/17 EXCISION OF ESOPHAGUS, ENDO, DIAGN [id number] 05/06/17 Internal Medicine Assmt/Plan - Assessment Assessment: DYSPHAGIA DEHYDRATION- FAILURE TO THRIVE HYPONATREMIA HYPOKALEMIA GERD HTN BARETT'S ESOPHAGUS - Plan Plan: monitor k+ continue with iv protonix hospice case manager arranging placement monitor cbc/bmp ivf for hydration continue current plan of care Nutritional Asmnt/Malnutr-PDOC - Dietary Evaluation Malnutrition Findings (Please click <Entered> for more info): Nutritional Asmnt/Malnutrition Start: 05/07/17 10: 39 Text: Status: Complete Freq: Document 05/07/17 14:31 GSUN (Rec: 05/07/17 15:03 [email or web address]) Nutritional Asmnt/Malnutrition Patient General Information Nutritional Screening Consult Diagnosis Dysphagia, dehydration, FTT, Serna esophagus, PCM Pertinent Medical Hx/Surgical Hx Schizophrenia, stroke, TIA, GERD, thyroid disease, arthritis, dementia Subjective Information 46 year old male from SNF. RD consult for dysphagia. Spoke to ELISE Christina, pt has ulcer in the throat, unable to eat, swallow eval ordered nad pending. Pt is a questionable historian, talkative, however speech unclear and difficult to understand. Pt unable to tell remote mortgage underwriter usual diet, repeatedly stated "can't swallow, need procedure, fix it." Front teeth missing only. Pt appeared thin, mild muscle fat wasting to chest and temporals. Current Diet Order/ Nutrition Support Clear liquid Pertinent Medications D5-0.9%ns, Iron, Synthroid, Zofran, Protonix, Carafate Pertinent Labs Reviewed. Nutritional Hx/Data Height 5 ft 9 in Height (Calculated Centimeters) 175.3 Current Weight (lbs) 147 lb Weight (Calculated Kilograms) 66.7 Weight (Calculated Grams) 63653.1 [place] Body Weight 160 Weight Status Approriate GI Symptoms Food Allergies No Skin Integrity/Comment: [place] 13. Skin intact. Estimated Nutritional Goals BEE in Kcals: Using Current wt Calories/Kcals/Kg CBW 147lb/66.8kg Kcals Calculated 1670-2004kcal (25-30kcal/kg) Protein: Using Current wt Protein Calculated 67g (1g/kg) Fluid: ml 1670-2004ml (1ml/kcal) Nutritional Problem 1. 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 GI consult and swallow eval pending, recommend regular diet with diet texture per ST if pt is able to resume oral diet. Nursing staff to ensure pt sit upright during meals to minimize possible reflux. 2. Monitor weight. 3. If unable to resume oral diet, recommend enteral nutrition. Expected Outcomes/Goals Expected Outcomes/Goals 1. Pt to meet at least 75% of estimated nutritional needs orally or enterally.
[2017-05-27] MEDS ORDERED: Benztropine 1 MG TAB PO PRN (13:05)
[2017-05-27] MEDS: [UNRECOGNIZED DRUG - OTHER] IV SCH (17:32)
[2017-05-27] MEDS: MULTIVITAMIN IV SCH (17:32)
[2017-05-27] MEDS: DEXTROSE IV SCH (17:32)
[2017-05-27] MEDS: Sodium Chloride 0.9% 1,000 ML IV SCH (17:35)
[2017-05-28 06:18] LABS: ANION GAP 8.7 (7.0-16.0); BUN - UREA NITROGEN 10 mg/dL (7-25); BUN/CREATININE RATIO 14.3; CALCIUM SERUM 8.6 mg/dL (8.6-10.3); CARBON DIOXIDE 26.6 mEq/L (21.0-31.0); CHLORIDE 103 mEq/L (98-107); CREATININE - SERUM 0.7 mg/dL (0.7-1.3); GLUCOSE 113 mg/dL (70-105); MAGNESIUM 1.9 mg/dL (1.9-2.7); PHOSPHOROUS 3.7 mg/dL (2.5-5.0); POTASSIUM SERUM 4.3 mEq/L (3.5-5.1); SODIUM SERUM 134 mEq/L (136-145)
[2017-05-28] MEDS: Lactobacillus Rhamnosus 10 Billion CFU Capsule PO SCH (09:41)
[2017-05-28] MEDS: OLANZapine 10 mg Oral Disintegrating Tab PO SCH (09:41)
[2017-05-28] MEDS: Lactulose 10 Gm/15 mL 30mL UDC PO SCH ×2 (09:41→16:40)
[2017-05-28] MEDS: Ferrous Sulfate 325 MG TAB PO SCH ×2 (09:41→16:40)
[2017-05-28] MEDS: INSULIN ASPART SLIDING SCALE 100 UNITS/ML UNIT SUBQ SCH ×4 (09:59→21:42)
--- NOTE | 2017-05-28 13:56 | Internal Medicine Prog Note ---
Internal Medicine Subjective - Subjective Service Date: 05/28/17 Patient is:: awake, verbal Patient Complaints of:: vomitting Per staff patient has:: no adverse event, noncompliant, confused, tolerating meds Internal Medicine Objective - Results Result Diagrams: 05/27/17 05:30 05/28/17 05:45 Recent Labs: Laboratory Last Values WBC 9.1 Th/cmm (4.8-10.8) 05/27/17 05:30 RBC 3.42 Mil/cmm (4.30-5.70) L 05/27/17 05:30 Hgb 10.9 gm/dL (12-16) L 05/27/17 05:30 Hct 31.4 % (41.0-60) L 05/27/17 05:30 MCV 91.7 fl (80-99) 05/27/17 05:30 MCH 31.8 pg (26.0-30.0) H 05/27/17 05:30 MCHC Differential 34.6 pg (28.0-36.0) 05/27/17 05:30 RDW 13.0 % (11.5-20.0) 05/27/17 05:30 Plt Count 264 Th/cmm (150-400) 05/27/17 05:30 MPV 8.7 fl 05/27/17 05:30 Neutrophils % 69.0 % (40.0-80.0) 05/27/17 05:30 Band Neutrophils % 3 % (0-10) 05/21/17 05:45 Lymphocytes % 21.1 % (20.0-50.0) 05/27/17 05:30 Monocytes % 8.8 % (2.0-10.0) 05/27/17 05:30 Eosinophils % 0.8 % (0.0-5.0) 05/27/17 05:30 Basophils % 0.3 % (0.0-2.0) 05/27/17 05:30 Neutrophils (Manual) 86 % (40-80) H 05/21/17 05:45 Lymphocytes 10 % (20-50) L 05/21/17 05:45 Monocytes 1 % (2-10) L 05/21/17 05:45 PT 11.3 SECONDS (9.5-11.5) 05/09/17 05:45 INR 1.09 (0.5-1.4) 05/09/17 05:45 PTT (Actin FS) 25.7 SECONDS (26.0-38.0) L 05/06/17 16:46 Sodium 134 mEq/L (136-145) L 05/28/17 05:45 Potassium 4.3 mEq/L (3.5-5.1) 05/28/17 05:45 Chloride 103 mEq/L (98-107) 05/28/17 05:45 Carbon Dioxide 26.6 mEq/L (21.0-31.0) 05/28/17 05:45 Anion Gap 8.7 (7.0-16.0) 05/28/17 05:45 BUN 10 mg/dL (7-25) 05/28/17 05:45 Creatinine 0.7 mg/dL (0.7-1.3) 05/28/17 05:45 Est GFR ( Amer) > 60.0 ml/min (>90) 05/28/17 05:45 Est GFR (Non-Af Amer) > 60.0 ml/min 05/28/17 05:45 BUN/Creatinine Ratio 14.3 05/28/17 05:45 Glucose 113 mg/dL (70-105) H 05/28/17 05:45 POC Glucose 93 MG/DL (70 - 105) 05/28/17 12:36 Calcium 8.6 mg/dL (8.6-10.3) 05/28/17 05:45 Phosphorus 3.7 mg/dL (2.5-5.0) 05/28/17 05:45 Magnesium 1.9 mg/dL (1.9-2.7) 05/28/17 05:45 Total Bilirubin 0.3 mg/dL (0.3-1.0) 05/14/17 11:20 AST 12 U/L (13-39) L 05/14/17 11:20 ALT 9 U/L (7-52) 05/14/17 11:20 Alkaline Phosphatase 45 U/L (34-104) 05/14/17 11:20 Ammonia 52 umol/L (16-53) 05/27/17 05:30 Troponin I 0.03 ng/mL (0.01-0.05) 05/06/17 16:46 C-Reactive Protein 3.9 mg/dL (0.0-0.9) H 05/24/17 08:30 Total Protein 7.4 gm/dL (6.0-8.3) 05/14/17 11:20 Albumin 2.7 gm/dL (4.2-5.5) L 05/27/17 05:30 Globulin 3.7 gm/dL 05/14/17 11:20 Albumin/Globulin Ratio 1.0 (1.0-1.8) 05/14/17 11:20 Prealbumin 10 mg/dL (12-34) L 05/24/17 08:30 Triglycerides 90 mg/dL (<150) 05/24/17 08:30 Cholesterol 126 mg/dL (<200) 05/06/17 16:46 LDL Cholesterol Direct 89 mg/dL (75-193) 05/06/17 16:46 HDL Cholesterol 30 mg/dL (23-92) 05/06/17 16:46 TSH 1.23 uIU/ml (0.34-5.60) 05/06/17 16:46 Urine Source CATH 05/26/17 15:10 Urine Color YELLOW 05/26/17 15:10 Urine Clarity CLEAR (CLEAR) 05/26/17 15:10 Urine pH 7.0 (4.6 - 8.0) 05/26/17 15:10 Ur Specific [place] 1.025 (1.005-1.030) 05/26/17 15:10 Urine Protein NEGATIVE mg/dL (NEGATIVE) 05/26/17 15:10 Urine Glucose (UA) NEGATIVE mg/dL (NEGATIVE) 05/26/17 15:10 Urine Ketones NEGATIVE mg/dL (NEGATIVE) 05/26/17 15:10 Urine Blood NEGATIVE (NEGATIVE) 05/26/17 15:10 Urine Nitrate NEGATIVE (NEGATIVE) 05/26/17 15:10 Urine Bilirubin NEGATIVE (NEGATIVE) 05/26/17 15:10 Urine Urobilinogen 1.0 E.U./dL (0.2 - 1.0) 05/26/17 15:10 Ur Leukocyte Esterase NEGATIVE (NEGATIVE) 05/26/17 15:10 Urine RBC NONE SEEN /hpf (0-5) 05/26/17 15:10 Urine WBC NONE SEEN /hpf (0-5) 05/26/17 15:10 Ur Epithelial Cells NONE SEEN /lpf (FEW) 05/26/17 15:10 Amorphous Sediment FEW URATES (NONE SEEN) 05/06/17 16:20 Urine Bacteria NONE SEEN /hpf (NONE SEEN) 05/26/17 15:10 Urine Mucus MODERATE /lpf (FEW) 05/06/17 16:20 Vancomycin Trough 16.8 ug/mL (10-20) 05/26/17 21:03 Valproic Acid < 10.0 ug/mL (50.0-100.0) L 05/21/17 05:45 RPR NONREACTIVE (NONREACTIVE) 05/06/17 16:46 - Physical Exam Vitals and I&O: Vital Signs Temp 98.4 F 05/28/17 12:00 Pulse 72 05/28/17 12:00 Resp 18 05/28/17 12:00 BP 124/90 05/28/17 12:00 Pulse Ox 100 05/28/17 12:00 Intake & Output 05/27/17 05/28/17 05/28/17 18:59 06:59 18:59 Intake Total 1775.5 250 Balance 1775.5 250 Intake: Intake, IV Amount 1775.5 250 Multivitamin Inj 10 ml In 1182.5 Dextrose 10% 1,380 ml In Amino Acids 3% / Electrolytes 1,000 ml In Intralipids 20% 250 ml @ 110 mls/hr IV .Q24H [facility] Rx#:[id number] Sodium Chloride 0.9% 1, 343 000 ml @ 30 mls/hr IV . Q24H [facility] Rx#:[id number] Vancomycin HCl 1.25 gm In 250 250 Sodium Chloride 0.9% 250 ml @ 165 mls/hr IV Q12H [facility] Rx#:[id number] Active Medications: Current Medications Acetaminophen (Tylenol) 650 mg PO Q4H PRN PRN Reason: Pain Or Fever above 101 Stop: 07/05/17 19:13 Al Hydrox/Mg Hydrox/Simethicone (Maalox) 30 ml PO Q6H PRN PRN Reason: Dyspepsia Stop: 07/05/17 19:13 Albuterol Sulfate (Albuterol 2.5mg/3ml Neb Ud) 2.5 mg HHN Q2HRT PRN PRN Reason: Shortness of Breath or Wheeze Stop: 07/05/17 19:13 Benztropine Mesylate (Cogentin) 1 mg PO BID PRN PRN Reason: Agitation Stop: 07/26/17 13:04 Bisacodyl (Dulcolax 10 Mg Supp) 10 mg RC DAILY PRN PRN Reason: Constipation Stop: 07/21/17 14:25 Divalproex Sodium (Depakote Er) 1,000 mg PO BID [facility] PRN Reason: Protocol Stop: 07/06/17 08:59 Last Admin: 05/28/17 09:41 Dose: Not Given Ferrous Sulfate (Iron) 325 mg PO BID [facility] Stop: 07/06/17 08:59 Last Admin: 05/28/17 09:41 Dose: Not Given Guaifenesin (Robitussin) 200 mg PO Q4HR PRN PRN Reason: Cough or Congestion Stop: 07/05/17 19:13 Haloperidol Lactate (Haldol) 2 mg IM HS PRN PRN Reason: Agitation Stop: 07/12/17 08:04 Haloperidol Lactate (Haldol) 2 mg IM DAILY PRN PRN Reason: Agitation Stop: 07/12/17 08:06 Last Admin: 05/20/17 13:32 Dose: 2 mg Heparin Sodium (Porcine) (Heparin) 5,000 units SUBQ Q12HR [facility] Stop: 07/05/17 20:59 Last Admin: 05/28/17 09:31 Dose: 5,000 units Vancomycin HCl 1.25 gm/ Sodium (Chloride) 250 mls @ 165 mls/hr IV Q12H [facility] Stop: 07/22/17 09:59 Last Admin: 05/28/17 11:24 Dose: 165 mls/hr Sodium Chloride (Nacl 0.9%) 1,000 mls @ 30 mls/hr IV .Q24H [facility] Stop: 07/25/17 15:59 Last Admin: 05/27/17 17:35 Dose: 30 mls/hr Multivitamins/Minerals 10 ml/Dextrose/ Amino Acids/Electrolytes/ Fat Emulsion Intravenous 2,640 mls @ 110 mls/hr IV .Q24H [facility] Stop: 07/25/17 15:59 Last Admin: 05/27/17 17:32 Dose: 110 mls/hr Insulin Aspart (Novolog Insulin Sliding Scale) 0 units SUBQ QID [facility] PRN Reason: Protocol Stop: 07/23/17 16:59 Last Admin: 05/28/17 12:39 Dose: Not Given Ipratropium [place] (Atrovent Neb 0.5mg/2.5ml) 0.5 mg HHN Q2HRT PRN PRN Reason: Shortness of Breath or Wheeze Stop: 07/05/17 19:13 Lactobacillus Rhamnosus (Culturelle) 1 each PO DAILY [facility] Stop: 07/21/17 08:59 Last Admin: 05/28/17 09:41 Dose: Not Given Lactulose (Cephulac) 30 gm PO BID [facility] Stop: 07/10/17 16:59 Last Admin: 05/28/17 09:41 Dose: Not Given Levothyroxine Sodium (Synthroid) 0.05 mg IVP DAILY [facility] Stop: 07/24/17 08:59 Last Admin: 05/28/17 10:23 Dose: 0.05 mg Metoclopramide HCl (Reglan) 10 mg IVP Q8HR PRN PRN Reason: Nausea / Vomiting Stop: 07/09/17 11:31 Last Admin: 05/11/17 06:31 Dose: 10 mg Miscellaneous (Ppn Per Pharmacy) 1 ea PRN PRN PRN Reason: PROTOCOL Stop: 07/20/17 13:24 Miscellaneous (Probiotic Screen) 1 ea PRN PRN PRN Reason: PROTOCOL Stop: 07/20/17 16:59 Miscellaneous (Vancomycin Iv Per Pharmacy) 1 ea DAILY [facility] Stop: 07/22/17 08:59 Olanzapine (Zyprexa) 10 mg PO HS [facility] PRN Reason: Protocol Stop: 07/07/17 20:59 Last Admin: 05/27/17 21:00 Dose: Not Given Olanzapine (Zyprexa Zydis) 10 mg PO DAILY [facility] Stop: 07/27/17 08:59 Last Admin: 05/28/17 09:41 Dose: Not Given Ondansetron HCl (Zofran) 4 mg IV Q4H PRN PRN Reason: Nausea / Vomiting Stop: 07/05/17 19:13 Last Admin: 05/19/17 15:22 Dose: 4 mg Pantoprazole Sodium (Protonix) 40 mg IVP BID [facility] Stop: 07/18/17 18:32 Last Admin: 05/28/17 09:39 Dose: 40 mg Sucralfate (Carafate) 1 gm PO QID [facility] Stop: 07/05/17 20:59 Last Admin: 05/28/17 09:41 Dose: Not Given Zolpidem Tartrate (Ambien) 5 mg PO HS PRN PRN Reason: Insomnia Stop: 07/05/17 19:12 General: lethargic, demented HEENT: NC/AT, PERRLA Neck: Supple Abdomen: soft, non-tender, non-distended, positive bowel sound Extremities: excoriation Neurological: alert, disorganized, unsteady, bedbound - Procedures Procedures: Procedures Procedure Code Date DILATION OF LOWER ESOPHAGUS, ENDO [id number] 05/06/17 EGD BIOPSY SINGLE/MULTIPLE 79344 05/06/17 ESOPH EGD DILATION <30 MM 38345 05/06/17 EXCISION OF ESOPHAGUS, ENDO, DIAGN [id number] 05/06/17 Internal Medicine Assmt/Plan - Assessment Assessment: DYSPHAGIA DEHYDRATION- FAILURE TO THRIVE HYPONATREMIA HYPOKALEMIA GERD HTN BARETT'S ESOPHAGUS - Plan Plan: monitor k+ continue with iv protonix case specialist arranging placement monitor cbc/bmp ivf for hydration continue current plan of care Nutritional Asmnt/Malnutr-PDOC - Dietary Evaluation Malnutrition Findings (Please click <Entered> for more info): Nutritional Asmnt/Malnutrition Start: 05/07/17 10: 39 Text: Status: Complete Freq: Document 05/07/17 14:31 GSUN (Rec: 05/07/17 15:03 GSUN [id number]) Nutritional Asmnt/Malnutrition Patient General Information Nutritional Screening Consult Diagnosis Dysphagia, dehydration, FTT, Serna esophagus, PCM Pertinent Medical Hx/Surgical Hx Schizophrenia, stroke, TIA, GERD, thyroid disease, arthritis, dementia Subjective Information 46 year old male from SNF. RD consult for dysphagia. Spoke to ELISE Christina, pt has ulcer in the throat, unable to eat, swallow eval ordered nad pending. Pt is a questionable historian, talkative, however speech unclear and difficult to understand. Pt unable to tell proposal lead writer usual diet, repeatedly stated "can't swallow, need procedure, fix it." Front teeth missing only. Pt appeared thin, mild muscle fat wasting to chest and temporals. Current Diet Order/ Nutrition Support Clear liquid Pertinent Medications D5-0.9%ns, Iron, Synthroid, Zofran, Protonix, Carafate Pertinent Labs Reviewed. Nutritional Hx/Data Height 5 ft 9 in Height (Calculated Centimeters) 175.3 Current Weight (lbs) 147 lb Weight (Calculated Kilograms) 66.7 Weight (Calculated Grams) 98625.1 [place] Body Weight 160 Weight Status Approriate GI Symptoms Food Allergies No Skin Integrity/Comment: [place] 13. Skin intact. Estimated Nutritional Goals BEE in Kcals: Using Current wt Calories/Kcals/Kg CBW 147lb/66.8kg Kcals Calculated 1670-2004kcal (25-30kcal/kg) Protein: Using Current wt Protein Calculated 67g (1g/kg) Fluid: ml 1670-2004ml (1ml/kcal) Nutritional Problem 1. 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 GI consult and swallow eval pending, recommend regular diet with diet texture per ST if pt is able to resume oral diet. Nursing staff to ensure pt sit upright during meals to minimize possible reflux. 2. Monitor weight. 3. If unable to resume oral diet, recommend enteral nutrition. Expected Outcomes/Goals Expected Outcomes/Goals 1. Pt to meet at least 75% of estimated nutritional needs orally or enterally.
[2017-05-28] MEDS: Metoclopramide 5 mg/mL 2mL Vial IVP PRN (15:11)
[2017-05-28] MEDS ORDERED: TPN 10%-70% CUSTOM IV SCH (17:00)
[2017-05-28] MEDS: TPN 10%-70% CUSTOM IV SCH (17:05)
[2017-05-29] MEDS: Sodium Chloride 0.9% 1,000 ML IV SCH (04:31)
[2017-05-29 06:19] LABS: ANION GAP 8.6 (7.0-16.0); BUN - UREA NITROGEN 10 mg/dL (7-25); BUN/CREATININE RATIO 14.3; CALCIUM SERUM 8.5 mg/dL (8.6-10.3); CARBON DIOXIDE 26.5 mEq/L (21.0-31.0); CHLORIDE 101 mEq/L (98-107); CREATININE - SERUM 0.7 mg/dL (0.7-1.3); GLUCOSE 121 mg/dL (70-105); MAGNESIUM 1.9 mg/dL (1.9-2.7); PHOSPHOROUS 4.2 mg/dL (2.5-5.0); POTASSIUM SERUM 4.1 mEq/L (3.5-5.1); SODIUM SERUM 132 mEq/L (136-145)
[2017-05-29] MEDS: OLANZapine 10 mg Oral Disintegrating Tab PO SCH ×2 (09:06→09:23)
[2017-05-29] MEDS: Lactulose 10 Gm/15 mL 30mL UDC PO SCH ×2 (09:06→09:23)
[2017-05-29] MEDS: Ferrous Sulfate 325 MG TAB PO SCH ×3 (09:07→18:08)
[2017-05-29] MEDS: Lactobacillus Rhamnosus 10 Billion CFU Capsule PO SCH (09:22)
[2017-05-29] MEDS: INSULIN ASPART SLIDING SCALE 100 UNITS/ML UNIT SUBQ SCH ×4 (09:31→21:30)
--- NOTE | 2017-05-29 09:32 | Progress Notes ---
DATE: 05/29/2017 SUBJECTIVE: Chart reviewed and the patient interviewed. Also discussed the patient's condition with the staff and reviewed records and labs. The patient is calm and he is cooperative with his treatment. The patient also is still withdrawn. He is not agitated and no major behavioral issues. Also, no side effects of medications. ASSESSMENT: The patient is still psychotic. The patient is depressed, but no major behavior problems. TREATMENT PLAN: Continue monitoring his behavior and his current medications and continue to follow up closely. [facility]# [id number]
--- NOTE | 2017-05-29 15:50 | Internal Medicine Prog Note ---
Internal Medicine Subjective - Subjective Service Date: 05/29/17 (PATIENT STILL HAS EPISODES OF VOMITING, ON TPN) Patient is:: awake, verbal Patient Complaints of:: vomitting Per staff patient has:: no adverse event, noncompliant, confused, tolerating meds Internal Medicine Objective - Results Result Diagrams: 05/27/17 05:30 05/29/17 04:40 Recent Labs: Laboratory Last Values WBC 9.1 Th/cmm (4.8-10.8) 05/27/17 05:30 RBC 3.42 Mil/cmm (4.30-5.70) L 05/27/17 05:30 Hgb 10.9 gm/dL (12-16) L 05/27/17 05:30 Hct 31.4 % (41.0-60) L 05/27/17 05:30 MCV 91.7 fl (80-99) 05/27/17 05:30 MCH 31.8 pg (26.0-30.0) H 05/27/17 05:30 MCHC Differential 34.6 pg (28.0-36.0) 05/27/17 05:30 RDW 13.0 % (11.5-20.0) 05/27/17 05:30 Plt Count 264 Th/cmm (150-400) 05/27/17 05:30 MPV 8.7 fl 05/27/17 05:30 Neutrophils % 69.0 % (40.0-80.0) 05/27/17 05:30 Band Neutrophils % 3 % (0-10) 05/21/17 05:45 Lymphocytes % 21.1 % (20.0-50.0) 05/27/17 05:30 Monocytes % 8.8 % (2.0-10.0) 05/27/17 05:30 Eosinophils % 0.8 % (0.0-5.0) 05/27/17 05:30 Basophils % 0.3 % (0.0-2.0) 05/27/17 05:30 Neutrophils (Manual) 86 % (40-80) H 05/21/17 05:45 Lymphocytes 10 % (20-50) L 05/21/17 05:45 Monocytes 1 % (2-10) L 05/21/17 05:45 PT 11.3 SECONDS (9.5-11.5) 05/09/17 05:45 INR 1.09 (0.5-1.4) 05/09/17 05:45 PTT (Actin FS) 25.7 SECONDS (26.0-38.0) L 05/06/17 16:46 Sodium 132 mEq/L (136-145) L 05/29/17 04:40 Potassium 4.1 mEq/L (3.5-5.1) 05/29/17 04:40 Chloride 101 mEq/L (98-107) 05/29/17 04:40 Carbon Dioxide 26.5 mEq/L (21.0-31.0) 05/29/17 04:40 Anion Gap 8.6 (7.0-16.0) 05/29/17 04:40 BUN 10 mg/dL (7-25) 05/29/17 04:40 Creatinine 0.7 mg/dL (0.7-1.3) 05/29/17 04:40 Est GFR ( Amer) > 60.0 ml/min (>90) 05/29/17 04:40 Est GFR (Non-Af Amer) > 60.0 ml/min 05/29/17 04:40 BUN/Creatinine Ratio 14.3 05/29/17 04:40 Glucose 121 mg/dL (70-105) H 05/29/17 04:40 POC Glucose 108 MG/DL (70 - 105) H 05/29/17 13:11 Calcium 8.5 mg/dL (8.6-10.3) L 05/29/17 04:40 Phosphorus 4.2 mg/dL (2.5-5.0) 05/29/17 04:40 Magnesium 1.9 mg/dL (1.9-2.7) 05/29/17 04:40 Total Bilirubin 0.3 mg/dL (0.3-1.0) 05/14/17 11:20 AST 12 U/L (13-39) L 05/14/17 11:20 ALT 9 U/L (7-52) 05/14/17 11:20 Alkaline Phosphatase 45 U/L (34-104) 05/14/17 11:20 Ammonia 52 umol/L (16-53) 05/27/17 05:30 Troponin I 0.03 ng/mL (0.01-0.05) 05/06/17 16:46 C-Reactive Protein 3.9 mg/dL (0.0-0.9) H 05/24/17 08:30 Total Protein 7.4 gm/dL (6.0-8.3) 05/14/17 11:20 Albumin 2.7 gm/dL (4.2-5.5) L 05/27/17 05:30 Globulin 3.7 gm/dL 05/14/17 11:20 Albumin/Globulin Ratio 1.0 (1.0-1.8) 05/14/17 11:20 Prealbumin 10 mg/dL (12-34) L 05/24/17 08:30 Triglycerides 84 mg/dL (<150) 05/29/17 04:40 Cholesterol 85 mg/dL (<200) 05/29/17 04:40 LDL Cholesterol Direct 89 mg/dL (75-193) 05/06/17 16:46 HDL Cholesterol 30 mg/dL (23-92) 05/06/17 16:46 Vitamin B12 931 pg/mL (211-946) 05/27/17 05:30 Folic Acid 13.0 ng/mL (>3.0) 05/27/17 05:30 TSH 1.23 uIU/ml (0.34-5.60) 05/06/17 16:46 Urine Source CATH 05/26/17 15:10 Urine Color YELLOW 05/26/17 15:10 Urine Clarity CLEAR (CLEAR) 05/26/17 15:10 Urine pH 7.0 (4.6 - 8.0) 05/26/17 15:10 Ur Specific [place] 1.025 (1.005-1.030) 05/26/17 15:10 Urine Protein NEGATIVE mg/dL (NEGATIVE) 05/26/17 15:10 Urine Glucose (UA) NEGATIVE mg/dL (NEGATIVE) 05/26/17 15:10 Urine Ketones NEGATIVE mg/dL (NEGATIVE) 05/26/17 15:10 Urine Blood NEGATIVE (NEGATIVE) 05/26/17 15:10 Urine Nitrate NEGATIVE (NEGATIVE) 05/26/17 15:10 Urine Bilirubin NEGATIVE (NEGATIVE) 05/26/17 15:10 Urine Urobilinogen 1.0 E.U./dL (0.2 - 1.0) 05/26/17 15:10 Ur Leukocyte Esterase NEGATIVE (NEGATIVE) 05/26/17 15:10 Urine RBC NONE SEEN /hpf (0-5) 05/26/17 15:10 Urine WBC NONE SEEN /hpf (0-5) 05/26/17 15:10 Ur Epithelial Cells NONE SEEN /lpf (FEW) 05/26/17 15:10 Amorphous Sediment FEW URATES (NONE SEEN) 05/06/17 16:20 Urine Bacteria NONE SEEN /hpf (NONE SEEN) 05/26/17 15:10 Urine Mucus MODERATE /lpf (FEW) 05/06/17 16:20 Vancomycin Trough 16.8 ug/mL (10-20) 05/26/17 21:03 Valproic Acid < 10.0 ug/mL (50.0-100.0) L 05/21/17 05:45 RPR NONREACTIVE (NONREACTIVE) 05/06/17 16:46 - Physical Exam Vitals and I&O: Vital Signs Temp 98.1 F 05/29/17 11:52 Pulse 78 05/29/17 11:52 Resp 18 05/29/17 11:52 BP 104/68 05/29/17 11:52 Pulse Ox 100 05/29/17 11:52 Intake & Output 05/28/17 05/29/17 05/29/17 18:59 06:59 18:59 Intake Total 250 1250 Balance 250 1250 Weight (lbs) 145 lb Intake: Intake, IV Amount 250 1250 Sodium Chloride 0.9% 1, 1000 000 ml @ 30 mls/hr IV . Q24H [facility] Rx#:[id number] Vancomycin HCl 1.25 gm In 250 250 Sodium Chloride 0.9% 250 ml @ 165 mls/hr IV Q12H [facility] Rx#:[id number] Active Medications: Current Medications Acetaminophen (Tylenol) 650 mg PO Q4H PRN PRN Reason: Pain Or Fever above 101 Stop: 07/05/17 19:13 Al Hydrox/Mg Hydrox/Simethicone (Maalox) 30 ml PO Q6H PRN PRN Reason: Dyspepsia Stop: 07/05/17 19:13 Albuterol Sulfate (Albuterol 2.5mg/3ml Neb Ud) 2.5 mg HHN Q2HRT PRN PRN Reason: Shortness of Breath or Wheeze Stop: 07/05/17 19:13 Benztropine Mesylate (Cogentin) 1 mg PO BID PRN PRN Reason: Agitation Stop: 07/26/17 13:04 Bisacodyl (Dulcolax 10 Mg Supp) 10 mg RC DAILY PRN PRN Reason: Constipation Stop: 07/21/17 14:25 Divalproex Sodium (Depakote Er) 1,000 mg PO BID [facility] PRN Reason: Protocol Stop: 07/06/17 08:59 Last Admin: 05/29/17 09:23 Dose: Not Given Ferrous Sulfate (Iron) 325 mg PO BID [facility] Stop: 07/06/17 08:59 Last Admin: 05/29/17 09:23 Dose: Not Given Guaifenesin (Robitussin) 200 mg PO Q4HR PRN PRN Reason: Cough or Congestion Stop: 07/05/17 19:13 Haloperidol Lactate (Haldol) 2 mg IM HS PRN PRN Reason: Agitation Stop: 07/12/17 08:04 Haloperidol Lactate (Haldol) 2 mg IM DAILY PRN PRN Reason: Agitation Stop: 07/12/17 08:06 Last Admin: 05/20/17 13:32 Dose: 2 mg Heparin Sodium (Porcine) (Heparin) 5,000 units SUBQ Q12HR [facility] Stop: 07/05/17 20:59 Last Admin: 05/29/17 09:06 Dose: 5,000 units Sodium Chloride (Nacl 0.9%) 1,000 mls @ 30 mls/hr IV .Q24H [facility] Stop: 07/25/17 15:59 Last Admin: 05/29/17 04:31 Dose: 30 mls/hr Multivitamins/Minerals 10 ml/Dextrose/ Amino Acids/Electrolytes/ Fat Emulsion Intravenous 2,640 mls @ 110 mls/hr IV .Q24H [facility] Stop: 07/27/17 16:59 Last Admin: 05/28/17 17:05 Dose: 110 mls/hr Insulin Aspart (Novolog Insulin Sliding Scale) 0 units SUBQ QID [facility] PRN Reason: Protocol Stop: 07/23/17 16:59 Last Admin: 05/29/17 15:38 Dose: Not Given Ipratropium [place] (Atrovent Neb 0.5mg/2.5ml) 0.5 mg HHN Q2HRT PRN PRN Reason: Shortness of Breath or Wheeze Stop: 07/05/17 19:13 Lactobacillus Rhamnosus (Culturelle) 1 each PO DAILY [facility] Stop: 07/21/17 08:59 Last Admin: 05/29/17 09:22 Dose: Not Given Levothyroxine Sodium (Synthroid) 0.05 mg IVP DAILY [facility] Stop: 07/24/17 08:59 Last Admin: 05/29/17 10:45 Dose: 0.05 mg Metoclopramide HCl (Reglan) 10 mg IVP Q8HR PRN PRN Reason: Nausea / Vomiting Stop: 07/09/17 11:31 Last Admin: 05/28/17 15:11 Dose: 10 mg Miscellaneous (Ppn Per Pharmacy) 1 ea PRN PRN PRN Reason: PROTOCOL Stop: 07/20/17 13:24 Miscellaneous (Probiotic Screen) 1 ea PRN PRN PRN Reason: PROTOCOL Stop: 07/20/17 16:59 Olanzapine (Zyprexa) 10 mg PO HS [facility] PRN Reason: Protocol Stop: 07/07/17 20:59 Last Admin: 05/28/17 21:41 Dose: Not Given Olanzapine (Zyprexa Zydis) 10 mg PO DAILY [facility] Stop: 07/27/17 08:59 Last Admin: 05/29/17 09:23 Dose: Not Given Ondansetron HCl (Zofran) 4 mg IV Q4H PRN PRN Reason: Nausea / Vomiting Stop: 07/05/17 19:13 Last Admin: 05/19/17 15:22 Dose: 4 mg Pantoprazole Sodium (Protonix) 40 mg IVP BID [facility] Stop: 07/18/17 18:32 Last Admin: 05/29/17 09:06 Dose: 40 mg Sucralfate (Carafate) 1 gm PO QID [facility] Stop: 07/05/17 20:59 Last Admin: 05/29/17 09:23 Dose: Not Given Zolpidem Tartrate (Ambien) 5 mg PO HS PRN PRN Reason: Insomnia Stop: 07/05/17 19:12 General: lethargic, demented HEENT: NC/AT, PERRLA Neck: Supple Abdomen: soft, non-tender, non-distended, positive bowel sound Extremities: excoriation Neurological: alert, disorganized, unsteady, bedbound - Procedures Procedures: Procedures Procedure Code Date DILATION OF LOWER ESOPHAGUS, ENDO [id number] 05/06/17 EGD BIOPSY SINGLE/MULTIPLE 84281 05/06/17 ESOPH EGD DILATION <30 MM 12150 05/06/17 EXCISION OF ESOPHAGUS, ENDO, DIAGN [id number] 05/06/17 Internal Medicine Assmt/Plan - Assessment Assessment: DYSPHAGIA DEHYDRATION- FAILURE TO THRIVE HYPONATREMIA HYPOKALEMIA GERD HTN BARETT'S ESOPHAGUS - Plan Plan: Continue with tpn monitor k+ continue with iv protonix lead case manager arranging placement monitor cbc/bmp ivf for hydration continue current plan of care Nutritional Asmnt/Malnutr-PDOC - Dietary Evaluation Malnutrition Findings (Please click <Entered> for more info): Nutritional Asmnt/Malnutrition Start: 05/07/17 10: 39 Text: Status: Complete Freq: Document 05/07/17 14:31 GSUN (Rec: 05/07/17 15:03 GSUN [id number]) Nutritional Asmnt/Malnutrition Patient General Information Nutritional Screening Consult Diagnosis Dysphagia, dehydration, FTT, Serna esophagus, PCM Pertinent Medical Hx/Surgical Hx Schizophrenia, stroke, TIA, GERD, thyroid disease, arthritis, dementia Subjective Information 46 year old male from SNF. RD consult for dysphagia. Spoke to RN Carri, pt has ulcer in the throat, unable to eat, swallow eval ordered nad pending. Pt is a questionable historian, talkative, however speech unclear and difficult to understand. 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 Pt appeared thin, mild muscle fat wasting to chest and temporals. Current Diet Order/ Nutrition Support Clear liquid Pertinent Medications D5-0.9%ns, Iron, Synthroid, Zofran, Protonix, Carafate Pertinent Labs Reviewed. Nutritional Hx/Data Height 5 ft 9 in Height (Calculated Centimeters) 175.3 Current Weight (lbs) 147 lb Weight (Calculated Kilograms) 66.7 Weight (Calculated Grams) 59182.1 Justice Body Weight 160 Weight Status Approriate GI Symptoms Food Allergies No Skin Integrity/Comment: Murray 13. Skin intact. Estimated Nutritional Goals BEE in Kcals: Using Current wt Calories/Kcals/Kg CBW 147lb/66.8kg Kcals Calculated 1670-2004kcal (25-30kcal/kg) Protein: Using Current wt Protein Calculated 67g (1g/kg) Fluid: ml 1670-2004ml (1ml/kcal) Nutritional Problem 1. Problem Problem Difficulty swallowing related to Etiology Esrna's esophagus aeb Signs/Symptoms: pt report can not swallow, swallow eval pending Intervention/Recommendation Comments 1. GI consult and swallow eval pending, recommend regular diet with diet texture per ST if pt is able to resume oral diet. Nursing staff to ensure pt sit upright during meals to minimize possible reflux. 2. Monitor weight. 3. If unable to resume oral diet, recommend enteral nutrition. Expected Outcomes/Goals Expected Outcomes/Goals 1. Pt to meet at least 75% of estimated nutritional needs orally or enterally.
[2017-05-29] MEDS: TPN 10%-70% CUSTOM IV SCH (18:09)
[2017-05-30 06:09] LABS: % BASOPHILS 0.8 % (0.0-2.0); % EOSINOPHILS 1.2 % (0.0-5.0); % LYMPHOCYTES 20.9 % (20.0-50.0); % MONOCYTES 6.5 % (2.0-10.0); % NEUTROPHILS 70.6 % (40.0-80.0); HEMATOCRIT 32.6 % (41.0-60); MEAN CELL VOLUME 91.7 fl (80-99); MEAN CORPUSCULAR HEMOGLOBIN 30.9 pg (26.0-30.0); MEAN CORPUSCULAR HGB CONC 33.7 pg (28.0-36.0); MEAN PLATELET VOLUME 9.1 fl; NEUTROPHILE ABSOLUTE 5.8 Th/cmm (1.8-8.0); PLATELET COUNT 277 Th/cmm (150-400); RED BLOOD COUNT 3.55 Mil/cmm (4.30-5.70); RED CELL DISTRIBUTION WIDTH 13.1 % (11.5-20.0); WHITE BLOOD COUNT 8.2 Th/cmm (4.8-10.8)
[2017-05-30 06:23] LABS: BUN - UREA NITROGEN 10 mg/dL (7-25); BUN/CREATININE RATIO 14.3; CALCIUM SERUM 8.6 mg/dL (8.6-10.3); CARBON DIOXIDE 25.2 mEq/L (21.0-31.0); CHLORIDE 106 mEq/L (98-107); CREATININE - SERUM 0.7 mg/dL (0.7-1.3); GLUCOSE 120 mg/dL (70-105); PHOSPHOROUS 3.8 mg/dL (2.5-5.0); POTASSIUM SERUM 4.2 mEq/L (3.5-5.1); SODIUM SERUM 136 mEq/L (136-145)
--- NOTE | 2017-05-30 07:26 | Progress Notes ---
DATE: 05/30/2017 SUBJECTIVE: Chart reviewed and the patient interviewed. Also discussed the patient's condition with the staff and reviewed records and labs. The patient is still anxious and he seems to be slightly more agitated today. The patient also is restless and had difficulty getting on coherent conversation. The patient also seems to be slightly suspicious and paranoid, but no major behavioral issues. ASSESSMENT: The patient is agitated, but no behavioral problems. TREATMENT PLAN: We will continue monitoring his behavior and his condition closely. Also, continue to work on his ineffective coping. JOB# [id number]
[2017-05-30] MEDS: Ferrous Sulfate 325 MG TAB PO SCH ×3 (09:22→19:05)
[2017-05-30] MEDS: Lactobacillus Rhamnosus 10 Billion CFU Capsule PO SCH ×2 (09:22→09:36)
[2017-05-30] MEDS: OLANZapine 10 mg Oral Disintegrating Tab PO SCH ×2 (09:22→09:34)
[2017-05-30] MEDS: INSULIN ASPART SLIDING SCALE 100 UNITS/ML UNIT SUBQ SCH ×4 (09:34→22:13)
--- NOTE | 2017-05-30 11:52 | Internal Medicine Prog Note ---
Internal Medicine Subjective - Subjective Service Date: 05/30/17 Patient seen and examined:: with staff Patient is:: awake, verbal Patient Complaints of:: vomitting Per staff patient has:: no adverse event, noncompliant, confused, tolerating meds Internal Medicine Objective - Results Result Diagrams: 05/30/17 05:45 05/30/17 05:45 Recent Labs: Laboratory Last Values WBC 8.2 Th/cmm (4.8-10.8) 05/30/17 05:45 RBC 3.55 Mil/cmm (4.30-5.70) L 05/30/17 05:45 Hgb 11.0 gm/dL (12-16) L 05/30/17 05:45 Hct 32.6 % (41.0-60) L 05/30/17 05:45 MCV 91.7 fl (80-99) 05/30/17 05:45 MCH 30.9 pg (26.0-30.0) H 05/30/17 05:45 MCHC Differential 33.7 pg (28.0-36.0) 05/30/17 05:45 RDW 13.1 % (11.5-20.0) 05/30/17 05:45 Plt Count 277 Th/cmm (150-400) 05/30/17 05:45 MPV 9.1 fl 05/30/17 05:45 Neutrophils % 70.6 % (40.0-80.0) 05/30/17 05:45 Band Neutrophils % 3 % (0-10) 05/21/17 05:45 Lymphocytes % 20.9 % (20.0-50.0) 05/30/17 05:45 Monocytes % 6.5 % (2.0-10.0) 05/30/17 05:45 Eosinophils % 1.2 % (0.0-5.0) 05/30/17 05:45 Basophils % 0.8 % (0.0-2.0) 05/30/17 05:45 Neutrophils (Manual) 86 % (40-80) H 05/21/17 05:45 Lymphocytes 10 % (20-50) L 05/21/17 05:45 Monocytes 1 % (2-10) L 05/21/17 05:45 PT 11.3 SECONDS (9.5-11.5) 05/09/17 05:45 INR 1.09 (0.5-1.4) 05/09/17 05:45 PTT (Actin FS) 25.7 SECONDS (26.0-38.0) L 05/06/17 16:46 Sodium 136 mEq/L (136-145) 05/30/17 05:45 Potassium 4.2 mEq/L (3.5-5.1) 05/30/17 05:45 Chloride 106 mEq/L (98-107) 05/30/17 05:45 Carbon Dioxide 25.2 mEq/L (21.0-31.0) 05/30/17 05:45 Anion Gap 9.0 (7.0-16.0) 05/30/17 05:45 BUN 10 mg/dL (7-25) 05/30/17 05:45 Creatinine 0.7 mg/dL (0.7-1.3) 05/30/17 05:45 Est GFR ( Amer) > 60.0 ml/min (>90) 05/30/17 05:45 Est GFR (Non-Af Amer) > 60.0 ml/min 05/30/17 05:45 BUN/Creatinine Ratio 14.3 05/30/17 05:45 Glucose 120 mg/dL (70-105) H 05/30/17 05:45 POC Glucose 96 MG/DL (70 - 105) 05/30/17 09:30 Calcium 8.6 mg/dL (8.6-10.3) 05/30/17 05:45 Phosphorus 3.8 mg/dL (2.5-5.0) 05/30/17 05:45 Magnesium 2.0 mg/dL (1.9-2.7) 05/30/17 05:45 Total Bilirubin 0.3 mg/dL (0.3-1.0) 05/14/17 11:20 AST 12 U/L (13-39) L 05/14/17 11:20 ALT 9 U/L (7-52) 05/14/17 11:20 Alkaline Phosphatase 45 U/L (34-104) 05/14/17 11:20 Ammonia 52 umol/L (16-53) 05/27/17 05:30 Troponin I 0.03 ng/mL (0.01-0.05) 05/06/17 16:46 C-Reactive Protein 3.9 mg/dL (0.0-0.9) H 05/24/17 08:30 Total Protein 7.4 gm/dL (6.0-8.3) 05/14/17 11:20 Albumin 2.7 gm/dL (4.2-5.5) L 05/27/17 05:30 Globulin 3.7 gm/dL 05/14/17 11:20 Albumin/Globulin Ratio 1.0 (1.0-1.8) 05/14/17 11:20 Prealbumin 10 mg/dL (12-34) L 05/24/17 08:30 Triglycerides 84 mg/dL (<150) 05/29/17 04:40 Cholesterol 85 mg/dL (<200) 05/29/17 04:40 LDL Cholesterol Direct 89 mg/dL (75-193) 05/06/17 16:46 HDL Cholesterol 30 mg/dL (23-92) 05/06/17 16:46 Vitamin B12 931 pg/mL (211-946) 05/27/17 05:30 Folic Acid 13.0 ng/mL (>3.0) 05/27/17 05:30 TSH 1.23 uIU/ml (0.34-5.60) 05/06/17 16:46 Urine Source CATH 05/26/17 15:10 Urine Color YELLOW 05/26/17 15:10 Urine Clarity CLEAR (CLEAR) 05/26/17 15:10 Urine pH 7.0 (4.6 - 8.0) 05/26/17 15:10 Ur Specific [place] 1.025 (1.005-1.030) 05/26/17 15:10 Urine Protein NEGATIVE mg/dL (NEGATIVE) 05/26/17 15:10 Urine Glucose (UA) NEGATIVE mg/dL (NEGATIVE) 05/26/17 15:10 Urine Ketones NEGATIVE mg/dL (NEGATIVE) 05/26/17 15:10 Urine Blood NEGATIVE (NEGATIVE) 05/26/17 15:10 Urine Nitrate NEGATIVE (NEGATIVE) 05/26/17 15:10 Urine Bilirubin NEGATIVE (NEGATIVE) 05/26/17 15:10 Urine Urobilinogen 1.0 E.U./dL (0.2 - 1.0) 05/26/17 15:10 Ur Leukocyte Esterase NEGATIVE (NEGATIVE) 05/26/17 15:10 Urine RBC NONE SEEN /hpf (0-5) 05/26/17 15:10 Urine WBC NONE SEEN /hpf (0-5) 05/26/17 15:10 Ur Epithelial Cells NONE SEEN /lpf (FEW) 05/26/17 15:10 Amorphous Sediment FEW URATES (NONE SEEN) 05/06/17 16:20 Urine Bacteria NONE SEEN /hpf (NONE SEEN) 05/26/17 15:10 Urine Mucus MODERATE /lpf (FEW) 05/06/17 16:20 Vancomycin Trough 16.8 ug/mL (10-20) 05/26/17 21:03 Valproic Acid < 10.0 ug/mL (50.0-100.0) L 05/21/17 05:45 RPR NONREACTIVE (NONREACTIVE) 05/06/17 16:46 - Physical Exam Vitals and I&O: Vital Signs Temp 98.2 F 05/30/17 08:00 Pulse 71 05/30/17 08:00 Resp 18 05/30/17 08:00 BP 104/63 05/30/17 08:00 Pulse Ox 100 05/30/17 08:00 Intake & Output 05/29/17 05/30/17 05/30/17 18:59 06:59 18:59 Intake Total 2640 2093.167 Balance 2640 2093.167 Weight (lbs) 154 lb 6 oz Intake: Intake, IV Amount 2640 2093.167 Multivitamin Inj 10 ml In 2640 1323.667 Dextrose 70% 1,880 ml In Amino Acids 10% 500 ml In Intralipids 20% 250 ml @ 110 mls/hr IV .Q24H KAM Rx#:[id number] Sodium Chloride 0.9% 1, 769.5 000 ml @ 30 mls/hr IV . Q24H KAM Rx#:[id number] Other: # Voids 2 # Bowel Movements 0 Active Medications: Current Medications Acetaminophen (Tylenol) 650 mg PO Q4H PRN PRN Reason: Pain Or Fever above 101 Stop: 07/05/17 19:13 Al Hydrox/Mg Hydrox/Simethicone (Maalox) 30 ml PO Q6H PRN PRN Reason: Dyspepsia Stop: 07/05/17 19:13 Albuterol Sulfate (Albuterol 2.5mg/3ml Neb Ud) 2.5 mg HHN Q2HRT PRN PRN Reason: Shortness of Breath or Wheeze Stop: 07/05/17 19:13 Benztropine Mesylate (Cogentin) 1 mg PO BID PRN PRN Reason: Agitation Stop: 07/26/17 13:04 Bisacodyl (Dulcolax 10 Mg Supp) 10 mg RC DAILY PRN PRN Reason: Constipation Stop: 07/21/17 14:25 Divalproex Sodium (Depakote Er) 1,000 mg PO BID KAM PRN Reason: Protocol Stop: 07/06/17 08:59 Last Admin: 05/30/17 09:36 Dose: Not Given Ferrous Sulfate (Iron) 325 mg PO BID [facility] Stop: 07/06/17 08:59 Last Admin: 05/30/17 09:36 Dose: Not Given Guaifenesin (Robitussin) 200 mg PO Q4HR PRN PRN Reason: Cough or Congestion Stop: 07/05/17 19:13 Haloperidol Lactate (Haldol) 2 mg IM HS PRN PRN Reason: Agitation Stop: 07/12/17 08:04 Haloperidol Lactate (Haldol) 2 mg IM DAILY PRN PRN Reason: Agitation Stop: 07/12/17 08:06 Last Admin: 05/20/17 13:32 Dose: 2 mg Heparin Sodium (Porcine) (Heparin) 5,000 units SUBQ Q12HR [facility] Stop: 07/05/17 20:59 Last Admin: 05/30/17 09:22 Dose: 5,000 units Sodium Chloride (Nacl 0.9%) 1,000 mls @ 30 mls/hr IV .Q24H [facility] Stop: 07/25/17 15:59 Last Infusion: 05/30/17 06:10 Dose: 30 mls/hr Multivitamins/Minerals 10 ml/Dextrose/ Amino Acids/Electrolytes/ Fat Emulsion Intravenous 2,640 mls @ 110 mls/hr IV .Q24H [facility] Stop: 07/27/17 16:59 Last Infusion: 05/30/17 06:11 Dose: 110 mls/hr Insulin Aspart (Novolog Insulin Sliding Scale) 0 units SUBQ QID KAM PRN Reason: Protocol Stop: 07/23/17 16:59 Last Admin: 05/30/17 09:34 Dose: Not Given Ipratropium [place] (Atrovent Neb 0.5mg/2.5ml) 0.5 mg HHN Q2HRT PRN PRN Reason: Shortness of Breath or Wheeze Stop: 07/05/17 19:13 Lactobacillus Rhamnosus (Culturelle) 1 each PO DAILY [facility] Stop: 07/21/17 08:59 Last Admin: 05/30/17 09:36 Dose: Not Given Levothyroxine Sodium (Synthroid) 0.05 mg IVP DAILY [facility] Stop: 07/24/17 08:59 Last Admin: 05/30/17 09:24 Dose: 0.05 mg Metoclopramide HCl (Reglan) 10 mg IVP Q8HR PRN PRN Reason: Nausea / Vomiting Stop: 07/09/17 11:31 Last Admin: 05/28/17 15:11 Dose: 10 mg Miscellaneous (Ppn Per Pharmacy) 1 [facility] PRN PRN PRN Reason: PROTOCOL Stop: 07/20/17 13:24 Miscellaneous (Probiotic Screen) 1 [facility] PRN PRN PRN Reason: PROTOCOL Stop: 07/20/17 16:59 Olanzapine (Zyprexa) 10 mg PO HS KAM PRN Reason: Protocol Stop: 07/07/17 20:59 Last Admin: 05/29/17 21:21 Dose: Not Given Olanzapine (Zyprexa Zydis) 10 mg PO DAILY [facility] Stop: 07/27/17 08:59 Last Admin: 05/30/17 09:34 Dose: Not Given Ondansetron HCl (Zofran) 4 mg IV Q4H PRN PRN Reason: Nausea / Vomiting Stop: 07/05/17 19:13 Last Admin: 05/19/17 15:22 Dose: 4 mg Pantoprazole Sodium (Protonix) 40 mg IVP BID [facility] Stop: 07/18/17 18:32 Last Admin: 05/30/17 09:22 Dose: 40 mg Sucralfate (Carafate) 1 gm PO QID [facility] Stop: 07/05/17 20:59 Last Admin: 05/29/17 21:21 Dose: Not Given Zolpidem Tartrate (Ambien) 5 mg PO HS PRN PRN Reason: Insomnia Stop: 07/05/17 19:12 General: lethargic, demented HEENT: NC/AT, PERRLA Neck: Supple Abdomen: soft, non-tender, non-distended, positive bowel sound Extremities: excoriation Neurological: alert, disorganized, unsteady, bedbound - Procedures Procedures: Procedures Procedure Code Date DILATION OF LOWER ESOPHAGUS, ENDO [id number] 05/06/17 EGD BIOPSY SINGLE/MULTIPLE 11184 05/06/17 ESOPH EGD DILATION <30 MM 78567 05/06/17 EXCISION OF ESOPHAGUS, ENDO, DIAGN [id number] 05/06/17 Internal Medicine Assmt/Plan - Assessment Assessment: DYSPHAGIA DEHYDRATION- FAILURE TO THRIVE HYPONATREMIA HYPOKALEMIA GERD HTN BARETT'S ESOPHAGUS - Plan Plan: Continue with tpn monitor k+ continue with iv protonix case preparer and liner arranging placement monitor cbc/bmp ivf for hydration continue current plan of care Nutritional Asmnt/Malnutr-PDOC - Dietary Evaluation Malnutrition Findings (Please click <Entered> for more info): Nutritional Asmnt/Malnutrition Start: 05/07/17 10: 39 Text: Status: Complete Freq: Document 05/07/17 14:31 GSUN (Rec: 05/07/17 15:03 GSUN [email or web address]) Nutritional Asmnt/Malnutrition Patient General Information Nutritional Screening Consult Diagnosis Dysphagia, dehydration, FTT, Serna esophagus, PCM Pertinent Medical Hx/Surgical Hx Schizophrenia, stroke, TIA, GERD, thyroid disease, arthritis, dementia Subjective Information 46 year old male from SNF. RD consult for dysphagia. Spoke to ELISE Christina, pt has ulcer in the throat, unable to eat, swallow eval ordered nad pending. Pt is a questionable historian, talkative, however speech unclear and difficult to understand. Pt unable to tell scenario writer usual diet, repeatedly stated "can't swallow, need procedure, fix it." Front teeth missing only. Pt appeared thin, mild muscle fat wasting to chest and temporals. Current Diet Order/ Nutrition Support Clear liquid Pertinent Medications D5-0.9%ns, Iron, Synthroid, Zofran, Protonix, Carafate Pertinent Labs Reviewed. Nutritional Hx/Data Height 5 ft 9 in Height (Calculated Centimeters) 175.3 Current Weight (lbs) 147 lb Weight (Calculated Kilograms) 66.7 Weight (Calculated Grams) 29110.1 [place] Body Weight 160 Weight Status Approriate GI Symptoms Food Allergies No Skin Integrity/Comment: Murray Clifford. Skin intact. Estimated Nutritional Goals BEE in Kcals: Using Current wt Calories/Kcals/Kg CBW 147lb/66.8kg Kcals Calculated 1670-2004kcal (25-30kcal/kg) Protein: Using Current wt Protein Calculated 67g (1g/kg) Fluid: ml 1670-2004ml (1ml/kcal) Nutritional Problem 1. 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 GI consult and swallow eval pending, recommend regular diet with diet texture per ST if pt is able to resume oral diet. Nursing staff to ensure pt sit upright during meals to minimize possible reflux. 2. Monitor weight. 3. If unable to resume oral diet, recommend enteral nutrition. Expected Outcomes/Goals Expected Outcomes/Goals 1. Pt to meet at least 75% of estimated nutritional needs orally or enterally.
[2017-05-30] MEDS: Sodium Chloride 0.9% 1,000 ML IV SCH ×2 (16:52→16:59)
[2017-05-30] MEDS: TPN 10%-70% CUSTOM IV SCH (18:31)
[2017-05-31 08:50] LABS: % BASOPHILS 0.5 % (0.0-2.0); % EOSINOPHILS 1.4 % (0.0-5.0); % LYMPHOCYTES 17.9 % (20.0-50.0); % MONOCYTES 7.1 % (2.0-10.0); % NEUTROPHILS 73.1 % (40.0-80.0); HEMATOCRIT 33.9 % (41.0-60); HEMOGLOBIN 11.5 gm/dL (12-16); MEAN CELL VOLUME 91.1 fl (80-99); MEAN CORPUSCULAR HEMOGLOBIN 30.9 pg (26.0-30.0); MEAN PLATELET VOLUME 8.5 fl; NEUTROPHILE ABSOLUTE 7.7 Th/cmm (1.8-8.0); PLATELET COUNT 326 Th/cmm (150-400); RED BLOOD COUNT 3.72 Mil/cmm (4.30-5.70); RED CELL DISTRIBUTION WIDTH 13.2 % (11.5-20.0)
[2017-05-31 08:51] LABS: WHITE BLOOD COUNT 10.6 Th/cmm (4.8-10.8)
[2017-05-31] MEDS: INSULIN ASPART SLIDING SCALE 100 UNITS/ML UNIT SUBQ SCH (09:06)
[2017-05-31 09:10] LABS: ANION GAP 9.3 (7.0-16.0); BUN - UREA NITROGEN 10 mg/dL (7-25); BUN/CREATININE RATIO 16.7; CALCIUM SERUM 8.9 mg/dL (8.6-10.3); CHLORIDE 101 mEq/L (98-107); CREATININE - SERUM 0.6 mg/dL (0.7-1.3); GLUCOSE 114 mg/dL (70-105); MAGNESIUM 1.9 mg/dL (1.9-2.7); PHOSPHOROUS 3.6 mg/dL (2.5-5.0); POTASSIUM SERUM 4.3 mEq/L (3.5-5.1); SODIUM SERUM 133 mEq/L (136-145)
[2017-05-31] MEDS: OLANZapine 10 mg Oral Disintegrating Tab PO SCH (09:21)
[2017-05-31] MEDS: Ferrous Sulfate 325 MG TAB PO SCH ×2 (09:21→17:32)
[2017-05-31] MEDS: Lactobacillus Rhamnosus 10 Billion CFU Capsule PO SCH (09:21)
--- NOTE | 2017-05-31 13:12 | Internal Medicine Prog Note ---
Internal Medicine Subjective - Subjective Service Date: 05/31/17 Patient is:: awake, verbal Patient Complaints of:: vomitting Per staff patient has:: no adverse event, noncompliant, confused, tolerating meds Internal Medicine Objective - Results Result Diagrams: 05/31/17 08:45 05/31/17 08:45 Recent Labs: Laboratory Last Values WBC 10.6 Th/cmm (4.8-10.8) D 05/31/17 08:45 RBC 3.72 Mil/cmm (4.30-5.70) L 05/31/17 08:45 Hgb 11.5 gm/dL (12-16) L 05/31/17 08:45 Hct 33.9 % (41.0-60) L 05/31/17 08:45 MCV 91.1 fl (80-99) 05/31/17 08:45 MCH 30.9 pg (26.0-30.0) H 05/31/17 08:45 MCHC Differential 34.0 pg (28.0-36.0) 05/31/17 08:45 RDW 13.2 % (11.5-20.0) 05/31/17 08:45 Plt Count 326 Th/cmm (150-400) 05/31/17 08:45 MPV 8.5 fl 05/31/17 08:45 Neutrophils % 73.1 % (40.0-80.0) 05/31/17 08:45 Band Neutrophils % 3 % (0-10) 05/21/17 05:45 Lymphocytes % 17.9 % (20.0-50.0) L 05/31/17 08:45 Monocytes % 7.1 % (2.0-10.0) 05/31/17 08:45 Eosinophils % 1.4 % (0.0-5.0) 05/31/17 08:45 Basophils % 0.5 % (0.0-2.0) 05/31/17 08:45 Neutrophils (Manual) 86 % (40-80) H 05/21/17 05:45 Lymphocytes 10 % (20-50) L 05/21/17 05:45 Monocytes 1 % (2-10) L 05/21/17 05:45 PT 11.3 SECONDS (9.5-11.5) 05/09/17 05:45 INR 1.09 (0.5-1.4) 05/09/17 05:45 PTT (Actin FS) 25.7 SECONDS (26.0-38.0) L 05/06/17 16:46 Sodium 133 mEq/L (136-145) L 05/31/17 08:45 Potassium 4.3 mEq/L (3.5-5.1) 05/31/17 08:45 Chloride 101 mEq/L (98-107) 05/31/17 08:45 Carbon Dioxide 27.0 mEq/L (21.0-31.0) 05/31/17 08:45 Anion Gap 9.3 (7.0-16.0) 05/31/17 08:45 BUN 10 mg/dL (7-25) 05/31/17 08:45 Creatinine 0.6 mg/dL (0.7-1.3) L 05/31/17 08:45 Est GFR ( Amer) > 60.0 ml/min (>90) 05/31/17 08:45 Est GFR (Non-Af Amer) > 60.0 ml/min 05/31/17 08:45 BUN/Creatinine Ratio 16.7 05/31/17 08:45 Glucose 114 mg/dL (70-105) H 05/31/17 08:45 POC Glucose 106 MG/DL (70 - 105) H 05/31/17 08:49 Calcium 8.9 mg/dL (8.6-10.3) 05/31/17 08:45 Phosphorus 3.6 mg/dL (2.5-5.0) 05/31/17 08:45 Magnesium 1.9 mg/dL (1.9-2.7) 05/31/17 08:45 Total Bilirubin 0.3 mg/dL (0.3-1.0) 05/14/17 11:20 AST 12 U/L (13-39) L 05/14/17 11:20 ALT 9 U/L (7-52) 05/14/17 11:20 Alkaline Phosphatase 45 U/L (34-104) 05/14/17 11:20 Ammonia 52 umol/L (16-53) 05/27/17 05:30 Troponin I 0.03 ng/mL (0.01-0.05) 05/06/17 16:46 C-Reactive Protein 3.9 mg/dL (0.0-0.9) H 05/24/17 08:30 Total Protein 7.4 gm/dL (6.0-8.3) 05/14/17 11:20 Albumin 2.7 gm/dL (4.2-5.5) L 05/27/17 05:30 Globulin 3.7 gm/dL 05/14/17 11:20 Albumin/Globulin Ratio 1.0 (1.0-1.8) 05/14/17 11:20 Prealbumin 10 mg/dL (12-34) L 05/24/17 08:30 Triglycerides 84 mg/dL (<150) 05/29/17 04:40 Cholesterol 85 mg/dL (<200) 05/29/17 04:40 LDL Cholesterol Direct 89 mg/dL (75-193) 05/06/17 16:46 HDL Cholesterol 30 mg/dL (23-92) 05/06/17 16:46 Vitamin B12 931 pg/mL (211-946) 05/27/17 05:30 Folic Acid 13.0 ng/mL (>3.0) 05/27/17 05:30 TSH 1.23 uIU/ml (0.34-5.60) 05/06/17 16:46 Urine Source CATH 05/26/17 15:10 Urine Color YELLOW 05/26/17 15:10 Urine Clarity CLEAR (CLEAR) 05/26/17 15:10 Urine pH 7.0 (4.6 - 8.0) 05/26/17 15:10 Ur Specific [place] 1.025 (1.005-1.030) 05/26/17 15:10 Urine Protein NEGATIVE mg/dL (NEGATIVE) 05/26/17 15:10 Urine Glucose (UA) NEGATIVE mg/dL (NEGATIVE) 05/26/17 15:10 Urine Ketones NEGATIVE mg/dL (NEGATIVE) 05/26/17 15:10 Urine Blood NEGATIVE (NEGATIVE) 05/26/17 15:10 Urine Nitrate NEGATIVE (NEGATIVE) 05/26/17 15:10 Urine Bilirubin NEGATIVE (NEGATIVE) 05/26/17 15:10 Urine Urobilinogen 1.0 E.U./dL (0.2 - 1.0) 05/26/17 15:10 Ur Leukocyte Esterase NEGATIVE (NEGATIVE) 05/26/17 15:10 Urine RBC NONE SEEN /hpf (0-5) 05/26/17 15:10 Urine WBC NONE SEEN /hpf (0-5) 05/26/17 15:10 Ur Epithelial Cells NONE SEEN /lpf (FEW) 05/26/17 15:10 Amorphous Sediment FEW URATES (NONE SEEN) 05/06/17 16:20 Urine Bacteria NONE SEEN /hpf (NONE SEEN) 05/26/17 15:10 Urine Mucus MODERATE /lpf (FEW) 05/06/17 16:20 Vancomycin Trough 2.3 ug/mL (10-20) L 05/31/17 08:45 Valproic Acid < 10.0 ug/mL (50.0-100.0) L 05/21/17 05:45 RPR NONREACTIVE (NONREACTIVE) 05/06/17 16:46 - Physical Exam Vitals and I&O: Vital Signs Temp 97.6 F 05/31/17 12:00 Pulse 75 05/31/17 12:00 Resp 16 05/31/17 12:00 BP 110/77 05/31/17 12:00 Pulse Ox 100 05/31/17 12:00 Intake & Output 05/30/17 05/31/17 05/31/17 18:59 06:59 18:59 Intake Total 5152.053 5782 Output Total 3 Balance 9117.627 6719 Weight (lbs) 153 lb Intake: Intake, IV Amount 1550.333 Multivitamin Inj 10 ml In 1316.333 Dextrose 70% 1,880 ml In Amino Acids 10% 500 ml In Intralipids 20% 250 ml @ 110 mls/hr IV .Q24H [facility] Rx#:[id number] Sodium Chloride 0.9% 1, 234.0 000 ml @ 30 mls/hr IV . Q24H [facility] Rx#:[id number] Oral 100 TPN/PPN 1320 Output: Urine 3 Other: # Voids 3 # Bowel Movements 1 Active Medications: Current Medications Acetaminophen (Tylenol) 650 mg PO Q4H PRN PRN Reason: Pain Or Fever above 101 Stop: 07/05/17 19:13 Al Hydrox/Mg Hydrox/Simethicone (Maalox) 30 ml PO Q6H PRN PRN Reason: Dyspepsia Stop: 07/05/17 19:13 Albuterol Sulfate (Albuterol 2.5mg/3ml Neb Ud) 2.5 mg HHN Q2HRT PRN PRN Reason: Shortness of Breath or Wheeze Stop: 07/05/17 19:13 Benztropine Mesylate (Cogentin) 1 mg PO BID PRN PRN Reason: Agitation Stop: 07/26/17 13:04 Bisacodyl (Dulcolax 10 Mg Supp) 10 mg RC DAILY PRN PRN Reason: Constipation Stop: 07/21/17 14:25 Divalproex Sodium (Depakote Er) 1,000 mg PO BID KAM PRN Reason: Protocol Stop: 07/06/17 08:59 Last Admin: 05/31/17 09:21 Dose: Not Given Ferrous Sulfate (Iron) 325 mg PO BID [facility] Stop: 07/06/17 08:59 Last Admin: 05/31/17 09:21 Dose: Not Given Guaifenesin (Robitussin) 200 mg PO Q4HR PRN PRN Reason: Cough or Congestion Stop: 07/05/17 19:13 Haloperidol Lactate (Haldol) 2 mg IM HS PRN PRN Reason: Agitation Stop: 07/12/17 08:04 Haloperidol Lactate (Haldol) 2 mg IM DAILY PRN PRN Reason: Agitation Stop: 07/12/17 08:06 Last Admin: 05/20/17 13:32 Dose: 2 mg Heparin Sodium (Porcine) (Heparin) 5,000 units SUBQ Q12HR [facility] Stop: 07/05/17 20:59 Last Admin: 05/31/17 09:21 Dose: Not Given Sodium Chloride (Nacl 0.9%) 1,000 mls @ 30 mls/hr IV .Q24H [facility] Stop: 07/25/17 15:59 Last Admin: 05/30/17 16:59 Dose: 30 mls/hr Multivitamins/Minerals 10 ml/Dextrose/ Amino Acids/Electrolytes/ Fat Emulsion Intravenous 2,640 mls @ 110 mls/hr IV .Q24H [facility] Stop: 07/27/17 16:59 Last Admin: 05/30/17 18:31 Dose: 110 mls/hr Insulin Aspart (Novolog Insulin Sliding Scale) 0 units SUBQ BIDAC KAM PRN Reason: Protocol Stop: 07/23/17 16:59 Ipratropium [place] (Atrovent Neb 0.5mg/2.5ml) 0.5 mg HHN Q2HRT PRN PRN Reason: Shortness of Breath or Wheeze Stop: 07/05/17 19:13 Lactobacillus Rhamnosus (Culturelle) 1 each PO DAILY [facility] Stop: 07/21/17 08:59 Last Admin: 05/31/17 09:21 Dose: Not Given Levothyroxine Sodium (Synthroid) 0.05 mg IVP DAILY [facility] Stop: 07/24/17 08:59 Last Admin: 05/31/17 09:15 Dose: 0.05 mg Metoclopramide HCl (Reglan) 10 mg IVP Q8HR PRN PRN Reason: Nausea / Vomiting Stop: 07/09/17 11:31 Last Admin: 05/28/17 15:11 Dose: 10 mg Miscellaneous (Ppn Per Pharmacy) 1 [facility] PRN PRN PRN Reason: PROTOCOL Stop: 07/20/17 13:24 Miscellaneous (Probiotic Screen) 1 [facility] PRN PRN PRN Reason: PROTOCOL Stop: 07/20/17 16:59 Olanzapine (Zyprexa) 10 mg PO HS KAM PRN Reason: Protocol Stop: 07/07/17 20:59 Last Admin: 05/30/17 22:13 Dose: Not Given Olanzapine (Zyprexa Zydis) 10 mg PO DAILY [facility] Stop: 07/27/17 08:59 Last Admin: 05/31/17 09:21 Dose: Not Given Ondansetron HCl (Zofran) 4 mg IV Q4H PRN PRN Reason: Nausea / Vomiting Stop: 07/05/17 19:13 Last Admin: 05/19/17 15:22 Dose: 4 mg Pantoprazole Sodium (Protonix) 40 mg IVP BID [facility] Stop: 07/18/17 18:32 Last Admin: 05/31/17 09:15 Dose: 40 mg Sucralfate (Carafate) 1 gm PO QID [facility] Stop: 07/05/17 20:59 Last Admin: 05/31/17 09:21 Dose: Not Given Zolpidem Tartrate (Ambien) 5 mg PO HS PRN PRN Reason: Insomnia Stop: 07/05/17 19:12 General: lethargic, demented HEENT: NC/AT, PERRLA Neck: Supple Abdomen: soft, non-tender, non-distended, positive bowel sound Extremities: excoriation Neurological: alert, disorganized, unsteady, bedbound - Procedures Procedures: Procedures Procedure Code Date DILATION OF LOWER ESOPHAGUS, ENDO [id number] 05/06/17 EGD BIOPSY SINGLE/MULTIPLE 57245 05/06/17 ESOPH EGD DILATION <30 MM 73555 05/06/17 EXCISION OF ESOPHAGUS, ENDO, DIAGN [id number] 05/06/17 Internal Medicine Assmt/Plan - Assessment Assessment: DYSPHAGIA DEHYDRATION- FAILURE TO THRIVE HYPONATREMIA HYPOKALEMIA GERD HTN BARETT'S ESOPHAGUS - Plan Plan: Continue with tpn monitor k+ continue with iv protonix transplant case manager arranging placement monitor cbc/bmp ivf for hydration continue current plan of care Nutritional Asmnt/Malnutr-PDOC - Dietary Evaluation Malnutrition Findings (Please click <Entered> for more info): Nutritional Asmnt/Malnutrition Start: 05/07/17 10: 39 Text: Status: Complete Freq: Document 05/07/17 14:31 GSUN (Rec: 05/07/17 15:03 GSUN [email or web address]) Nutritional Asmnt/Malnutrition Patient General Information Nutritional Screening Consult Diagnosis Dysphagia, dehydration, FTT, Serna esophagus, PCM Pertinent Medical Hx/Surgical Hx Schizophrenia, stroke, TIA, GERD, thyroid disease, arthritis, dementia Subjective Information 46 year old male from SNF. RD consult for dysphagia. Spoke to ELISE Christina, pt has ulcer in the throat, unable to eat, swallow eval ordered nad pending. Pt is a questionable historian, talkative, however speech unclear and difficult to understand. Pt unable to tell comic writer usual diet, repeatedly stated "can't swallow, need procedure, fix it." Front teeth missing only. Pt appeared thin, mild muscle fat wasting to chest and temporals. Current Diet Order/ Nutrition Support Clear liquid Pertinent Medications D5-0.9%ns, Iron, Synthroid, Zofran, Protonix, Carafate Pertinent Labs Reviewed. Nutritional Hx/Data Height 5 ft 9 in Height (Calculated Centimeters) 175.3 Current Weight (lbs) 147 lb Weight (Calculated Kilograms) 66.7 Weight (Calculated Grams) 82410.1 [place] Body Weight 160 Weight Status Approriate GI Symptoms Food Allergies No Skin Integrity/Comment: [place] 13. Skin intact. Estimated Nutritional Goals BEE in Kcals: Using Current wt Calories/Kcals/Kg CBW 147lb/66.8kg Kcals Calculated 1670-2004kcal (25-30kcal/kg) Protein: Using Current wt Protein Calculated 67g (1g/kg) Fluid: ml 1670-2004ml (1ml/kcal) Nutritional Problem 1. 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 GI consult and swallow eval pending, recommend regular diet with diet texture per ST if pt is able to resume oral diet. Nursing staff to ensure pt sit upright during meals to minimize possible reflux. 2. Monitor weight. 3. If unable to resume oral diet, recommend enteral nutrition. Expected Outcomes/Goals Expected Outcomes/Goals 1. Pt to meet at least 75% of estimated nutritional needs orally or enterally.
[2017-06-01] MEDS: INSULIN ASPART SLIDING SCALE 100 UNITS/ML UNIT SUBQ SCH ×2 (06:45→17:59)
[2017-06-01 06:46] LABS: ALB/GLOB RATIO 0.9 (1.0-1.8); ALKALINE PHOSPHATASE 33 U/L (34-104); ANION GAP 7.2 (7.0-16.0); BILIRUBIN,TOTAL 0.2 mg/dL (0.3-1.0); BUN - UREA NITROGEN 11 mg/dL (7-25); BUN/CREATININE RATIO 15.7; CARBON DIOXIDE 29.5 mEq/L (21.0-31.0); CHLORIDE 104 mEq/L (98-107); CREATININE - SERUM 0.7 mg/dL (0.7-1.3); GLUCOSE 111 mg/dL (70-105); POTASSIUM SERUM 4.7 mEq/L (3.5-5.1); SGOT 16 U/L (13-39); SGPT/ALT 14 U/L (7-52); SODIUM SERUM 136 mEq/L (136-145)
[2017-06-01 07:11] LABS: CHOLESTEROL 87 mg/dL (<200); TRIGLYCERIDES 78 mg/dL (<150)
[2017-06-01] MEDS: Ferrous Sulfate 325 MG TAB PO SCH ×2 (10:43→18:02)
[2017-06-01] MEDS: Lactobacillus Rhamnosus 10 Billion CFU Capsule PO SCH (10:44)
--- NOTE | 2017-06-01 12:10 | Internal Medicine Prog Note ---
Internal Medicine Subjective - Subjective Service Date: 06/01/17 Patient is:: awake, verbal Patient Complaints of:: vomitting Per staff patient has:: no adverse event, noncompliant, confused, tolerating meds Internal Medicine Objective - Results Result Diagrams: 05/31/17 08:45 06/01/17 05:52 Recent Labs: Laboratory Last Values WBC 10.6 Th/cmm (4.8-10.8) D 05/31/17 08:45 RBC 3.72 Mil/cmm (4.30-5.70) L 05/31/17 08:45 Hgb 11.5 gm/dL (12-16) L 05/31/17 08:45 Hct 33.9 % (41.0-60) L 05/31/17 08:45 MCV 91.1 fl (80-99) 05/31/17 08:45 MCH 30.9 pg (26.0-30.0) H 05/31/17 08:45 MCHC Differential 34.0 pg (28.0-36.0) 05/31/17 08:45 RDW 13.2 % (11.5-20.0) 05/31/17 08:45 Plt Count 326 Th/cmm (150-400) 05/31/17 08:45 MPV 8.5 fl 05/31/17 08:45 Neutrophils % 73.1 % (40.0-80.0) 05/31/17 08:45 Band Neutrophils % 3 % (0-10) 05/21/17 05:45 Lymphocytes % 17.9 % (20.0-50.0) L 05/31/17 08:45 Monocytes % 7.1 % (2.0-10.0) 05/31/17 08:45 Eosinophils % 1.4 % (0.0-5.0) 05/31/17 08:45 Basophils % 0.5 % (0.0-2.0) 05/31/17 08:45 Neutrophils (Manual) 86 % (40-80) H 05/21/17 05:45 Lymphocytes 10 % (20-50) L 05/21/17 05:45 Monocytes 1 % (2-10) L 05/21/17 05:45 PT 11.3 SECONDS (9.5-11.5) 05/09/17 05:45 INR 1.09 (0.5-1.4) 05/09/17 05:45 PTT (Actin FS) 25.7 SECONDS (26.0-38.0) L 05/06/17 16:46 Sodium 136 mEq/L (136-145) 06/01/17 05:52 Potassium 4.7 mEq/L (3.5-5.1) 06/01/17 05:52 Chloride 104 mEq/L (98-107) 06/01/17 05:52 Carbon Dioxide 29.5 mEq/L (21.0-31.0) 06/01/17 05:52 Anion Gap 7.2 (7.0-16.0) 06/01/17 05:52 BUN 11 mg/dL (7-25) 06/01/17 05:52 Creatinine 0.7 mg/dL (0.7-1.3) 06/01/17 05:52 Est GFR ( Amer) > 60.0 ml/min (>90) 06/01/17 05:52 Est GFR (Non-Af Amer) > 60.0 ml/min 06/01/17 05:52 BUN/Creatinine Ratio 15.7 06/01/17 05:52 Glucose 111 mg/dL (70-105) H 06/01/17 05:52 POC Glucose 100 MG/DL (70 - 105) 06/01/17 06:43 Calcium 9.0 mg/dL (8.6-10.3) 06/01/17 05:52 Phosphorus 4.0 mg/dL (2.5-5.0) 06/01/17 05:52 Magnesium 2.0 mg/dL (1.9-2.7) 06/01/17 05:52 Total Bilirubin 0.2 mg/dL (0.3-1.0) L 06/01/17 05:52 AST 16 U/L (13-39) 06/01/17 05:52 ALT 14 U/L (7-52) 06/01/17 05:52 Alkaline Phosphatase 33 U/L (34-104) L 06/01/17 05:52 Ammonia 52 umol/L (16-53) 05/27/17 05:30 Troponin I 0.03 ng/mL (0.01-0.05) 05/06/17 16:46 C-Reactive Protein 3.9 mg/dL (0.0-0.9) H 05/24/17 08:30 Total Protein 6.2 gm/dL (6.0-8.3) 06/01/17 05:52 Albumin 2.9 gm/dL (4.2-5.5) L 06/01/17 05:52 Globulin 3.3 gm/dL 06/01/17 05:52 Albumin/Globulin Ratio 0.9 (1.0-1.8) L 06/01/17 05:52 Prealbumin 10 mg/dL (12-34) L 05/24/17 08:30 Triglycerides 78 mg/dL (<150) 06/01/17 05:52 Cholesterol 87 mg/dL (<200) 06/01/17 05:52 LDL Cholesterol Direct 89 mg/dL (75-193) 05/06/17 16:46 HDL Cholesterol 30 mg/dL (23-92) 05/06/17 16:46 Vitamin B12 931 pg/mL (211-946) 05/27/17 05:30 Folic Acid 13.0 ng/mL (>3.0) 05/27/17 05:30 TSH 1.23 uIU/ml (0.34-5.60) 05/06/17 16:46 Urine Source CATH 05/26/17 15:10 Urine Color YELLOW 05/26/17 15:10 Urine Clarity CLEAR (CLEAR) 05/26/17 15:10 Urine pH 7.0 (4.6 - 8.0) 05/26/17 15:10 Ur Specific [place] 1.025 (1.005-1.030) 05/26/17 15:10 Urine Protein NEGATIVE mg/dL (NEGATIVE) 05/26/17 15:10 Urine Glucose (UA) NEGATIVE mg/dL (NEGATIVE) 05/26/17 15:10 Urine Ketones NEGATIVE mg/dL (NEGATIVE) 05/26/17 15:10 Urine Blood NEGATIVE (NEGATIVE) 05/26/17 15:10 Urine Nitrate NEGATIVE (NEGATIVE) 05/26/17 15:10 Urine Bilirubin NEGATIVE (NEGATIVE) 05/26/17 15:10 Urine Urobilinogen 1.0 E.U./dL (0.2 - 1.0) 05/26/17 15:10 Ur Leukocyte Esterase NEGATIVE (NEGATIVE) 05/26/17 15:10 Urine RBC NONE SEEN /hpf (0-5) 05/26/17 15:10 Urine WBC NONE SEEN /hpf (0-5) 05/26/17 15:10 Ur Epithelial Cells NONE SEEN /lpf (FEW) 05/26/17 15:10 Amorphous Sediment FEW URATES (NONE SEEN) 05/06/17 16:20 Urine Bacteria NONE SEEN /hpf (NONE SEEN) 05/26/17 15:10 Urine Mucus MODERATE /lpf (FEW) 05/06/17 16:20 Vancomycin Trough 2.3 ug/mL (10-20) L 05/31/17 08:45 Valproic Acid < 10.0 ug/mL (50.0-100.0) L 05/21/17 05:45 RPR NONREACTIVE (NONREACTIVE) 05/06/17 16:46 - Physical Exam Vitals and I&O: Vital Signs Temp 97.3 F 06/01/17 11:49 Pulse 75 06/01/17 11:49 Resp 18 06/01/17 11:49 BP 97/58 06/01/17 11:49 Pulse Ox 95 06/01/17 11:49 Intake & Output 05/31/17 06/01/17 06/01/17 18:59 06:59 18:59 Intake Total 1370 3640 Balance 1370 3640 Weight (lbs) 153 lb 158 lb 1.6 oz Intake: Intake, IV Amount 3640 Multivitamin Inj 10 ml In 2640 Dextrose 70% 1,880 ml In Amino Acids 10% 500 ml In Intralipids 20% 250 ml @ 110 mls/hr IV .Q24H K[facility] Rx#:[id number] Sodium Chloride 0.9% 1, 1000 000 ml @ 30 mls/hr IV . Q24H KAM Rx#:[id number] Oral 50 TPN/PPN 1320 Other: # Voids 3 2 # Bowel Movements 2 Active Medications: Current Medications Acetaminophen (Tylenol) 650 mg PO Q4H PRN PRN Reason: Pain Or Fever above 101 Stop: 07/05/17 19:13 Al Hydrox/Mg Hydrox/Simethicone (Maalox) 30 ml PO Q6H PRN PRN Reason: Dyspepsia Stop: 07/05/17 19:13 Albuterol Sulfate (Albuterol 2.5mg/3ml Neb Ud) 2.5 mg HHN Q2HRT PRN PRN Reason: Shortness of Breath or Wheeze Stop: 07/05/17 19:13 Benztropine Mesylate (Cogentin) 1 mg PO BID PRN PRN Reason: Agitation Stop: 07/26/17 13:04 Bisacodyl (Dulcolax 10 Mg Supp) 10 mg RC DAILY PRN PRN Reason: Constipation Stop: 07/21/17 14:25 Divalproex Sodium (Depakote Er) 1,000 mg PO BID KAM PRN Reason: Protocol Stop: 07/06/17 08:59 Last Admin: 06/01/17 10:43 Dose: Not Given Ferrous Sulfate (Iron) 325 mg PO BID KAM Stop: 07/06/17 08:59 Last Admin: 06/01/17 10:43 Dose: Not Given Guaifenesin (Robitussin) 200 mg PO Q4HR PRN PRN Reason: Cough or Congestion Stop: 07/05/17 19:13 Haloperidol Lactate (Haldol) 2 mg IM HS PRN PRN Reason: Agitation Stop: 07/12/17 08:04 Haloperidol Lactate (Haldol) 2 mg IM DAILY PRN PRN Reason: Agitation Stop: 07/12/17 08:06 Last Admin: 05/20/17 13:32 Dose: 2 mg Heparin Sodium (Porcine) (Heparin) 5,000 units SUBQ Q12HR KAM Stop: 07/05/17 20:59 Last Admin: 06/01/17 10:43 Dose: Not Given Sodium Chloride (Nacl 0.9%) 1,000 mls @ 30 mls/hr IV .Q24H [facility] Stop: 07/25/17 15:59 Last Infusion: 06/01/17 06:08 Dose: Infused Multivitamins/Minerals 10 ml/Dextrose/ Amino Acids/Electrolytes/ Fat Emulsion Intravenous 2,640 mls @ 110 mls/hr IV .Q24H [facility] Stop: 07/27/17 16:59 Last Infusion: 06/01/17 06:08 Dose: Infused Insulin Aspart (Novolog Insulin Sliding Scale) 0 units SUBQ BIDAC KAM PRN Reason: Protocol Stop: 07/23/17 16:59 Last Admin: 06/01/17 06:45 Dose: Not Given Ipratropium [place] (Atrovent Neb 0.5mg/2.5ml) 0.5 mg HHN Q2HRT PRN PRN Reason: Shortness of Breath or Wheeze Stop: 07/05/17 19:13 Lactobacillus Rhamnosus (Culturelle) 1 each PO DAILY [facility] Stop: 07/21/17 08:59 Last Admin: 06/01/17 10:44 Dose: Not Given Levothyroxine Sodium (Synthroid) 0.05 mg IVP DAILY [facility] Stop: 07/24/17 08:59 Last Admin: 06/01/17 10:44 Dose: Not Given Metoclopramide HCl (Reglan) 10 mg IVP Q8HR PRN PRN Reason: Nausea / Vomiting Stop: 07/09/17 11:31 Last Admin: 05/28/17 15:11 Dose: 10 mg Miscellaneous (Ppn Per Pharmacy) 1 ea PRN PRN PRN Reason: PROTOCOL Stop: 07/20/17 13:24 Miscellaneous (Probiotic Screen) 1 ea PRN PRN PRN Reason: PROTOCOL Stop: 07/20/17 16:59 Olanzapine (Zyprexa) 10 mg PO HS KAM PRN Reason: Protocol Stop: 07/07/17 20:59 Last Admin: 05/31/17 21:35 Dose: Not Given Olanzapine (Zyprexa Zydis) 10 mg PO DAILY [facility] Stop: 07/27/17 08:59 Last Admin: 05/31/17 09:21 Dose: Not Given Ondansetron HCl (Zofran) 4 mg IV Q4H PRN PRN Reason: Nausea / Vomiting Stop: 07/05/17 19:13 Last Admin: 05/19/17 15:22 Dose: 4 mg Pantoprazole Sodium (Protonix) 40 mg IVP BID [facility] Stop: 07/18/17 18:32 Last Admin: 06/01/17 10:44 Dose: Not Given Sucralfate (Carafate) 1 gm PO QID [facility] Stop: 07/05/17 20:59 Last Admin: 06/01/17 10:43 Dose: Not Given Zolpidem Tartrate (Ambien) 5 mg PO HS PRN PRN Reason: Insomnia Stop: 07/05/17 19:12 General: lethargic, demented HEENT: NC/AT, PERRLA Neck: Supple Abdomen: soft, non-tender, non-distended, positive bowel sound Extremities: excoriation Neurological: alert, disorganized, unsteady, bedbound - Procedures Procedures: Procedures Procedure Code Date DILATION OF LOWER ESOPHAGUS, ENDO [id number] 05/06/17 EGD BIOPSY SINGLE/MULTIPLE 37815 05/06/17 ESOPH EGD DILATION <30 MM 87917 05/06/17 EXCISION OF ESOPHAGUS, ENDO, DIAGN [id number] 05/06/17 Internal Medicine Assmt/Plan - Assessment Assessment: DYSPHAGIA DEHYDRATION- FAILURE TO THRIVE HYPONATREMIA HYPOKALEMIA GERD HTN BARETT'S ESOPHAGUS - Plan Plan: Continue with tpn monitor k+ continue with iv protonix binder caser arranging placement monitor cbc/bmp ivf for hydration continue current plan of care Nutritional Asmnt/Malnutr-PDOC - Dietary Evaluation Malnutrition Findings (Please click <Entered> for more info): Nutritional Asmnt/Malnutrition Start: 05/07/17 10: 39 Text: Status: Complete Freq: Document 05/07/17 14:31 GSUN (Rec: 05/07/17 15:03 GSUN [email or web address]) Nutritional Asmnt/Malnutrition Patient General Information Nutritional Screening Consult Diagnosis Dysphagia, dehydration, FTT, Serna esophagus, PCM Pertinent Medical Hx/Surgical Hx Schizophrenia, stroke, TIA, GERD, thyroid disease, arthritis, dementia Subjective Information 46 year old male from SNF. RD consult for dysphagia. Spoke to ELISE Christina, pt has ulcer in the throat, unable to eat, swallow eval ordered nad pending. Pt is a questionable historian, talkative, however speech unclear and difficult to understand. Pt unable to tell marketing underwriter usual diet, repeatedly stated "can't swallow, need procedure, fix it." Front teeth missing only. Pt appeared thin, mild muscle fat wasting to chest and temporals. Current Diet Order/ Nutrition Support Clear liquid Pertinent Medications D5-0.9%ns, Iron, Synthroid, Zofran, Protonix, Carafate Pertinent Labs Reviewed. Nutritional Hx/Data Height 5 ft 9 in Height (Calculated Centimeters) 175.3 Current Weight (lbs) 147 lb Weight (Calculated Kilograms) 66.7 Weight (Calculated Grams) 84277.1 [place] Body Weight 160 Weight Status Approriate GI Symptoms Food Allergies No Skin Integrity/Comment: [place] 13. Skin intact. Estimated Nutritional Goals BEE in Kcals: Using Current wt Calories/Kcals/Kg CBW 147lb/66.8kg Kcals Calculated 1670-2004kcal (25-30kcal/kg) Protein: Using Current wt Protein Calculated 67g (1g/kg) Fluid: ml 1670-2004ml (1ml/kcal) Nutritional Problem 1. 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 GI consult and swallow eval pending, recommend regular diet with diet texture per ST if pt is able to resume oral diet. Nursing staff to ensure pt sit upright during meals to minimize possible reflux. 2. Monitor weight. 3. If unable to resume oral diet, recommend enteral nutrition. Expected Outcomes/Goals Expected Outcomes/Goals 1. Pt to meet at least 75% of estimated nutritional needs orally or enterally.
[2017-06-01] MEDS: OLANZapine 10 mg Oral Disintegrating Tab PO SCH (18:01)
[2017-06-01] MEDS: TPN 10%-70% CUSTOM IV SCH (18:07)
[2017-06-01] MEDS: Sodium Chloride 0.9% 1,000 ML IV SCH (18:13)
[2017-06-02 07:10] LABS: ANION GAP 7.7 (7.0-16.0); BUN - UREA NITROGEN 13 mg/dL (7-25); BUN/CREATININE RATIO 18.6; CALCIUM SERUM 8.9 mg/dL (8.6-10.3); CARBON DIOXIDE 27.4 mEq/L (21.0-31.0); CHLORIDE 103 mEq/L (98-107); CREATININE - SERUM 0.7 mg/dL (0.7-1.3); GLUCOSE 107 mg/dL (70-105); MAGNESIUM 1.9 mg/dL (1.9-2.7); PHOSPHOROUS 4.1 mg/dL (2.5-5.0); POTASSIUM SERUM 4.1 mEq/L (3.5-5.1); SODIUM SERUM 134 mEq/L (136-145)
[2017-06-02] MEDS: INSULIN ASPART SLIDING SCALE 100 UNITS/ML UNIT SUBQ SCH ×2 (07:55→17:12)
[2017-06-02] MEDS: OLANZapine 10 mg Oral Disintegrating Tab PO SCH (08:44)
[2017-06-02] MEDS: Lactobacillus Rhamnosus 10 Billion CFU Capsule PO SCH (08:44)
[2017-06-02] MEDS: Ferrous Sulfate 325 MG TAB PO SCH ×2 (08:44→17:02)
--- NOTE | 2017-06-02 14:24 | Internal Medicine Prog Note ---
Internal Medicine Subjective - Subjective Service Date: 06/02/17 Patient is:: awake, verbal Patient Complaints of:: vomitting Per staff patient has:: no adverse event, noncompliant, confused, tolerating meds Internal Medicine Objective - Results Result Diagrams: 05/31/17 08:45 06/02/17 05:57 Recent Labs: Laboratory Last Values WBC 10.6 Th/cmm (4.8-10.8) D 05/31/17 08:45 RBC 3.72 Mil/cmm (4.30-5.70) L 05/31/17 08:45 Hgb 11.5 gm/dL (12-16) L 05/31/17 08:45 Hct 33.9 % (41.0-60) L 05/31/17 08:45 MCV 91.1 fl (80-99) 05/31/17 08:45 MCH 30.9 pg (26.0-30.0) H 05/31/17 08:45 MCHC Differential 34.0 pg (28.0-36.0) 05/31/17 08:45 RDW 13.2 % (11.5-20.0) 05/31/17 08:45 Plt Count 326 Th/cmm (150-400) 05/31/17 08:45 MPV 8.5 fl 05/31/17 08:45 Neutrophils % 73.1 % (40.0-80.0) 05/31/17 08:45 Band Neutrophils % 3 % (0-10) 05/21/17 05:45 Lymphocytes % 17.9 % (20.0-50.0) L 05/31/17 08:45 Monocytes % 7.1 % (2.0-10.0) 05/31/17 08:45 Eosinophils % 1.4 % (0.0-5.0) 05/31/17 08:45 Basophils % 0.5 % (0.0-2.0) 05/31/17 08:45 Neutrophils (Manual) 86 % (40-80) H 05/21/17 05:45 Lymphocytes 10 % (20-50) L 05/21/17 05:45 Monocytes 1 % (2-10) L 05/21/17 05:45 PT 11.3 SECONDS (9.5-11.5) 05/09/17 05:45 INR 1.09 (0.5-1.4) 05/09/17 05:45 PTT (Actin FS) 25.7 SECONDS (26.0-38.0) L 05/06/17 16:46 Sodium 134 mEq/L (136-145) L 06/02/17 05:57 Potassium 4.1 mEq/L (3.5-5.1) 06/02/17 05:57 Chloride 103 mEq/L (98-107) 06/02/17 05:57 Carbon Dioxide 27.4 mEq/L (21.0-31.0) 06/02/17 05:57 Anion Gap 7.7 (7.0-16.0) 06/02/17 05:57 BUN 13 mg/dL (7-25) 06/02/17 05:57 Creatinine 0.7 mg/dL (0.7-1.3) 06/02/17 05:57 Est GFR ( Amer) > 60.0 ml/min (>90) 06/02/17 05:57 Est GFR (Non-Af Amer) > 60.0 ml/min 06/02/17 05:57 BUN/Creatinine Ratio 18.6 06/02/17 05:57 Glucose 107 mg/dL (70-105) H 06/02/17 05:57 POC Glucose 112 MG/DL (70 - 105) H 06/02/17 06:07 Calcium 8.9 mg/dL (8.6-10.3) 06/02/17 05:57 Phosphorus 4.1 mg/dL (2.5-5.0) 06/02/17 05:57 Magnesium 1.9 mg/dL (1.9-2.7) 06/02/17 05:57 Total Bilirubin 0.2 mg/dL (0.3-1.0) L 06/01/17 05:52 AST 16 U/L (13-39) 06/01/17 05:52 ALT 14 U/L (7-52) 06/01/17 05:52 Alkaline Phosphatase 33 U/L (34-104) L 06/01/17 05:52 Ammonia 52 umol/L (16-53) 05/27/17 05:30 Troponin I 0.03 ng/mL (0.01-0.05) 05/06/17 16:46 C-Reactive Protein 3.9 mg/dL (0.0-0.9) H 05/24/17 08:30 Total Protein 6.2 gm/dL (6.0-8.3) 06/01/17 05:52 Albumin 2.9 gm/dL (4.2-5.5) L 06/01/17 05:52 Globulin 3.3 gm/dL 06/01/17 05:52 Albumin/Globulin Ratio 0.9 (1.0-1.8) L 06/01/17 05:52 Prealbumin 13 mg/dL (12-34) 06/01/17 05:52 Triglycerides 78 mg/dL (<150) 06/01/17 05:52 Cholesterol 87 mg/dL (<200) 06/01/17 05:52 LDL Cholesterol Direct 89 mg/dL (75-193) 05/06/17 16:46 HDL Cholesterol 30 mg/dL (23-92) 05/06/17 16:46 Vitamin B12 931 pg/mL (211-946) 05/27/17 05:30 Folic Acid 13.0 ng/mL (>3.0) 05/27/17 05:30 TSH 1.23 uIU/ml (0.34-5.60) 05/06/17 16:46 Urine Source CATH 05/26/17 15:10 Urine Color YELLOW 05/26/17 15:10 Urine Clarity CLEAR (CLEAR) 05/26/17 15:10 Urine pH 7.0 (4.6 - 8.0) 05/26/17 15:10 Ur Specific [place] 1.025 (1.005-1.030) 05/26/17 15:10 Urine Protein NEGATIVE mg/dL (NEGATIVE) 05/26/17 15:10 Urine Glucose (UA) NEGATIVE mg/dL (NEGATIVE) 05/26/17 15:10 Urine Ketones NEGATIVE mg/dL (NEGATIVE) 05/26/17 15:10 Urine Blood NEGATIVE (NEGATIVE) 05/26/17 15:10 Urine Nitrate NEGATIVE (NEGATIVE) 05/26/17 15:10 Urine Bilirubin NEGATIVE (NEGATIVE) 05/26/17 15:10 Urine Urobilinogen 1.0 E.U./dL (0.2 - 1.0) 05/26/17 15:10 Ur Leukocyte Esterase NEGATIVE (NEGATIVE) 05/26/17 15:10 Urine RBC NONE SEEN /hpf (0-5) 05/26/17 15:10 Urine WBC NONE SEEN /hpf (0-5) 05/26/17 15:10 Ur Epithelial Cells NONE SEEN /lpf (FEW) 05/26/17 15:10 Amorphous Sediment FEW URATES (NONE SEEN) 05/06/17 16:20 Urine Bacteria NONE SEEN /hpf (NONE SEEN) 05/26/17 15:10 Urine Mucus MODERATE /lpf (FEW) 05/06/17 16:20 Vancomycin Trough 2.3 ug/mL (10-20) L 05/31/17 08:45 Valproic Acid < 10.0 ug/mL (50.0-100.0) L 05/21/17 05:45 RPR NONREACTIVE (NONREACTIVE) 05/06/17 16:46 - Physical Exam Vitals and I&O: Vital Signs Temp 97.0 F 06/02/17 11:59 Pulse 66 06/02/17 11:59 Resp 18 06/02/17 11:59 BP 100/65 06/02/17 11:59 Pulse Ox 100 06/02/17 11:59 Intake & Output 06/01/17 06/02/17 06/02/17 18:59 06:59 18:59 Intake Total 1520 1320 Balance 1520 1320 Weight (lbs) 158 lb 158 lb Intake: Oral 200 0 TPN/PPN 1320 1320 Other: # Voids 4 2 Active Medications: Current Medications Acetaminophen (Tylenol) 650 mg PO Q4H PRN PRN Reason: Pain Or Fever above 101 Stop: 07/05/17 19:13 Al Hydrox/Mg Hydrox/Simethicone (Maalox) 30 ml PO Q6H PRN PRN Reason: Dyspepsia Stop: 07/05/17 19:13 Albuterol Sulfate (Albuterol 2.5mg/3ml Neb Ud) 2.5 mg HHN Q2HRT PRN PRN Reason: Shortness of Breath or Wheeze Stop: 07/05/17 19:13 Benztropine Mesylate (Cogentin) 1 mg PO BID PRN PRN Reason: Agitation Stop: 07/26/17 13:04 Bisacodyl (Dulcolax 10 Mg Supp) 10 mg RC DAILY PRN PRN Reason: Constipation Stop: 07/21/17 14:25 Divalproex Sodium (Depakote Er) 1,000 mg PO BID KAM PRN Reason: Protocol Stop: 07/06/17 08:59 Last Admin: 06/02/17 08:44 Dose: Not Given Ferrous Sulfate (Iron) 325 mg PO BID [facility] Stop: 07/06/17 08:59 Last Admin: 06/02/17 08:44 Dose: Not Given Guaifenesin (Robitussin) 200 mg PO Q4HR PRN PRN Reason: Cough or Congestion Stop: 07/05/17 19:13 Haloperidol Lactate (Haldol) 2 mg IM HS PRN PRN Reason: Agitation Stop: 07/12/17 08:04 Haloperidol Lactate (Haldol) 2 mg IM DAILY PRN PRN Reason: Agitation Stop: 07/12/17 08:06 Last Admin: 05/20/17 13:32 Dose: 2 mg Heparin Sodium (Porcine) (Heparin) 5,000 units SUBQ Q12HR [facility] Stop: 07/05/17 20:59 Last Admin: 06/02/17 08:39 Dose: Not Given Sodium Chloride (Nacl 0.9%) 1,000 mls @ 30 mls/hr IV .Q24H [facility] Stop: 07/25/17 15:59 Last Admin: 06/01/17 18:13 Dose: 30 mls/hr Multivitamins/Minerals 10 ml/Dextrose/ Amino Acids/Electrolytes/ Fat Emulsion Intravenous 2,640 mls @ 110 mls/hr IV .Q24H [facility] Stop: 07/27/17 16:59 Last Admin: 06/01/17 18:07 Dose: 110 mls/hr Insulin Aspart (Novolog Insulin Sliding Scale) 0 units SUBQ BIDAC KAM PRN Reason: Protocol Stop: 07/23/17 16:59 Last Admin: 06/02/17 07:55 Dose: Not Given Ipratropium [place] (Atrovent Neb 0.5mg/2.5ml) 0.5 mg HHN Q2HRT PRN PRN Reason: Shortness of Breath or Wheeze Stop: 07/05/17 19:13 Lactobacillus Rhamnosus (Culturelle) 1 each PO DAILY [facility] Stop: 07/21/17 08:59 Last Admin: 06/02/17 08:44 Dose: Not Given Levothyroxine Sodium (Synthroid) 0.05 mg IVP DAILY [facility] Stop: 07/24/17 08:59 Last Admin: 06/02/17 08:44 Dose: Not Given Metoclopramide HCl (Reglan) 10 mg IVP Q8HR PRN PRN Reason: Nausea / Vomiting Stop: 07/09/17 11:31 Last Admin: 05/28/17 15:11 Dose: 10 mg Miscellaneous (Ppn Per Pharmacy) 1 ea PRN PRN PRN Reason: PROTOCOL Stop: 07/20/17 13:24 Miscellaneous (Probiotic Screen) 1 ea PRN PRN PRN Reason: PROTOCOL Stop: 07/20/17 16:59 Olanzapine (Zyprexa) 10 mg PO HS KAM PRN Reason: Protocol Stop: 07/07/17 20:59 Last Admin: 06/01/17 21:39 Dose: Not Given Olanzapine (Zyprexa Zydis) 10 mg PO DAILY [facility] Stop: 07/27/17 08:59 Last Admin: 06/02/17 08:44 Dose: Not Given Ondansetron HCl (Zofran) 4 mg IV Q4H PRN PRN Reason: Nausea / Vomiting Stop: 07/05/17 19:13 Last Admin: 05/19/17 15:22 Dose: 4 mg Pantoprazole Sodium (Protonix) 40 mg IVP BID [facility] Stop: 07/18/17 18:32 Last Admin: 06/02/17 08:40 Dose: 40 mg Sucralfate (Carafate) 1 gm PO QID [facility] Stop: 07/05/17 20:59 Last Admin: 06/02/17 13:59 Dose: Not Given Zolpidem Tartrate (Ambien) 5 mg PO HS PRN PRN Reason: Insomnia Stop: 07/05/17 19:12 General: lethargic, demented HEENT: NC/AT, PERRLA Neck: Supple Abdomen: soft, non-tender, non-distended, positive bowel sound Extremities: excoriation Neurological: alert, disorganized, unsteady, bedbound - Procedures Procedures: Procedures Procedure Code Date DILATION OF LOWER ESOPHAGUS, ENDO [id number] 05/06/17 EGD BIOPSY SINGLE/MULTIPLE 09259 05/06/17 ESOPH EGD DILATION <30 MM 28324 05/06/17 EXCISION OF ESOPHAGUS, ENDO, DIAGN [id number] 05/06/17 Internal Medicine Assmt/Plan - Assessment Assessment: DYSPHAGIA DEHYDRATION- FAILURE TO THRIVE HYPONATREMIA HYPOKALEMIA GERD HTN BARETT'S ESOPHAGUS - Plan Plan: Continue with tpn monitor k+ continue with iv protonix casework specialist arranging placement monitor cbc/bmp ivf for hydration continue current plan of care Nutritional Asmnt/Malnutr-PDOC - Dietary Evaluation Malnutrition Findings (Please click <Entered> for more info): Nutritional Asmnt/Malnutrition Start: 05/07/17 10: 39 Text: Status: Complete Freq: Document 05/07/17 14:31 GSUN (Rec: 05/07/17 15:03 GSUN [email or web address]) Nutritional Asmnt/Malnutrition Patient General Information Nutritional Screening Consult Diagnosis Dysphagia, dehydration, FTT, Serna esophagus, PCM Pertinent Medical Hx/Surgical Hx Schizophrenia, stroke, TIA, GERD, thyroid disease, arthritis, dementia Subjective Information 46 year old male from SNF. RD consult for dysphagia. Spoke to ELISE Christina, pt has ulcer in the throat, unable to eat, swallow eval ordered nad pending. Pt is a questionable historian, talkative, however speech unclear and difficult to understand. Pt unable to tell life underwriter usual diet, repeatedly stated "can't swallow, need procedure, fix it." Front teeth missing only. Pt appeared thin, mild muscle fat wasting to chest and temporals. Current Diet Order/ Nutrition Support Clear liquid Pertinent Medications D5-0.9%ns, Iron, Synthroid, Zofran, Protonix, Carafate Pertinent Labs Reviewed. Nutritional Hx/Data Height 5 ft 9 in Height (Calculated Centimeters) 175.3 Current Weight (lbs) 147 lb Weight (Calculated Kilograms) 66.7 Weight (Calculated Grams) 88544.1 [place] Body Weight 160 Weight Status Approriate GI Symptoms Food Allergies No Skin Integrity/Comment: [place] 13. Skin intact. Estimated Nutritional Goals BEE in Kcals: Using Current wt Calories/Kcals/Kg CBW 147lb/66.8kg Kcals Calculated 1670-2004kcal (25-30kcal/kg) Protein: Using Current wt Protein Calculated 67g (1g/kg) Fluid: ml 1670-2004ml (1ml/kcal) Nutritional Problem 1. 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 GI consult and swallow eval pending, recommend regular diet with diet texture per ST if pt is able to resume oral diet. Nursing staff to ensure pt sit upright during meals to minimize possible reflux. 2. Monitor weight. 3. If unable to resume oral diet, recommend enteral nutrition. Expected Outcomes/Goals Expected Outcomes/Goals 1. Pt to meet at least 75% of estimated nutritional needs orally or enterally.
[2017-06-03 06:22] LABS: % EOSINOPHILS 1.5 % (0.0-5.0); % LYMPHOCYTES 17.2 % (20.0-50.0); % NEUTROPHILS 73.3 % (40.0-80.0); HEMOGLOBIN 11.4 gm/dL (12-16); MEAN CELL VOLUME 90.2 fl (80-99); MEAN CORPUSCULAR HGB CONC 34.4 pg (28.0-36.0); MEAN PLATELET VOLUME 8.9 fl; NEUTROPHILE ABSOLUTE 7.1 Th/cmm (1.8-8.0); PLATELET COUNT 342 Th/cmm (150-400); RED BLOOD COUNT 3.66 Mil/cmm (4.30-5.70); RED CELL DISTRIBUTION WIDTH 13.5 % (11.5-20.0); WHITE BLOOD COUNT 9.7 Th/cmm (4.8-10.8)
[2017-06-03 06:46] LABS: ANION GAP 10.8 (7.0-16.0); BUN - UREA NITROGEN 14 mg/dL (7-25); BUN/CREATININE RATIO 23.3; CALCIUM SERUM 9.2 mg/dL (8.6-10.3); CARBON DIOXIDE 24.4 mEq/L (21.0-31.0); CHLORIDE 103 mEq/L (98-107); CREATININE - SERUM 0.6 mg/dL (0.7-1.3); GLUCOSE 114 mg/dL (70-105); MAGNESIUM 1.9 mg/dL (1.9-2.7); PHOSPHOROUS 3.6 mg/dL (2.5-5.0); POTASSIUM SERUM 4.2 mEq/L (3.5-5.1); SODIUM SERUM 134 mEq/L (136-145)
[2017-06-03] MEDS: OLANZapine 10 mg Oral Disintegrating Tab PO SCH (09:24)
[2017-06-03] MEDS: Ferrous Sulfate 325 MG TAB PO SCH ×2 (09:26→17:13)
[2017-06-03] MEDS: Lactobacillus Rhamnosus 10 Billion CFU Capsule PO SCH (09:27)
[2017-06-03] MEDS: INSULIN ASPART SLIDING SCALE 100 UNITS/ML UNIT SUBQ SCH ×2 (09:27→17:13)
--- NOTE | 2017-06-03 13:38 | Internal Medicine Prog Note ---
Internal Medicine Subjective - Subjective Service Date: 06/03/17 Patient is:: awake, verbal Patient Complaints of:: vomitting Per staff patient has:: no adverse event, noncompliant, confused, tolerating meds Internal Medicine Objective - Results Result Diagrams: 06/03/17 05:50 06/03/17 05:50 Recent Labs: Laboratory Last Values WBC 9.7 Th/cmm (4.8-10.8) 06/03/17 05:50 RBC 3.66 Mil/cmm (4.30-5.70) L 06/03/17 05:50 Hgb 11.4 gm/dL (12-16) L 06/03/17 05:50 Hct 33.0 % (41.0-60) L 06/03/17 05:50 MCV 90.2 fl (80-99) 06/03/17 05:50 MCH 31.0 pg (26.0-30.0) H 06/03/17 05:50 MCHC Differential 34.4 pg (28.0-36.0) 06/03/17 05:50 RDW 13.5 % (11.5-20.0) 06/03/17 05:50 Plt Count 342 Th/cmm (150-400) 06/03/17 05:50 MPV 8.9 fl 06/03/17 05:50 Neutrophils % 73.3 % (40.0-80.0) 06/03/17 05:50 Band Neutrophils % 3 % (0-10) 05/21/17 05:45 Lymphocytes % 17.2 % (20.0-50.0) L 06/03/17 05:50 Monocytes % 7.0 % (2.0-10.0) 06/03/17 05:50 Eosinophils % 1.5 % (0.0-5.0) 06/03/17 05:50 Basophils % 1.0 % (0.0-2.0) 06/03/17 05:50 Neutrophils (Manual) 86 % (40-80) H 05/21/17 05:45 Lymphocytes 10 % (20-50) L 05/21/17 05:45 Monocytes 1 % (2-10) L 05/21/17 05:45 PT 11.3 SECONDS (9.5-11.5) 05/09/17 05:45 INR 1.09 (0.5-1.4) 05/09/17 05:45 PTT (Actin FS) 25.7 SECONDS (26.0-38.0) L 05/06/17 16:46 Sodium 134 mEq/L (136-145) L 06/03/17 05:50 Potassium 4.2 mEq/L (3.5-5.1) 06/03/17 05:50 Chloride 103 mEq/L (98-107) 06/03/17 05:50 Carbon Dioxide 24.4 mEq/L (21.0-31.0) 06/03/17 05:50 Anion Gap 10.8 (7.0-16.0) 06/03/17 05:50 BUN 14 mg/dL (7-25) 06/03/17 05:50 Creatinine 0.6 mg/dL (0.7-1.3) L 06/03/17 05:50 Est GFR ( Amer) > 60.0 ml/min (>90) 06/03/17 05:50 Est GFR (Non-Af Amer) > 60.0 ml/min 06/03/17 05:50 BUN/Creatinine Ratio 23.3 06/03/17 05:50 Glucose 114 mg/dL (70-105) H 06/03/17 05:50 POC Glucose 104 MG/DL (70 - 105) 06/03/17 06:13 Calcium 9.2 mg/dL (8.6-10.3) 06/03/17 05:50 Phosphorus 3.6 mg/dL (2.5-5.0) 06/03/17 05:50 Magnesium 1.9 mg/dL (1.9-2.7) 06/03/17 05:50 Total Bilirubin 0.2 mg/dL (0.3-1.0) L 06/01/17 05:52 AST 16 U/L (13-39) 06/01/17 05:52 ALT 14 U/L (7-52) 06/01/17 05:52 Alkaline Phosphatase 33 U/L (34-104) L 06/01/17 05:52 Ammonia 52 umol/L (16-53) 05/27/17 05:30 Troponin I 0.03 ng/mL (0.01-0.05) 05/06/17 16:46 C-Reactive Protein 3.9 mg/dL (0.0-0.9) H 05/24/17 08:30 Total Protein 6.2 gm/dL (6.0-8.3) 06/01/17 05:52 Albumin 2.9 gm/dL (4.2-5.5) L 06/01/17 05:52 Globulin 3.3 gm/dL 06/01/17 05:52 Albumin/Globulin Ratio 0.9 (1.0-1.8) L 06/01/17 05:52 Prealbumin 13 mg/dL (12-34) 06/01/17 05:52 Triglycerides 78 mg/dL (<150) 06/01/17 05:52 Cholesterol 87 mg/dL (<200) 06/01/17 05:52 LDL Cholesterol Direct 89 mg/dL (75-193) 05/06/17 16:46 HDL Cholesterol 30 mg/dL (23-92) 05/06/17 16:46 Vitamin B12 931 pg/mL (211-946) 05/27/17 05:30 Folic Acid 13.0 ng/mL (>3.0) 05/27/17 05:30 TSH 1.23 uIU/ml (0.34-5.60) 05/06/17 16:46 Urine Source CATH 05/26/17 15:10 Urine Color YELLOW 05/26/17 15:10 Urine Clarity CLEAR (CLEAR) 05/26/17 15:10 Urine pH 7.0 (4.6 - 8.0) 05/26/17 15:10 Ur Specific [place] 1.025 (1.005-1.030) 05/26/17 15:10 Urine Protein NEGATIVE mg/dL (NEGATIVE) 05/26/17 15:10 Urine Glucose (UA) NEGATIVE mg/dL (NEGATIVE) 05/26/17 15:10 Urine Ketones NEGATIVE mg/dL (NEGATIVE) 05/26/17 15:10 Urine Blood NEGATIVE (NEGATIVE) 05/26/17 15:10 Urine Nitrate NEGATIVE (NEGATIVE) 05/26/17 15:10 Urine Bilirubin NEGATIVE (NEGATIVE) 05/26/17 15:10 Urine Urobilinogen 1.0 E.U./dL (0.2 - 1.0) 05/26/17 15:10 Ur Leukocyte Esterase NEGATIVE (NEGATIVE) 05/26/17 15:10 Urine RBC NONE SEEN /hpf (0-5) 05/26/17 15:10 Urine WBC NONE SEEN /hpf (0-5) 05/26/17 15:10 Ur Epithelial Cells NONE SEEN /lpf (FEW) 05/26/17 15:10 Amorphous Sediment FEW URATES (NONE SEEN) 05/06/17 16:20 Urine Bacteria NONE SEEN /hpf (NONE SEEN) 05/26/17 15:10 Urine Mucus MODERATE /lpf (FEW) 05/06/17 16:20 Vancomycin Trough 2.3 ug/mL (10-20) L 05/31/17 08:45 Valproic Acid < 10.0 ug/mL (50.0-100.0) L 05/21/17 05:45 RPR NONREACTIVE (NONREACTIVE) 05/06/17 16:46 - Physical Exam Vitals and I&O: Vital Signs Temp 97.9 F 06/03/17 12:00 Pulse 72 06/03/17 12:00 Resp 16 06/03/17 12:00 BP 118/53 06/03/17 12:00 Pulse Ox 100 06/03/17 12:00 Intake & Output 06/02/17 06/03/17 06/03/17 18:59 06:59 18:59 Intake Total 0 Output Total 1 Balance 0 -1 Weight (lbs) 158 lb 155 lb 3.2 oz 155 lb 3.2 oz Intake: Oral 0 Output: Urine 1 Other: # Voids 3 # Bowel Movements 0 Active Medications: Current Medications Acetaminophen (Tylenol) 650 mg PO Q4H PRN PRN Reason: Pain Or Fever above 101 Stop: 07/05/17 19:13 Al Hydrox/Mg Hydrox/Simethicone (Maalox) 30 ml PO Q6H PRN PRN Reason: Dyspepsia Stop: 07/05/17 19:13 Albuterol Sulfate (Albuterol 2.5mg/3ml Neb Ud) 2.5 mg HHN Q2HRT PRN PRN Reason: Shortness of Breath or Wheeze Stop: 07/05/17 19:13 Benztropine Mesylate (Cogentin) 1 mg PO BID PRN PRN Reason: Agitation Stop: 07/26/17 13:04 Bisacodyl (Dulcolax 10 Mg Supp) 10 mg RC DAILY PRN PRN Reason: Constipation Stop: 07/21/17 14:25 Divalproex Sodium (Depakote Er) 1,000 mg PO BID KAM PRN Reason: Protocol Stop: 07/06/17 08:59 Last Admin: 06/03/17 09:26 Dose: Not Given Ferrous Sulfate (Iron) 325 mg PO BID KAM Stop: 07/06/17 08:59 Last Admin: 06/03/17 09:26 Dose: Not Given Guaifenesin (Robitussin) 200 mg PO Q4HR PRN PRN Reason: Cough or Congestion Stop: 07/05/17 19:13 Haloperidol Lactate (Haldol) 2 mg IM HS PRN PRN Reason: Agitation Stop: 07/12/17 08:04 Haloperidol Lactate (Haldol) 2 mg IM DAILY PRN PRN Reason: Agitation Stop: 07/12/17 08:06 Last Admin: 05/20/17 13:32 Dose: 2 mg Heparin Sodium (Porcine) (Heparin) 5,000 units SUBQ Q12HR [facility] Stop: 07/05/17 20:59 Last Admin: 06/03/17 09:26 Dose: Not Given Sodium Chloride (Nacl 0.9%) 1,000 mls @ 30 mls/hr IV .Q24H [facility] Stop: 07/25/17 15:59 Last Admin: 06/01/17 18:13 Dose: 30 mls/hr Multivitamins/Minerals 10 ml/Dextrose/ Amino Acids/Electrolytes/ Fat Emulsion Intravenous 2,640 mls @ 110 mls/hr IV .Q24H [facility] Stop: 07/27/17 16:59 Last Admin: 06/01/17 18:07 Dose: 110 mls/hr Insulin Aspart (Novolog Insulin Sliding Scale) 0 units SUBQ BIDAC KAM PRN Reason: Protocol Stop: 07/23/17 16:59 Last Admin: 06/03/17 09:27 Dose: Not Given Ipratropium [place] (Atrovent Neb 0.5mg/2.5ml) 0.5 mg HHN Q2HRT PRN PRN Reason: Shortness of Breath or Wheeze Stop: 07/05/17 19:13 Lactobacillus Rhamnosus (Culturelle) 1 each PO DAILY [facility] Stop: 07/21/17 08:59 Last Admin: 06/03/17 09:27 Dose: Not Given Levothyroxine Sodium (Synthroid) 0.05 mg IVP DAILY [facility] Stop: 07/24/17 08:59 Last Admin: 06/03/17 09:22 Dose: 0.05 mg Metoclopramide HCl (Reglan) 10 mg IVP Q8HR PRN PRN Reason: Nausea / Vomiting Stop: 07/09/17 11:31 Last Admin: 05/28/17 15:11 Dose: 10 mg Miscellaneous (Ppn Per Pharmacy) 1 ea PRN PRN PRN Reason: PROTOCOL Stop: 07/20/17 13:24 Miscellaneous (Probiotic Screen) 1 ea PRN PRN PRN Reason: PROTOCOL Stop: 07/20/17 16:59 Olanzapine (Zyprexa) 10 mg PO HS KAM PRN Reason: Protocol Stop: 07/07/17 20:59 Last Admin: 06/02/17 23:40 Dose: Not Given Olanzapine (Zyprexa Zydis) 10 mg PO DAILY [facility] Stop: 07/27/17 08:59 Last Admin: 06/03/17 09:24 Dose: 10 mg Ondansetron HCl (Zofran) 4 mg IV Q4H PRN PRN Reason: Nausea / Vomiting Stop: 07/05/17 19:13 Last Admin: 05/19/17 15:22 Dose: 4 mg Pantoprazole Sodium (Protonix) 40 mg IVP BID [facility] Stop: 07/18/17 18:32 Last Admin: 06/03/17 09:22 Dose: 40 mg Sucralfate (Carafate) 1 gm PO QID [facility] Stop: 07/05/17 20:59 Last Admin: 06/03/17 09:26 Dose: Not Given Zolpidem Tartrate (Ambien) 5 mg PO HS PRN PRN Reason: Insomnia Stop: 07/05/17 19:12 General: demented HEENT: NC/AT, PERRLA Neck: Supple Abdomen: soft, non-tender, non-distended, positive bowel sound Extremities: excoriation Neurological: alert, disorganized, unsteady, bedbound - Procedures Procedures: Procedures Procedure Code Date DILATION OF LOWER ESOPHAGUS, ENDO [id number] 05/06/17 EGD BIOPSY SINGLE/MULTIPLE 90474 05/06/17 ESOPH EGD DILATION <30 MM 36375 05/06/17 EXCISION OF ESOPHAGUS, ENDO, DIAGN [id number] 05/06/17 Internal Medicine Assmt/Plan - Assessment Assessment: DYSPHAGIA DEHYDRATION- FAILURE TO THRIVE HYPONATREMIA HYPOKALEMIA GERD HTN BARETT'S ESOPHAGUS - Plan Plan: Continue with tpn monitor k+ continue with iv protonix manager case arranging placement monitor cbc/bmp ivf for hydration continue current plan of care Nutritional Asmnt/Malnutr-PDOC - Dietary Evaluation Malnutrition Findings (Please click <Entered> for more info): Nutritional Asmnt/Malnutrition Start: 05/07/17 10: 39 Text: Status: Complete Freq: Document 05/07/17 14:31 GSUN (Rec: 05/07/17 15:03 GSUN [id number]) Nutritional Asmnt/Malnutrition Patient General Information Nutritional Screening Consult Diagnosis Dysphagia, dehydration, FTT, Serna esophagus, PCM Pertinent Medical Hx/Surgical Hx Schizophrenia, stroke, TIA, GERD, thyroid disease, arthritis, dementia Subjective Information 46 year old male from SNF. RD consult for dysphagia. Spoke to ELISE Christina, pt has ulcer in the throat, unable to eat, swallow eval ordered nad pending. Pt is a questionable historian, talkative, however speech unclear and difficult to understand. 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 Pt appeared thin, mild muscle fat wasting to chest and temporals. Current Diet Order/ Nutrition Support Clear liquid Pertinent Medications D5-0.9%ns, Iron, Synthroid, Zofran, Protonix, Carafate Pertinent Labs Reviewed. Nutritional Hx/Data Height 5 ft 9 in Height (Calculated Centimeters) 175.3 Current Weight (lbs) 147 lb Weight (Calculated Kilograms) 66.7 Weight (Calculated Grams) 78809.1 [place] Body Weight 160 Weight Status Approriate GI Symptoms Food Allergies No Skin Integrity/Comment: [place] 13. Skin intact. Estimated Nutritional Goals BEE in Kcals: Using Current wt Calories/Kcals/Kg CBW 147lb/66.8kg Kcals Calculated 1670-2004kcal (25-30kcal/kg) Protein: Using Current wt Protein Calculated 67g (1g/kg) Fluid: ml 1670-2004ml (1ml/kcal) Nutritional Problem 1. 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 GI consult and swallow eval pending, recommend regular diet with diet texture per ST if pt is able to resume oral diet. Nursing staff to ensure pt sit upright during meals to minimize possible reflux. 2. Monitor weight. 3. If unable to resume oral diet, recommend enteral nutrition. Expected Outcomes/Goals Expected Outcomes/Goals 1. Pt to meet at least 75% of estimated nutritional needs orally or enterally.
[2017-06-03] MEDS: TPN 10%-70% CUSTOM IV SCH (17:12)
--- NOTE | 2017-06-03 17:26 | Progress Notes ---
DATE: SUBJECTIVE: Chart reviewed and the patient interviewed. Also discussed the patient's condition with the staff and reviewed records and labs. The patient is slightly sedated. He seems to be sleepy and groggy. He also is interacting minimally with others. The patient also is still having difficulty swallowing. Otherwise, the patient is compliant with taking his medications with no side effects of medications. Continue monitoring his behavior and followup. [facility]# [id number]
[2017-06-04 06:14] LABS: % BASOPHILS 0.5 % (0.0-2.0); % EOSINOPHILS 1.5 % (0.0-5.0); % LYMPHOCYTES 23.8 % (20.0-50.0); % MONOCYTES 9.3 % (2.0-10.0); % NEUTROPHILS 64.9 % (40.0-80.0); HEMATOCRIT 33.3 % (41.0-60); HEMOGLOBIN 11.4 gm/dL (12-16); MEAN CELL VOLUME 91.5 fl (80-99); MEAN CORPUSCULAR HEMOGLOBIN 31.4 pg (26.0-30.0); MEAN CORPUSCULAR HGB CONC 34.3 pg (28.0-36.0); MEAN PLATELET VOLUME 8.6 fl; NEUTROPHILE ABSOLUTE 5.1 Th/cmm (1.8-8.0); PLATELET COUNT 317 Th/cmm (150-400); RED BLOOD COUNT 3.64 Mil/cmm (4.30-5.70); RED CELL DISTRIBUTION WIDTH 13.5 % (11.5-20.0); WHITE BLOOD COUNT 7.8 Th/cmm (4.8-10.8)
[2017-06-04 06:31] LABS: ALB/GLOB RATIO 0.9 (1.0-1.8); ALKALINE PHOSPHATASE 36 U/L (34-104); ANION GAP 9.2 (7.0-16.0); BILIRUBIN,TOTAL 0.2 mg/dL (0.3-1.0); BUN - UREA NITROGEN 15 mg/dL (7-25); CALCIUM SERUM 8.9 mg/dL (8.6-10.3); CHLORIDE 107 mEq/L (98-107); CREATININE - SERUM 0.6 mg/dL (0.7-1.3); GLUCOSE 109 mg/dL (70-105); PHOSPHOROUS 3.9 mg/dL (2.5-5.0); POTASSIUM SERUM 4.2 mEq/L (3.5-5.1); SGOT 16 U/L (13-39); SGPT/ALT 13 U/L (7-52); SODIUM SERUM 137 mEq/L (136-145)
[2017-06-04] MEDS: INSULIN ASPART SLIDING SCALE 100 UNITS/ML UNIT SUBQ SCH ×2 (07:41→16:24)
--- NOTE | 2017-06-04 08:19 | Progress Notes ---
DATE: SUBJECTIVE: Chart reviewed and the patient interviewed. Also, discussed the patient's condition with the staff and reviewed records and labs. The patient continued to be quiet and no major behavioral problems. He also is still depressed. The patient also is still compliant with taking her medications. Dr. Sterling continued to monitor his medical condition. The patient continued to take Cogentin at a dose of 1 mg twice a day as well as Depakote 1000 mg twice a day and Haldol on p.r.n. basis. Also, the patient on Zyprexa 10 mg at bedtime. No side effects of medications. We will continue monitoring his behavior and continue current medications. JOB# [id number]
[2017-06-04] MEDS: Lactobacillus Rhamnosus 10 Billion CFU Capsule PO SCH (09:05)
[2017-06-04] MEDS: OLANZapine 10 mg Oral Disintegrating Tab PO SCH (09:05)
[2017-06-04] MEDS: Ferrous Sulfate 325 MG TAB PO SCH ×2 (09:05→17:23)
[2017-06-04] MEDS: Sodium Chloride 0.9% 1,000 ML IV SCH (09:10)
--- NOTE | 2017-06-04 12:16 | Internal Medicine Prog Note ---
Internal Medicine Subjective - Subjective Service Date: 06/04/17 Patient is:: awake, verbal Patient Complaints of:: vomitting Per staff patient has:: no adverse event, noncompliant, confused, tolerating meds Internal Medicine Objective - Results Result Diagrams: 06/04/17 06:00 06/04/17 06:00 Recent Labs: Laboratory Last Values WBC 7.8 Th/cmm (4.8-10.8) 06/04/17 06:00 RBC 3.64 Mil/cmm (4.30-5.70) L 06/04/17 06:00 Hgb 11.4 gm/dL (12-16) L 06/04/17 06:00 Hct 33.3 % (41.0-60) L 06/04/17 06:00 MCV 91.5 fl (80-99) 06/04/17 06:00 MCH 31.4 pg (26.0-30.0) H 06/04/17 06:00 MCHC Differential 34.3 pg (28.0-36.0) 06/04/17 06:00 RDW 13.5 % (11.5-20.0) 06/04/17 06:00 Plt Count 317 Th/cmm (150-400) 06/04/17 06:00 MPV 8.6 fl 06/04/17 06:00 Neutrophils % 64.9 % (40.0-80.0) 06/04/17 06:00 Band Neutrophils % 3 % (0-10) 05/21/17 05:45 Lymphocytes % 23.8 % (20.0-50.0) 06/04/17 06:00 Monocytes % 9.3 % (2.0-10.0) 06/04/17 06:00 Eosinophils % 1.5 % (0.0-5.0) 06/04/17 06:00 Basophils % 0.5 % (0.0-2.0) 06/04/17 06:00 Neutrophils (Manual) 86 % (40-80) H 05/21/17 05:45 Lymphocytes 10 % (20-50) L 05/21/17 05:45 Monocytes 1 % (2-10) L 05/21/17 05:45 PT 11.3 SECONDS (9.5-11.5) 05/09/17 05:45 INR 1.09 (0.5-1.4) 05/09/17 05:45 PTT (Actin FS) 25.7 SECONDS (26.0-38.0) L 05/06/17 16:46 Sodium 137 mEq/L (136-145) 06/04/17 06:00 Potassium 4.2 mEq/L (3.5-5.1) 06/04/17 06:00 Chloride 107 mEq/L (98-107) 06/04/17 06:00 Carbon Dioxide 25.0 mEq/L (21.0-31.0) 06/04/17 06:00 Anion Gap 9.2 (7.0-16.0) 06/04/17 06:00 BUN 15 mg/dL (7-25) 06/04/17 06:00 Creatinine 0.6 mg/dL (0.7-1.3) L 06/04/17 06:00 Est GFR ( Amer) > 60.0 ml/min (>90) 06/04/17 06:00 Est GFR (Non-Af Amer) > 60.0 ml/min 06/04/17 06:00 BUN/Creatinine Ratio 25.0 06/04/17 06:00 Glucose 109 mg/dL (70-105) H 06/04/17 06:00 POC Glucose 104 MG/DL (70 - 105) 06/04/17 06:05 Calcium 8.9 mg/dL (8.6-10.3) 06/04/17 06:00 Phosphorus 3.9 mg/dL (2.5-5.0) 06/04/17 06:00 Magnesium 2.0 mg/dL (1.9-2.7) 06/04/17 06:00 Total Bilirubin 0.2 mg/dL (0.3-1.0) L 06/04/17 06:00 AST 16 U/L (13-39) 06/04/17 06:00 ALT 13 U/L (7-52) 06/04/17 06:00 Alkaline Phosphatase 36 U/L (34-104) 06/04/17 06:00 Ammonia 52 umol/L (16-53) 05/27/17 05:30 Troponin I 0.03 ng/mL (0.01-0.05) 05/06/17 16:46 C-Reactive Protein 3.9 mg/dL (0.0-0.9) H 05/24/17 08:30 Total Protein 6.7 gm/dL (6.0-8.3) 06/04/17 06:00 Albumin 3.1 gm/dL (4.2-5.5) L 06/04/17 06:00 Globulin 3.6 gm/dL 06/04/17 06:00 Albumin/Globulin Ratio 0.9 (1.0-1.8) L 06/04/17 06:00 Prealbumin 13 mg/dL (12-34) 06/01/17 05:52 Triglycerides 78 mg/dL (<150) 06/01/17 05:52 Cholesterol 87 mg/dL (<200) 06/01/17 05:52 LDL Cholesterol Direct 89 mg/dL (75-193) 05/06/17 16:46 HDL Cholesterol 30 mg/dL (23-92) 05/06/17 16:46 Vitamin B12 931 pg/mL (211-946) 05/27/17 05:30 Folic Acid 13.0 ng/mL (>3.0) 05/27/17 05:30 TSH 1.23 uIU/ml (0.34-5.60) 05/06/17 16:46 Urine Source CATH 05/26/17 15:10 Urine Color YELLOW 05/26/17 15:10 Urine Clarity CLEAR (CLEAR) 05/26/17 15:10 Urine pH 7.0 (4.6 - 8.0) 05/26/17 15:10 Ur Specific [place] 1.025 (1.005-1.030) 05/26/17 15:10 Urine Protein NEGATIVE mg/dL (NEGATIVE) 05/26/17 15:10 Urine Glucose (UA) NEGATIVE mg/dL (NEGATIVE) 05/26/17 15:10 Urine Ketones NEGATIVE mg/dL (NEGATIVE) 05/26/17 15:10 Urine Blood NEGATIVE (NEGATIVE) 05/26/17 15:10 Urine Nitrate NEGATIVE (NEGATIVE) 05/26/17 15:10 Urine Bilirubin NEGATIVE (NEGATIVE) 05/26/17 15:10 Urine Urobilinogen 1.0 E.U./dL (0.2 - 1.0) 05/26/17 15:10 Ur Leukocyte Esterase NEGATIVE (NEGATIVE) 05/26/17 15:10 Urine RBC NONE SEEN /hpf (0-5) 05/26/17 15:10 Urine WBC NONE SEEN /hpf (0-5) 05/26/17 15:10 Ur Epithelial Cells NONE SEEN /lpf (FEW) 05/26/17 15:10 Amorphous Sediment FEW URATES (NONE SEEN) 05/06/17 16:20 Urine Bacteria NONE SEEN /hpf (NONE SEEN) 05/26/17 15:10 Urine Mucus MODERATE /lpf (FEW) 05/06/17 16:20 Vancomycin Trough 2.3 ug/mL (10-20) L 05/31/17 08:45 Valproic Acid < 10.0 ug/mL (50.0-100.0) L 05/21/17 05:45 RPR NONREACTIVE (NONREACTIVE) 05/06/17 16:46 - Physical Exam Vitals and I&O: Vital Signs Temp 98.6 F 06/04/17 11:44 Pulse 77 06/04/17 11:44 Resp 16 06/04/17 11:44 BP 112/59 06/04/17 11:44 Pulse Ox 98 06/04/17 11:44 Intake & Output 06/03/17 06/04/17 06/04/17 18:59 06:59 18:59 Intake Total 120 0 1320 Output Total 1 1 Balance 119 -1 1320 Weight (lbs) 155 lb 3.2 oz 146 lb 11.2 oz 146 lb 11 oz Intake: Oral 120 0 TPN/PPN 1320 Output: Urine 1 1 Other: # Voids 4 # Bowel Movements 0 Active Medications: Current Medications Acetaminophen (Tylenol) 650 mg PO Q4H PRN PRN Reason: Pain Or Fever above 101 Stop: 07/05/17 19:13 Al Hydrox/Mg Hydrox/Simethicone (Maalox) 30 ml PO Q6H PRN PRN Reason: Dyspepsia Stop: 07/05/17 19:13 Albuterol Sulfate (Albuterol 2.5mg/3ml Neb Ud) 2.5 mg HHN Q2HRT PRN PRN Reason: Shortness of Breath or Wheeze Stop: 07/05/17 19:13 Benztropine Mesylate (Cogentin) 1 mg PO BID PRN PRN Reason: Agitation Stop: 07/26/17 13:04 Bisacodyl (Dulcolax 10 Mg Supp) 10 mg RC DAILY PRN PRN Reason: Constipation Stop: 07/21/17 14:25 Divalproex Sodium (Depakote Er) 1,000 mg PO BID KAM PRN Reason: Protocol Stop: 07/06/17 08:59 Last Admin: 06/04/17 09:05 Dose: Not Given Ferrous Sulfate (Iron) 325 mg PO BID [facility] Stop: 07/06/17 08:59 Last Admin: 06/04/17 09:05 Dose: Not Given Guaifenesin (Robitussin) 200 mg PO Q4HR PRN PRN Reason: Cough or Congestion Stop: 07/05/17 19:13 Haloperidol Lactate (Haldol) 2 mg IM HS PRN PRN Reason: Agitation Stop: 07/12/17 08:04 Haloperidol Lactate (Haldol) 2 mg IM DAILY PRN PRN Reason: Agitation Stop: 07/12/17 08:06 Last Admin: 05/20/17 13:32 Dose: 2 mg Heparin Sodium (Porcine) (Heparin) 5,000 units SUBQ Q12HR [facility] Stop: 07/05/17 20:59 Last Admin: 06/04/17 09:05 Dose: Not Given Sodium Chloride (Nacl 0.9%) 1,000 mls @ 30 mls/hr IV .Q24H [facility] Stop: 07/25/17 15:59 Last Admin: 06/04/17 09:10 Dose: 30 mls/hr Multivitamins/Minerals 10 ml/Dextrose/ Amino Acids/Electrolytes/ Fat Emulsion Intravenous 2,640 mls @ 110 mls/hr IV .Q24H [facility] Stop: 07/27/17 16:59 Last Admin: 06/03/17 17:12 Dose: 110 mls/hr Insulin Aspart (Novolog Insulin Sliding Scale) 0 units SUBQ BIDAC KAM PRN Reason: Protocol Stop: 07/23/17 16:59 Last Admin: 06/04/17 07:41 Dose: Not Given Ipratropium [place] (Atrovent Neb 0.5mg/2.5ml) 0.5 mg HHN Q2HRT PRN PRN Reason: Shortness of Breath or Wheeze Stop: 07/05/17 19:13 Lactobacillus Rhamnosus (Culturelle) 1 each PO DAILY [facility] Stop: 07/21/17 08:59 Last Admin: 06/04/17 09:05 Dose: Not Given Levothyroxine Sodium (Synthroid) 0.05 mg IVP DAILY [facility] Stop: 07/24/17 08:59 Last Admin: 06/04/17 09:04 Dose: 0.05 mg Metoclopramide HCl (Reglan) 10 mg IVP Q8HR PRN PRN Reason: Nausea / Vomiting Stop: 07/09/17 11:31 Last Admin: 05/28/17 15:11 Dose: 10 mg Miscellaneous (Ppn Per Pharmacy) 1 ea PRN PRN PRN Reason: PROTOCOL Stop: 07/20/17 13:24 Miscellaneous (Probiotic Screen) 1 ea PRN PRN PRN Reason: PROTOCOL Stop: 07/20/17 16:59 Olanzapine (Zyprexa) 10 mg PO HS KAM PRN Reason: Protocol Stop: 07/07/17 20:59 Last Admin: 06/03/17 21:07 Dose: Not Given Olanzapine (Zyprexa Zydis) 10 mg PO DAILY [facility] Stop: 07/27/17 08:59 Last Admin: 06/04/17 09:05 Dose: 10 mg Ondansetron HCl (Zofran) 4 mg IV Q4H PRN PRN Reason: Nausea / Vomiting Stop: 07/05/17 19:13 Last Admin: 05/19/17 15:22 Dose: 4 mg Pantoprazole Sodium (Protonix) 40 mg IVP BID [facility] Stop: 07/18/17 18:32 Last Admin: 06/04/17 09:03 Dose: 40 mg Sucralfate (Carafate) 1 gm PO QID [facility] Stop: 07/05/17 20:59 Last Admin: 06/04/17 09:05 Dose: Not Given Zolpidem Tartrate (Ambien) 5 mg PO HS PRN PRN Reason: Insomnia Stop: 07/05/17 19:12 General: demented HEENT: NC/AT, PERRLA Neck: Supple Abdomen: soft, non-tender, non-distended, positive bowel sound Extremities: excoriation Neurological: alert, disorganized, unsteady, bedbound - Procedures Procedures: Procedures Procedure Code Date DILATION OF LOWER ESOPHAGUS, ENDO [id number] 05/06/17 EGD BIOPSY SINGLE/MULTIPLE 39765 05/06/17 ESOPH EGD DILATION <30 MM 12277 05/06/17 EXCISION OF ESOPHAGUS, ENDO, DIAGN [id number] 05/06/17 Internal Medicine Assmt/Plan - Assessment Assessment: DYSPHAGIA DEHYDRATION- FAILURE TO THRIVE HYPONATREMIA HYPOKALEMIA GERD HTN BARETT'S ESOPHAGUS - Plan Plan: Continue with tpn monitor k+ continue with iv protonix manager case arranging placement monitor cbc/bmp ivf for hydration continue current plan of care Nutritional Asmnt/Malnutr-PDOC - Dietary Evaluation Malnutrition Findings (Please click <Entered> for more info): Nutritional Asmnt/Malnutrition Start: 05/07/17 10: 39 Text: Status: Complete Freq: Document 05/07/17 14:31 GSUN (Rec: 05/07/17 15:03 GSUN [id number]) Nutritional Asmnt/Malnutrition Patient General Information Nutritional Screening Consult Diagnosis Dysphagia, dehydration, FTT, Serna esophagus, PCM Pertinent Medical Hx/Surgical Hx Schizophrenia, stroke, TIA, GERD, thyroid disease, arthritis, dementia Subjective Information 46 year old male from SNF. RD consult for dysphagia. Spoke to ELISE Christina, pt has ulcer in the throat, unable to eat, swallow eval ordered nad pending. Pt is a questionable historian, talkative, however speech unclear and difficult to understand. 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 Pt appeared thin, mild muscle fat wasting to chest and temporals. Current Diet Order/ Nutrition Support Clear liquid Pertinent Medications D5-0.9%ns, Iron, Synthroid, Zofran, Protonix, Carafate Pertinent Labs Reviewed. Nutritional Hx/Data Height 5 ft 9 in Height (Calculated Centimeters) 175.3 Current Weight (lbs) 147 lb Weight (Calculated Kilograms) 66.7 Weight (Calculated Grams) 09196.1 [place] Body Weight 160 Weight Status Approriate GI Symptoms Food Allergies No Skin Integrity/Comment: [place] 13. Skin intact. Estimated Nutritional Goals BEE in Kcals: Using Current wt Calories/Kcals/Kg CBW 147lb/66.8kg Kcals Calculated 1670-2004kcal (25-30kcal/kg) Protein: Using Current wt Protein Calculated 67g (1g/kg) Fluid: ml 1670-2004ml (1ml/kcal) Nutritional Problem 1. 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 GI consult and swallow eval pending, recommend regular diet with diet texture per ST if pt is able to resume oral diet. Nursing staff to ensure pt sit upright during meals to minimize possible reflux. 2. Monitor weight. 3. If unable to resume oral diet, recommend enteral nutrition. Expected Outcomes/Goals Expected Outcomes/Goals 1. Pt to meet at least 75% of estimated nutritional needs orally or enterally.
[2017-06-04] MEDS: TPN 10%-70% CUSTOM IV SCH (17:23)
[2017-06-05 06:14] LABS: % BASOPHILS 0.5 % (0.0-2.0); % EOSINOPHILS 1.8 % (0.0-5.0); % LYMPHOCYTES 26.8 % (20.0-50.0); % NEUTROPHILS 61.9 % (40.0-80.0); HEMATOCRIT 33.8 % (41.0-60); HEMOGLOBIN 11.5 gm/dL (12-16); MEAN CELL VOLUME 90.5 fl (80-99); MEAN CORPUSCULAR HEMOGLOBIN 30.9 pg (26.0-30.0); MEAN CORPUSCULAR HGB CONC 34.1 pg (28.0-36.0); MEAN PLATELET VOLUME 8.8 fl; PLATELET COUNT 302 Th/cmm (150-400); RED BLOOD COUNT 3.73 Mil/cmm (4.30-5.70); RED CELL DISTRIBUTION WIDTH 13.8 % (11.5-20.0); WHITE BLOOD COUNT 7.9 Th/cmm (4.8-10.8)
[2017-06-05] MEDS: INSULIN ASPART SLIDING SCALE 100 UNITS/ML UNIT SUBQ SCH ×2 (06:38→16:34)
[2017-06-05 06:42] LABS: BUN - UREA NITROGEN 15 mg/dL (7-25); BUN/CREATININE RATIO 21.4; CALCIUM SERUM 9.4 mg/dL (8.6-10.3); CARBON DIOXIDE 25.1 mEq/L (21.0-31.0); CHLORIDE 106 mEq/L (98-107); CREATININE - SERUM 0.7 mg/dL (0.7-1.3); GLUCOSE 93 mg/dL (70-105); MAGNESIUM 1.7 mg/dL (1.9-2.7); PHOSPHOROUS 4.2 mg/dL (2.5-5.0); POTASSIUM SERUM 4.1 mEq/L (3.5-5.1); SODIUM SERUM 138 mEq/L (136-145)
[2017-06-05] MEDS: Ferrous Sulfate 325 MG TAB PO SCH ×2 (09:57→16:32)
[2017-06-05] MEDS: Lactobacillus Rhamnosus 10 Billion CFU Capsule PO SCH (09:59)
[2017-06-05] MEDS: OLANZapine 10 mg Oral Disintegrating Tab PO SCH (10:00)
--- NOTE | 2017-06-05 12:49 | Internal Medicine Prog Note ---
Internal Medicine Subjective - Subjective Patient seen and examined:: with staff, chart reviewed Patient is:: awake, verbal Patient Complaints of:: vomitting Per staff patient has:: no adverse event, noncompliant, confused, tolerating meds Internal Medicine Objective - Results Result Diagrams: 06/05/17 05:40 06/05/17 05:40 Recent Labs: Laboratory Last Values WBC 7.9 Th/cmm (4.8-10.8) 06/05/17 05:40 RBC 3.73 Mil/cmm (4.30-5.70) L 06/05/17 05:40 Hgb 11.5 gm/dL (12-16) L 06/05/17 05:40 Hct 33.8 % (41.0-60) L 06/05/17 05:40 MCV 90.5 fl (80-99) 06/05/17 05:40 MCH 30.9 pg (26.0-30.0) H 06/05/17 05:40 MCHC Differential 34.1 pg (28.0-36.0) 06/05/17 05:40 RDW 13.8 % (11.5-20.0) 06/05/17 05:40 Plt Count 302 Th/cmm (150-400) 06/05/17 05:40 MPV 8.8 fl 06/05/17 05:40 Neutrophils % 61.9 % (40.0-80.0) 06/05/17 05:40 Band Neutrophils % 3 % (0-10) 05/21/17 05:45 Lymphocytes % 26.8 % (20.0-50.0) 06/05/17 05:40 Monocytes % 9.0 % (2.0-10.0) 06/05/17 05:40 Eosinophils % 1.8 % (0.0-5.0) 06/05/17 05:40 Basophils % 0.5 % (0.0-2.0) 06/05/17 05:40 Neutrophils (Manual) 86 % (40-80) H 05/21/17 05:45 Lymphocytes 10 % (20-50) L 05/21/17 05:45 Monocytes 1 % (2-10) L 05/21/17 05:45 PT 11.3 SECONDS (9.5-11.5) 05/09/17 05:45 INR 1.09 (0.5-1.4) 05/09/17 05:45 PTT (Actin FS) 25.7 SECONDS (26.0-38.0) L 05/06/17 16:46 Sodium 138 mEq/L (136-145) 06/05/17 05:40 Potassium 4.1 mEq/L (3.5-5.1) 06/05/17 05:40 Chloride 106 mEq/L (98-107) 06/05/17 05:40 Carbon Dioxide 25.1 mEq/L (21.0-31.0) 06/05/17 05:40 Anion Gap 11.0 (7.0-16.0) 06/05/17 05:40 BUN 15 mg/dL (7-25) 06/05/17 05:40 Creatinine 0.7 mg/dL (0.7-1.3) 06/05/17 05:40 Est GFR ( Amer) > 60.0 ml/min (>90) 06/05/17 05:40 Est GFR (Non-Af Amer) > 60.0 ml/min 06/05/17 05:40 BUN/Creatinine Ratio 21.4 06/05/17 05:40 Glucose 93 mg/dL (70-105) 06/05/17 05:40 POC Glucose 118 MG/DL (70 - 105) H 06/04/17 16:12 Calcium 9.4 mg/dL (8.6-10.3) 06/05/17 05:40 Phosphorus 4.2 mg/dL (2.5-5.0) 06/05/17 05:40 Magnesium 1.7 mg/dL (1.9-2.7) L 06/05/17 05:40 Total Bilirubin 0.2 mg/dL (0.3-1.0) L 06/04/17 06:00 AST 16 U/L (13-39) 06/04/17 06:00 ALT 13 U/L (7-52) 06/04/17 06:00 Alkaline Phosphatase 36 U/L (34-104) 06/04/17 06:00 Ammonia 52 umol/L (16-53) 05/27/17 05:30 Troponin I 0.03 ng/mL (0.01-0.05) 05/06/17 16:46 C-Reactive Protein 3.9 mg/dL (0.0-0.9) H 05/24/17 08:30 Total Protein 6.7 gm/dL (6.0-8.3) 06/04/17 06:00 Albumin 3.1 gm/dL (4.2-5.5) L 06/04/17 06:00 Globulin 3.6 gm/dL 06/04/17 06:00 Albumin/Globulin Ratio 0.9 (1.0-1.8) L 06/04/17 06:00 Prealbumin 13 mg/dL (12-34) 06/01/17 05:52 Triglycerides 78 mg/dL (<150) 06/01/17 05:52 Cholesterol 87 mg/dL (<200) 06/01/17 05:52 LDL Cholesterol Direct 89 mg/dL (75-193) 05/06/17 16:46 HDL Cholesterol 30 mg/dL (23-92) 05/06/17 16:46 Vitamin B12 931 pg/mL (211-946) 05/27/17 05:30 Folic Acid 13.0 ng/mL (>3.0) 05/27/17 05:30 TSH 1.23 uIU/ml (0.34-5.60) 05/06/17 16:46 Urine Source CATH 05/26/17 15:10 Urine Color YELLOW 05/26/17 15:10 Urine Clarity CLEAR (CLEAR) 05/26/17 15:10 Urine pH 7.0 (4.6 - 8.0) 05/26/17 15:10 Ur Specific [place] 1.025 (1.005-1.030) 05/26/17 15:10 Urine Protein NEGATIVE mg/dL (NEGATIVE) 05/26/17 15:10 Urine Glucose (UA) NEGATIVE mg/dL (NEGATIVE) 05/26/17 15:10 Urine Ketones NEGATIVE mg/dL (NEGATIVE) 05/26/17 15:10 Urine Blood NEGATIVE (NEGATIVE) 05/26/17 15:10 Urine Nitrate NEGATIVE (NEGATIVE) 05/26/17 15:10 Urine Bilirubin NEGATIVE (NEGATIVE) 05/26/17 15:10 Urine Urobilinogen 1.0 E.U./dL (0.2 - 1.0) 05/26/17 15:10 Ur Leukocyte Esterase NEGATIVE (NEGATIVE) 05/26/17 15:10 Urine RBC NONE SEEN /hpf (0-5) 05/26/17 15:10 Urine WBC NONE SEEN /hpf (0-5) 05/26/17 15:10 Ur Epithelial Cells NONE SEEN /lpf (FEW) 05/26/17 15:10 Amorphous Sediment FEW URATES (NONE SEEN) 05/06/17 16:20 Urine Bacteria NONE SEEN /hpf (NONE SEEN) 05/26/17 15:10 Urine Mucus MODERATE /lpf (FEW) 05/06/17 16:20 Vancomycin Trough 2.3 ug/mL (10-20) L 05/31/17 08:45 Valproic Acid < 10.0 ug/mL (50.0-100.0) L 05/21/17 05:45 RPR NONREACTIVE (NONREACTIVE) 05/06/17 16:46 - Physical Exam Vitals and I&O: Vital Signs Temp 97.0 F 06/05/17 11:58 Pulse 70 06/05/17 11:58 Resp 19 06/05/17 11:58 BP 117/73 06/05/17 11:58 Pulse Ox 99 06/05/17 11:58 Intake & Output 06/04/17 06/05/17 06/05/17 18:59 06:59 18:59 Intake Total 4440 Balance 4440 Weight (lbs) 66.224 kg 69.173 kg Intake: Intake, IV Amount 2640 Multivitamin Inj 10 ml In 2640 Dextrose 70% 1,880 ml In Amino Acids 10% 500 ml In Intralipids 20% 250 ml @ 110 mls/hr IV .Q24H KAM Rx#:[id number] Oral 480 TPN/PPN 1320 Other: # Voids 4 3 # Bowel Movements 0 0 Active Medications: Current Medications Acetaminophen (Tylenol) 650 mg PO Q4H PRN PRN Reason: Pain Or Fever above 101 Stop: 07/05/17 19:13 Al Hydrox/Mg Hydrox/Simethicone (Maalox) 30 ml PO Q6H PRN PRN Reason: Dyspepsia Stop: 07/05/17 19:13 Albuterol Sulfate (Albuterol 2.5mg/3ml Neb Ud) 2.5 mg HHN Q2HRT PRN PRN Reason: Shortness of Breath or Wheeze Stop: 07/05/17 19:13 Benztropine Mesylate (Cogentin) 1 mg PO BID PRN PRN Reason: Agitation Stop: 07/26/17 13:04 Bisacodyl (Dulcolax 10 Mg Supp) 10 mg RC DAILY PRN PRN Reason: Constipation Stop: 07/21/17 14:25 Divalproex Sodium (Depakote Er) 1,000 mg PO BID KAM PRN Reason: Protocol Stop: 07/06/17 08:59 Last Admin: 06/05/17 09:57 Dose: Not Given Ferrous Sulfate (Iron) 325 mg PO BID KAM Stop: 07/06/17 08:59 Last Admin: 06/05/17 09:57 Dose: Not Given Guaifenesin (Robitussin) 200 mg PO Q4HR PRN PRN Reason: Cough or Congestion Stop: 07/05/17 19:13 Haloperidol Lactate (Haldol) 2 mg IM HS PRN PRN Reason: Agitation Stop: 07/12/17 08:04 Haloperidol Lactate (Haldol) 2 mg IM DAILY PRN PRN Reason: Agitation Stop: 07/12/17 08:06 Last Admin: 05/20/17 13:32 Dose: 2 mg Heparin Sodium (Porcine) (Heparin) 5,000 units SUBQ Q12HR KAM Stop: 07/05/17 20:59 Last Admin: 06/05/17 09:59 Dose: Not Given Sodium Chloride (Nacl 0.9%) 1,000 mls @ 30 mls/hr IV .Q24H KAM Stop: 07/25/17 15:59 Last Admin: 06/04/17 09:10 Dose: 30 mls/hr Multivitamins/Minerals 10 ml/Dextrose/ Amino Acids/Electrolytes/ Fat Emulsion Intravenous 2,640 mls @ 110 mls/hr IV .Q24H KAM Stop: 07/27/17 16:59 Last Admin: 06/04/17 17:23 Dose: 110 mls/hr Insulin Aspart (Novolog Insulin Sliding Scale) 0 units SUBQ BIDAC KAM PRN Reason: Protocol Stop: 07/23/17 16:59 Last Admin: 06/05/17 06:38 Dose: Not Given Ipratropium [place] (Atrovent Neb 0.5mg/2.5ml) 0.5 mg HHN Q2HRT PRN PRN Reason: Shortness of Breath or Wheeze Stop: 07/05/17 19:13 Lactobacillus Rhamnosus (Culturelle) 1 each PO DAILY KAM Stop: 07/21/17 08:59 Last Admin: 06/05/17 09:59 Dose: Not Given Levothyroxine Sodium (Synthroid) 0.05 mg IVP DAILY KAM Stop: 07/24/17 08:59 Last Admin: 06/05/17 09:59 Dose: Not Given Metoclopramide HCl (Reglan) 10 mg IVP Q8HR PRN PRN Reason: Nausea / Vomiting Stop: 07/09/17 11:31 Last Admin: 05/28/17 15:11 Dose: 10 mg Miscellaneous (Ppn Per Pharmacy) 1 ea PRN PRN PRN Reason: PROTOCOL Stop: 07/20/17 13:24 Miscellaneous (Probiotic Screen) 1 ea PRN PRN PRN Reason: PROTOCOL Stop: 07/20/17 16:59 Olanzapine (Zyprexa) 10 mg PO HS KAM PRN Reason: Protocol Stop: 07/07/17 20:59 Last Admin: 06/04/17 21:09 Dose: Not Given Olanzapine (Zyprexa Zydis) 10 mg PO DAILY KAM Stop: 07/27/17 08:59 Last Admin: 06/05/17 10:00 Dose: Not Given Ondansetron HCl (Zofran) 4 mg IV Q4H PRN PRN Reason: Nausea / Vomiting Stop: 07/05/17 19:13 Last Admin: 05/19/17 15:22 Dose: 4 mg Pantoprazole Sodium (Protonix) 40 mg IVP BID KAM Stop: 07/18/17 18:32 Last Admin: 06/05/17 10:00 Dose: Not Given Sucralfate (Carafate) 1 gm PO QID KAM Stop: 07/05/17 20:59 Last Admin: 06/05/17 12:36 Dose: Not Given Zolpidem Tartrate (Ambien) 5 mg PO HS PRN PRN Reason: Insomnia Stop: 07/05/17 19:12 General: demented HEENT: NC/AT, PERRLA Neck: Supple Abdomen: soft, non-tender, non-distended, positive bowel sound Extremities: excoriation Neurological: alert, disorganized, unsteady, bedbound - Procedures Procedures: Procedures Procedure Code Date DILATION OF LOWER ESOPHAGUS, ENDO [id number] 05/06/17 EGD BIOPSY SINGLE/MULTIPLE 97490 05/06/17 ESOPH EGD DILATION <30 MM 68663 05/06/17 EXCISION OF ESOPHAGUS, ENDO, DIAGN [id number] 05/06/17 Internal Medicine Assmt/Plan - Assessment Assessment: persistent vomitting DYSPHAGIA DEHYDRATION FAILURE TO THRIVE HYPONATREMIA HYPOKALEMIA GERD HTN BARETT'S ESOPHAGUS fever - Plan Plan: will add laxative kub noted Plan: will add reglan and prn zofran monitor cbc/bmp ivf for hydration continue current plan of care Nutritional Asmnt/Malnutr-PDOC - Dietary Evaluation Malnutrition Findings (Please click <Entered> for more info): Nutritional Asmnt/Malnutrition Start: 05/07/17 10: 39 Text: Status: Complete Freq: Document 05/07/17 14:31 GSUN (Rec: 05/07/17 15:03 GSUN [email or web address]) Nutritional Asmnt/Malnutrition Patient General Information Nutritional Screening Consult Diagnosis Dysphagia, dehydration, FTT, Serna esophagus, PCM Pertinent Medical Hx/Surgical Hx Schizophrenia, stroke, TIA, GERD, thyroid disease, arthritis, dementia Subjective Information 46 year old male from SNF. RD consult for dysphagia. Spoke to ELISE Christina, pt has ulcer in the throat, unable to eat, swallow eval ordered nad pending. Pt is a questionable historian, talkative, however speech unclear and difficult to understand. 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 Pt appeared thin, mild muscle fat wasting to chest and temporals. Current Diet Order/ Nutrition Support Clear liquid Pertinent Medications D5-0.9%ns, Iron, Synthroid, Zofran, Protonix, Carafate Pertinent Labs Reviewed. Nutritional Hx/Data Height 1.75 m Height (Calculated Centimeters) 175.3 Current Weight (lbs) 66.678 kg Weight (Calculated Kilograms) 66.7 Weight (Calculated Grams) 34476.1 [place] Body Weight 160 Weight Status Approriate GI Symptoms Food Allergies No Skin Integrity/Comment: [place] 13. Skin intact. Estimated Nutritional Goals BEE in Kcals: Using Current wt Calories/Kcals/Kg CBW 147lb/66.8kg Kcals Calculated 1670-2004kcal (25-30kcal/kg) Protein: Using Current wt Protein Calculated 67g (1g/kg) Fluid: ml 1670-2004ml (1ml/kcal) Nutritional Problem 1. 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 GI consult and swallow eval pending, recommend regular diet with diet texture per ST if pt is able to resume oral diet. Nursing staff to ensure pt sit upright during meals to minimize possible reflux. 2. Monitor weight. 3. If unable to resume oral diet, recommend enteral nutrition. Expected Outcomes/Goals Expected Outcomes/Goals 1. Pt to meet at least 75% of estimated nutritional needs orally or enterally.
[2017-06-05] MEDS: TPN 10%-70% CUSTOM IV SCH (15:41)
[2017-06-06] MEDS: Sodium Chloride 0.9% 1,000 ML IV SCH ×3 (00:52→17:47)
[2017-06-06 06:36] LABS: ANION GAP 8.3 (7.0-16.0); BUN - UREA NITROGEN 19 mg/dL (7-25); BUN/CREATININE RATIO 27.1; CALCIUM SERUM 9.2 mg/dL (8.6-10.3); CHLORIDE 106 mEq/L (98-107); CREATININE - SERUM 0.7 mg/dL (0.7-1.3); GLUCOSE 110 mg/dL (70-105); PHOSPHOROUS 3.4 mg/dL (2.5-5.0); POTASSIUM SERUM 4.3 mEq/L (3.5-5.1); SODIUM SERUM 136 mEq/L (136-145)
[2017-06-06] MEDS: INSULIN ASPART SLIDING SCALE 100 UNITS/ML UNIT SUBQ SCH ×2 (06:42→17:14)
[2017-06-06] MEDS: OLANZapine 10 mg Oral Disintegrating Tab PO SCH (08:14)
[2017-06-06] MEDS: Ferrous Sulfate 325 MG TAB PO SCH ×2 (08:14→17:14)
[2017-06-06] MEDS: Lactobacillus Rhamnosus 10 Billion CFU Capsule PO SCH (08:14)
--- NOTE | 2017-06-06 13:07 | Internal Medicine Prog Note ---
Internal Medicine Subjective - Subjective Service Date: 06/06/17 Patient is:: awake, verbal Patient Complaints of:: vomitting Per staff patient has:: no adverse event, noncompliant, confused, tolerating meds Internal Medicine Objective - Results Result Diagrams: 06/05/17 05:40 06/06/17 06:00 Recent Labs: Laboratory Last Values WBC 7.9 Th/cmm (4.8-10.8) 06/05/17 05:40 RBC 3.73 Mil/cmm (4.30-5.70) L 06/05/17 05:40 Hgb 11.5 gm/dL (12-16) L 06/05/17 05:40 Hct 33.8 % (41.0-60) L 06/05/17 05:40 MCV 90.5 fl (80-99) 06/05/17 05:40 MCH 30.9 pg (26.0-30.0) H 06/05/17 05:40 MCHC Differential 34.1 pg (28.0-36.0) 06/05/17 05:40 RDW 13.8 % (11.5-20.0) 06/05/17 05:40 Plt Count 302 Th/cmm (150-400) 06/05/17 05:40 MPV 8.8 fl 06/05/17 05:40 Neutrophils % 61.9 % (40.0-80.0) 06/05/17 05:40 Band Neutrophils % 3 % (0-10) 05/21/17 05:45 Lymphocytes % 26.8 % (20.0-50.0) 06/05/17 05:40 Monocytes % 9.0 % (2.0-10.0) 06/05/17 05:40 Eosinophils % 1.8 % (0.0-5.0) 06/05/17 05:40 Basophils % 0.5 % (0.0-2.0) 06/05/17 05:40 Neutrophils (Manual) 86 % (40-80) H 05/21/17 05:45 Lymphocytes 10 % (20-50) L 05/21/17 05:45 Monocytes 1 % (2-10) L 05/21/17 05:45 PT 11.3 SECONDS (9.5-11.5) 05/09/17 05:45 INR 1.09 (0.5-1.4) 05/09/17 05:45 PTT (Actin FS) 25.7 SECONDS (26.0-38.0) L 05/06/17 16:46 Sodium 136 mEq/L (136-145) 06/06/17 06:00 Potassium 4.3 mEq/L (3.5-5.1) 06/06/17 06:00 Chloride 106 mEq/L (98-107) 06/06/17 06:00 Carbon Dioxide 26.0 mEq/L (21.0-31.0) 06/06/17 06:00 Anion Gap 8.3 (7.0-16.0) 06/06/17 06:00 BUN 19 mg/dL (7-25) 06/06/17 06:00 Creatinine 0.7 mg/dL (0.7-1.3) 06/06/17 06:00 Est GFR ( Amer) > 60.0 ml/min (>90) 06/06/17 06:00 Est GFR (Non-Af Amer) > 60.0 ml/min 06/06/17 06:00 BUN/Creatinine Ratio 27.1 06/06/17 06:00 Glucose 110 mg/dL (70-105) H 06/06/17 06:00 POC Glucose 112 MG/DL (70 - 105) H 06/05/17 16:31 Calcium 9.2 mg/dL (8.6-10.3) 06/06/17 06:00 Phosphorus 3.4 mg/dL (2.5-5.0) 06/06/17 06:00 Magnesium 2.0 mg/dL (1.9-2.7) 06/06/17 06:00 Total Bilirubin 0.2 mg/dL (0.3-1.0) L 06/04/17 06:00 AST 16 U/L (13-39) 06/04/17 06:00 ALT 13 U/L (7-52) 06/04/17 06:00 Alkaline Phosphatase 36 U/L (34-104) 06/04/17 06:00 Ammonia 52 umol/L (16-53) 05/27/17 05:30 Troponin I 0.03 ng/mL (0.01-0.05) 05/06/17 16:46 C-Reactive Protein 3.9 mg/dL (0.0-0.9) H 05/24/17 08:30 Total Protein 6.7 gm/dL (6.0-8.3) 06/04/17 06:00 Albumin 3.1 gm/dL (4.2-5.5) L 06/04/17 06:00 Globulin 3.6 gm/dL 06/04/17 06:00 Albumin/Globulin Ratio 0.9 (1.0-1.8) L 06/04/17 06:00 Prealbumin 13 mg/dL (12-34) 06/01/17 05:52 Triglycerides 78 mg/dL (<150) 06/01/17 05:52 Cholesterol 87 mg/dL (<200) 06/01/17 05:52 LDL Cholesterol Direct 89 mg/dL (75-193) 05/06/17 16:46 HDL Cholesterol 30 mg/dL (23-92) 05/06/17 16:46 Vitamin B12 931 pg/mL (211-946) 05/27/17 05:30 Folic Acid 13.0 ng/mL (>3.0) 05/27/17 05:30 TSH 1.23 uIU/ml (0.34-5.60) 05/06/17 16:46 Urine Source CATH 05/26/17 15:10 Urine Color YELLOW 05/26/17 15:10 Urine Clarity CLEAR (CLEAR) 05/26/17 15:10 Urine pH 7.0 (4.6 - 8.0) 05/26/17 15:10 Ur Specific [place] 1.025 (1.005-1.030) 05/26/17 15:10 Urine Protein NEGATIVE mg/dL (NEGATIVE) 05/26/17 15:10 Urine Glucose (UA) NEGATIVE mg/dL (NEGATIVE) 05/26/17 15:10 Urine Ketones NEGATIVE mg/dL (NEGATIVE) 05/26/17 15:10 Urine Blood NEGATIVE (NEGATIVE) 05/26/17 15:10 Urine Nitrate NEGATIVE (NEGATIVE) 05/26/17 15:10 Urine Bilirubin NEGATIVE (NEGATIVE) 05/26/17 15:10 Urine Urobilinogen 1.0 E.U./dL (0.2 - 1.0) 05/26/17 15:10 Ur Leukocyte Esterase NEGATIVE (NEGATIVE) 05/26/17 15:10 Urine RBC NONE SEEN /hpf (0-5) 05/26/17 15:10 Urine WBC NONE SEEN /hpf (0-5) 05/26/17 15:10 Ur Epithelial Cells NONE SEEN /lpf (FEW) 05/26/17 15:10 Amorphous Sediment FEW URATES (NONE SEEN) 05/06/17 16:20 Urine Bacteria NONE SEEN /hpf (NONE SEEN) 05/26/17 15:10 Urine Mucus MODERATE /lpf (FEW) 05/06/17 16:20 Vancomycin Trough 2.3 ug/mL (10-20) L 05/31/17 08:45 Valproic Acid < 10.0 ug/mL (50.0-100.0) L 05/21/17 05:45 RPR NONREACTIVE (NONREACTIVE) 05/06/17 16:46 - Physical Exam Vitals and I&O: Vital Signs Temp 97.9 F 06/06/17 11:00 Pulse 72 06/06/17 11:00 Resp 18 06/06/17 11:00 BP 108/77 06/06/17 11:00 Pulse Ox 99 06/06/17 11:00 Intake & Output 06/05/17 06/06/17 06/06/17 18:59 06:59 18:59 Intake Total 4253 100 Balance 4253 100 Weight (lbs) 152 lb 8 oz Intake: Intake, IV Amount 3453 100 Multivitamin Inj 10 ml In 2453 Dextrose 70% 1,880 ml In Amino Acids 10% 500 ml In Intralipids 20% 250 ml @ 110 mls/hr IV .Q24H KAM Rx#:[id number] Sodium Chloride 0.9% 1, 1000 100 000 ml @ 30 mls/hr IV . Q24H KAM Rx#:[id number] Oral 800 Other: # Voids 3 # Bowel Movements 1 Active Medications: Current Medications Acetaminophen (Tylenol) 650 mg PO Q4H PRN PRN Reason: Pain Or Fever above 101 Stop: 07/05/17 19:13 Al Hydrox/Mg Hydrox/Simethicone (Maalox) 30 ml PO Q6H PRN PRN Reason: Dyspepsia Stop: 07/05/17 19:13 Albuterol Sulfate (Albuterol 2.5mg/3ml Neb Ud) 2.5 mg HHN Q2HRT PRN PRN Reason: Shortness of Breath or Wheeze Stop: 07/05/17 19:13 Benztropine Mesylate (Cogentin) 1 mg PO BID PRN PRN Reason: Agitation Stop: 07/26/17 13:04 Bisacodyl (Dulcolax 10 Mg Supp) 10 mg RC DAILY PRN PRN Reason: Constipation Stop: 07/21/17 14:25 Divalproex Sodium (Depakote Er) 1,000 mg PO BID KAM PRN Reason: Protocol Stop: 07/06/17 08:59 Last Admin: 06/06/17 08:14 Dose: Not Given Ferrous Sulfate (Iron) 325 mg PO BID KAM Stop: 07/06/17 08:59 Last Admin: 06/06/17 08:14 Dose: Not Given Guaifenesin (Robitussin) 200 mg PO Q4HR PRN PRN Reason: Cough or Congestion Stop: 07/05/17 19:13 Haloperidol Lactate (Haldol) 2 mg IM HS PRN PRN Reason: Agitation Stop: 07/12/17 08:04 Haloperidol Lactate (Haldol) 2 mg IM DAILY PRN PRN Reason: Agitation Stop: 07/12/17 08:06 Last Admin: 05/20/17 13:32 Dose: 2 mg Heparin Sodium (Porcine) (Heparin) 5,000 units SUBQ Q12HR KAM Stop: 07/05/17 20:59 Last Admin: 06/06/17 08:14 Dose: Not Given Sodium Chloride (Nacl 0.9%) 1,000 mls @ 30 mls/hr IV .Q24H KAM Stop: 07/25/17 15:59 Last Admin: 06/06/17 04:12 Dose: 30 mls/hr Multivitamins/Minerals 10 ml/Dextrose/ Amino Acids/Electrolytes/ Fat Emulsion Intravenous 2,640 mls @ 110 mls/hr IV .Q24H KAM Stop: 07/27/17 16:59 Last Admin: 06/05/17 15:41 Dose: 110 mls/hr Insulin Aspart (Novolog Insulin Sliding Scale) 0 units SUBQ BIDAC KAM PRN Reason: Protocol Stop: 07/23/17 16:59 Last Admin: 06/06/17 06:42 Dose: Not Given Ipratropium [place] (Atrovent Neb 0.5mg/2.5ml) 0.5 mg HHN Q2HRT PRN PRN Reason: Shortness of Breath or Wheeze Stop: 07/05/17 19:13 Lactobacillus Rhamnosus (Culturelle) 1 each PO DAILY [facility] Stop: 07/21/17 08:59 Last Admin: 06/06/17 08:14 Dose: Not Given Levothyroxine Sodium (Synthroid) 0.05 mg IVP DAILY KAM Stop: 07/24/17 08:59 Last Admin: 06/06/17 08:14 Dose: Not Given Metoclopramide HCl (Reglan) 10 mg IVP Q8HR PRN PRN Reason: Nausea / Vomiting Stop: 07/09/17 11:31 Last Admin: 05/28/17 15:11 Dose: 10 mg Miscellaneous (Ppn Per Pharmacy) 1 ea PRN PRN PRN Reason: PROTOCOL Stop: 07/20/17 13:24 Miscellaneous (Probiotic Screen) 1 ea PRN PRN PRN Reason: PROTOCOL Stop: 07/20/17 16:59 Olanzapine (Zyprexa) 10 mg PO HS KAM PRN Reason: Protocol Stop: 07/07/17 20:59 Last Admin: 06/05/17 21:27 Dose: Not Given Olanzapine (Zyprexa Zydis) 10 mg PO DAILY KAM Stop: 07/27/17 08:59 Last Admin: 06/06/17 08:14 Dose: Not Given Ondansetron HCl (Zofran) 4 mg IV Q4H PRN PRN Reason: Nausea / Vomiting Stop: 07/05/17 19:13 Last Admin: 05/19/17 15:22 Dose: 4 mg Pantoprazole Sodium (Protonix) 40 mg IVP BID KAM Stop: 07/18/17 18:32 Last Admin: 06/06/17 09:24 Dose: 40 mg Sucralfate (Carafate) 1 gm PO QID KAM Stop: 07/05/17 20:59 Last Admin: 06/06/17 08:13 Dose: Not Given Zolpidem Tartrate (Ambien) 5 mg PO HS PRN PRN Reason: Insomnia Stop: 07/05/17 19:12 General: demented HEENT: NC/AT, PERRLA Neck: Supple Abdomen: soft, non-tender, non-distended, positive bowel sound Extremities: excoriation Neurological: alert, disorganized, unsteady, bedbound - Procedures Procedures: Procedures Procedure Code Date DILATION OF LOWER ESOPHAGUS, ENDO [id number] 05/06/17 EGD BIOPSY SINGLE/MULTIPLE 97673 05/06/17 ESOPH EGD DILATION <30 MM 87395 05/06/17 EXCISION OF ESOPHAGUS, ENDO, DIAGN [id number] 05/06/17 Internal Medicine Assmt/Plan - Assessment Assessment: DYSPHAGIA DEHYDRATION- FAILURE TO THRIVE HYPONATREMIA HYPOKALEMIA GERD HTN BARETT'S ESOPHAGUS - Plan Plan: monitor electrolyte levels continue with iv protonix rn case manager hospice arranging placement monitor cbc/bmp ivf for hydration continue current plan of care Nutritional Asmnt/Malnutr-PDOC - Dietary Evaluation Malnutrition Findings (Please click <Entered> for more info): Nutritional Asmnt/Malnutrition Start: 05/07/17 10: 39 Text: Status: Complete Freq: Document 05/07/17 14:31 GSUN (Rec: 05/07/17 15:03 GSUN [email or web address]) Nutritional Asmnt/Malnutrition Patient General Information Nutritional Screening Consult Diagnosis Dysphagia, dehydration, FTT, Serna esophagus, PCM Pertinent Medical Hx/Surgical Hx Schizophrenia, stroke, TIA, GERD, thyroid disease, arthritis, dementia Subjective Information 46 year old male from SNF. RD consult for dysphagia. Spoke to RN Carri, pt has ulcer in the throat, unable to eat, swallow eval ordered nad pending. Pt is a questionable historian, talkative, however speech unclear and difficult to understand. 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 Pt appeared thin, mild muscle fat wasting to chest and temporals. Current Diet Order/ Nutrition Support Clear liquid Pertinent Medications D5-0.9%ns, Iron, Synthroid, Zofran, Protonix, Carafate Pertinent Labs Reviewed. Nutritional Hx/Data Height 5 ft 9 in Height (Calculated Centimeters) 175.3 Current Weight (lbs) 147 lb Weight (Calculated Kilograms) 66.7 Weight (Calculated Grams) 32916.1 [place] Body Weight 160 Weight Status Approriate GI Symptoms Food Allergies No Skin Integrity/Comment: [place] 13. Skin intact. Estimated Nutritional Goals BEE in Kcals: Using Current wt Calories/Kcals/Kg CBW 147lb/66.8kg Kcals Calculated 1670-2004kcal (25-30kcal/kg) Protein: Using Current wt Protein Calculated 67g (1g/kg) Fluid: ml 1670-2004ml (1ml/kcal) Nutritional Problem 1. 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 GI consult and swallow eval pending, recommend regular diet with diet texture per ST if pt is able to resume oral diet. Nursing staff to ensure pt sit upright during meals to minimize possible reflux. 2. Monitor weight. 3. If unable to resume oral diet, recommend enteral nutrition. Expected Outcomes/Goals Expected Outcomes/Goals 1. Pt to meet at least 75% of estimated nutritional needs orally or enterally.
[2017-06-06] MEDS: TPN 10%-70% CUSTOM IV SCH (17:35)
[2017-06-07 06:10] LABS: % BASOPHILS 0.2 % (0.0-2.0); % EOSINOPHILS 2.3 % (0.0-5.0); % MONOCYTES 6.6 % (2.0-10.0); % NEUTROPHILS 59.9 % (40.0-80.0); HEMATOCRIT 35.5 % (41.0-60); MEAN CELL VOLUME 92.2 fl (80-99); MEAN CORPUSCULAR HEMOGLOBIN 31.3 pg (26.0-30.0); MEAN CORPUSCULAR HGB CONC 33.9 pg (28.0-36.0); MEAN PLATELET VOLUME 8.9 fl; NEUTROPHILE ABSOLUTE 6.2 Th/cmm (1.8-8.0); PLATELET COUNT 302 Th/cmm (150-400); RED BLOOD COUNT 3.85 Mil/cmm (4.30-5.70); RED CELL DISTRIBUTION WIDTH 13.6 % (11.5-20.0)
[2017-06-07 06:25] LABS: ANION GAP 10.2 (7.0-16.0); BUN - UREA NITROGEN 16 mg/dL (7-25); CALCIUM SERUM 9.2 mg/dL (8.6-10.3); CARBON DIOXIDE 23.1 mEq/L (21.0-31.0); CHLORIDE 106 mEq/L (98-107); CREATININE - SERUM 0.8 mg/dL (0.7-1.3); GLUCOSE 109 mg/dL (70-105); MAGNESIUM 2.1 mg/dL (1.9-2.7); PHOSPHOROUS 3.2 mg/dL (2.5-5.0); POTASSIUM SERUM 4.3 mEq/L (3.5-5.1); SODIUM SERUM 135 mEq/L (136-145)
[2017-06-07 06:27] LABS: WHITE BLOOD COUNT 10.3 Th/cmm (4.8-10.8)
[2017-06-07] MEDS: INSULIN ASPART SLIDING SCALE 100 UNITS/ML UNIT SUBQ SCH ×2 (06:33→17:39)
[2017-06-07] MEDS: Ferrous Sulfate 325 MG TAB PO SCH ×2 (09:14→16:35)
[2017-06-07] MEDS: Lactobacillus Rhamnosus 10 Billion CFU Capsule PO SCH (09:14)
[2017-06-07] MEDS: OLANZapine 10 mg Oral Disintegrating Tab PO SCH (09:15)
[2017-06-07] MEDS: Sodium Chloride 0.9% 1,000 ML IV SCH (13:59)
[2017-06-07] MEDS: TPN 10%-70% CUSTOM IV SCH (16:40)
--- NOTE | 2017-06-07 19:09 | Internal Medicine Prog Note ---
Internal Medicine Subjective - Subjective Service Date: 06/07/17 Patient is:: awake, verbal Patient Complaints of:: vomitting Per staff patient has:: no adverse event, noncompliant, confused, tolerating meds Internal Medicine Objective - Results Result Diagrams: 06/07/17 05:45 06/07/17 05:45 Recent Labs: Laboratory Last Values WBC 10.3 Th/cmm (4.8-10.8) D 06/07/17 05:45 RBC 3.85 Mil/cmm (4.30-5.70) L 06/07/17 05:45 Hgb 12.0 gm/dL (12-16) 06/07/17 05:45 Hct 35.5 % (41.0-60) L 06/07/17 05:45 MCV 92.2 fl (80-99) 06/07/17 05:45 MCH 31.3 pg (26.0-30.0) H 06/07/17 05:45 MCHC Differential 33.9 pg (28.0-36.0) 06/07/17 05:45 RDW 13.6 % (11.5-20.0) 06/07/17 05:45 Plt Count 302 Th/cmm (150-400) 06/07/17 05:45 MPV 8.9 fl 06/07/17 05:45 Neutrophils % 59.9 % (40.0-80.0) 06/07/17 05:45 Band Neutrophils % 3 % (0-10) 05/21/17 05:45 Lymphocytes % 31.0 % (20.0-50.0) 06/07/17 05:45 Monocytes % 6.6 % (2.0-10.0) 06/07/17 05:45 Eosinophils % 2.3 % (0.0-5.0) 06/07/17 05:45 Basophils % 0.2 % (0.0-2.0) 06/07/17 05:45 Neutrophils (Manual) 86 % (40-80) H 05/21/17 05:45 Lymphocytes 10 % (20-50) L 05/21/17 05:45 Monocytes 1 % (2-10) L 05/21/17 05:45 PT 11.3 SECONDS (9.5-11.5) 05/09/17 05:45 INR 1.09 (0.5-1.4) 05/09/17 05:45 PTT (Actin FS) 25.7 SECONDS (26.0-38.0) L 05/06/17 16:46 Sodium 135 mEq/L (136-145) L 06/07/17 05:45 Potassium 4.3 mEq/L (3.5-5.1) 06/07/17 05:45 Chloride 106 mEq/L (98-107) 06/07/17 05:45 Carbon Dioxide 23.1 mEq/L (21.0-31.0) 06/07/17 05:45 Anion Gap 10.2 (7.0-16.0) 06/07/17 05:45 BUN 16 mg/dL (7-25) 06/07/17 05:45 Creatinine 0.8 mg/dL (0.7-1.3) 06/07/17 05:45 Est GFR ( Amer) > 60.0 ml/min (>90) 06/07/17 05:45 Est GFR (Non-Af Amer) > 60.0 ml/min 06/07/17 05:45 BUN/Creatinine Ratio 20.0 06/07/17 05:45 Glucose 109 mg/dL (70-105) H 06/07/17 05:45 POC Glucose 105 MG/DL (70 - 105) 06/07/17 05:23 Calcium 9.2 mg/dL (8.6-10.3) 06/07/17 05:45 Phosphorus 3.2 mg/dL (2.5-5.0) 06/07/17 05:45 Magnesium 2.1 mg/dL (1.9-2.7) 06/07/17 05:45 Total Bilirubin 0.2 mg/dL (0.3-1.0) L 06/04/17 06:00 AST 16 U/L (13-39) 06/04/17 06:00 ALT 13 U/L (7-52) 06/04/17 06:00 Alkaline Phosphatase 36 U/L (34-104) 06/04/17 06:00 Ammonia 52 umol/L (16-53) 05/27/17 05:30 Troponin I 0.03 ng/mL (0.01-0.05) 05/06/17 16:46 C-Reactive Protein 3.9 mg/dL (0.0-0.9) H 05/24/17 08:30 Total Protein 6.7 gm/dL (6.0-8.3) 06/04/17 06:00 Albumin 3.1 gm/dL (4.2-5.5) L 06/04/17 06:00 Globulin 3.6 gm/dL 06/04/17 06:00 Albumin/Globulin Ratio 0.9 (1.0-1.8) L 06/04/17 06:00 Prealbumin 13 mg/dL (12-34) 06/01/17 05:52 Triglycerides 78 mg/dL (<150) 06/01/17 05:52 Cholesterol 87 mg/dL (<200) 06/01/17 05:52 LDL Cholesterol Direct 89 mg/dL (75-193) 05/06/17 16:46 HDL Cholesterol 30 mg/dL (23-92) 05/06/17 16:46 Vitamin B12 931 pg/mL (211-946) 05/27/17 05:30 Folic Acid 13.0 ng/mL (>3.0) 05/27/17 05:30 TSH 1.23 uIU/ml (0.34-5.60) 05/06/17 16:46 Urine Source CATH 05/26/17 15:10 Urine Color YELLOW 05/26/17 15:10 Urine Clarity CLEAR (CLEAR) 05/26/17 15:10 Urine pH 7.0 (4.6 - 8.0) 05/26/17 15:10 Ur Specific [place] 1.025 (1.005-1.030) 05/26/17 15:10 Urine Protein NEGATIVE mg/dL (NEGATIVE) 05/26/17 15:10 Urine Glucose (UA) NEGATIVE mg/dL (NEGATIVE) 05/26/17 15:10 Urine Ketones NEGATIVE mg/dL (NEGATIVE) 05/26/17 15:10 Urine Blood NEGATIVE (NEGATIVE) 05/26/17 15:10 Urine Nitrate NEGATIVE (NEGATIVE) 05/26/17 15:10 Urine Bilirubin NEGATIVE (NEGATIVE) 05/26/17 15:10 Urine Urobilinogen 1.0 E.U./dL (0.2 - 1.0) 05/26/17 15:10 Ur Leukocyte Esterase NEGATIVE (NEGATIVE) 05/26/17 15:10 Urine RBC NONE SEEN /hpf (0-5) 05/26/17 15:10 Urine WBC NONE SEEN /hpf (0-5) 05/26/17 15:10 Ur Epithelial Cells NONE SEEN /lpf (FEW) 05/26/17 15:10 Amorphous Sediment FEW URATES (NONE SEEN) 05/06/17 16:20 Urine Bacteria NONE SEEN /hpf (NONE SEEN) 05/26/17 15:10 Urine Mucus MODERATE /lpf (FEW) 05/06/17 16:20 Vancomycin Trough 2.3 ug/mL (10-20) L 05/31/17 08:45 Valproic Acid < 10.0 ug/mL (50.0-100.0) L 05/21/17 05:45 RPR NONREACTIVE (NONREACTIVE) 05/06/17 16:46 - Physical Exam Vitals and I&O: Vital Signs Temp 97.5 F 06/07/17 16:00 Pulse 81 06/07/17 16:00 Resp 16 06/07/17 16:00 BP 135/71 06/07/17 16:00 Pulse Ox 99 06/07/17 16:00 Intake & Output 06/07/17 06/07/17 06/08/17 06:59 18:59 06:59 Intake Total 3145.167 Balance 3145.167 Weight (lbs) 147 lb 8 oz Intake: Intake, IV Amount 3145.167 Multivitamin Inj 10 ml In 2539.167 Dextrose 70% 1,880 ml In Amino Acids 10% 500 ml In Intralipids 20% 250 ml @ 110 mls/hr IV .Q24H [facility] Rx#:[id number] Sodium Chloride 0.9% 1, 606 000 ml @ 30 mls/hr IV . Q24H [facility] Rx#:[id number] Active Medications: Current Medications Acetaminophen (Tylenol) 650 mg PO Q4H PRN PRN Reason: Pain Or Fever above 101 Stop: 07/05/17 19:13 Al Hydrox/Mg Hydrox/Simethicone (Maalox) 30 ml PO Q6H PRN PRN Reason: Dyspepsia Stop: 07/05/17 19:13 Albuterol Sulfate (Albuterol 2.5mg/3ml Neb Ud) 2.5 mg HHN Q2HRT PRN PRN Reason: Shortness of Breath or Wheeze Stop: 07/05/17 19:13 Benztropine Mesylate (Cogentin) 1 mg PO BID PRN PRN Reason: Agitation Stop: 07/26/17 13:04 Bisacodyl (Dulcolax 10 Mg Supp) 10 mg RC DAILY PRN PRN Reason: Constipation Stop: 07/21/17 14:25 Divalproex Sodium (Depakote Er) 1,000 mg PO BID [facility] PRN Reason: Protocol Stop: 07/06/17 08:59 Last Admin: 06/07/17 16:50 Dose: Not Given Ferrous Sulfate (Iron) 325 mg PO BID [facility] Stop: 07/06/17 08:59 Last Admin: 06/07/17 16:35 Dose: Not Given Guaifenesin (Robitussin) 200 mg PO Q4HR PRN PRN Reason: Cough or Congestion Stop: 07/05/17 19:13 Haloperidol Lactate (Haldol) 2 mg IM HS PRN PRN Reason: Agitation Stop: 07/12/17 08:04 Haloperidol Lactate (Haldol) 2 mg IM DAILY PRN PRN Reason: Agitation Stop: 07/12/17 08:06 Last Admin: 05/20/17 13:32 Dose: 2 mg Heparin Sodium (Porcine) (Heparin) 5,000 units SUBQ Q12HR [facility] Stop: 07/05/17 20:59 Last Admin: 06/07/17 09:14 Dose: Not Given Sodium Chloride (Nacl 0.9%) 1,000 mls @ 30 mls/hr IV .Q24H [facility] Stop: 07/25/17 15:59 Last Admin: 06/07/17 13:59 Dose: 30 mls/hr Multivitamins/Minerals 10 ml/Dextrose/ Amino Acids/Electrolytes/ Fat Emulsion Intravenous 2,640 mls @ 110 mls/hr IV .Q24H [facility] Stop: 07/27/17 16:59 Last Admin: 06/07/17 16:40 Dose: 110 mls/hr Insulin Aspart (Novolog Insulin Sliding Scale) 0 units SUBQ BIDAC [facility] PRN Reason: Protocol Stop: 07/23/17 16:59 Last Admin: 06/07/17 17:39 Dose: Not Given Ipratropium [place] (Atrovent Neb 0.5mg/2.5ml) 0.5 mg HHN Q2HRT PRN PRN Reason: Shortness of Breath or Wheeze Stop: 07/05/17 19:13 Lactobacillus Rhamnosus (Culturelle) 1 each PO DAILY [facility] Stop: 07/21/17 08:59 Last Admin: 06/07/17 09:14 Dose: Not Given Levothyroxine Sodium (Synthroid) 0.05 mg IVP DAILY [facility] Stop: 07/24/17 08:59 Last Admin: 06/07/17 09:14 Dose: Not Given Metoclopramide HCl (Reglan) 10 mg IVP Q8HR PRN PRN Reason: Nausea / Vomiting Stop: 07/09/17 11:31 Last Admin: 05/28/17 15:11 Dose: 10 mg Miscellaneous (Ppn Per Pharmacy) 1 ea PRN PRN PRN Reason: PROTOCOL Stop: 07/20/17 13:24 Miscellaneous (Probiotic Screen) 1 [facility] PRN PRN PRN Reason: PROTOCOL Stop: 07/20/17 16:59 Olanzapine (Zyprexa) 10 mg PO HS [facility] PRN Reason: Protocol Stop: 07/07/17 20:59 Last Admin: 06/06/17 22:05 Dose: Not Given Olanzapine (Zyprexa Zydis) 10 mg PO DAILY [facility] Stop: 07/27/17 08:59 Last Admin: 06/07/17 09:15 Dose: Not Given Ondansetron HCl (Zofran) 4 mg IV Q4H PRN PRN Reason: Nausea / Vomiting Stop: 07/05/17 19:13 Last Admin: 05/19/17 15:22 Dose: 4 mg Pantoprazole Sodium (Protonix) 40 mg IVP BID [facility] Stop: 07/18/17 18:32 Last Admin: 06/07/17 16:35 Dose: 40 mg Sucralfate (Carafate) 1 gm PO QID [facility] Stop: 07/05/17 20:59 Last Admin: 06/07/17 16:35 Dose: Not Given Zolpidem Tartrate (Ambien) 5 mg PO HS PRN PRN Reason: Insomnia Stop: 07/05/17 19:12 General: demented HEENT: NC/AT, PERRLA Neck: Supple Abdomen: soft, non-tender, non-distended, positive bowel sound Extremities: excoriation Neurological: alert, disorganized, unsteady, bedbound - Procedures Procedures: Procedures Procedure Code Date DILATION OF LOWER ESOPHAGUS, ENDO [id number] 05/06/17 EGD BIOPSY SINGLE/MULTIPLE 01067 05/06/17 ESOPH EGD DILATION <30 MM 47547 05/06/17 EXCISION OF ESOPHAGUS, ENDO, DIAGN [id number] 05/06/17 Internal Medicine Assmt/Plan - Assessment Assessment: DYSPHAGIA DEHYDRATION- FAILURE TO THRIVE HYPONATREMIA HYPOKALEMIA GERD HTN BARETT'S ESOPHAGUS - Plan Plan: monitor electrolyte levels continue with iv protonix director of casework services arranging placement monitor cbc/bmp ivf for hydration continue current plan of care Nutritional Asmnt/Malnutr-PDOC - Dietary Evaluation Malnutrition Findings (Please click <Entered> for more info): Nutritional Asmnt/Malnutrition Start: 05/07/17 10: 39 Text: Status: Complete Freq: Document 05/07/17 14:31 GSUN (Rec: 05/07/17 15:03 GSUN [email or web address]) Nutritional Asmnt/Malnutrition Patient General Information Nutritional Screening Consult Diagnosis Dysphagia, dehydration, FTT, Serna esophagus, PCM Pertinent Medical Hx/Surgical Hx Schizophrenia, stroke, TIA, GERD, thyroid disease, arthritis, dementia Subjective Information 46 year old male from SNF. RD consult for dysphagia. Spoke to ELISE Christina, pt has ulcer in the throat, unable to eat, swallow eval ordered nad pending. Pt is a questionable historian, talkative, however speech unclear and difficult to understand. 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 Pt appeared thin, mild muscle fat wasting to chest and temporals. Current Diet Order/ Nutrition Support Clear liquid Pertinent Medications D5-0.9%ns, Iron, Synthroid, Zofran, Protonix, Carafate Pertinent Labs Reviewed. Nutritional Hx/Data Height 5 ft 9 in Height (Calculated Centimeters) 175.3 Current Weight (lbs) 147 lb Weight (Calculated Kilograms) 66.7 Weight (Calculated Grams) 96286.1 [place] Body Weight 160 Weight Status Approriate GI Symptoms Food Allergies No Skin Integrity/Comment: Murray Clifford. Skin intact. Estimated Nutritional Goals BEE in Kcals: Using Current wt Calories/Kcals/Kg CBW 147lb/66.8kg Kcals Calculated 1670-2004kcal (25-30kcal/kg) Protein: Using Current wt Protein Calculated 67g (1g/kg) Fluid: ml 1670-2004ml (1ml/kcal) Nutritional Problem 1. 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 GI consult and swallow eval pending, recommend regular diet with diet texture per ST if pt is able to resume oral diet. Nursing staff to ensure pt sit upright during meals to minimize possible reflux. 2. Monitor weight. 3. If unable to resume oral diet, recommend enteral nutrition. Expected Outcomes/Goals Expected Outcomes/Goals 1. Pt to meet at least 75% of estimated nutritional needs orally or enterally.
[2017-06-08] MEDS: INSULIN ASPART SLIDING SCALE 100 UNITS/ML UNIT SUBQ SCH ×2 (06:49→17:57)
[2017-06-08 07:47] LABS: ANION GAP 9.4 (7.0-16.0); BUN - UREA NITROGEN 13 mg/dL (7-25); BUN/CREATININE RATIO 18.6; CALCIUM SERUM 8.9 mg/dL (8.6-10.3); CARBON DIOXIDE 24.7 mEq/L (21.0-31.0); CHLORIDE 107 mEq/L (98-107); CREATININE - SERUM 0.7 mg/dL (0.7-1.3); GLUCOSE 107 mg/dL (70-105); MAGNESIUM 1.9 mg/dL (1.9-2.7); POTASSIUM SERUM 4.1 mEq/L (3.5-5.1); SODIUM SERUM 137 mEq/L (136-145)
[2017-06-08] MEDS: Ferrous Sulfate 325 MG TAB PO SCH ×2 (09:58→17:39)
[2017-06-08] MEDS: Lactobacillus Rhamnosus 10 Billion CFU Capsule PO SCH (09:58)
[2017-06-08] MEDS: OLANZapine 10 mg Oral Disintegrating Tab PO SCH (09:58)
--- NOTE | 2017-06-08 13:20 | Internal Medicine Prog Note ---
Internal Medicine Subjective - Subjective Patient seen and examined:: with staff, chart reviewed Patient is:: awake, verbal Patient Complaints of:: vomitting Per staff patient has:: no adverse event, noncompliant, confused, tolerating meds Internal Medicine Objective - Results Result Diagrams: 06/07/17 05:45 06/08/17 06:57 Recent Labs: Laboratory Last Values WBC 10.3 Th/cmm (4.8-10.8) D 06/07/17 05:45 RBC 3.85 Mil/cmm (4.30-5.70) L 06/07/17 05:45 Hgb 12.0 gm/dL (12-16) 06/07/17 05:45 Hct 35.5 % (41.0-60) L 06/07/17 05:45 MCV 92.2 fl (80-99) 06/07/17 05:45 MCH 31.3 pg (26.0-30.0) H 06/07/17 05:45 MCHC Differential 33.9 pg (28.0-36.0) 06/07/17 05:45 RDW 13.6 % (11.5-20.0) 06/07/17 05:45 Plt Count 302 Th/cmm (150-400) 06/07/17 05:45 MPV 8.9 fl 06/07/17 05:45 Neutrophils % 59.9 % (40.0-80.0) 06/07/17 05:45 Band Neutrophils % 3 % (0-10) 05/21/17 05:45 Lymphocytes % 31.0 % (20.0-50.0) 06/07/17 05:45 Monocytes % 6.6 % (2.0-10.0) 06/07/17 05:45 Eosinophils % 2.3 % (0.0-5.0) 06/07/17 05:45 Basophils % 0.2 % (0.0-2.0) 06/07/17 05:45 Neutrophils (Manual) 86 % (40-80) H 05/21/17 05:45 Lymphocytes 10 % (20-50) L 05/21/17 05:45 Monocytes 1 % (2-10) L 05/21/17 05:45 PT 11.3 SECONDS (9.5-11.5) 05/09/17 05:45 INR 1.09 (0.5-1.4) 05/09/17 05:45 PTT (Actin FS) 25.7 SECONDS (26.0-38.0) L 05/06/17 16:46 Sodium 137 mEq/L (136-145) 06/08/17 06:57 Potassium 4.1 mEq/L (3.5-5.1) 06/08/17 06:57 Chloride 107 mEq/L (98-107) 06/08/17 06:57 Carbon Dioxide 24.7 mEq/L (21.0-31.0) 06/08/17 06:57 Anion Gap 9.4 (7.0-16.0) 06/08/17 06:57 BUN 13 mg/dL (7-25) 06/08/17 06:57 Creatinine 0.7 mg/dL (0.7-1.3) 06/08/17 06:57 Est GFR ( Amer) > 60.0 ml/min (>90) 06/08/17 06:57 Est GFR (Non-Af Amer) > 60.0 ml/min 06/08/17 06:57 BUN/Creatinine Ratio 18.6 06/08/17 06:57 Glucose 107 mg/dL (70-105) H 06/08/17 06:57 POC Glucose 108 MG/DL (70 - 105) H 06/08/17 05:05 Calcium 8.9 mg/dL (8.6-10.3) 06/08/17 06:57 Phosphorus 3.0 mg/dL (2.5-5.0) 06/08/17 06:57 Magnesium 1.9 mg/dL (1.9-2.7) 06/08/17 06:57 Total Bilirubin 0.2 mg/dL (0.3-1.0) L 06/04/17 06:00 AST 16 U/L (13-39) 06/04/17 06:00 ALT 13 U/L (7-52) 06/04/17 06:00 Alkaline Phosphatase 36 U/L (34-104) 06/04/17 06:00 Ammonia 52 umol/L (16-53) 05/27/17 05:30 Troponin I 0.03 ng/mL (0.01-0.05) 05/06/17 16:46 C-Reactive Protein 3.9 mg/dL (0.0-0.9) H 05/24/17 08:30 Total Protein 6.7 gm/dL (6.0-8.3) 06/04/17 06:00 Albumin 3.1 gm/dL (4.2-5.5) L 06/04/17 06:00 Globulin 3.6 gm/dL 06/04/17 06:00 Albumin/Globulin Ratio 0.9 (1.0-1.8) L 06/04/17 06:00 Prealbumin 13 mg/dL (12-34) 06/01/17 05:52 Triglycerides 71 mg/dL (<150) 06/08/17 06:57 Cholesterol 87 mg/dL (<200) 06/01/17 05:52 LDL Cholesterol Direct 89 mg/dL (75-193) 05/06/17 16:46 HDL Cholesterol 30 mg/dL (23-92) 05/06/17 16:46 Vitamin B12 931 pg/mL (211-946) 05/27/17 05:30 Folic Acid 13.0 ng/mL (>3.0) 05/27/17 05:30 TSH 1.23 uIU/ml (0.34-5.60) 05/06/17 16:46 Urine Source CATH 05/26/17 15:10 Urine Color YELLOW 05/26/17 15:10 Urine Clarity CLEAR (CLEAR) 05/26/17 15:10 Urine pH 7.0 (4.6 - 8.0) 05/26/17 15:10 Ur Specific [place] 1.025 (1.005-1.030) 05/26/17 15:10 Urine Protein NEGATIVE mg/dL (NEGATIVE) 05/26/17 15:10 Urine Glucose (UA) NEGATIVE mg/dL (NEGATIVE) 05/26/17 15:10 Urine Ketones NEGATIVE mg/dL (NEGATIVE) 05/26/17 15:10 Urine Blood NEGATIVE (NEGATIVE) 05/26/17 15:10 Urine Nitrate NEGATIVE (NEGATIVE) 05/26/17 15:10 Urine Bilirubin NEGATIVE (NEGATIVE) 05/26/17 15:10 Urine Urobilinogen 1.0 E.U./dL (0.2 - 1.0) 05/26/17 15:10 Ur Leukocyte Esterase NEGATIVE (NEGATIVE) 05/26/17 15:10 Urine RBC NONE SEEN /hpf (0-5) 05/26/17 15:10 Urine WBC NONE SEEN /hpf (0-5) 05/26/17 15:10 Ur Epithelial Cells NONE SEEN /lpf (FEW) 05/26/17 15:10 Amorphous Sediment FEW URATES (NONE SEEN) 05/06/17 16:20 Urine Bacteria NONE SEEN /hpf (NONE SEEN) 05/26/17 15:10 Urine Mucus MODERATE /lpf (FEW) 05/06/17 16:20 Vancomycin Trough 2.3 ug/mL (10-20) L 05/31/17 08:45 Valproic Acid < 10.0 ug/mL (50.0-100.0) L 05/21/17 05:45 RPR NONREACTIVE (NONREACTIVE) 05/06/17 16:46 - Physical Exam Vitals and I&O: Vital Signs Temp 98.6 F 06/08/17 08:00 Pulse 74 06/08/17 08:00 Resp 18 06/08/17 08:00 BP 118/66 06/08/17 08:00 Pulse Ox 100 06/08/17 08:00 Intake & Output 06/07/17 06/08/17 06/08/17 18:59 06:59 18:59 Intake Total 3145.167 Balance 3145.167 Weight (lbs) 66.905 kg Intake: Intake, IV Amount 3145.167 Multivitamin Inj 10 ml In 2539.167 Dextrose 70% 1,880 ml In Amino Acids 10% 500 ml In Intralipids 20% 250 ml @ 110 mls/hr IV .Q24H [facility] Rx#:[id number] Sodium Chloride 0.9% 1, 606 000 ml @ 30 mls/hr IV . Q24H [facility] Rx#:[id number] Active Medications: Current Medications Acetaminophen (Tylenol) 650 mg PO Q4H PRN PRN Reason: Pain Or Fever above 101 Stop: 07/05/17 19:13 Al Hydrox/Mg Hydrox/Simethicone (Maalox) 30 ml PO Q6H PRN PRN Reason: Dyspepsia Stop: 07/05/17 19:13 Albuterol Sulfate (Albuterol 2.5mg/3ml Neb Ud) 2.5 mg HHN Q2HRT PRN PRN Reason: Shortness of Breath or Wheeze Stop: 07/05/17 19:13 Benztropine Mesylate (Cogentin) 1 mg PO BID PRN PRN Reason: Agitation Stop: 07/26/17 13:04 Bisacodyl (Dulcolax 10 Mg Supp) 10 mg RC DAILY PRN PRN Reason: Constipation Stop: 07/21/17 14:25 Divalproex Sodium (Depakote Er) 1,000 mg PO BID [facility] PRN Reason: Protocol Stop: 07/06/17 08:59 Last Admin: 06/08/17 09:58 Dose: Not Given Ferrous Sulfate (Iron) 325 mg PO BID [facility] Stop: 07/06/17 08:59 Last Admin: 06/08/17 09:58 Dose: Not Given Guaifenesin (Robitussin) 200 mg PO Q4HR PRN PRN Reason: Cough or Congestion Stop: 07/05/17 19:13 Haloperidol Lactate (Haldol) 2 mg IM HS PRN PRN Reason: Agitation Stop: 07/12/17 08:04 Haloperidol Lactate (Haldol) 2 mg IM DAILY PRN PRN Reason: Agitation Stop: 07/12/17 08:06 Last Admin: 05/20/17 13:32 Dose: 2 mg Heparin Sodium (Porcine) (Heparin) 5,000 units SUBQ Q12HR [facility] Stop: 07/05/17 20:59 Last Admin: 06/08/17 10:02 Dose: Not Given Sodium Chloride (Nacl 0.9%) 1,000 mls @ 30 mls/hr IV .Q24H [facility] Stop: 07/25/17 15:59 Last Admin: 06/07/17 13:59 Dose: 30 mls/hr Multivitamins/Minerals 10 ml/Dextrose/ Amino Acids/Electrolytes/ Fat Emulsion Intravenous 2,640 mls @ 110 mls/hr IV .Q24H [facility] Stop: 07/27/17 16:59 Last Admin: 06/07/17 16:40 Dose: 110 mls/hr Insulin Aspart (Novolog Insulin Sliding Scale) 0 units SUBQ BIDAC [facility] PRN Reason: Protocol Stop: 07/23/17 16:59 Last Admin: 06/08/17 06:49 Dose: Not Given Ipratropium [place] (Atrovent Neb 0.5mg/2.5ml) 0.5 mg HHN Q2HRT PRN PRN Reason: Shortness of Breath or Wheeze Stop: 07/05/17 19:13 Lactobacillus Rhamnosus (Culturelle) 1 each PO DAILY [facility] Stop: 07/21/17 08:59 Last Admin: 06/08/17 09:58 Dose: Not Given Levothyroxine Sodium (Synthroid) 0.05 mg IVP DAILY [facility] Stop: 07/24/17 08:59 Last Admin: 06/08/17 09:58 Dose: Not Given Metoclopramide HCl (Reglan) 10 mg IVP Q8HR PRN PRN Reason: Nausea / Vomiting Stop: 07/09/17 11:31 Last Admin: 05/28/17 15:11 Dose: 10 mg Miscellaneous (Ppn Per Pharmacy) 1 ea PRN PRN PRN Reason: PROTOCOL Stop: 07/20/17 13:24 Miscellaneous (Probiotic Screen) 1 ea PRN PRN PRN Reason: PROTOCOL Stop: 07/20/17 16:59 Olanzapine (Zyprexa) 10 mg PO HS [facility] PRN Reason: Protocol Stop: 07/07/17 20:59 Last Admin: 06/07/17 20:47 Dose: Not Given Olanzapine (Zyprexa Zydis) 10 mg PO DAILY [facility] Stop: 07/27/17 08:59 Last Admin: 06/08/17 09:58 Dose: Not Given Ondansetron HCl (Zofran) 4 mg IV Q4H PRN PRN Reason: Nausea / Vomiting Stop: 07/05/17 19:13 Last Admin: 05/19/17 15:22 Dose: 4 mg Pantoprazole Sodium (Protonix) 40 mg IVP BID [facility] Stop: 07/18/17 18:32 Last Admin: 06/08/17 09:56 Dose: 40 mg Sucralfate (Carafate) 1 gm PO QID [facility] Stop: 07/05/17 20:59 Last Admin: 06/08/17 09:58 Dose: Not Given Zolpidem Tartrate (Ambien) 5 mg PO HS PRN PRN Reason: Insomnia Stop: 07/05/17 19:12 General: demented HEENT: NC/AT, PERRLA Neck: Supple Abdomen: soft, non-tender, non-distended, positive bowel sound Extremities: excoriation Neurological: alert, disorganized, unsteady, bedbound - Procedures Procedures: Procedures Procedure Code Date DILATION OF LOWER ESOPHAGUS, ENDO [id number] 05/06/17 EGD BIOPSY SINGLE/MULTIPLE 49991 05/06/17 ESOPH EGD DILATION <30 MM 09405 05/06/17 EXCISION OF ESOPHAGUS, ENDO, DIAGN [id number] 05/06/17 Internal Medicine Assmt/Plan - Assessment Assessment: persistent vomitting DYSPHAGIA DEHYDRATION FAILURE TO THRIVE HYPONATREMIA HYPOKALEMIA GERD HTN BARETT'S ESOPHAGUS fever - Plan Plan: will add laxative kub noted Plan: will add reglan and prn zofran monitor cbc/bmp ivf for hydration continue current plan of care Nutritional Asmnt/Malnutr-PDOC - Dietary Evaluation Malnutrition Findings (Please click <Entered> for more info): Nutritional Asmnt/Malnutrition Start: 05/07/17 10: 39 Text: Status: Complete Freq: Document 05/07/17 14:31 GSUN (Rec: 05/07/17 15:03 GSUN [email or web address]) Nutritional Asmnt/Malnutrition Patient General Information Nutritional Screening Consult Diagnosis Dysphagia, dehydration, FTT, Serna esophagus, PCM Pertinent Medical Hx/Surgical Hx Schizophrenia, stroke, TIA, GERD, thyroid disease, arthritis, dementia Subjective Information 46 year old male from SNF. RD consult for dysphagia. Spoke to ELISE Christina, pt has ulcer in the throat, unable to eat, swallow eval ordered nad pending. Pt is a questionable historian, talkative, however speech unclear and difficult to understand. 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 Pt appeared thin, mild muscle fat wasting to chest and temporals. Current Diet Order/ Nutrition Support Clear liquid Pertinent Medications D5-0.9%ns, Iron, Synthroid, Zofran, Protonix, Carafate Pertinent Labs Reviewed. Nutritional Hx/Data Height 1.75 m Height (Calculated Centimeters) 175.3 Current Weight (lbs) 66.678 kg Weight (Calculated Kilograms) 66.7 Weight (Calculated Grams) 45871.1 Colp Body Weight 160 Weight Status Approriate GI Symptoms Food Allergies No Skin Integrity/Comment: Murray Clifford. Skin intact. Estimated Nutritional Goals BEE in Kcals: Using Current wt Calories/Kcals/Kg CBW 147lb/66.8kg Kcals Calculated 1670-2004kcal (25-30kcal/kg) Protein: Using Current wt Protein Calculated 67g (1g/kg) Fluid: ml 1670-2004ml (1ml/kcal) Nutritional Problem 1. 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 GI consult and swallow eval pending, recommend regular diet with diet texture per ST if pt is able to resume oral diet. Nursing staff to ensure pt sit upright during meals to minimize possible reflux. 2. Monitor weight. 3. If unable to resume oral diet, recommend enteral nutrition. Expected Outcomes/Goals Expected Outcomes/Goals 1. Pt to meet at least 75% of estimated nutritional needs orally or enterally.
[2017-06-08] MEDS: TPN 10%-70% CUSTOM IV SCH (17:41)
[2017-06-08] MEDS: Sodium Chloride 0.9% 1,000 ML IV SCH (17:58)
[2017-06-09 06:53] LABS: ANION GAP 9.1 (7.0-16.0); BUN - UREA NITROGEN 13 mg/dL (7-25); BUN/CREATININE RATIO 18.6; CALCIUM SERUM 9.1 mg/dL (8.6-10.3); CARBON DIOXIDE 28.1 mEq/L (21.0-31.0); CHLORIDE 105 mEq/L (98-107); CREATININE - SERUM 0.7 mg/dL (0.7-1.3); GLUCOSE 113 mg/dL (70-105); MAGNESIUM 1.9 mg/dL (1.9-2.7); PHOSPHOROUS 3.5 mg/dL (2.5-5.0); POTASSIUM SERUM 4.2 mEq/L (3.5-5.1); SODIUM SERUM 138 mEq/L (136-145)
[2017-06-09] MEDS: INSULIN ASPART SLIDING SCALE 100 UNITS/ML UNIT SUBQ SCH ×2 (07:37→16:51)
[2017-06-09] MEDS: OLANZapine 10 mg Oral Disintegrating Tab PO SCH (08:14)
[2017-06-09] MEDS: Lactobacillus Rhamnosus 10 Billion CFU Capsule PO SCH (08:14)
[2017-06-09] MEDS: Ferrous Sulfate 325 MG TAB PO SCH ×2 (08:16→16:51)
--- NOTE | 2017-06-09 11:40 | Internal Medicine Prog Note ---
Internal Medicine Subjective - Subjective Patient seen and examined:: with staff, chart reviewed Patient is:: awake, verbal Patient Complaints of:: vomitting Per staff patient has:: no adverse event, noncompliant, confused, tolerating meds Internal Medicine Objective - Results Result Diagrams: 06/07/17 05:45 06/09/17 06:10 Recent Labs: Laboratory Last Values WBC 10.3 Th/cmm (4.8-10.8) D 06/07/17 05:45 RBC 3.85 Mil/cmm (4.30-5.70) L 06/07/17 05:45 Hgb 12.0 gm/dL (12-16) 06/07/17 05:45 Hct 35.5 % (41.0-60) L 06/07/17 05:45 MCV 92.2 fl (80-99) 06/07/17 05:45 MCH 31.3 pg (26.0-30.0) H 06/07/17 05:45 MCHC Differential 33.9 pg (28.0-36.0) 06/07/17 05:45 RDW 13.6 % (11.5-20.0) 06/07/17 05:45 Plt Count 302 Th/cmm (150-400) 06/07/17 05:45 MPV 8.9 fl 06/07/17 05:45 Neutrophils % 59.9 % (40.0-80.0) 06/07/17 05:45 Band Neutrophils % 3 % (0-10) 05/21/17 05:45 Lymphocytes % 31.0 % (20.0-50.0) 06/07/17 05:45 Monocytes % 6.6 % (2.0-10.0) 06/07/17 05:45 Eosinophils % 2.3 % (0.0-5.0) 06/07/17 05:45 Basophils % 0.2 % (0.0-2.0) 06/07/17 05:45 Neutrophils (Manual) 86 % (40-80) H 05/21/17 05:45 Lymphocytes 10 % (20-50) L 05/21/17 05:45 Monocytes 1 % (2-10) L 05/21/17 05:45 PT 11.3 SECONDS (9.5-11.5) 05/09/17 05:45 INR 1.09 (0.5-1.4) 05/09/17 05:45 PTT (Actin FS) 25.7 SECONDS (26.0-38.0) L 05/06/17 16:46 Sodium 138 mEq/L (136-145) 06/09/17 06:10 Potassium 4.2 mEq/L (3.5-5.1) 06/09/17 06:10 Chloride 105 mEq/L (98-107) 06/09/17 06:10 Carbon Dioxide 28.1 mEq/L (21.0-31.0) 06/09/17 06:10 Anion Gap 9.1 (7.0-16.0) 06/09/17 06:10 BUN 13 mg/dL (7-25) 06/09/17 06:10 Creatinine 0.7 mg/dL (0.7-1.3) 06/09/17 06:10 Est GFR ( Amer) > 60.0 ml/min (>90) 06/09/17 06:10 Est GFR (Non-Af Amer) > 60.0 ml/min 06/09/17 06:10 BUN/Creatinine Ratio 18.6 06/09/17 06:10 Glucose 113 mg/dL (70-105) H 06/09/17 06:10 POC Glucose 105 MG/DL (70 - 105) 06/09/17 07:35 Calcium 9.1 mg/dL (8.6-10.3) 06/09/17 06:10 Phosphorus 3.5 mg/dL (2.5-5.0) 06/09/17 06:10 Magnesium 1.9 mg/dL (1.9-2.7) 06/09/17 06:10 Total Bilirubin 0.2 mg/dL (0.3-1.0) L 06/04/17 06:00 AST 16 U/L (13-39) 06/04/17 06:00 ALT 13 U/L (7-52) 06/04/17 06:00 Alkaline Phosphatase 36 U/L (34-104) 06/04/17 06:00 Ammonia 52 umol/L (16-53) 05/27/17 05:30 Troponin I 0.03 ng/mL (0.01-0.05) 05/06/17 16:46 C-Reactive Protein 3.9 mg/dL (0.0-0.9) H 05/24/17 08:30 Total Protein 6.7 gm/dL (6.0-8.3) 06/04/17 06:00 Albumin 3.1 gm/dL (4.2-5.5) L 06/04/17 06:00 Globulin 3.6 gm/dL 06/04/17 06:00 Albumin/Globulin Ratio 0.9 (1.0-1.8) L 06/04/17 06:00 Prealbumin 16 mg/dL (12-34) 06/08/17 06:57 Triglycerides 71 mg/dL (<150) 06/08/17 06:57 Cholesterol 87 mg/dL (<200) 06/01/17 05:52 LDL Cholesterol Direct 89 mg/dL (75-193) 05/06/17 16:46 HDL Cholesterol 30 mg/dL (23-92) 05/06/17 16:46 Vitamin B12 931 pg/mL (211-946) 05/27/17 05:30 Folic Acid 13.0 ng/mL (>3.0) 05/27/17 05:30 TSH 1.23 uIU/ml (0.34-5.60) 05/06/17 16:46 Urine Source CATH 05/26/17 15:10 Urine Color YELLOW 05/26/17 15:10 Urine Clarity CLEAR (CLEAR) 05/26/17 15:10 Urine pH 7.0 (4.6 - 8.0) 05/26/17 15:10 Ur Specific [place] 1.025 (1.005-1.030) 05/26/17 15:10 Urine Protein NEGATIVE mg/dL (NEGATIVE) 05/26/17 15:10 Urine Glucose (UA) NEGATIVE mg/dL (NEGATIVE) 05/26/17 15:10 Urine Ketones NEGATIVE mg/dL (NEGATIVE) 05/26/17 15:10 Urine Blood NEGATIVE (NEGATIVE) 05/26/17 15:10 Urine Nitrate NEGATIVE (NEGATIVE) 05/26/17 15:10 Urine Bilirubin NEGATIVE (NEGATIVE) 05/26/17 15:10 Urine Urobilinogen 1.0 E.U./dL (0.2 - 1.0) 05/26/17 15:10 Ur Leukocyte Esterase NEGATIVE (NEGATIVE) 05/26/17 15:10 Urine RBC NONE SEEN /hpf (0-5) 05/26/17 15:10 Urine WBC NONE SEEN /hpf (0-5) 05/26/17 15:10 Ur Epithelial Cells NONE SEEN /lpf (FEW) 05/26/17 15:10 Amorphous Sediment FEW URATES (NONE SEEN) 05/06/17 16:20 Urine Bacteria NONE SEEN /hpf (NONE SEEN) 05/26/17 15:10 Urine Mucus MODERATE /lpf (FEW) 05/06/17 16:20 Vancomycin Trough 2.3 ug/mL (10-20) L 05/31/17 08:45 Valproic Acid < 10.0 ug/mL (50.0-100.0) L 05/21/17 05:45 RPR NONREACTIVE (NONREACTIVE) 05/06/17 16:46 - Physical Exam Vitals and I&O: Vital Signs Temp 96.8 F 06/09/17 08:00 Pulse 76 06/09/17 08:00 Resp 18 06/09/17 08:00 BP 126/85 06/09/17 08:00 Pulse Ox 100 06/09/17 08:00 Intake & Output 06/08/17 06/09/17 06/09/17 18:59 06:59 18:59 Intake Total 3479.5 1800 Output Total 2 Balance 3479.5 1798 Weight (lbs) 66.905 kg 66.905 kg Intake: Intake, IV Amount 3479.5 Multivitamin Inj 10 ml In 2640 Dextrose 70% 1,880 ml In Amino Acids 10% 500 ml In Intralipids 20% 250 ml @ 110 mls/hr IV .Q24H KAM Rx#:[id number] Sodium Chloride 0.9% 1, 839.5 000 ml @ 30 mls/hr IV . Q24H KAM Rx#:[id number] Oral 700 TPN/PPN 1100 Output: Urine 2 Other: # Voids 3 # Bowel Movements 0 Active Medications: Current Medications Acetaminophen (Tylenol) 650 mg PO Q4H PRN PRN Reason: Pain Or Fever above 101 Stop: 07/05/17 19:13 Al Hydrox/Mg Hydrox/Simethicone (Maalox) 30 ml PO Q6H PRN PRN Reason: Dyspepsia Stop: 07/05/17 19:13 Albuterol Sulfate (Albuterol 2.5mg/3ml Neb Ud) 2.5 mg HHN Q2HRT PRN PRN Reason: Shortness of Breath or Wheeze Stop: 07/05/17 19:13 Benztropine Mesylate (Cogentin) 1 mg PO BID PRN PRN Reason: Agitation Stop: 07/26/17 13:04 Bisacodyl (Dulcolax 10 Mg Supp) 10 mg RC DAILY PRN PRN Reason: Constipation Stop: 07/21/17 14:25 Divalproex Sodium (Depakote Er) 1,000 mg PO BID KAM PRN Reason: Protocol Stop: 07/06/17 08:59 Last Admin: 06/09/17 08:15 Dose: Not Given Ferrous Sulfate (Iron) 325 mg PO BID [facility] Stop: 07/06/17 08:59 Last Admin: 06/09/17 08:16 Dose: Not Given Guaifenesin (Robitussin) 200 mg PO Q4HR PRN PRN Reason: Cough or Congestion Stop: 07/05/17 19:13 Haloperidol Lactate (Haldol) 2 mg IM HS PRN PRN Reason: Agitation Stop: 07/12/17 08:04 Haloperidol Lactate (Haldol) 2 mg IM DAILY PRN PRN Reason: Agitation Stop: 07/12/17 08:06 Last Admin: 05/20/17 13:32 Dose: 2 mg Heparin Sodium (Porcine) (Heparin) 5,000 units SUBQ Q12HR [facility] Stop: 07/05/17 20:59 Last Admin: 06/09/17 08:15 Dose: Not Given Sodium Chloride (Nacl 0.9%) 1,000 mls @ 30 mls/hr IV .Q24H [facility] Stop: 07/25/17 15:59 Last Admin: 06/08/17 17:58 Dose: 30 mls/hr Multivitamins/Minerals 10 ml/Dextrose/ Amino Acids/Electrolytes/ Fat Emulsion Intravenous 2,640 mls @ 110 mls/hr IV .Q24H [facility] Stop: 07/27/17 16:59 Last Admin: 06/08/17 17:41 Dose: 110 mls/hr Insulin Aspart (Novolog Insulin Sliding Scale) 0 units SUBQ BIDAC KAM PRN Reason: Protocol Stop: 07/23/17 16:59 Last Admin: 06/09/17 07:37 Dose: Not Given Ipratropium [place] (Atrovent Neb 0.5mg/2.5ml) 0.5 mg HHN Q2HRT PRN PRN Reason: Shortness of Breath or Wheeze Stop: 07/05/17 19:13 Lactobacillus Rhamnosus (Culturelle) 1 each PO DAILY [facility] Stop: 07/21/17 08:59 Last Admin: 06/09/17 08:14 Dose: Not Given Levothyroxine Sodium (Synthroid) 0.05 mg IVP DAILY [facility] Stop: 07/24/17 08:59 Last Admin: 06/09/17 08:18 Dose: 0.05 mg Metoclopramide HCl (Reglan) 10 mg IVP Q8HR PRN PRN Reason: Nausea / Vomiting Stop: 07/09/17 11:31 Last Admin: 05/28/17 15:11 Dose: 10 mg Miscellaneous (Ppn Per Pharmacy) 1 [facility] PRN PRN PRN Reason: PROTOCOL Stop: 07/20/17 13:24 Miscellaneous (Probiotic Screen) 1 [facility] PRN PRN PRN Reason: PROTOCOL Stop: 07/20/17 16:59 Olanzapine (Zyprexa) 10 mg PO HS KAM PRN Reason: Protocol Stop: 07/07/17 20:59 Last Admin: 06/08/17 22:41 Dose: Not Given Olanzapine (Zyprexa Zydis) 10 mg PO DAILY [facility] Stop: 07/27/17 08:59 Last Admin: 06/09/17 08:14 Dose: Not Given Ondansetron HCl (Zofran) 4 mg IV Q4H PRN PRN Reason: Nausea / Vomiting Stop: 07/05/17 19:13 Last Admin: 05/19/17 15:22 Dose: 4 mg Pantoprazole Sodium (Protonix) 40 mg IVP BID [facility] Stop: 07/18/17 18:32 Last Admin: 06/09/17 08:18 Dose: 40 mg Sucralfate (Carafate) 1 gm PO QID [facility] Stop: 07/05/17 20:59 Last Admin: 06/09/17 08:14 Dose: Not Given Zolpidem Tartrate (Ambien) 5 mg PO HS PRN PRN Reason: Insomnia Stop: 07/05/17 19:12 General: demented HEENT: NC/AT, PERRLA Neck: Supple Abdomen: soft, non-tender, non-distended, positive bowel sound Extremities: excoriation Neurological: alert, disorganized, unsteady, bedbound - Procedures Procedures: Procedures Procedure Code Date DILATION OF LOWER ESOPHAGUS, ENDO [id number] 05/06/17 EGD BIOPSY SINGLE/MULTIPLE 72667 05/06/17 ESOPH EGD DILATION <30 MM 16100 05/06/17 EXCISION OF ESOPHAGUS, ENDO, DIAGN [id number] 05/06/17 Internal Medicine Assmt/Plan - Assessment Assessment: persistent vomitting DYSPHAGIA DEHYDRATION FAILURE TO THRIVE HYPONATREMIA HYPOKALEMIA GERD HTN BARETT'S ESOPHAGUS fever - Plan Plan: will add laxative kub noted Plan: will add reglan and prn zofran monitor cbc/bmp ivf for hydration continue current plan of care Nutritional Asmnt/Malnutr-PDOC - Dietary Evaluation Malnutrition Findings (Please click <Entered> for more info): Nutritional Asmnt/Malnutrition Start: 05/07/17 10: 39 Text: Status: Complete Freq: Document 05/07/17 14:31 GSUN (Rec: 05/07/17 15:03 GSUN [id number]) Nutritional Asmnt/Malnutrition Patient General Information Nutritional Screening Consult Diagnosis Dysphagia, dehydration, FTT, Serna esophagus, PCM Pertinent Medical Hx/Surgical Hx Schizophrenia, stroke, TIA, GERD, thyroid disease, arthritis, dementia Subjective Information 46 year old male from SNF. RD consult for dysphagia. Spoke to ELISE Christina, pt has ulcer in the throat, unable to eat, swallow eval ordered nad pending. Pt is a questionable historian, talkative, however speech unclear and difficult to understand. 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 Pt appeared thin, mild muscle fat wasting to chest and temporals. Current Diet Order/ Nutrition Support Clear liquid Pertinent Medications D5-0.9%ns, Iron, Synthroid, Zofran, Protonix, Carafate Pertinent Labs Reviewed. Nutritional Hx/Data Height 1.75 m Height (Calculated Centimeters) 175.3 Current Weight (lbs) 66.678 kg Weight (Calculated Kilograms) 66.7 Weight (Calculated Grams) 07678.1 [place] Body Weight 160 Weight Status Approriate GI Symptoms Food Allergies No Skin Integrity/Comment: [place] 13. Skin intact. Estimated Nutritional Goals BEE in Kcals: Using Current wt Calories/Kcals/Kg CBW 147lb/66.8kg Kcals Calculated 1670-2004kcal (25-30kcal/kg) Protein: Using Current wt Protein Calculated 67g (1g/kg) Fluid: ml 1670-2004ml (1ml/kcal) Nutritional Problem 1. 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 GI consult and swallow eval pending, recommend regular diet with diet texture per ST if pt is able to resume oral diet. Nursing staff to ensure pt sit upright during meals to minimize possible reflux. 2. Monitor weight. 3. If unable to resume oral diet, recommend enteral nutrition. Expected Outcomes/Goals Expected Outcomes/Goals 1. Pt to meet at least 75% of estimated nutritional needs orally or enterally.
[2017-06-09] MEDS: TPN 10%-70% CUSTOM IV SCH (16:33)
[2017-06-10 06:20] LABS: ANION GAP 6.9 (7.0-16.0); BUN - UREA NITROGEN 14 mg/dL (7-25); CALCIUM SERUM 8.8 mg/dL (8.6-10.3); CARBON DIOXIDE 25.7 mEq/L (21.0-31.0); CHLORIDE 106 mEq/L (98-107); CREATININE - SERUM 0.7 mg/dL (0.7-1.3); GLUCOSE 115 mg/dL (70-105); MAGNESIUM 1.8 mg/dL (1.9-2.7); PHOSPHOROUS 3.3 mg/dL (2.5-5.0); POTASSIUM SERUM 3.6 mEq/L (3.5-5.1); SODIUM SERUM 135 mEq/L (136-145)
[2017-06-10] MEDS: INSULIN ASPART SLIDING SCALE 100 UNITS/ML UNIT SUBQ SCH ×2 (06:32→16:44)
[2017-06-10 08:45] LABS: ALB/GLOB RATIO 0.9 (1.0-1.8); BILIRUBIN,TOTAL 0.2 mg/dL (0.3-1.0)
[2017-06-10 08:57] LABS: BILIRUBIN,DIRECT 0.02 mg/dL (0.0-0.2)
[2017-06-10] MEDS: Lactobacillus Rhamnosus 10 Billion CFU Capsule PO SCH (09:13)
[2017-06-10] MEDS: OLANZapine 10 mg Oral Disintegrating Tab PO SCH (09:13)
[2017-06-10] MEDS: Ferrous Sulfate 325 MG TAB PO SCH ×2 (09:13→17:03)
[2017-06-10] MEDS ORDERED: Mag Sulfate 2gm/50mL Premix 2 GM/50 ML BAG IV ONE (12:46)
--- NOTE | 2017-06-10 13:01 | Internal Medicine Prog Note ---
Internal Medicine Subjective - Subjective Patient seen and examined:: with staff, chart reviewed, other (eating better per staff) Patient is:: awake, verbal Patient Complaints of:: vomitting Per staff patient has:: no adverse event, noncompliant, confused, tolerating meds Internal Medicine Objective - Results Result Diagrams: 06/07/17 05:45 06/10/17 05:40 Recent Labs: Laboratory Last Values WBC 10.3 Th/cmm (4.8-10.8) D 06/07/17 05:45 RBC 3.85 Mil/cmm (4.30-5.70) L 06/07/17 05:45 Hgb 12.0 gm/dL (12-16) 06/07/17 05:45 Hct 35.5 % (41.0-60) L 06/07/17 05:45 MCV 92.2 fl (80-99) 06/07/17 05:45 MCH 31.3 pg (26.0-30.0) H 06/07/17 05:45 MCHC Differential 33.9 pg (28.0-36.0) 06/07/17 05:45 RDW 13.6 % (11.5-20.0) 06/07/17 05:45 Plt Count 302 Th/cmm (150-400) 06/07/17 05:45 MPV 8.9 fl 06/07/17 05:45 Neutrophils % 59.9 % (40.0-80.0) 06/07/17 05:45 Band Neutrophils % 3 % (0-10) 05/21/17 05:45 Lymphocytes % 31.0 % (20.0-50.0) 06/07/17 05:45 Monocytes % 6.6 % (2.0-10.0) 06/07/17 05:45 Eosinophils % 2.3 % (0.0-5.0) 06/07/17 05:45 Basophils % 0.2 % (0.0-2.0) 06/07/17 05:45 Neutrophils (Manual) 86 % (40-80) H 05/21/17 05:45 Lymphocytes 10 % (20-50) L 05/21/17 05:45 Monocytes 1 % (2-10) L 05/21/17 05:45 PT 11.3 SECONDS (9.5-11.5) 05/09/17 05:45 INR 1.09 (0.5-1.4) 05/09/17 05:45 PTT (Actin FS) 25.7 SECONDS (26.0-38.0) L 05/06/17 16:46 Sodium 135 mEq/L (136-145) L 06/10/17 05:40 Potassium 3.6 mEq/L (3.5-5.1) 06/10/17 05:40 Chloride 106 mEq/L (98-107) 06/10/17 05:40 Carbon Dioxide 25.7 mEq/L (21.0-31.0) 06/10/17 05:40 Anion Gap 6.9 (7.0-16.0) L 06/10/17 05:40 BUN 14 mg/dL (7-25) 06/10/17 05:40 Creatinine 0.7 mg/dL (0.7-1.3) 06/10/17 05:40 Est GFR ( Amer) > 60.0 ml/min (>90) 06/10/17 05:40 Est GFR (Non-Af Amer) > 60.0 ml/min 06/10/17 05:40 BUN/Creatinine Ratio 20.0 06/10/17 05:40 Glucose 115 mg/dL (70-105) H 06/10/17 05:40 POC Glucose 98 MG/DL (70 - 105) 06/10/17 06:28 Calcium 8.8 mg/dL (8.6-10.3) 06/10/17 05:40 Phosphorus 3.3 mg/dL (2.5-5.0) 06/10/17 05:40 Magnesium 1.8 mg/dL (1.9-2.7) L 06/10/17 05:40 Total Bilirubin 0.2 mg/dL (0.3-1.0) L 06/10/17 05:40 Direct Bilirubin 0.02 mg/dL (0.0-0.2) 06/10/17 05:40 AST 14 U/L (13-39) 06/10/17 05:40 ALT 10 U/L (7-52) 06/10/17 05:40 Alkaline Phosphatase 31 U/L (34-104) L 06/10/17 05:40 Ammonia 52 umol/L (16-53) 05/27/17 05:30 Troponin I 0.03 ng/mL (0.01-0.05) 05/06/17 16:46 C-Reactive Protein 3.9 mg/dL (0.0-0.9) H 05/24/17 08:30 Total Protein 6.3 gm/dL (6.0-8.3) 06/10/17 05:40 Albumin 2.9 gm/dL (4.2-5.5) L 06/10/17 05:40 Globulin 3.4 gm/dL 06/10/17 05:40 Albumin/Globulin Ratio 0.9 (1.0-1.8) L 06/10/17 05:40 Prealbumin 16 mg/dL (12-34) 06/08/17 06:57 Triglycerides 71 mg/dL (<150) 06/08/17 06:57 Cholesterol 99 mg/dL (<200) 06/10/17 05:40 LDL Cholesterol Direct 89 mg/dL (75-193) 05/06/17 16:46 HDL Cholesterol 30 mg/dL (23-92) 05/06/17 16:46 Vitamin B12 931 pg/mL (211-946) 05/27/17 05:30 Folic Acid 13.0 ng/mL (>3.0) 05/27/17 05:30 TSH 1.23 uIU/ml (0.34-5.60) 05/06/17 16:46 Urine Source CATH 05/26/17 15:10 Urine Color YELLOW 05/26/17 15:10 Urine Clarity CLEAR (CLEAR) 05/26/17 15:10 Urine pH 7.0 (4.6 - 8.0) 05/26/17 15:10 Ur Specific [place] 1.025 (1.005-1.030) 05/26/17 15:10 Urine Protein NEGATIVE mg/dL (NEGATIVE) 05/26/17 15:10 Urine Glucose (UA) NEGATIVE mg/dL (NEGATIVE) 05/26/17 15:10 Urine Ketones NEGATIVE mg/dL (NEGATIVE) 05/26/17 15:10 Urine Blood NEGATIVE (NEGATIVE) 05/26/17 15:10 Urine Nitrate NEGATIVE (NEGATIVE) 05/26/17 15:10 Urine Bilirubin NEGATIVE (NEGATIVE) 05/26/17 15:10 Urine Urobilinogen 1.0 E.U./dL (0.2 - 1.0) 05/26/17 15:10 Ur Leukocyte Esterase NEGATIVE (NEGATIVE) 05/26/17 15:10 Urine RBC NONE SEEN /hpf (0-5) 05/26/17 15:10 Urine WBC NONE SEEN /hpf (0-5) 05/26/17 15:10 Ur Epithelial Cells NONE SEEN /lpf (FEW) 05/26/17 15:10 Amorphous Sediment FEW URATES (NONE SEEN) 05/06/17 16:20 Urine Bacteria NONE SEEN /hpf (NONE SEEN) 05/26/17 15:10 Urine Mucus MODERATE /lpf (FEW) 05/06/17 16:20 Vancomycin Trough 2.3 ug/mL (10-20) L 05/31/17 08:45 Valproic Acid < 10.0 ug/mL (50.0-100.0) L 05/21/17 05:45 RPR NONREACTIVE (NONREACTIVE) 05/06/17 16:46 - Physical Exam Vitals and I&O: Vital Signs Temp 97.4 F 06/10/17 12:00 Pulse 80 06/10/17 12:00 Resp 18 06/10/17 12:00 BP 120/80 06/10/17 12:00 Pulse Ox 95 06/10/17 12:00 Intake & Output 06/09/17 06/10/17 06/10/17 18:59 06:59 18:59 Intake Total 2515.333 2694.833 Balance 2515.333 2694.833 Weight (lbs) 68.674 kg Intake: Intake, IV Amount 2515.333 2574.833 Multivitamin Inj 10 ml In 2515.333 1574.833 Dextrose 70% 1,880 ml In Amino Acids 10% 500 ml In Intralipids 20% 250 ml @ 110 mls/hr IV .Q24H KAM Rx#:[id number] Sodium Chloride 0.9% 1, 1000 000 ml @ 30 mls/hr IV . Q24H KAM Rx#:[id number] Oral 120 Active Medications: Current Medications Acetaminophen (Tylenol) 650 mg PO Q4H PRN PRN Reason: Pain Or Fever above 101 Stop: 07/05/17 19:13 Al Hydrox/Mg Hydrox/Simethicone (Maalox) 30 ml PO Q6H PRN PRN Reason: Dyspepsia Stop: 07/05/17 19:13 Albuterol Sulfate (Albuterol 2.5mg/3ml Neb Ud) 2.5 mg HHN Q2HRT PRN PRN Reason: Shortness of Breath or Wheeze Stop: 07/05/17 19:13 Benztropine Mesylate (Cogentin) 1 mg PO BID PRN PRN Reason: Agitation Stop: 07/26/17 13:04 Bisacodyl (Dulcolax 10 Mg Supp) 10 mg RC DAILY PRN PRN Reason: Constipation Stop: 07/21/17 14:25 Divalproex Sodium (Depakote Er) 1,000 mg PO BID KAM PRN Reason: Protocol Stop: 07/06/17 08:59 Last Admin: 06/10/17 09:12 Dose: Not Given Ferrous Sulfate (Iron) 325 mg PO BID [facility] Stop: 07/06/17 08:59 Last Admin: 06/10/17 09:13 Dose: Not Given Guaifenesin (Robitussin) 200 mg PO Q4HR PRN PRN Reason: Cough or Congestion Stop: 07/05/17 19:13 Haloperidol Lactate (Haldol) 2 mg IM HS PRN PRN Reason: Agitation Stop: 07/12/17 08:04 Haloperidol Lactate (Haldol) 2 mg IM DAILY PRN PRN Reason: Agitation Stop: 07/12/17 08:06 Last Admin: 05/20/17 13:32 Dose: 2 mg Heparin Sodium (Porcine) (Heparin) 5,000 units SUBQ Q12HR KAM Stop: 07/05/17 20:59 Last Admin: 06/10/17 09:13 Dose: Not Given Sodium Chloride (Nacl 0.9%) 1,000 mls @ 30 mls/hr IV .Q24H [facility] Stop: 07/25/17 15:59 Last Infusion: 06/10/17 06:51 Dose: Infused Multivitamins/Minerals 10 ml/Dextrose/ Amino Acids/Electrolytes/ Fat Emulsion Intravenous 2,640 mls @ 110 mls/hr IV .Q24H [facility] Stop: 07/27/17 16:59 Last Infusion: 06/10/17 06:52 Dose: 110 mls/hr Magnesium Sulfate (Magnesium Sulfate Premix) 2 gm in 50 mls @ 25 mls/hr IV X1 ONE Stop: 06/10/17 14:45 Insulin Aspart (Novolog Insulin Sliding Scale) 0 units SUBQ BIDAC KAM PRN Reason: Protocol Stop: 07/23/17 16:59 Last Admin: 06/10/17 06:32 Dose: Not Given Ipratropium [place] (Atrovent Neb 0.5mg/2.5ml) 0.5 mg HHN Q2HRT PRN PRN Reason: Shortness of Breath or Wheeze Stop: 07/05/17 19:13 Lactobacillus Rhamnosus (Culturelle) 1 each PO DAILY [facility] Stop: 07/21/17 08:59 Last Admin: 06/10/17 09:13 Dose: Not Given Levothyroxine Sodium (Synthroid) 0.05 mg IVP DAILY [facility] Stop: 07/24/17 08:59 Last Admin: 06/10/17 09:03 Dose: 0.05 mg Miscellaneous (Ppn Per Pharmacy) 1 [facility] PRN PRN PRN Reason: PROTOCOL Stop: 07/20/17 13:24 Miscellaneous (Probiotic Screen) 1 [facility] PRN PRN PRN Reason: PROTOCOL Stop: 07/20/17 16:59 Olanzapine (Zyprexa) 10 mg PO HS KAM PRN Reason: Protocol Stop: 07/07/17 20:59 Last Admin: 06/09/17 22:24 Dose: Not Given Olanzapine (Zyprexa Zydis) 10 mg PO DAILY [facility] Stop: 07/27/17 08:59 Last Admin: 06/10/17 09:13 Dose: Not Given Ondansetron HCl (Zofran) 4 mg IV Q4H PRN PRN Reason: Nausea / Vomiting Stop: 07/05/17 19:13 Last Admin: 05/19/17 15:22 Dose: 4 mg Pantoprazole Sodium (Protonix) 40 mg IVP BID KAM Stop: 07/18/17 18:32 Last Admin: 06/10/17 09:02 Dose: 40 mg Sucralfate (Carafate) 1 gm PO QID KAM Stop: 07/05/17 20:59 Last Admin: 06/10/17 09:13 Dose: Not Given Zolpidem Tartrate (Ambien) 5 mg PO HS PRN PRN Reason: Insomnia Stop: 07/05/17 19:12 General: demented HEENT: NC/AT, PERRLA Neck: Supple Abdomen: soft, non-tender, non-distended, positive bowel sound Extremities: excoriation Neurological: alert, disorganized, unsteady, bedbound - Procedures Procedures: Procedures Procedure Code Date DILATION OF LOWER ESOPHAGUS, ENDO [id number] 05/06/17 EGD BIOPSY SINGLE/MULTIPLE 08214 05/06/17 ESOPH EGD DILATION <30 [place] [address]004 05/06/17 EXCISION OF ESOPHAGUS, ENDO, DIAGN [id number] 05/06/17 Internal Medicine Assmt/Plan - Assessment Assessment: persistent vomitting DYSPHAGIA DEHYDRATION FAILURE TO THRIVE HYPONATREMIA HYPOKALEMIA GERD HTN BARETT'S ESOPHAGUS fever - Plan Plan: will add laxative kub noted Plan: vomitting better, will dc tpn will add reglan and prn zofran monitor cbc/bmp ivf for hydration continue current plan of care Nutritional Asmnt/Malnutr-PDOC - Dietary Evaluation Malnutrition Findings (Please click <Entered> for more info): Nutritional Asmnt/Malnutrition Start: 05/07/17 10: 39 Text: Status: Complete Freq: Document 05/07/17 14:31 GSUN (Rec: 05/07/17 15:03 GSUN [email or web address]) Nutritional Asmnt/Malnutrition Patient General Information Nutritional Screening Consult Diagnosis Dysphagia, dehydration, FTT, Serna esophagus, PCM Pertinent Medical Hx/Surgical Hx Schizophrenia, stroke, TIA, GERD, thyroid disease, arthritis, dementia Subjective Information 46 year old male from SNF. RD consult for dysphagia. Spoke to ELISE Christina, pt has ulcer in the throat, unable to eat, swallow eval ordered nad pending. Pt is a questionable historian, talkative, however speech unclear and difficult to understand. 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 Pt appeared thin, mild muscle fat wasting to chest and temporals. Current Diet Order/ Nutrition Support Clear liquid Pertinent Medications D5-0.9%ns, Iron, Synthroid, Zofran, Protonix, Carafate Pertinent Labs Reviewed. Nutritional Hx/Data Height 1.75 m Height (Calculated Centimeters) 175.3 Current Weight (lbs) 66.678 kg Weight (Calculated Kilograms) 66.7 Weight (Calculated Grams) 33316.1 [place] Body Weight 160 Weight Status Approriate GI Symptoms Food Allergies No Skin Integrity/Comment: [place] 13. Skin intact. Estimated Nutritional Goals BEE in Kcals: Using Current wt Calories/Kcals/Kg CBW 147lb/66.8kg Kcals Calculated 1670-2004kcal (25-30kcal/kg) Protein: Using Current wt Protein Calculated 67g (1g/kg) Fluid: ml 1670-2004ml (1ml/kcal) Nutritional Problem 1. 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 GI consult and swallow eval pending, recommend regular diet with diet texture per ST if pt is able to resume oral diet. Nursing staff to ensure pt sit upright during meals to minimize possible reflux. 2. Monitor weight. 3. If unable to resume oral diet, recommend enteral nutrition. Expected Outcomes/Goals Expected Outcomes/Goals 1. Pt to meet at least 75% of estimated nutritional needs orally or enterally.
[2017-06-10] MEDS ORDERED: Sodium Chloride 0.9% 1,000 ML IV SCH (17:00)
[2017-06-11 06:10] LABS: % BASOPHILS 1.1 % (0.0-2.0); % EOSINOPHILS 1.4 % (0.0-5.0); % LYMPHOCYTES 20.1 % (20.0-50.0); % MONOCYTES 4.7 % (2.0-10.0); % NEUTROPHILS 72.7 % (40.0-80.0); HEMOGLOBIN 10.3 gm/dL (12-16); MEAN CELL VOLUME 90.6 fl (80-99); MEAN CORPUSCULAR HEMOGLOBIN 30.3 pg (26.0-30.0); MEAN CORPUSCULAR HGB CONC 33.4 pg (28.0-36.0); MEAN PLATELET VOLUME 8.8 fl; NEUTROPHILE ABSOLUTE 8.4 Th/cmm (1.8-8.0); RED BLOOD COUNT 3.42 Mil/cmm (4.30-5.70); RED CELL DISTRIBUTION WIDTH 13.8 % (11.5-20.0); WHITE BLOOD COUNT 11.5 Th/cmm (4.8-10.8)
[2017-06-11 06:15] LABS: PLATELET COUNT 234 Th/cmm (150-400)
[2017-06-11] MEDS: INSULIN ASPART SLIDING SCALE 100 UNITS/ML UNIT SUBQ SCH ×2 (07:13→17:08)
[2017-06-11] MEDS: Ferrous Sulfate 325 MG TAB PO SCH ×2 (09:38→17:24)
[2017-06-11] MEDS: OLANZapine 10 mg Oral Disintegrating Tab PO SCH (09:39)
[2017-06-11] MEDS: Lactobacillus Rhamnosus 10 Billion CFU Capsule PO SCH (09:39)
[2017-06-11] MEDS ORDERED: Mag Sulfate 2gm/50mL Premix 2 GM/50 ML BAG IV ONE (12:42)
--- NOTE | 2017-06-11 13:47 | Internal Medicine Prog Note ---
Internal Medicine Subjective - Subjective Service Date: 06/11/17 Patient is:: awake, verbal Patient Complaints of:: vomitting Per staff patient has:: no adverse event, noncompliant, confused, tolerating meds Internal Medicine Objective - Results Result Diagrams: 06/11/17 05:55 06/10/17 05:40 Recent Labs: Laboratory Last Values WBC 11.5 Th/cmm (4.8-10.8) H 06/11/17 05:55 RBC 3.42 Mil/cmm (4.30-5.70) L 06/11/17 05:55 Hgb 10.3 gm/dL (12-16) L 06/11/17 05:55 Hct 31.0 % (41.0-60) L D 06/11/17 05:55 MCV 90.6 fl (80-99) 06/11/17 05:55 MCH 30.3 pg (26.0-30.0) H 06/11/17 05:55 MCHC Differential 33.4 pg (28.0-36.0) 06/11/17 05:55 RDW 13.8 % (11.5-20.0) 06/11/17 05:55 Plt Count 234 Th/cmm (150-400) D 06/11/17 05:55 MPV 8.8 fl 06/11/17 05:55 Neutrophils % 72.7 % (40.0-80.0) 06/11/17 05:55 Band Neutrophils % 3 % (0-10) 05/21/17 05:45 Lymphocytes % 20.1 % (20.0-50.0) 06/11/17 05:55 Monocytes % 4.7 % (2.0-10.0) 06/11/17 05:55 Eosinophils % 1.4 % (0.0-5.0) 06/11/17 05:55 Basophils % 1.1 % (0.0-2.0) 06/11/17 05:55 Neutrophils (Manual) 86 % (40-80) H 05/21/17 05:45 Lymphocytes 10 % (20-50) L 05/21/17 05:45 Monocytes 1 % (2-10) L 05/21/17 05:45 PT 11.3 SECONDS (9.5-11.5) 05/09/17 05:45 INR 1.09 (0.5-1.4) 05/09/17 05:45 PTT (Actin FS) 25.7 SECONDS (26.0-38.0) L 05/06/17 16:46 Sodium 135 mEq/L (136-145) L 06/10/17 05:40 Potassium 3.6 mEq/L (3.5-5.1) 06/10/17 05:40 Chloride 106 mEq/L (98-107) 06/10/17 05:40 Carbon Dioxide 25.7 mEq/L (21.0-31.0) 06/10/17 05:40 Anion Gap 6.9 (7.0-16.0) L 06/10/17 05:40 BUN 14 mg/dL (7-25) 06/10/17 05:40 Creatinine 0.7 mg/dL (0.7-1.3) 06/10/17 05:40 Est GFR ( Amer) > 60.0 ml/min (>90) 06/10/17 05:40 Est GFR (Non-Af Amer) > 60.0 ml/min 06/10/17 05:40 BUN/Creatinine Ratio 20.0 06/10/17 05:40 Glucose 115 mg/dL (70-105) H 06/10/17 05:40 POC Glucose 92 MG/DL (70 - 105) 06/11/17 06:44 Calcium 8.8 mg/dL (8.6-10.3) 06/10/17 05:40 Phosphorus 3.3 mg/dL (2.5-5.0) 06/10/17 05:40 Magnesium 1.7 mg/dL (1.9-2.7) L 06/11/17 05:55 Total Bilirubin 0.2 mg/dL (0.3-1.0) L 06/10/17 05:40 Direct Bilirubin 0.02 mg/dL (0.0-0.2) 06/10/17 05:40 AST 14 U/L (13-39) 06/10/17 05:40 ALT 10 U/L (7-52) 06/10/17 05:40 Alkaline Phosphatase 31 U/L (34-104) L 06/10/17 05:40 Ammonia 52 umol/L (16-53) 05/27/17 05:30 Troponin I 0.03 ng/mL (0.01-0.05) 05/06/17 16:46 C-Reactive Protein 3.9 mg/dL (0.0-0.9) H 05/24/17 08:30 B-Natriuretic Peptide 316.0 pg/mL (5.0-100.0) H 06/11/17 05:55 Total Protein 6.3 gm/dL (6.0-8.3) 06/10/17 05:40 Albumin 2.9 gm/dL (4.2-5.5) L 06/10/17 05:40 Globulin 3.4 gm/dL 06/10/17 05:40 Albumin/Globulin Ratio 0.9 (1.0-1.8) L 06/10/17 05:40 Prealbumin 16 mg/dL (12-34) 06/08/17 06:57 Triglycerides 71 mg/dL (<150) 06/08/17 06:57 Cholesterol 99 mg/dL (<200) 06/10/17 05:40 LDL Cholesterol Direct 89 mg/dL (75-193) 05/06/17 16:46 HDL Cholesterol 30 mg/dL (23-92) 05/06/17 16:46 Vitamin B12 931 pg/mL (211-946) 05/27/17 05:30 Folic Acid 13.0 ng/mL (>3.0) 05/27/17 05:30 TSH 1.23 uIU/ml (0.34-5.60) 05/06/17 16:46 Urine Source CATH 05/26/17 15:10 Urine Color YELLOW 05/26/17 15:10 Urine Clarity CLEAR (CLEAR) 05/26/17 15:10 Urine pH 7.0 (4.6 - 8.0) 05/26/17 15:10 Ur Specific [place] 1.025 (1.005-1.030) 05/26/17 15:10 Urine Protein NEGATIVE mg/dL (NEGATIVE) 05/26/17 15:10 Urine Glucose (UA) NEGATIVE mg/dL (NEGATIVE) 05/26/17 15:10 Urine Ketones NEGATIVE mg/dL (NEGATIVE) 05/26/17 15:10 Urine Blood NEGATIVE (NEGATIVE) 05/26/17 15:10 Urine Nitrate NEGATIVE (NEGATIVE) 05/26/17 15:10 Urine Bilirubin NEGATIVE (NEGATIVE) 05/26/17 15:10 Urine Urobilinogen 1.0 E.U./dL (0.2 - 1.0) 05/26/17 15:10 Ur Leukocyte Esterase NEGATIVE (NEGATIVE) 05/26/17 15:10 Urine RBC NONE SEEN /hpf (0-5) 05/26/17 15:10 Urine WBC NONE SEEN /hpf (0-5) 05/26/17 15:10 Ur Epithelial Cells NONE SEEN /lpf (FEW) 05/26/17 15:10 Amorphous Sediment FEW URATES (NONE SEEN) 05/06/17 16:20 Urine Bacteria NONE SEEN /hpf (NONE SEEN) 05/26/17 15:10 Urine Mucus MODERATE /lpf (FEW) 05/06/17 16:20 Vancomycin Trough 2.3 ug/mL (10-20) L 05/31/17 08:45 Valproic Acid < 10.0 ug/mL (50.0-100.0) L 05/21/17 05:45 RPR NONREACTIVE (NONREACTIVE) 05/06/17 16:46 - Physical Exam Vitals and I&O: Vital Signs Temp 97.6 F 06/11/17 06:00 Pulse 83 06/11/17 08:25 Resp 20 06/11/17 08:25 BP 116/72 06/11/17 06:00 Pulse Ox 99 06/11/17 08:25 Intake & Output 06/10/17 06/11/17 06/11/17 18:59 06:59 18:59 Intake Total 1510 1000 Output Total 157 Balance 1510 843 Weight (lbs) 157 lb 157 lb Intake: Oral 300 1000 Tube Feeding 0 TPN/PPN 1210 Output: Urine/Stool Mix 157 Other: # Voids 4 3 # Bowel Movements 3 0 Active Medications: Current Medications Acetaminophen (Tylenol) 650 mg PO Q4H PRN PRN Reason: Pain Or Fever above 101 Stop: 07/05/17 19:13 Al Hydrox/Mg Hydrox/Simethicone (Maalox) 30 ml PO Q6H PRN PRN Reason: Dyspepsia Stop: 07/05/17 19:13 Albuterol Sulfate (Albuterol 2.5mg/3ml Neb Ud) 2.5 mg HHN Q2HRT PRN PRN Reason: Shortness of Breath or Wheeze Stop: 07/05/17 19:13 Benztropine Mesylate (Cogentin) 1 mg PO BID PRN PRN Reason: Agitation Stop: 07/26/17 13:04 Bisacodyl (Dulcolax 10 Mg Supp) 10 mg RC DAILY PRN PRN Reason: Constipation Stop: 07/21/17 14:25 Divalproex Sodium (Depakote Er) 1,000 mg PO BID KAM PRN Reason: Protocol Stop: 07/06/17 08:59 Last Admin: 06/11/17 09:38 Dose: Not Given Ferrous Sulfate (Iron) 325 mg PO BID [facility] Stop: 07/06/17 08:59 Last Admin: 06/11/17 09:38 Dose: Not Given Guaifenesin (Robitussin) 200 mg PO Q4HR PRN PRN Reason: Cough or Congestion Stop: 07/05/17 19:13 Haloperidol Lactate (Haldol) 2 mg IM HS PRN PRN Reason: Agitation Stop: 07/12/17 08:04 Haloperidol Lactate (Haldol) 2 mg IM DAILY PRN PRN Reason: Agitation Stop: 07/12/17 08:06 Last Admin: 05/20/17 13:32 Dose: 2 mg Heparin Sodium (Porcine) (Heparin) 5,000 units SUBQ Q12HR [facility] Stop: 07/05/17 20:59 Last Admin: 06/11/17 09:39 Dose: Not Given Magnesium Sulfate (Magnesium Sulfate Premix) 2 gm in 50 mls @ 25 mls/hr IV X1 ONE Stop: 06/11/17 14:41 Sodium Chloride (Nacl 0.9%) 1,000 mls @ 70 mls/hr IV .[id number] [facility] Stop: 08/09/17 16:59 Insulin Aspart (Novolog Insulin Sliding Scale) 0 units SUBQ BIDAC KAM PRN Reason: Protocol Stop: 07/23/17 16:59 Last Admin: 06/11/17 07:13 Dose: Not Given Ipratropium [place] (Atrovent Neb 0.5mg/2.5ml) 0.5 mg HHN Q2HRT PRN PRN Reason: Shortness of Breath or Wheeze Stop: 07/05/17 19:13 Lactobacillus Rhamnosus (Culturelle) 1 each PO DAILY [facility] Stop: 07/21/17 08:59 Last Admin: 06/11/17 09:39 Dose: Not Given Levothyroxine Sodium (Synthroid) 0.05 mg IVP DAILY K[facility] Stop: 07/24/17 08:59 Last Admin: 06/11/17 09:35 Dose: 0.05 mg Miscellaneous (Probiotic Screen) 1 ea MC PRN PRN PRN Reason: PROTOCOL Stop: 07/20/17 16:59 Olanzapine (Zyprexa) 10 mg PO HS KAM PRN Reason: Protocol Stop: 07/07/17 20:59 Last Admin: 06/10/17 21:30 Dose: Not Given Olanzapine (Zyprexa Zydis) 10 mg PO DAILY [facility] Stop: 07/27/17 08:59 Last Admin: 06/11/17 09:39 Dose: Not Given Ondansetron HCl (Zofran) 4 mg IV Q4H PRN PRN Reason: Nausea / Vomiting Stop: 07/05/17 19:13 Last Admin: 05/19/17 15:22 Dose: 4 mg Pantoprazole Sodium (Protonix) 40 mg IVP BID [facility] Stop: 07/18/17 18:32 Last Admin: 06/11/17 09:35 Dose: 40 mg Sucralfate (Carafate) 1 gm PO QID [facility]AM Stop: 07/05/17 20:59 Last Admin: 06/11/17 12:50 Dose: Not Given Zolpidem Tartrate (Ambien) 5 mg PO HS PRN PRN Reason: Insomnia Stop: 07/05/17 19:12 General: demented HEENT: NC/AT, PERRLA Neck: Supple Abdomen: soft, non-tender, non-distended, positive bowel sound Extremities: excoriation Neurological: alert, disorganized, unsteady, bedbound - Procedures Procedures: Procedures Procedure Code Date DILATION OF LOWER ESOPHAGUS, ENDO [id number] 05/06/17 EGD BIOPSY SINGLE/MULTIPLE 89846 05/06/17 ESOPH EGD DILATION <30 MM 46140 05/06/17 EXCISION OF ESOPHAGUS, ENDO, DIAGN [id number] 05/06/17 Internal Medicine Assmt/Plan - Assessment Assessment: DYSPHAGIA DEHYDRATION- FAILURE TO THRIVE HYPONATREMIA HYPOKALEMIA GERD HTN BARETT'S ESOPHAGUS - Plan Plan: monitor electrolyte levels continue with iv protonix case managers arranging placement monitor cbc/bmp ivf for hydration continue current plan of care Nutritional Asmnt/Malnutr-PDOC - Dietary Evaluation Malnutrition Findings (Please click <Entered> for more info): Nutritional Asmnt/Malnutrition Start: 05/07/17 10: 39 Text: Status: Complete Freq: Document 05/07/17 14:31 GSUN (Rec: 05/07/17 15:03 [email or web address]) Nutritional Asmnt/Malnutrition Patient General Information Nutritional Screening Consult Diagnosis Dysphagia, dehydration, FTT, Serna esophagus, PCM Pertinent Medical Hx/Surgical Hx Schizophrenia, stroke, TIA, GERD, thyroid disease, arthritis, dementia Subjective Information 46 year old male from SNF. RD consult for dysphagia. Spoke to ELISE Christina, pt has ulcer in the throat, unable to eat, swallow eval ordered nad pending. Pt is a questionable historian, talkative, however speech unclear and difficult to understand. 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 Pt appeared thin, mild muscle fat wasting to chest and temporals. Current Diet Order/ Nutrition Support Clear liquid Pertinent Medications D5-0.9%ns, Iron, Synthroid, Zofran, Protonix, Carafate Pertinent Labs Reviewed. Nutritional Hx/Data Height 5 ft 9 in Height (Calculated Centimeters) 175.3 Current Weight (lbs) 147 lb Weight (Calculated Kilograms) 66.7 Weight (Calculated Grams) 45715.1 [place] Body Weight 160 Weight Status Approriate GI Symptoms Food Allergies No Skin Integrity/Comment: [place] 13. Skin intact. Estimated Nutritional Goals BEE in Kcals: Using Current wt Calories/Kcals/Kg CBW 147lb/66.8kg Kcals Calculated 1670-2004kcal (25-30kcal/kg) Protein: Using Current wt Protein Calculated 67g (1g/kg) Fluid: ml 1670-2004ml (1ml/kcal) Nutritional Problem 1. 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 GI consult and swallow eval pending, recommend regular diet with diet texture per ST if pt is able to resume oral diet. Nursing staff to ensure pt sit upright during meals to minimize possible reflux. 2. Monitor weight. 3. If unable to resume oral diet, recommend enteral nutrition. Expected Outcomes/Goals Expected Outcomes/Goals 1. Pt to meet at least 75% of estimated nutritional needs orally or enterally.
[2017-06-11] MEDS: Sodium Chloride 0.9% 1,000 ML IV SCH (21:29)
[2017-06-12 06:33] LABS: ANION GAP 12.1 (7.0-16.0); BUN - UREA NITROGEN 13 mg/dL (7-25); BUN/CREATININE RATIO 18.6; CALCIUM SERUM 9.3 mg/dL (8.6-10.3); CARBON DIOXIDE 21.9 mEq/L (21.0-31.0); CHLORIDE 106 mEq/L (98-107); CREATININE - SERUM 0.7 mg/dL (0.7-1.3); GLUCOSE 90 mg/dL (70-105); SODIUM SERUM 136 mEq/L (136-145)
[2017-06-12] MEDS: INSULIN ASPART SLIDING SCALE 100 UNITS/ML UNIT SUBQ SCH ×2 (06:42→17:00)
[2017-06-12] MEDS: Sodium Chloride 0.9% 1,000 ML IV SCH (06:43)
[2017-06-12 06:50] LABS: % BASOPHILS 0.8 % (0.0-2.0); % EOSINOPHILS 1.9 % (0.0-5.0); % LYMPHOCYTES 21.8 % (20.0-50.0); % MONOCYTES 8.5 % (2.0-10.0); HEMATOCRIT 33.8 % (41.0-60); HEMOGLOBIN 11.5 gm/dL (12-16); MEAN CELL VOLUME 90.5 fl (80-99); MEAN CORPUSCULAR HEMOGLOBIN 30.7 pg (26.0-30.0); MEAN CORPUSCULAR HGB CONC 33.9 pg (28.0-36.0); NEUTROPHILE ABSOLUTE 6.3 Th/cmm (1.8-8.0); PLATELET COUNT 246 Th/cmm (150-400); RED BLOOD COUNT 3.74 Mil/cmm (4.30-5.70); RED CELL DISTRIBUTION WIDTH 13.9 % (11.5-20.0); WHITE BLOOD COUNT 9.5 Th/cmm (4.8-10.8)
[2017-06-12] MEDS: Ferrous Sulfate 325 MG TAB PO SCH ×2 (10:28→16:58)
[2017-06-12] MEDS: Lactobacillus Rhamnosus 10 Billion CFU Capsule PO SCH (10:29)
[2017-06-12] MEDS: OLANZapine 10 mg Oral Disintegrating Tab PO SCH (10:29)
--- NOTE | 2017-06-12 11:22 | Internal Medicine Prog Note ---
Internal Medicine Subjective - Subjective Service Date: 06/12/17 Patient is:: awake, verbal Patient Complaints of:: vomitting Per staff patient has:: no adverse event, noncompliant, confused, tolerating meds Internal Medicine Objective - Results Result Diagrams: 06/12/17 06:30 06/12/17 05:35 Recent Labs: Laboratory Last Values WBC 9.5 Th/cmm (4.8-10.8) 06/12/17 06:30 RBC 3.74 Mil/cmm (4.30-5.70) L 06/12/17 06:30 Hgb 11.5 gm/dL (12-16) L 06/12/17 06:30 Hct 33.8 % (41.0-60) L 06/12/17 06:30 MCV 90.5 fl (80-99) 06/12/17 06:30 MCH 30.7 pg (26.0-30.0) H 06/12/17 06:30 MCHC Differential 33.9 pg (28.0-36.0) 06/12/17 06:30 RDW 13.9 % (11.5-20.0) 06/12/17 06:30 Plt Count 246 Th/cmm (150-400) 06/12/17 06:30 MPV 9.0 fl 06/12/17 06:30 Neutrophils % 67.0 % (40.0-80.0) 06/12/17 06:30 Band Neutrophils % 3 % (0-10) 05/21/17 05:45 Lymphocytes % 21.8 % (20.0-50.0) 06/12/17 06:30 Monocytes % 8.5 % (2.0-10.0) 06/12/17 06:30 Eosinophils % 1.9 % (0.0-5.0) 06/12/17 06:30 Basophils % 0.8 % (0.0-2.0) 06/12/17 06:30 Neutrophils (Manual) 86 % (40-80) H 05/21/17 05:45 Lymphocytes 10 % (20-50) L 05/21/17 05:45 Monocytes 1 % (2-10) L 05/21/17 05:45 PT 11.3 SECONDS (9.5-11.5) 05/09/17 05:45 INR 1.09 (0.5-1.4) 05/09/17 05:45 PTT (Actin FS) 25.7 SECONDS (26.0-38.0) L 05/06/17 16:46 Sodium 136 mEq/L (136-145) 06/12/17 05:35 Potassium 4.0 mEq/L (3.5-5.1) 06/12/17 05:35 Chloride 106 mEq/L (98-107) 06/12/17 05:35 Carbon Dioxide 21.9 mEq/L (21.0-31.0) 06/12/17 05:35 Anion Gap 12.1 (7.0-16.0) 06/12/17 05:35 BUN 13 mg/dL (7-25) 06/12/17 05:35 Creatinine 0.7 mg/dL (0.7-1.3) 06/12/17 05:35 Est GFR ( Amer) > 60.0 ml/min (>90) 06/12/17 05:35 Est GFR (Non-Af Amer) > 60.0 ml/min 06/12/17 05:35 BUN/Creatinine Ratio 18.6 06/12/17 05:35 Glucose 90 mg/dL (70-105) 06/12/17 05:35 POC Glucose 82 MG/DL (70 - 105) 06/12/17 06:28 Calcium 9.3 mg/dL (8.6-10.3) 06/12/17 05:35 Phosphorus 3.3 mg/dL (2.5-5.0) 06/10/17 05:40 Magnesium 1.7 mg/dL (1.9-2.7) L 06/11/17 05:55 Total Bilirubin 0.2 mg/dL (0.3-1.0) L 06/10/17 05:40 Direct Bilirubin 0.02 mg/dL (0.0-0.2) 06/10/17 05:40 AST 14 U/L (13-39) 06/10/17 05:40 ALT 10 U/L (7-52) 06/10/17 05:40 Alkaline Phosphatase 31 U/L (34-104) L 06/10/17 05:40 Ammonia 52 umol/L (16-53) 05/27/17 05:30 Troponin I 0.03 ng/mL (0.01-0.05) 05/06/17 16:46 C-Reactive Protein 3.9 mg/dL (0.0-0.9) H 05/24/17 08:30 B-Natriuretic Peptide 316.0 pg/mL (5.0-100.0) H 06/11/17 05:55 Total Protein 6.3 gm/dL (6.0-8.3) 06/10/17 05:40 Albumin 2.9 gm/dL (4.2-5.5) L 06/10/17 05:40 Globulin 3.4 gm/dL 06/10/17 05:40 Albumin/Globulin Ratio 0.9 (1.0-1.8) L 06/10/17 05:40 Prealbumin 16 mg/dL (12-34) 06/08/17 06:57 Triglycerides 71 mg/dL (<150) 06/08/17 06:57 Cholesterol 99 mg/dL (<200) 06/10/17 05:40 LDL Cholesterol Direct 89 mg/dL (75-193) 05/06/17 16:46 HDL Cholesterol 30 mg/dL (23-92) 05/06/17 16:46 Vitamin B12 931 pg/mL (211-946) 05/27/17 05:30 Folic Acid 13.0 ng/mL (>3.0) 05/27/17 05:30 TSH 1.23 uIU/ml (0.34-5.60) 05/06/17 16:46 Urine Source CATH 05/26/17 15:10 Urine Color YELLOW 05/26/17 15:10 Urine Clarity CLEAR (CLEAR) 05/26/17 15:10 Urine pH 7.0 (4.6 - 8.0) 05/26/17 15:10 Ur Specific [place] 1.025 (1.005-1.030) 05/26/17 15:10 Urine Protein NEGATIVE mg/dL (NEGATIVE) 05/26/17 15:10 Urine Glucose (UA) NEGATIVE mg/dL (NEGATIVE) 05/26/17 15:10 Urine Ketones NEGATIVE mg/dL (NEGATIVE) 05/26/17 15:10 Urine Blood NEGATIVE (NEGATIVE) 05/26/17 15:10 Urine Nitrate NEGATIVE (NEGATIVE) 05/26/17 15:10 Urine Bilirubin NEGATIVE (NEGATIVE) 05/26/17 15:10 Urine Urobilinogen 1.0 E.U./dL (0.2 - 1.0) 05/26/17 15:10 Ur Leukocyte Esterase NEGATIVE (NEGATIVE) 05/26/17 15:10 Urine RBC NONE SEEN /hpf (0-5) 05/26/17 15:10 Urine WBC NONE SEEN /hpf (0-5) 05/26/17 15:10 Ur Epithelial Cells NONE SEEN /lpf (FEW) 05/26/17 15:10 Amorphous Sediment FEW URATES (NONE SEEN) 05/06/17 16:20 Urine Bacteria NONE SEEN /hpf (NONE SEEN) 05/26/17 15:10 Urine Mucus MODERATE /lpf (FEW) 05/06/17 16:20 Vancomycin Trough 2.3 ug/mL (10-20) L 05/31/17 08:45 Valproic Acid < 10.0 ug/mL (50.0-100.0) L 05/21/17 05:45 RPR NONREACTIVE (NONREACTIVE) 05/06/17 16:46 - Physical Exam Vitals and I&O: Vital Signs Temp 98.2 F 06/12/17 08:00 Pulse 99 06/12/17 08:21 Resp 20 06/12/17 08:21 BP 113/72 06/12/17 08:00 Pulse Ox 99 06/12/17 08:21 Intake & Output 06/11/17 06/12/17 06/12/17 18:59 06:59 18:59 Intake Total 360 Balance 360 Weight (lbs) 157 lb 144 lb 3 oz Intake: Oral 360 Other: # Voids 2 4 # Bowel Movements 1 0 Active Medications: Current Medications Acetaminophen (Tylenol) 650 mg PO Q4H PRN PRN Reason: Pain Or Fever above 101 Stop: 07/05/17 19:13 Al Hydrox/Mg Hydrox/Simethicone (Maalox) 30 ml PO Q6H PRN PRN Reason: Dyspepsia Stop: 07/05/17 19:13 Albuterol Sulfate (Albuterol 2.5mg/3ml Neb Ud) 2.5 mg HHN Q2HRT PRN PRN Reason: Shortness of Breath or Wheeze Stop: 07/05/17 19:13 Benztropine Mesylate (Cogentin) 1 mg PO BID PRN PRN Reason: Agitation Stop: 07/26/17 13:04 Bisacodyl (Dulcolax 10 Mg Supp) 10 mg RC DAILY PRN PRN Reason: Constipation Stop: 07/21/17 14:25 Divalproex Sodium (Depakote Er) 1,000 mg PO BID KAM PRN Reason: Protocol Stop: 07/06/17 08:59 Last Admin: 06/12/17 10:28 Dose: Not Given Ferrous Sulfate (Iron) 325 mg PO BID [facility] Stop: 07/06/17 08:59 Last Admin: 06/12/17 10:28 Dose: Not Given Guaifenesin (Robitussin) 200 mg PO Q4HR PRN PRN Reason: Cough or Congestion Stop: 07/05/17 19:13 Haloperidol Lactate (Haldol) 2 mg IM HS PRN PRN Reason: Agitation Stop: 07/12/17 08:04 Haloperidol Lactate (Haldol) 2 mg IM DAILY PRN PRN Reason: Agitation Stop: 07/12/17 08:06 Last Admin: 05/20/17 13:32 Dose: 2 mg Heparin Sodium (Porcine) (Heparin) 5,000 units SUBQ Q12HR [facility] Stop: 07/05/17 20:59 Last Admin: 06/12/17 10:28 Dose: Not Given Sodium Chloride (Nacl 0.9%) 1,000 mls @ 70 mls/hr IV .[id number] [facility] Stop: 08/09/17 16:59 Last Admin: 06/12/17 06:43 Dose: Not Given Insulin Aspart (Novolog Insulin Sliding Scale) 0 units SUBQ BIDAC KAM PRN Reason: Protocol Stop: 07/23/17 16:59 Last Admin: 06/12/17 06:42 Dose: Not Given Ipratropium [place] (Atrovent Neb 0.5mg/2.5ml) 0.5 mg HHN Q2HRT PRN PRN Reason: Shortness of Breath or Wheeze Stop: 07/05/17 19:13 Lactobacillus Rhamnosus (Culturelle) 1 each PO DAILY [facility] Stop: 07/21/17 08:59 Last Admin: 06/12/17 10:29 Dose: Not Given Levothyroxine Sodium (Synthroid) 0.05 mg IVP DAILY [facility] Stop: 07/24/17 08:59 Last Admin: 06/12/17 10:29 Dose: Not Given Miscellaneous (Probiotic Screen) 1 ea MC PRN PRN PRN Reason: PROTOCOL Stop: 07/20/17 16:59 Olanzapine (Zyprexa) 10 mg PO HS KAM PRN Reason: Protocol Stop: 07/07/17 20:59 Last Admin: 06/11/17 20:43 Dose: 10 mg Olanzapine (Zyprexa Zydis) 10 mg PO DAILY [facility] Stop: 07/27/17 08:59 Last Admin: 06/12/17 10:29 Dose: Not Given Ondansetron HCl (Zofran) 4 mg IV Q4H PRN PRN Reason: Nausea / Vomiting Stop: 07/05/17 19:13 Last Admin: 05/19/17 15:22 Dose: 4 mg Pantoprazole Sodium (Protonix) 40 mg IVP BID [facility] Stop: 07/18/17 18:32 Last Admin: 06/12/17 10:29 Dose: Not Given Sucralfate (Carafate) 1 gm PO QID [facility] Stop: 07/05/17 20:59 Last Admin: 06/12/17 10:29 Dose: Not Given Zolpidem Tartrate (Ambien) 5 mg PO HS PRN PRN Reason: Insomnia Stop: 07/05/17 19:12 General: demented HEENT: NC/AT, PERRLA Neck: Supple Abdomen: soft, non-tender, non-distended, positive bowel sound Extremities: excoriation Neurological: alert, disorganized, unsteady, bedbound - Procedures Procedures: Procedures Procedure Code Date DILATION OF LOWER ESOPHAGUS, ENDO [id number] 05/06/17 EGD BIOPSY SINGLE/MULTIPLE 27630 05/06/17 ESOPH EGD DILATION <30 MM [id number] 05/06/17 EXCISION OF ESOPHAGUS, ENDO, DIAGN [id number] 05/06/17 Internal Medicine Assmt/Plan - Assessment Assessment: DYSPHAGIA DEHYDRATION- FAILURE TO THRIVE HYPONATREMIA HYPOKALEMIA GERD HTN BARETT'S ESOPHAGUS - Plan Plan: monitor electrolyte levels continue with iv protonix skilled nursing case manager arranging placement monitor cbc/bmp ivf for hydration continue current plan of care Nutritional Asmnt/Malnutr-PDOC - Dietary Evaluation Malnutrition Findings (Please click <Entered> for more info): Nutritional Asmnt/Malnutrition Start: 05/07/17 10: 39 Text: Status: Complete Freq: Document 09/19/17 14:31 GSUN (Rec: 05/07/17 15:03 GSUN [email or web address]) Nutritional Asmnt/Malnutrition Patient General Information Nutritional Screening Consult Diagnosis Dysphagia, dehydration, FTT, Serna esophagus, PCM Pertinent Medical Hx/Surgical Hx Schizophrenia, stroke, TIA, GERD, thyroid disease, arthritis, dementia Subjective Information 46 year old male from SNF. RD consult for dysphagia. Spoke to RN Carri, pt has ulcer in the throat, unable to eat, swallow eval ordered nad pending. Pt is a questionable historian, talkative, however speech unclear and difficult to understand. 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 Pt appeared thin, mild muscle fat wasting to chest and temporals. Current Diet Order/ Nutrition Support Clear liquid Pertinent Medications D5-0.9%ns, Iron, Synthroid, Zofran, Protonix, Carafate Pertinent Labs Reviewed. Nutritional Hx/Data Height 5 ft 9 in Height (Calculated Centimeters) 175.3 Current Weight (lbs) 147 lb Weight (Calculated Kilograms) 66.7 Weight (Calculated Grams) 04011.1 [place] Body Weight 160 Weight Status Approriate GI Symptoms Food Allergies No Skin Integrity/Comment: [place] 13. Skin intact. Estimated Nutritional Goals BEE in Kcals: Using Current wt Calories/Kcals/Kg CBW 147lb/66.8kg Kcals Calculated 1670-2004kcal (25-30kcal/kg) Protein: Using Current wt Protein Calculated 67g (1g/kg) Fluid: ml 1670-2004ml (1ml/kcal) Nutritional Problem 1. 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 GI consult and swallow eval pending, recommend regular diet with diet texture per ST if pt is able to resume oral diet. Nursing staff to ensure pt sit upright during meals to minimize possible reflux. 2. Monitor weight. 3. If unable to resume oral diet, recommend enteral nutrition. Expected Outcomes/Goals Expected Outcomes/Goals 1. Pt to meet at least 75% of estimated nutritional needs orally or enterally.
[2017-06-13] MEDS: Sodium Chloride 0.9% 1,000 ML IV SCH (02:42)
[2017-06-13 06:24] LABS: BUN - UREA NITROGEN 13 mg/dL (7-25); BUN/CREATININE RATIO 18.6; CALCIUM SERUM 9.4 mg/dL (8.6-10.3); CARBON DIOXIDE 25.7 mEq/L (21.0-31.0); CHLORIDE 104 mEq/L (98-107); CREATININE - SERUM 0.7 mg/dL (0.7-1.3); GLUCOSE 93 mg/dL (70-105); POTASSIUM SERUM 3.7 mEq/L (3.5-5.1); SODIUM SERUM 136 mEq/L (136-145)
[2017-06-13 06:28] LABS: % BASOPHILS 0.3 % (0.0-2.0); % EOSINOPHILS 2.4 % (0.0-5.0); % LYMPHOCYTES 26.1 % (20.0-50.0); % MONOCYTES 9.4 % (2.0-10.0); % NEUTROPHILS 61.8 % (40.0-80.0); HEMATOCRIT 31.9 % (41.0-60); HEMOGLOBIN 10.6 gm/dL (12-16); MEAN CELL VOLUME 91.2 fl (80-99); MEAN CORPUSCULAR HEMOGLOBIN 30.4 pg (26.0-30.0); MEAN CORPUSCULAR HGB CONC 33.3 pg (28.0-36.0); MEAN PLATELET VOLUME 9.7 fl; NEUTROPHILE ABSOLUTE 5.1 Th/cmm (1.8-8.0); PLATELET COUNT 242 Th/cmm (150-400); RED CELL DISTRIBUTION WIDTH 13.6 % (11.5-20.0); WHITE BLOOD COUNT 8.3 Th/cmm (4.8-10.8)
[2017-06-13] MEDS: INSULIN ASPART SLIDING SCALE 100 UNITS/ML UNIT SUBQ SCH (06:39)
[2017-06-13] MEDS: OLANZapine 10 mg Oral Disintegrating Tab PO SCH (08:55)
[2017-06-13] MEDS: Lactobacillus Rhamnosus 10 Billion CFU Capsule PO SCH (08:56)
[2017-06-13] MEDS: Ferrous Sulfate 325 MG TAB PO SCH (08:56)
--- NOTE | 2017-06-13 13:00 | Internal Medicine Prog Note ---
Internal Medicine Subjective - Subjective Patient seen and examined:: with staff, chart reviewed Patient is:: awake, verbal, interactive, talking, agitated, confused Per staff patient has:: no adverse event, no episodes of fall, noncompliant, confused, tolerating meds Internal Medicine Objective - Results Result Diagrams: 06/13/17 05:25 06/13/17 05:25 Recent Labs: Laboratory Last Values WBC 8.3 Th/cmm (4.8-10.8) 06/13/17 05:25 RBC 3.50 Mil/cmm (4.30-5.70) L 06/13/17 05:25 Hgb 10.6 gm/dL (12-16) L 06/13/17 05:25 Hct 31.9 % (41.0-60) L 06/13/17 05:25 MCV 91.2 fl (80-99) 06/13/17 05:25 MCH 30.4 pg (26.0-30.0) H 06/13/17 05:25 MCHC Differential 33.3 pg (28.0-36.0) 06/13/17 05:25 RDW 13.6 % (11.5-20.0) 06/13/17 05:25 Plt Count 242 Th/cmm (150-400) 06/13/17 05:25 MPV 9.7 fl 06/13/17 05:25 Neutrophils % 61.8 % (40.0-80.0) 06/13/17 05:25 Band Neutrophils % 3 % (0-10) 05/21/17 05:45 Lymphocytes % 26.1 % (20.0-50.0) 06/13/17 05:25 Monocytes % 9.4 % (2.0-10.0) 06/13/17 05:25 Eosinophils % 2.4 % (0.0-5.0) 06/13/17 05:25 Basophils % 0.3 % (0.0-2.0) 06/13/17 05:25 Neutrophils (Manual) 86 % (40-80) H 05/21/17 05:45 Lymphocytes 10 % (20-50) L 05/21/17 05:45 Monocytes 1 % (2-10) L 05/21/17 05:45 PT 11.3 SECONDS (9.5-11.5) 05/09/17 05:45 INR 1.09 (0.5-1.4) 05/09/17 05:45 PTT (Actin FS) 25.7 SECONDS (26.0-38.0) L 05/06/17 16:46 Sodium 136 mEq/L (136-145) 06/13/17 05:25 Potassium 3.7 mEq/L (3.5-5.1) 06/13/17 05:25 Chloride 104 mEq/L (98-107) 06/13/17 05:25 Carbon Dioxide 25.7 mEq/L (21.0-31.0) 06/13/17 05:25 Anion Gap 10.0 (7.0-16.0) 06/13/17 05:25 BUN 13 mg/dL (7-25) 06/13/17 05:25 Creatinine 0.7 mg/dL (0.7-1.3) 06/13/17 05:25 Est GFR ( Amer) > 60.0 ml/min (>90) 06/13/17 05:25 Est GFR (Non-Af Amer) > 60.0 ml/min 06/13/17 05:25 BUN/Creatinine Ratio 18.6 06/13/17 05:25 Glucose 93 mg/dL (70-105) 06/13/17 05:25 POC Glucose 81 MG/DL (70 - 105) 06/13/17 06:38 Calcium 9.4 mg/dL (8.6-10.3) 06/13/17 05:25 Phosphorus 3.3 mg/dL (2.5-5.0) 06/10/17 05:40 Magnesium 1.7 mg/dL (1.9-2.7) L 06/11/17 05:55 Total Bilirubin 0.2 mg/dL (0.3-1.0) L 06/10/17 05:40 Direct Bilirubin 0.02 mg/dL (0.0-0.2) 06/10/17 05:40 AST 14 U/L (13-39) 06/10/17 05:40 ALT 10 U/L (7-52) 06/10/17 05:40 Alkaline Phosphatase 31 U/L (34-104) L 06/10/17 05:40 Ammonia 52 umol/L (16-53) 05/27/17 05:30 Troponin I 0.03 ng/mL (0.01-0.05) 05/06/17 16:46 C-Reactive Protein 3.9 mg/dL (0.0-0.9) H 05/24/17 08:30 B-Natriuretic Peptide 316.0 pg/mL (5.0-100.0) H 06/11/17 05:55 Total Protein 6.3 gm/dL (6.0-8.3) 06/10/17 05:40 Albumin 2.9 gm/dL (4.2-5.5) L 06/10/17 05:40 Globulin 3.4 gm/dL 06/10/17 05:40 Albumin/Globulin Ratio 0.9 (1.0-1.8) L 06/10/17 05:40 Prealbumin 16 mg/dL (12-34) 06/08/17 06:57 Triglycerides 71 mg/dL (<150) 06/08/17 06:57 Cholesterol 99 mg/dL (<200) 06/10/17 05:40 LDL Cholesterol Direct 89 mg/dL (75-193) 05/06/17 16:46 HDL Cholesterol 30 mg/dL (23-92) 05/06/17 16:46 Vitamin B12 931 pg/mL (211-946) 05/27/17 05:30 Folic Acid 13.0 ng/mL (>3.0) 05/27/17 05:30 TSH 1.23 uIU/ml (0.34-5.60) 05/06/17 16:46 Urine Source CATH 05/26/17 15:10 Urine Color YELLOW 05/26/17 15:10 Urine Clarity CLEAR (CLEAR) 05/26/17 15:10 Urine pH 7.0 (4.6 - 8.0) 05/26/17 15:10 Ur Specific [place] 1.025 (1.005-1.030) 05/26/17 15:10 Urine Protein NEGATIVE mg/dL (NEGATIVE) 05/26/17 15:10 Urine Glucose (UA) NEGATIVE mg/dL (NEGATIVE) 05/26/17 15:10 Urine Ketones NEGATIVE mg/dL (NEGATIVE) 05/26/17 15:10 Urine Blood NEGATIVE (NEGATIVE) 05/26/17 15:10 Urine Nitrate NEGATIVE (NEGATIVE) 05/26/17 15:10 Urine Bilirubin NEGATIVE (NEGATIVE) 05/26/17 15:10 Urine Urobilinogen 1.0 E.U./dL (0.2 - 1.0) 05/26/17 15:10 Ur Leukocyte Esterase NEGATIVE (NEGATIVE) 05/26/17 15:10 Urine RBC NONE SEEN /hpf (0-5) 05/26/17 15:10 Urine WBC NONE SEEN /hpf (0-5) 05/26/17 15:10 Ur Epithelial Cells NONE SEEN /lpf (FEW) 05/26/17 15:10 Amorphous Sediment FEW URATES (NONE SEEN) 05/06/17 16:20 Urine Bacteria NONE SEEN /hpf (NONE SEEN) 05/26/17 15:10 Urine Mucus MODERATE /lpf (FEW) 05/06/17 16:20 Vancomycin Trough 2.3 ug/mL (10-20) L 05/31/17 08:45 Valproic Acid < 10.0 ug/mL (50.0-100.0) L 05/21/17 05:45 RPR NONREACTIVE (NONREACTIVE) 05/06/17 16:46 - Physical Exam Vitals and I&O: Vital Signs Temp 98.4 F 06/13/17 08:00 Pulse 64 06/13/17 08:00 Resp 18 06/13/17 08:00 BP 109/65 06/13/17 08:00 Pulse Ox 100 06/13/17 08:00 Intake & Output 06/12/17 06/13/17 06/13/17 18:59 06:59 18:59 Intake Total 1500 Balance 1500 Weight (lbs) 65.402 kg 69.201 kg 69.201 kg Intake: Intake, IV Amount 1000 Sodium Chloride 0.9% 1, 1000 000 ml @ 70 mls/hr IV . [id number] [facility] Rx#:[id number] Oral 500 Other: # Voids 4 3 # Bowel Movements 0 Stool Characteristics Formed Active Medications: Current Medications Acetaminophen (Tylenol) 650 mg PO Q4H PRN PRN Reason: Pain Or Fever above 101 Stop: 07/05/17 19:13 Al Hydrox/Mg Hydrox/Simethicone (Maalox) 30 ml PO Q6H PRN PRN Reason: Dyspepsia Stop: 07/05/17 19:13 Albuterol Sulfate (Albuterol 2.5mg/3ml Neb Ud) 2.5 mg HHN Q2HRT PRN PRN Reason: Shortness of Breath or Wheeze Stop: 07/05/17 19:13 Benztropine Mesylate (Cogentin) 1 mg PO BID PRN PRN Reason: Agitation Stop: 07/26/17 13:04 Bisacodyl (Dulcolax 10 Mg Supp) 10 mg RC DAILY PRN PRN Reason: Constipation Stop: 07/21/17 14:25 Divalproex Sodium (Depakote Er) 1,000 mg PO BID KAM PRN Reason: Protocol Stop: 07/06/17 08:59 Last Admin: 06/13/17 08:56 Dose: Not Given Ferrous Sulfate (Iron) 325 mg PO BID [facility] Stop: 07/06/17 08:59 Last Admin: 06/13/17 08:56 Dose: Not Given Guaifenesin (Robitussin) 200 mg PO Q4HR PRN PRN Reason: Cough or Congestion Stop: 07/05/17 19:13 Haloperidol Lactate (Haldol) 2 mg IM HS PRN PRN Reason: Agitation Stop: 07/12/17 08:04 Haloperidol Lactate (Haldol) 2 mg IM DAILY PRN PRN Reason: Agitation Stop: 07/12/17 08:06 Last Admin: 05/20/17 13:32 Dose: 2 mg Heparin Sodium (Porcine) (Heparin) 5,000 units SUBQ Q12HR [facility] Stop: 07/05/17 20:59 Last Admin: 06/13/17 08:56 Dose: Not Given Sodium Chloride (Nacl 0.9%) 1,000 mls @ 70 mls/hr IV .[id number] [facility] Stop: 08/09/17 16:59 Last Admin: 06/13/17 02:42 Dose: 70 mls/hr Insulin Aspart (Novolog Insulin Sliding Scale) 0 units SUBQ BIDAC KAM PRN Reason: Protocol Stop: 07/23/17 16:59 Last Admin: 06/13/17 06:39 Dose: Not Given Ipratropium [place] (Atrovent Neb 0.5mg/2.5ml) 0.5 mg HHN Q2HRT PRN PRN Reason: Shortness of Breath or Wheeze Stop: 07/05/17 19:13 Lactobacillus Rhamnosus (Culturelle) 1 each PO DAILY [facility] Stop: 07/21/17 08:59 Last Admin: 06/13/17 08:56 Dose: Not Given Levothyroxine Sodium (Synthroid) 0.05 mg IVP DAILY KAM Stop: 07/24/17 08:59 Last Admin: 06/13/17 08:57 Dose: 0.05 mg Miscellaneous (Probiotic Screen) 1 ea MC PRN PRN PRN Reason: PROTOCOL Stop: 07/20/17 16:59 Olanzapine (Zyprexa) 10 mg PO HS KAM PRN Reason: Protocol Stop: 07/07/17 20:59 Last Admin: 06/12/17 20:29 Dose: 10 mg Olanzapine (Zyprexa Zydis) 10 mg PO DAILY [facility] Stop: 07/27/17 08:59 Last Admin: 06/13/17 08:55 Dose: Not Given Ondansetron HCl (Zofran) 4 mg IV Q4H PRN PRN Reason: Nausea / Vomiting Stop: 07/05/17 19:13 Last Admin: 05/19/17 15:22 Dose: 4 mg Pantoprazole Sodium (Protonix) 40 mg IVP BID [facility] Stop: 07/18/17 18:32 Last Admin: 06/13/17 08:51 Dose: 40 mg Sucralfate (Carafate) 1 gm PO QID [facility] Stop: 07/05/17 20:59 Last Admin: 06/13/17 08:55 Dose: Not Given Zolpidem Tartrate (Ambien) 5 mg PO HS PRN PRN Reason: Insomnia Stop: 07/05/17 19:12 General: demented HEENT: NC/AT, PERRLA Neck: Supple Abdomen: soft, non-tender, non-distended, positive bowel sound Extremities: excoriation Neurological: alert, disorganized, unsteady, bedbound - Procedures Procedures: Procedures Procedure Code Date DILATION OF LOWER ESOPHAGUS, ENDO [id number] 05/06/17 EGD BIOPSY SINGLE/MULTIPLE 04760 05/06/17 ESOPH EGD DILATION <30 MM 86708 05/06/17 EXCISION OF ESOPHAGUS, ENDO, DIAGN [id number] 05/06/17 Internal Medicine Assmt/Plan - Assessment Assessment: persistent vomitting better DYSPHAGIA DEHYDRATION FAILURE TO THRIVE HYPONATREMIA HYPOKALEMIA GERD HTN BARETT'S ESOPHAGUS fever - Plan Plan: will add laxative kub noted Plan: vomitting better, will dc tpn will add reglan and prn zofran monitor cbc/bmp ivf for hydration continue current plan of care placement pending Nutritional Asmnt/Malnutr-PDOC - Dietary Evaluation Malnutrition Findings (Please click <Entered> for more info): Nutritional Asmnt/Malnutrition Start: 05/07/17 10: 39 Text: Status: Complete Freq: Document 05/07/17 14:31 GSUN (Rec: 05/07/17 15:03 GSUN [id number]) Nutritional Asmnt/Malnutrition Patient General Information Nutritional Screening Consult Diagnosis Dysphagia, dehydration, FTT, Serna esophagus, PCM Pertinent Medical Hx/Surgical Hx Schizophrenia, stroke, TIA, GERD, thyroid disease, arthritis, dementia Subjective Information 46 year old male from SNF. RD consult for dysphagia. Spoke to ELISE Christina, pt has ulcer in the throat, unable to eat, swallow eval ordered nad pending. Pt is a questionable historian, talkative, however speech unclear and difficult to understand. 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 Pt appeared thin, mild muscle fat wasting to chest and temporals. Current Diet Order/ Nutrition Support Clear liquid Pertinent Medications D5-0.9%ns, Iron, Synthroid, Zofran, Protonix, Carafate Pertinent Labs Reviewed. Nutritional Hx/Data Height 1.75 m Height (Calculated Centimeters) 175.3 Current Weight (lbs) 66.678 kg Weight (Calculated Kilograms) 66.7 Weight (Calculated Grams) 24302.1 [place] Body Weight 160 Weight Status Approriate GI Symptoms Food Allergies No Skin Integrity/Comment: [place] 13. Skin intact. Estimated Nutritional Goals BEE in Kcals: Using Current wt Calories/Kcals/Kg CBW 147lb/66.8kg Kcals Calculated 1670-2004kcal (25-30kcal/kg) Protein: Using Current wt Protein Calculated 67g (1g/kg) Fluid: ml 1670-2004ml (1ml/kcal) Nutritional Problem 1. 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 GI consult and swallow eval pending, recommend regular diet with diet texture per ST if pt is able to resume oral diet. Nursing staff to ensure pt sit upright during meals to minimize possible reflux. 2. Monitor weight. 3. If unable to resume oral diet, recommend enteral nutrition. Expected Outcomes/Goals Expected Outcomes/Goals 1. Pt to meet at least 75% of estimated nutritional needs orally or enterally.
--- NOTE | 2017-06-14 17:53 | Discharge Summary ---
DATE OF DISCHARGE: 06/13/2017 CHIEF COMPLAINT: Right leg swelling. FINAL DIAGNOSES: Dysphagia, acute on chronic renal failure, dehydration, ____ schizoaffective disorder, noncompliance, GERD, hypothyroidism, ____ esophagus, protein-calorie malnutrition, electrolyte abnormalities, bed bound. HISTORY: This is a 46-year-old -[place] male with history of schizoaffective disorder, history of stroke, peptic ulcer disease, hypothyroidism, was admitted from nursing facility, [facility] secondary to difficulty swallowing and not taking medications, being admitted for further management. PHYSICAL EXAMINATION: VITAL SIGNS: Blood pressure 120/46, respirations 18, pulse 88, temperature 98.7. GENERAL: Elderly male, appears chronically ill. NECK: Supple. No mass. LUNGS: Equal breath sounds, few rhonchi. HEART: Regular rate and rhythm without appreciable murmur. ABDOMEN: Soft, globular. EXTREMITIES: Positive excoriations. NEUROLOGIC: Limited. HOSPITAL COURSE: The patient had a prolonged hospitalization. The patient was seen by Dr. Dunaway for Psychiatry, Dr. Ochoa's group for GI. The patient with continued emesis, not taking medication, just keeps spitting out and self-inducing the vomiting. The patient with also placement issues as well. It was deemed necessary to have a G-tube a placement, but we had through the court system as the patient is not conserved and it was not a medical emergency. Patient was placed on TPN for extended period of time. The patient's overall condition did improve and he was able to tolerate p.o. The patient was able to be placed in a nursing facility. DISCHARGE INSTRUCTIONS: The patient to continue current management regimen, will be seen by Psychiatry very closely at the residential. JOB# [id number]
== END 2017-06-13 17:23 | DRG 254 ==
LOC: ER 15:58 → MSI 19:53
PROVIDERS: ADMIT Internal Medicine; ATTEND Internal Medicine
PROC: 0D738ZZ Dilation of Lower Esophagus, Via Natural or Artificial Opening Endoscopic (ICD-10-PCS; principal; 2017-05-09)
PROC: 0DB58ZX Excision of Esophagus, Via Natural or Artificial Opening Endoscopic, Diagnostic (ICD-10-PCS; 2017-05-09)
DX: R13.10 Dysphagia, unspecified (principal); E43 Unspecified severe protein-calorie malnutrition; N17.9 Acute kidney failure, unspecified; R53.2 Functional quadriplegia; F03.90 Unspecified dementia, unspecified severity, without behavioral disturbance, psychotic disturbance, mood disturbance, and anxiety; E86.0 Dehydration; F72 Severe intellectual disabilities; E87.1 Hypo-osmolality and hyponatremia; K20.9 Esophagitis, unspecified; R62.7 Adult failure to thrive; K21.9 Gastro-esophageal reflux disease without esophagitis; E03.9 Hypothyroidism, unspecified; K22.70 Barrett's esophagus without dysplasia; E87.6 Hypokalemia; M19.90 Unspecified osteoarthritis, unspecified site; K27.9 Peptic ulcer, site unspecified, unspecified as acute or chronic, without hemorrhage or perforation; N18.9 Chronic kidney disease, unspecified; K44.9 Diaphragmatic hernia without obstruction or gangrene; I12.9 Hypertensive chronic kidney disease with stage 1 through stage 4 chronic kidney disease, or unspecified chronic kidney disease; F25.9 Schizoaffective disorder, unspecified; Z91.14 Patient's other noncompliance with medication regimen; Z74.01 Bed confinement status; Z68.22 Body mass index [BMI] 22.0-22.9, adult; Z86.73 Personal history of transient ischemic attack (TIA), and cerebral infarction without residual deficits
CPT/HCPCS: 36415-UA; 70450-TC; 71010-TC; 74000-TC; 74220-TC; 80048-TC; 80053-TC; 80061-TC; 80076-TC; 80164-TC; 80202-TC; 81001-TC; 82040-TC; 82140-TC; 82465-TC; 82607-90; 82746-90; 82948-90; 83735-TC; 83880-TC; 84100-TC; 84134-90; 84443-TC; 84478-TC; 84484-TC; 85007-TC; 85025-TC; 85027-TC; 85610-TC; 85730-TC; 86141-TC; 86592-TC; 88305-90; 88313-90; 93005; 94760; 97530; C1751; C9113; J0692; J1630; J1644; J1815; J2001; J2060; J2405; J2704; J2765; J3370; J3475; J3480; J7030; J7042; X3401; X3904; X6598; Z7506; Z7610

== ENCOUNTER 2018-04-28 13:12 | Inpatient (IN) | payer MEDICAID ==
--- NOTE | 2018-04-28 13:36 | ED Physician Chart ---
ED Chief Complaint/HPI - Patient Information Date Seen:: 04/28/18 Time Seen:: 13:40 Chief Complaint:: hematemesis History of Present Illness:: 47 [facility] trouble verbalizing here for hematemsis Allergies:: Allergies Allergy/AdvReac Type Severity Reaction Status Date / Time No Known Allergies Allergy Verified 05/06/17 16:04 ED Review of Systems - Review of Systems General/Constitutional: No fever Eyes: No loss of vision Neck: No neck pain Cardio Vascular: No chest pain Pulmonary: No SOB GI: No diarrhea G/U: No dysuria Endocrine: No polyuria Neurological: No syncope ED Past Medical History - Past Medical History Past Medical History: CVA/TIA, PUD/GERD, Seizures, Other (contracture) Family Medical History - Family Member Mother History Unknown: Yes ED Physical Exam - Physical Examination General/Constitutional: Alert Head: Atraumatic Eyes: Lids, conjuctiva normal ENMT: External ears, nose nl Neck: Nontender Respiratory: Nl effort/Exclusion Cardio Vascular: RRR (contractures [place] legs) GI: Nondistended ED Assessment - Assessment General Assessment: coffee ground emesis per report ED Septic Shock - . Is Septic Shock (SBP<90, OR Lactate>4 mmol\L) present?: No ED Reassessment (Disposition) - Diagnosis Diagnosis:: coffee ground emesis - Patient Disposition Discharge/Transfer:: Acute Care w/in this hosp Condition at Disposition:: Stable
--- NOTE | 2018-04-28 14:54 | Diagnostic Imaging Report ---
CT scan of the abdomen and pelvis without intravenous contrast HISTORY: Hematemesis, pain Total DLP equals 212 CTDI equals 4.2 Axial sections were obtained from the xiphoid process down to the pubic symphysis. The exam is very limited due to a very limited amount of intra-abdominal fat and absence of oral/bowel contrast. Marked attenuation of the anterior abdominal wall. The musculature of the anterior abdominal wall cannot be clearly delineated. The bowel wall margins cannot be clearly delineated. Balloontipped catheter noted in the anterior abdomen. Margins of the stomach cannot be clearly delineated. The pancreas cannot be outlined. Moderately distended stool-filled large bowel is seen. No focal renal lesions. No hydronephrosis. Calcification noted in the left abdomen probably vascular. No abnormal masses or fluid collections seen within the pelvis. There is a distended stool-filled rectum and colon. Findings are consistent with changes of the fecal impaction. IMPRESSION: 1. Extremely limited exam due to the factors noted above 2. Distended stool-filled rectum along with stool-filled large bowel consistent with a fecal impaction
[2018-04-28 15:12] LABS: % BASOPHILS 0.4 % (0.0-2.0); % EOSINOPHILS 0.2 % (0.0-5.0); % LYMPHOCYTES 17.2 % (20.0-50.0); % MONOCYTES 5.8 % (2.0-10.0); % NEUTROPHILS 76.4 % (40.0-80.0); HEMATOCRIT 24.3 % (41.0-60); LYMPHOCYTE ABSOLUTE 1.9 Th/cmm (1.5-3.0); MEAN CELL VOLUME 73.8 fl (80-99); MEAN CORPUSCULAR HEMOGLOBIN 23.4 pg (26.0-30.0); MEAN CORPUSCULAR HGB CONC 31.7 pg (28.0-36.0); MEAN PLATELET VOLUME 7.1 fl; MONOCYTE ABSOLUTE 0.6 Th/cmm (0.3-1.0); NEUTROPHILE ABSOLUTE 8.7 Th/cmm (1.8-8.0); PLATELET COUNT 468 Th/cmm (150-400); RED BLOOD COUNT 3.29 Mil/cmm (4.30-5.70); WHITE BLOOD COUNT 11.2 Th/cmm (4.8-10.8)
[2018-04-28 15:28] LABS: HEMOGLOBIN 7.7 gm/dL (12-16)
[2018-04-28 15:40] LABS: ALB/GLOB RATIO 0.8 (1.0-1.8); ALBUMIN 3.1 gm/dL (4.2-5.5); ALKALINE PHOSPHATASE 44 U/L (34-104); ANION GAP 8.7 (7.0-16.0); BILIRUBIN,TOTAL 0.2 mg/dL (0.3-1.0); BUN - UREA NITROGEN 20 mg/dL (7-25); CALCIUM SERUM 9.7 mg/dL (8.6-10.3); CARBON DIOXIDE 34.4 mEq/L (21.0-31.0); CHLORIDE 96 mEq/L (98-107); CREATININE - SERUM 0.6 mg/dL (0.7-1.3); GFR AFRICAN-AMERICAN > 60.0 ml/min (>90); GFR NON AFRICAN-AMERICAN > 60.0 ml/min; GLUCOSE 97 mg/dL (70-105); POTASSIUM SERUM 3.1 mEq/L (3.5-5.1); SGOT 10 U/L (13-39); SGPT/ALT 7 U/L (7-52); SODIUM SERUM 136 mEq/L (136-145); TOTAL PROTEIN,SERUM 6.8 gm/dL (6.0-8.3)
[2018-04-28] MEDS ORDERED: Albuterol Nebulizer 2.5mg/3mL HHN PRN (20:00)
[2018-04-28] MEDS ORDERED: Non-Formulary Item 1 EA (Protein Hydrolysate,Milk [Liquid Protein Fortifier] 30 ML) GT SCH (21:00)
[2018-04-29] MEDS: D5-0.9%NS 1,000 ML IV SCH ×3 (01:32→15:36)
[2018-04-29 07:01] LABS: INR 1.03 (0.5-1.4); PROTHROMBIN TIME (TEST) 10.7 SECONDS (9.5-11.5)
[2018-04-29 07:11] LABS: ALB/GLOB RATIO 0.8 (1.0-1.8); ALBUMIN 3.2 gm/dL (4.2-5.5); ALKALINE PHOSPHATASE 47 U/L (34-104); ANION GAP 11.8 (7.0-16.0); BILIRUBIN,TOTAL 0.2 mg/dL (0.3-1.0); BUN - UREA NITROGEN 22 mg/dL (7-25); CARBON DIOXIDE 32.6 mEq/L (21.0-31.0); CHLORIDE 96 mEq/L (98-107); CREATININE - SERUM 0.8 mg/dL (0.7-1.3); GFR AFRICAN-AMERICAN > 60.0 ml/min (>90); GFR NON AFRICAN-AMERICAN > 60.0 ml/min; GLUCOSE 78 mg/dL (70-105); POTASSIUM SERUM 3.4 mEq/L (3.5-5.1); SGOT 11 U/L (13-39); SGPT/ALT 8 U/L (7-52); SODIUM SERUM 137 mEq/L (136-145); TOTAL PROTEIN,SERUM 7.4 gm/dL (6.0-8.3)
[2018-04-29] MEDS: Ferrous Sulfate 300 MG/5 ML UDC GT SCH (08:11)
[2018-04-29] MEDS: Levothyroxine 0.075 Mg Tab GT SCH (08:11)
[2018-04-29] MEDS: Multivitamin w/ Minerals 15 mL UDC GT SCH (08:12)
--- NOTE | 2018-04-29 12:54 | Internal Medicine Prog Note ---
Internal Medicine Subjective - Subjective Service Date: 04/29/18 ([id number]) Internal Medicine Objective - Results Result Diagrams: 04/28/18 14:50 04/29/18 06:20 Recent Labs: Laboratory Last Values WBC 11.2 Th/cmm (4.8-10.8) H 04/28/18 14:50 RBC 3.29 Mil/cmm (4.30-5.70) L 04/28/18 14:50 Hgb 7.7 gm/dL (12-16) L* 04/28/18 14:50 Hct 24.3 % (41.0-60) L 04/28/18 14:50 MCV 73.8 fl (80-99) L 04/28/18 14:50 MCH 23.4 pg (26.0-30.0) L 04/28/18 14:50 MCHC Differential 31.7 pg (28.0-36.0) 04/28/18 14:50 RDW 15.0 % (11.5-20.0) 04/28/18 14:50 Plt Count 468 Th/cmm (150-400) H 04/28/18 14:50 MPV 7.1 fl 04/28/18 14:50 Neutrophils % 76.4 % (40.0-80.0) 04/28/18 14:50 Lymphocytes % 17.2 % (20.0-50.0) L 04/28/18 14:50 Monocytes % 5.8 % (2.0-10.0) 04/28/18 14:50 Eosinophils % 0.2 % (0.0-5.0) 04/28/18 14:50 Basophils % 0.4 % (0.0-2.0) 04/28/18 14:50 PT 10.7 SECONDS (9.5-11.5) 04/29/18 06:20 INR 1.03 (0.5-1.4) 04/29/18 06:20 PTT (Actin FS) 24.3 SECONDS (26.0-38.0) L 04/29/18 06:20 Sodium 137 mEq/L (136-145) 04/29/18 06:20 Potassium 3.4 mEq/L (3.5-5.1) L 04/29/18 06:20 Chloride 96 mEq/L (98-107) L 04/29/18 06:20 Carbon Dioxide 32.6 mEq/L (21.0-31.0) H 04/29/18 06:20 Anion Gap 11.8 (7.0-16.0) 04/29/18 06:20 BUN 22 mg/dL (7-25) 04/29/18 06:20 Creatinine 0.8 mg/dL (0.7-1.3) 04/29/18 06:20 Est GFR ( Amer) > 60.0 ml/min (>90) 04/29/18 06:20 Est GFR (Non-Af Amer) > 60.0 ml/min 04/29/18 06:20 BUN/Creatinine Ratio 27.5 04/29/18 06:20 Glucose 78 mg/dL (70-105) 04/29/18 06:20 Calcium 10.0 mg/dL (8.6-10.3) 04/29/18 06:20 Total Bilirubin 0.2 mg/dL (0.3-1.0) L 04/29/18 06:20 AST 11 U/L (13-39) L 04/29/18 06:20 ALT 8 U/L (7-52) 04/29/18 06:20 Alkaline Phosphatase 47 U/L (34-104) 04/29/18 06:20 Ammonia 53 umol/L (16-53) 04/29/18 06:20 B-Natriuretic Peptide 197.0 pg/mL (5.0-100.0) H 04/28/18 14:50 Total Protein 7.4 gm/dL (6.0-8.3) 04/29/18 06:20 Albumin 3.2 gm/dL (4.2-5.5) L 04/29/18 06:20 Globulin 4.2 gm/dL 04/29/18 06:20 Albumin/Globulin Ratio 0.8 (1.0-1.8) L 04/29/18 06:20 TSH 1.42 uIU/ml (0.34-5.60) 04/29/18 06:20 Blood Type B POSITIVE 04/28/18 14:50 Antibody Screen NEGATIVE 04/28/18 14:50 - Physical Exam Vitals and I&O: Vital Signs Temp 97.2 F 04/29/18 08:00 Pulse 81 04/29/18 08:00 Resp 18 04/29/18 11:35 BP 92/63 04/29/18 08:00 Pulse Ox 95 04/29/18 08:00 Intake & Output 04/28/18 04/29/18 04/29/18 18:59 06:59 18:59 Weight (lbs) 88 lb 92 lb 8 oz Other: # Voids 1 Weight Source Bedscale Bedscale Active Medications: Current Medications Acetaminophen (Tylenol) 650 mg GT Q4H PRN PRN Reason: PAIN Stop: 06/27/18 19:57 Acetaminophen (Tylenol) 650 mg PO Q4H PRN PRN Reason: Pain Or Fever above 101 Stop: 06/27/18 19:59 Albuterol Sulfate (Albuterol 2.5mg/3ml Neb Ud) 2.5 mg HHN Q2HRT PRN PRN Reason: Shortness of Breath or Wheeze Stop: 06/27/18 19:59 Ascorbic Acid (Vitamin C) 500 mg GT HS KAM Stop: 06/27/18 20:59 Last Admin: 04/29/18 01:33 Dose: Not Given Ferrous Sulfate (Iron) 330 mg GT DAILY KAM Stop: 06/28/18 08:59 Last Admin: 04/29/18 08:11 Dose: Not Given Dextrose/Sodium Chloride (D5-0.9%Ns) 1,000 mls @ 80 mls/hr IV .[id number] KAM Stop: 06/27/18 19:59 Last Admin: 04/29/18 09:46 Dose: Not Given Levothyroxine Sodium (Synthroid) 0.075 mg GT QDAC KAM Stop: 06/28/18 07:29 Last Admin: 04/29/18 08:11 Dose: Not Given Multivitamins/Minerals (Theragran M) 15 ml GT DAILY KAM Stop: 06/28/18 08:59 Last Admin: 04/29/18 08:12 Dose: Not Given Ondansetron HCl (Zofran) 4 mg IV Q8H PRN PRN Reason: Nausea / Vomiting Stop: 06/27/18 19:59 Pantoprazole Sodium (Protonix) 40 mg IVP BID KAM Stop: 06/28/18 08:59 Last Admin: 04/29/18 08:12 Dose: Not Given - Procedures Procedures: Procedures Procedure Code Date DILATION OF LOWER ESOPHAGUS, ENDO [id number] 05/06/17 EGD BIOPSY SINGLE/MULTIPLE 63239 05/06/17 ESOPH EGD DILATION <30 MM 11016 05/06/17 EXCISION OF ESOPHAGUS, ENDO, DIAGN [id number] 05/06/17
--- NOTE | 2018-04-29 14:49 | History & Physical ---
ADMIT DATE: 04/29/2018 DICTATED FOR: Dr. Gelacio Sterling CHIEF COMPLAINT: Coffee-ground emesis. HISTORY OF PRESENT ILLNESS: This is a 47-year-old -[place] male who is well known to me from [facility], admitted here to the telemetry unit due to 1-day history of coffee-ground emesis. For further management, the patient is now admitted here. PAST MEDICAL HISTORY: CVA, TIA, PUD, GERD, hypothyroidism, arthritis, dementia, Serna esophagus. FAMILY HISTORY: Noncontributory. SOCIAL HISTORY: The patient is a halfway resident, requiring 24-hour nursing care. PAST SURGICAL HISTORY: PEG. PSYCHIATRIC HISTORY: Schizophrenia, dementia. MEDICATIONS: Please see medication list. REVIEW OF SYSTEMS: Unable to obtain at this time. PHYSICAL EXAMINATION: GENERAL: Thin male. Awake, alert with some confusion. No apparent distress. VITAL SIGNS: Temperature 97.2, heart rate 81, blood pressure 92/63, respiration 18, O2 95%. HEENT: Head; normocephalic, atraumatic. NECK: Supple. No mass. LUNGS: Clear bilaterally. CARDIOVASCULAR: Regular rhythm. ABDOMEN: Soft, nontender, nondistended. LABORATORY DATA: WBC 11.2, H and H 7.7/24.3, platelet of 468. Sodium 137, potassium 3.4, chloride of 96, BUN 22, creatinine 0.8, total bili 0.2, albumin 3.2. DIAGNOSTIC DATA: The patient had a CT abdomen and pelvis done, impression is extremely limited due to factors noted above, distended stool filled rectum along with the stool filled large bowel consistent with fecal impaction. ASSESSMENT: Gastrointestinal bleed, severe anemia, dysphagia, Serna esophagus, hypothyroidism. PLAN: We will get GI consultation as well as Psych consultation. We will keep the patient n.p.o. for now. We will get followup labs from tomorrow morning. Monitor H and H closely. Keep the patient on IV fluids for hydration. We will continue to monitor this patient. JOB# [id number]
--- NOTE | 2018-04-29 17:19 | Consultation ---
DATE OF CONSULTATION: 04/29/2018 INPATIENT GASTROINTESTINAL CONSULTATION REFERRING PHYSICIAN: Dr. Sterling. REASON FOR CONSULTATION: GI bleed. HISTORY OF PRESENT ILLNESS: A 47-year-old male who comes from a skilled facility with alleged coffee-ground emesis. The patient is a poor historian, but he denies having GI bleeding. Denies abdominal pain, wants to go home. PAST MEDICAL HISTORY: Stroke, TIA, peptic ulcer disease, GERD, hypothyroidism, arthritis, dementia, and Serna esophagus. PAST SURGICAL HISTORY: PEG. FAMILY HISTORY: Noncontributory. SOCIAL HISTORY: Resident of skilled facility. ALLERGIES: None. MEDICATIONS: Tylenol, iron, Synthroid, Zofran, and Protonix. REVIEW OF SYSTEMS: Ten-point review was unobtainable. PHYSICAL EXAMINATION: VITAL SIGNS: Temperature 97.9, breathing 18, pulse of 85, blood pressure 97/70, and satting 99%. GENERAL: In no apparent distress. EYES: Anicteric. Normal conjunctivae. HEENT: Normocephalic, atraumatic. Moist mucous membranes. NECK: Soft, supple. CHEST: Clear. No effort. CARDIOVASCULAR: Regular rate and rhythm. ABDOMEN: Soft, nontender, nondistended. LABORATORY DATA: Show white count 11.2, hemoglobin 7.7, and platelets 468. INR 1.03, BUN 22, and creatinine 0.8. LFTs were within normal limits. Of note, the patient had endoscopy done in 04/2017 at which time they found a small hiatal hernia, mild esophagitis. IMPRESSION: A 47-year-old male with upper gastrointestinal bleed in the form of coffee-ground emesis. No active bleeding at this time. Endoscopy can be considered; however, it may just show a Charlene-Rodgers. The patient has known history of hiatal hernia and esophagitis. No signs of any lower GI bleeding. Should the patient have any lower GI bleeding, then additional test such as colonoscopy can be considered. PLAN: 1. Continue Protonix. 2. Follow H and H. 3. Transfuse as needed. 4. Consider EGD. 5. We will review CT abdomen and pelvis. Thank you for allowing me to participate. Please call me if any questions. JOB# [id number]
[2018-04-30] MEDS: D5-0.9%NS 1,000 ML IV SCH ×2 (05:24→16:00)
--- NOTE | 2018-04-30 07:55 | GI Progress Note ---
Subjective - Review of Systems Subjective: NO GI BLEEDING Objective - Results Result Diagrams: 04/28/18 14:50 04/29/18 06:20 Recent Labs: Laboratory Last Values WBC 11.2 Th/cmm (4.8-10.8) H 04/28/18 14:50 RBC 3.29 Mil/cmm (4.30-5.70) L 04/28/18 14:50 Hgb 7.7 gm/dL (12-16) L* 04/28/18 14:50 Hct 24.3 % (41.0-60) L 04/28/18 14:50 MCV 73.8 fl (80-99) L 04/28/18 14:50 MCH 23.4 pg (26.0-30.0) L 04/28/18 14:50 MCHC Differential 31.7 pg (28.0-36.0) 04/28/18 14:50 RDW 15.0 % (11.5-20.0) 04/28/18 14:50 Plt Count 468 Th/cmm (150-400) H 04/28/18 14:50 MPV 7.1 fl 04/28/18 14:50 Neutrophils % 76.4 % (40.0-80.0) 04/28/18 14:50 Lymphocytes % 17.2 % (20.0-50.0) L 04/28/18 14:50 Monocytes % 5.8 % (2.0-10.0) 04/28/18 14:50 Eosinophils % 0.2 % (0.0-5.0) 04/28/18 14:50 Basophils % 0.4 % (0.0-2.0) 04/28/18 14:50 PT 10.7 SECONDS (9.5-11.5) 04/29/18 06:20 INR 1.03 (0.5-1.4) 04/29/18 06:20 PTT (Actin FS) 24.3 SECONDS (26.0-38.0) L 04/29/18 06:20 Sodium 137 mEq/L (136-145) 04/29/18 06:20 Potassium 3.4 mEq/L (3.5-5.1) L 04/29/18 06:20 Chloride 96 mEq/L (98-107) L 04/29/18 06:20 Carbon Dioxide 32.6 mEq/L (21.0-31.0) H 04/29/18 06:20 Anion Gap 11.8 (7.0-16.0) 04/29/18 06:20 BUN 22 mg/dL (7-25) 04/29/18 06:20 Creatinine 0.8 mg/dL (0.7-1.3) 04/29/18 06:20 Est GFR ( Amer) > 60.0 ml/min (>90) 04/29/18 06:20 Est GFR (Non-Af Amer) > 60.0 ml/min 04/29/18 06:20 BUN/Creatinine Ratio 27.5 04/29/18 06:20 Glucose 78 mg/dL (70-105) 04/29/18 06:20 Calcium 10.0 mg/dL (8.6-10.3) 04/29/18 06:20 Total Bilirubin 0.2 mg/dL (0.3-1.0) L 04/29/18 06:20 AST 11 U/L (13-39) L 04/29/18 06:20 ALT 8 U/L (7-52) 04/29/18 06:20 Alkaline Phosphatase 47 U/L (34-104) 04/29/18 06:20 Ammonia 53 umol/L (16-53) 04/29/18 06:20 B-Natriuretic Peptide 197.0 pg/mL (5.0-100.0) H 04/28/18 14:50 Total Protein 7.4 gm/dL (6.0-8.3) 04/29/18 06:20 Albumin 3.2 gm/dL (4.2-5.5) L 04/29/18 06:20 Globulin 4.2 gm/dL 04/29/18 06:20 Albumin/Globulin Ratio 0.8 (1.0-1.8) L 04/29/18 06:20 TSH 1.42 uIU/ml (0.34-5.60) 04/29/18 06:20 Blood Type B POSITIVE 04/28/18 14:50 Antibody Screen NEGATIVE 04/28/18 14:50 - Physical Exam Vitals and I&O: Vital Signs Temp 98.4 F 04/30/18 04:00 Pulse 82 04/30/18 04:00 Resp 18 04/30/18 07:00 BP 112/68 04/30/18 04:00 Pulse Ox 98 04/30/18 04:00 Intake & Output 04/29/18 04/30/18 04/30/18 18:59 06:59 18:59 Intake Total 1000 Balance 1000 Weight (lbs) 43.091 kg 43.091 kg Intake: Intake, IV Amount 1000 D5-0.9%Ns 1,000 ml @ 80 1000 mls/hr IV .[id number] [facility] Rx #:[id number] Other: # Voids 2 2 # Bowel Movements 0 0 Weight Source Bedscale Bedscale Active Medications: Current Medications Acetaminophen (Tylenol) 650 mg GT Q4H PRN PRN Reason: PAIN Stop: 06/27/18 19:57 Acetaminophen (Tylenol) 650 mg PO Q4H PRN PRN Reason: Pain Or Fever above 101 Stop: 06/27/18 19:59 Albuterol Sulfate (Albuterol 2.5mg/3ml Neb Ud) 2.5 mg HHN Q2HRT PRN PRN Reason: Shortness of Breath or Wheeze Stop: 06/27/18 19:59 Ascorbic Acid (Vitamin C) 500 mg GT HS KMA Stop: 06/27/18 20:59 Last Admin: 04/29/18 20:23 Dose: Not Given Ferrous Sulfate (Iron) 330 mg GT DAILY KAM Stop: 06/28/18 08:59 Last Admin: 04/29/18 08:11 Dose: Not Given Dextrose/Sodium Chloride (D5-0.9%Ns) 1,000 mls @ 80 mls/hr IV .[id number] KAM Stop: 06/27/18 19:59 Last Admin: 04/30/18 05:24 Dose: 80 mls/hr Levothyroxine Sodium (Synthroid) 0.075 mg GT QDAC KAM Stop: 06/28/18 07:29 Last Admin: 04/29/18 08:11 Dose: Not Given Multivitamins/Minerals (Theragran M) 15 ml GT DAILY KAM Stop: 06/28/18 08:59 Last Admin: 04/29/18 08:12 Dose: Not Given Ondansetron HCl (Zofran) 4 mg IV Q8H PRN PRN Reason: Nausea / Vomiting Stop: 06/27/18 19:59 Pantoprazole Sodium (Protonix) 40 mg IVP BID KAM Stop: 06/28/18 08:59 Last Admin: 04/29/18 16:05 Dose: 40 mg - Procedures Procedures: Procedures Procedure Code Date DILATION OF LOWER ESOPHAGUS, ENDO [id number] 05/06/17 EGD BIOPSY SINGLE/MULTIPLE 51362 05/06/17 ESOPH EGD DILATION <30 MM 71954 05/06/17 EXCISION OF ESOPHAGUS, ENDO, DIAGN [id number] 05/06/17 Assessment/Plan - Problem List Patient Problems: All Active Problems COFFEE GROUND EMESIS X2 (Acute) - Assessment Assessment: 47 YO MALE WITH ANEMIA NO OVERT GI BLEEDING EGD 05/05 SHOWED HIATAL HERNIA AND ESOPHAGITIS HAS GT 1.FOLLOW H/H 2.CONSIDER RESUMING TUBE FEEDS 3.PROTONIX 4.MAY NEED ADDITIONAL WORK UP SUCH COLO BUT NEEDS CONSENT
[2018-04-30] MEDS: Multivitamin w/ Minerals 15 mL UDC GT SCH (08:28)
[2018-04-30] MEDS: Levothyroxine 0.075 Mg Tab GT SCH (08:28)
[2018-04-30] MEDS: Ferrous Sulfate 300 MG/5 ML UDC GT SCH (08:28)
--- NOTE | 2018-04-30 11:54 | Internal Medicine Prog Note ---
Internal Medicine Subjective - Subjective Service Date: 04/30/18 Patient seen and examined:: with staff Patient is:: awake, verbal, agitated Per staff patient has:: tolerating meds Internal Medicine Objective - Results Result Diagrams: 04/28/18 14:50 04/29/18 06:20 Recent Labs: Laboratory Last Values WBC 11.2 Th/cmm (4.8-10.8) H 04/28/18 14:50 RBC 3.29 Mil/cmm (4.30-5.70) L 04/28/18 14:50 Hgb 7.7 gm/dL (12-16) L* 04/28/18 14:50 Hct 24.3 % (41.0-60) L 04/28/18 14:50 MCV 73.8 fl (80-99) L 04/28/18 14:50 MCH 23.4 pg (26.0-30.0) L 04/28/18 14:50 MCHC Differential 31.7 pg (28.0-36.0) 04/28/18 14:50 RDW 15.0 % (11.5-20.0) 04/28/18 14:50 Plt Count 468 Th/cmm (150-400) H 04/28/18 14:50 MPV 7.1 fl 04/28/18 14:50 Neutrophils % 76.4 % (40.0-80.0) 04/28/18 14:50 Lymphocytes % 17.2 % (20.0-50.0) L 04/28/18 14:50 Monocytes % 5.8 % (2.0-10.0) 04/28/18 14:50 Eosinophils % 0.2 % (0.0-5.0) 04/28/18 14:50 Basophils % 0.4 % (0.0-2.0) 04/28/18 14:50 PT 10.7 SECONDS (9.5-11.5) 04/29/18 06:20 INR 1.03 (0.5-1.4) 04/29/18 06:20 PTT (Actin FS) 24.3 SECONDS (26.0-38.0) L 04/29/18 06:20 Sodium 137 mEq/L (136-145) 04/29/18 06:20 Potassium 3.4 mEq/L (3.5-5.1) L 04/29/18 06:20 Chloride 96 mEq/L (98-107) L 04/29/18 06:20 Carbon Dioxide 32.6 mEq/L (21.0-31.0) H 04/29/18 06:20 Anion Gap 11.8 (7.0-16.0) 04/29/18 06:20 BUN 22 mg/dL (7-25) 04/29/18 06:20 Creatinine 0.8 mg/dL (0.7-1.3) 04/29/18 06:20 Est GFR ( Amer) > 60.0 ml/min (>90) 04/29/18 06:20 Est GFR (Non-Af Amer) > 60.0 ml/min 04/29/18 06:20 BUN/Creatinine Ratio 27.5 04/29/18 06:20 Glucose 78 mg/dL (70-105) 04/29/18 06:20 Calcium 10.0 mg/dL (8.6-10.3) 04/29/18 06:20 Total Bilirubin 0.2 mg/dL (0.3-1.0) L 04/29/18 06:20 AST 11 U/L (13-39) L 04/29/18 06:20 ALT 8 U/L (7-52) 04/29/18 06:20 Alkaline Phosphatase 47 U/L (34-104) 04/29/18 06:20 Ammonia 53 umol/L (16-53) 04/29/18 06:20 B-Natriuretic Peptide 197.0 pg/mL (5.0-100.0) H 04/28/18 14:50 Total Protein 7.4 gm/dL (6.0-8.3) 04/29/18 06:20 Albumin 3.2 gm/dL (4.2-5.5) L 04/29/18 06:20 Globulin 4.2 gm/dL 04/29/18 06:20 Albumin/Globulin Ratio 0.8 (1.0-1.8) L 04/29/18 06:20 TSH 1.42 uIU/ml (0.34-5.60) 04/29/18 06:20 Blood Type B POSITIVE 04/28/18 14:50 Antibody Screen NEGATIVE 04/28/18 14:50 - Physical Exam Vitals and I&O: Vital Signs Temp 98.2 F 04/30/18 08:04 Pulse 57 04/30/18 08:04 Resp 18 04/30/18 11:00 BP 84/54 04/30/18 08:04 Pulse Ox 91 04/30/18 08:04 Intake & Output 04/29/18 04/30/18 04/30/18 18:59 06:59 18:59 Intake Total 1000 Balance 1000 Weight (lbs) 95 lb 95 lb Intake: Intake, IV Amount 1000 D5-0.9%Ns 1,000 ml @ 80 1000 mls/hr IV .[id number] [facility] Rx #:[id number] Other: # Voids 2 2 # Bowel Movements 0 0 Weight Source Bedscale Bedscale Active Medications: Current Medications Acetaminophen (Tylenol) 650 mg GT Q4H PRN PRN Reason: PAIN Stop: 06/27/18 19:57 Acetaminophen (Tylenol) 650 mg PO Q4H PRN PRN Reason: Pain Or Fever above 101 Stop: 06/27/18 19:59 Albuterol Sulfate (Albuterol 2.5mg/3ml Neb Ud) 2.5 mg HHN Q2HRT PRN PRN Reason: Shortness of Breath or Wheeze Stop: 06/27/18 19:59 Ascorbic Acid (Vitamin C) 500 mg GT HS KAM Stop: 06/27/18 20:59 Last Admin: 04/29/18 20:23 Dose: Not Given Ferrous Sulfate (Iron) 330 mg GT DAILY KAM Stop: 06/28/18 08:59 Last Admin: 04/30/18 08:28 Dose: Not Given Dextrose/Sodium Chloride (D5-0.9%Ns) 1,000 mls @ 80 mls/hr IV .[id number] KAM Stop: 06/27/18 19:59 Last Admin: 04/30/18 05:24 Dose: 80 mls/hr Levothyroxine Sodium (Synthroid) 0.075 mg GT QDAC KAM Stop: 06/28/18 07:29 Last Admin: 04/30/18 08:28 Dose: Not Given Multivitamins/Minerals (Theragran M) 15 ml GT DAILY KAM Stop: 06/28/18 08:59 Last Admin: 04/30/18 08:28 Dose: Not Given Ondansetron HCl (Zofran) 4 mg IV Q8H PRN PRN Reason: Nausea / Vomiting Stop: 06/27/18 19:59 Pantoprazole Sodium (Protonix) 40 mg IVP BID KAM Stop: 06/28/18 08:59 Last Admin: 04/30/18 08:23 Dose: 40 mg General: weak, alert HEENT: NC/AT, PERRLA Neck: Supple Lungs: CTAB Cardiovascular: RRR, Normal S1, Normal S2, without murmur Abdomen: soft, non-distended, +GT Extremities: excoriation Neurological: alert - Procedures Procedures: Procedures Procedure Code Date DILATION OF LOWER ESOPHAGUS, ENDO [id number] 05/06/17 EGD BIOPSY SINGLE/MULTIPLE 18374 05/06/17 ESOPH EGD DILATION <30 MM 66485 05/06/17 EXCISION OF ESOPHAGUS, ENDO, DIAGN [id number] 05/06/17 Internal Medicine Assmt/Plan - Assessment Assessment: gi bleed-stable severe anemia hamilton esophagus hypothyroidism - Plan Plan: resume gt as per gi follow up labs in am dc planning in am continue current plan of care Nutritional Asmnt/Malnutr-PDOC - Dietary Evaluation Malnutrition Findings (Please click <Entered> for more info): Nutritional Asmnt/Malnutrition Start: 04/29/18 17: 00 Text: Status: Complete Freq: Protocol: Document 04/29/18 17:00 ANH (Rec: 04/29/18 17:23 ANHG [id number]) Nutritional Asmnt/Malnutrition Patient General Information Nutritional Screening High Risk Diagnosis GI bleed, sever anemia Pertinent Medical Hx/Surgical Hx CVA, TIA, PUD/GERD, seizure, contracture Subjective Information Pt admitted d/t coffee ground emesis, waiting for EGD consent. Pt seen lying in bed, awake and confused, not able to understand pt speech. Pt appeared skinny Current Diet Order/ Nutrition Support NPO Pertinent Medications vit C, D5-0.9%ns, iron, synthroid, theragran, zofran, protonix Pertinent Labs 04/29 K 3.4, Cl 96, glucose 78, alb 3.2 Nutritional Hx/Data Height 5 ft 10 in Height (Calculated Centimeters) 177.8 Current Weight (lbs) 92 lb Weight (Calculated Kilograms) 41.7 Weight (Calculated Grams) 06326.5 [place] Body Weight 166 Body Mass Index (BMI) 13.1 Weight Status Underweight GI Symptoms GI Symptoms Vomitting Difficult in: None Skin Integrity/Comment: decubitus reddened to right hip Current %PO Negligible < 25% Estimated Nutritional Goals BEE in Kcals: Using Current wt Calories/Kcals/Kg 30-35 Kcals Calculated 9780-0598 Protein: Using Current wt Protein g/k.2-1.4 Protein Calculated 50-59 Fluid: ml 1260-1470ml (1ml/kcal) Nutritional Problem 2. Problem Problem altered GI function Etiology pt having ground coffee emesis Signs/Symptoms: pt on NPO 1. Problem Problem altered nutrition related labs Etiology electrolytes imbalance Signs/Symptoms: K 3.4, Cl 96 Malnutrition Alert Body Fat Depletion (Severe) Mod to Severe Depletion Muscle Mass (Non-Severe) Mild Depletion Is there a minimum of two criteria Yes selected? Query Text:Check all the applicable criteria. A minimum of two criteria are recommended for diagnosis of either severe or non-severe malnutrition. Malnutrition Related to Morbid Obesity Malnutrition related to morbid obesity No Intervention/Recommendation Comments 1. Recommend to start with clear liquid diet when medically appropriate 2. Monitor GI function, wt, labs and skin integrity 3. F/U as high risk in 2-3 days, 05/01-05/02 Expected Outcomes/Goals Expected Outcomes/Goals 1. PO intake to meet at least 75% of nutritional needs. 2. Wt stability, GI function to improve, skin to remain intact, labs to approach WNL.
[2018-04-30] MEDS ORDERED: Potassium Chloride 20 mEq ER Tab PO ONE (12:50)
[2018-04-30 13:15] LABS: FOLIC ACID >20.0 ng/mL (>3.0)
--- NOTE | 2018-04-30 18:31 | History & Physical ---
ADMIT DATE: 04/30/2018 HISTORY OF PRESENT ILLNESS: A 47-year-old male coming from a [facility] facility due to alleged coffee-ground emesis. The patient is a very poor historian. The patient denies having any medical problems I ask him a few times during the course of my conversation what medical problems do you have and he states "none." I have none. He knows he is in the hospital. He has no idea why he is in the hospital. He knows the year is 2017. He knows the month is March. He knows the day of the week is Saturday. He does not know where he is. He is yelling, screaming. I am not really able to have a meaningful conversation with him because of his yelling and also of concern is that he has complete disregard for any medical problems and denies any symptoms. PAST PSYCHIATRIC HISTORY: It seems there is some serious developmental disability. Under medical, please see full H and P. ER physician and Internal Medicine notes were reviewed. The patient apparently with history of CVA, TIA, GERD, seizures and coffee-ground emesis. SOCIAL HISTORY: He states he was born in [place]. He does not know if he has a family or not. Unclear drugs, alcohol or tobacco. MENTAL STATUS EXAMINATION: Yelling -Swiss male. Poor dentition. Denying any medical problems. Mood "not good." Affect flat. Thought processes were disoriented, disengage AO to name, not place, not situation. He knows the year. He does not know the month, stating it is March. He knows the day of the week. Poor insight, poor judgment. No SI, no HI. No overt psychotic symptoms, no delusions for example. PROVISIONAL DIAGNOSIS: Developmental disability; mood, unspecified; anxiety, unspecified. Under medical, please see full H and P. RECOMMENDATIONS AND PLAN: At this time, based on my [id number] evaluation with the patient, review of notes discussion with nurse, it seems the patient does not have the capacity to be involved in treatment planning at this time. We will co-sign documents and agreement with Dr. Sterling in regards to the patient's capacity, so we can have urgent procedures done such as PICC line replacement and EGD. We will continue to monitor and follow up. JOB# [id number]
[2018-05-01 06:21] LABS: MEAN CELL VOLUME 74.3 fl (80-99); MEAN CORPUSCULAR HEMOGLOBIN 22.8 pg (26.0-30.0); MEAN CORPUSCULAR HGB CONC 30.7 pg (28.0-36.0); MEAN PLATELET VOLUME 7.2 fl; PLATELET COUNT 419 Th/cmm (150-400); RED BLOOD COUNT 2.79 Mil/cmm (4.30-5.70); RED CELL DISTRIBUTION WIDTH 14.8 % (11.5-20.0); WHITE BLOOD COUNT 6.6 Th/cmm (4.8-10.8)
[2018-05-01 06:33] LABS: HEMOGLOBIN 6.4 gm/dL (12-16)
[2018-05-01 06:34] LABS: ANION GAP 7.5 (7.0-16.0); BUN - UREA NITROGEN 19 mg/dL (7-25); CALCIUM SERUM 8.8 mg/dL (8.6-10.3); CARBON DIOXIDE 27.5 mEq/L (21.0-31.0); CHLORIDE 105 mEq/L (98-107); CREATININE - SERUM 0.7 mg/dL (0.7-1.3); GFR AFRICAN-AMERICAN > 60.0 ml/min (>90); GFR NON AFRICAN-AMERICAN > 60.0 ml/min; GLUCOSE 93 mg/dL (70-105); HEMATOCRIT 20.7 % (41.0-60); SODIUM SERUM 137 mEq/L (136-145)
[2018-05-01] MEDS: D5-0.9%NS 1,000 ML IV SCH (06:47)
[2018-05-01 07:11] LABS: LYMPHOCYTE 38 % (20-50); MONOCYTE 6 % (2-10); NEUTROPHILS 56 % (40-80); PLATELET ESTIMATE INCREASED PLATELETS (NORMAL)
--- NOTE | 2018-05-01 07:51 | GI Progress Note ---
Subjective - Review of Systems Subjective: NO GI BLEEDING BUT HGB LOW Objective - Results Result Diagrams: 05/01/18 05:45 05/01/18 05:45 Recent Labs: Laboratory Last Values WBC 6.6 Th/cmm (4.8-10.8) 05/01/18 05:45 RBC 2.79 Mil/cmm (4.30-5.70) L 05/01/18 05:45 Hgb 6.4 gm/dL (12-16) L* 05/01/18 05:45 Hct 20.7 % (41.0-60) L* 05/01/18 05:45 MCV 74.3 fl (80-99) L 05/01/18 05:45 MCH 22.8 pg (26.0-30.0) L 05/01/18 05:45 MCHC Differential 30.7 pg (28.0-36.0) 05/01/18 05:45 RDW 14.8 % (11.5-20.0) 05/01/18 05:45 Plt Count 419 Th/cmm (150-400) H 05/01/18 05:45 MPV 7.2 fl 05/01/18 05:45 Add Manual Diff YES 05/01/18 05:45 Neutrophils % SENIOR SOFTWARE DEVELOPMENT MANAGER 05/01/18 05:45 Lymphocytes % SENIOR SOFTWARE DEVELOPMENT MANAGER 05/01/18 05:45 Monocytes % SENIOR SOFTWARE DEVELOPMENT MANAGER 05/01/18 05:45 Eosinophils % SENIOR SOFTWARE DEVELOPMENT MANAGER 05/01/18 05:45 Basophils % SENIOR SOFTWARE DEVELOPMENT MANAGER 05/01/18 05:45 Neutrophils (Manual) 56 % (40-80) 05/01/18 05:45 Lymphocytes 38 % (20-50) 05/01/18 05:45 Monocytes 6 % (2-10) 05/01/18 05:45 Platelet Estimate INCREASED PLATELETS (NORMAL) 05/01/18 05:45 PT 10.7 SECONDS (9.5-11.5) 04/29/18 06:20 INR 1.03 (0.5-1.4) 04/29/18 06:20 PTT (Actin FS) 24.3 SECONDS (26.0-38.0) L 04/29/18 06:20 Sodium 137 mEq/L (136-145) 05/01/18 05:45 Potassium 3.0 mEq/L (3.5-5.1) L 05/01/18 05:45 Chloride 105 mEq/L (98-107) 05/01/18 05:45 Carbon Dioxide 27.5 mEq/L (21.0-31.0) 05/01/18 05:45 Anion Gap 7.5 (7.0-16.0) 05/01/18 05:45 BUN 19 mg/dL (7-25) 05/01/18 05:45 Creatinine 0.7 mg/dL (0.7-1.3) 05/01/18 05:45 Est GFR ( Amer) > 60.0 ml/min (>90) 05/01/18 05:45 Est GFR (Non-Af Amer) > 60.0 ml/min 05/01/18 05:45 BUN/Creatinine Ratio 27.1 05/01/18 05:45 Glucose 93 mg/dL (70-105) 05/01/18 05:45 Calcium 8.8 mg/dL (8.6-10.3) 05/01/18 05:45 Total Bilirubin 0.2 mg/dL (0.3-1.0) L 04/29/18 06:20 AST 11 U/L (13-39) L 04/29/18 06:20 ALT 8 U/L (7-52) 04/29/18 06:20 Alkaline Phosphatase 47 U/L (34-104) 04/29/18 06:20 Ammonia 53 umol/L (16-53) 04/29/18 06:20 B-Natriuretic Peptide 197.0 pg/mL (5.0-100.0) H 04/28/18 14:50 Total Protein 7.4 gm/dL (6.0-8.3) 04/29/18 06:20 Albumin 3.2 gm/dL (4.2-5.5) L 04/29/18 06:20 Globulin 4.2 gm/dL 04/29/18 06:20 Albumin/Globulin Ratio 0.8 (1.0-1.8) L 04/29/18 06:20 Vitamin B12 871 pg/mL (232-1245) 04/29/18 06:20 Folic Acid >20.0 ng/mL (>3.0) 04/29/18 06:20 TSH 1.42 uIU/ml (0.34-5.60) 04/29/18 06:20 Blood Type B POSITIVE 04/28/18 14:50 Antibody Screen NEGATIVE 04/28/18 14:50 - Physical Exam Vitals and I&O: Vital Signs Temp 98.8 F 05/01/18 04:00 Pulse 74 05/01/18 04:00 Resp 17 05/01/18 07:00 BP 90/49 05/01/18 04:00 Pulse Ox 99 05/01/18 04:00 Intake & Output 04/30/18 05/01/18 05/01/18 18:59 06:59 18:59 Intake Total 1348 1000 Balance 1348 1000 Weight (lbs) 44.452 kg 44.452 kg Intake: Intake, IV Amount 848 1000 D5-0.9%Ns 1,000 ml @ 80 848 1000 mls/hr IV .[id number] [facility] Rx #:[id number] Oral 200 Tube Feeding 300 Other: # Voids 4 2 # Bowel Movements 0 Weight Source Bedscale Bedscale Active Medications: Current Medications Acetaminophen (Tylenol) 650 mg GT Q4H PRN PRN Reason: PAIN Stop: 06/27/18 19:57 Acetaminophen (Tylenol) 650 mg PO Q4H PRN PRN Reason: Pain Or Fever above 101 Stop: 06/27/18 19:59 Last Admin: 05/01/18 00:30 Dose: 650 mg Albuterol Sulfate (Albuterol 2.5mg/3ml Neb Ud) 2.5 mg HHN Q2HRT PRN PRN Reason: Shortness of Breath or Wheeze Stop: 06/27/18 19:59 Ascorbic Acid (Vitamin C) 500 mg GT HS KAM Stop: 06/27/18 20:59 Last Admin: 04/30/18 21:09 Dose: Not Given Ferrous Sulfate (Iron) 330 mg GT DAILY KAM Stop: 06/28/18 08:59 Last Admin: 04/30/18 08:28 Dose: Not Given Dextrose/Sodium Chloride (D5-0.9%Ns) 1,000 mls @ 80 mls/hr IV .[id number] KAM Stop: 06/27/18 19:59 Last Admin: 05/01/18 06:47 Dose: 80 mls/hr Levothyroxine Sodium (Synthroid) 0.075 mg GT QDAC KAM Stop: 06/28/18 07:29 Last Admin: 04/30/18 08:28 Dose: Not Given Multivitamins/Minerals (Theragran M) 15 ml GT DAILY KAM Stop: 06/28/18 08:59 Last Admin: 04/30/18 08:28 Dose: Not Given Ondansetron HCl (Zofran) 4 mg IV Q8H PRN PRN Reason: Nausea / Vomiting Stop: 06/27/18 19:59 Pantoprazole Sodium (Protonix) 40 mg IVP BID KAM Stop: 06/28/18 08:59 Last Admin: 04/30/18 16:00 Dose: 40 mg - Procedures Procedures: Procedures Procedure Code Date DILATION OF LOWER ESOPHAGUS, ENDO [id number] 05/06/17 EGD BIOPSY SINGLE/MULTIPLE 19685 05/06/17 ESOPH EGD DILATION <30 MM 26944 05/06/17 EXCISION OF ESOPHAGUS, ENDO, DIAGN [id number] 05/06/17 Assessment/Plan - Problem List Patient Problems: All Active Problems COFFEE GROUND EMESIS X2 (Acute) - Assessment Assessment: 47 YO MALE WITH ANEMIA NO OVERT GI BLEEDING EGD 05/05 SHOWED HIATAL HERNIA AND ESOPHAGITIS HAS GT 1.FOLLOW H/H 2.CONSIDER RESUMING TUBE FEEDS 3.PROTONIX 4.WILL PLAN FOR EGD
[2018-05-01] MEDS: Levothyroxine 0.075 Mg Tab GT SCH (08:16)
[2018-05-01] MEDS: Multivitamin w/ Minerals 15 mL UDC GT SCH (08:46)
[2018-05-01] MEDS: Ferrous Sulfate 300 MG/5 ML UDC GT SCH (08:46)
--- NOTE | 2018-05-01 10:49 | Internal Medicine Prog Note ---
Internal Medicine Subjective - Subjective Service Date: 05/01/18 Patient seen and examined:: with staff Patient is:: awake, verbal, agitated Per staff patient has:: tolerating meds Internal Medicine Objective - Results Result Diagrams: 05/01/18 05:45 05/01/18 05:45 Recent Labs: Laboratory Last Values WBC 6.6 Th/cmm (4.8-10.8) 05/01/18 05:45 RBC 2.79 Mil/cmm (4.30-5.70) L 05/01/18 05:45 Hgb 6.4 gm/dL (12-16) L* 05/01/18 05:45 Hct 20.7 % (41.0-60) L* 05/01/18 05:45 MCV 74.3 fl (80-99) L 05/01/18 05:45 MCH 22.8 pg (26.0-30.0) L 05/01/18 05:45 MCHC Differential 30.7 pg (28.0-36.0) 05/01/18 05:45 RDW 14.8 % (11.5-20.0) 05/01/18 05:45 Plt Count 419 Th/cmm (150-400) H 05/01/18 05:45 MPV 7.2 fl 05/01/18 05:45 Add Manual Diff YES 05/01/18 05:45 Neutrophils % SCALE ADJUSTER 05/01/18 05:45 Lymphocytes % SCALE ADJUSTER 05/01/18 05:45 Monocytes % SCALE ADJUSTER 05/01/18 05:45 Eosinophils % SCALE ADJUSTER 05/01/18 05:45 Basophils % SCALE ADJUSTER 05/01/18 05:45 Neutrophils (Manual) 56 % (40-80) 05/01/18 05:45 Lymphocytes 38 % (20-50) 05/01/18 05:45 Monocytes 6 % (2-10) 05/01/18 05:45 Platelet Estimate INCREASED PLATELETS (NORMAL) 05/01/18 05:45 PT 10.7 SECONDS (9.5-11.5) 04/29/18 06:20 INR 1.03 (0.5-1.4) 04/29/18 06:20 PTT (Actin FS) 24.3 SECONDS (26.0-38.0) L 04/29/18 06:20 Sodium 137 mEq/L (136-145) 05/01/18 05:45 Potassium 3.0 mEq/L (3.5-5.1) L 05/01/18 05:45 Chloride 105 mEq/L (98-107) 05/01/18 05:45 Carbon Dioxide 27.5 mEq/L (21.0-31.0) 05/01/18 05:45 Anion Gap 7.5 (7.0-16.0) 05/01/18 05:45 BUN 19 mg/dL (7-25) 05/01/18 05:45 Creatinine 0.7 mg/dL (0.7-1.3) 05/01/18 05:45 Est GFR ( Amer) > 60.0 ml/min (>90) 05/01/18 05:45 Est GFR (Non-Af Amer) > 60.0 ml/min 05/01/18 05:45 BUN/Creatinine Ratio 27.1 05/01/18 05:45 Glucose 93 mg/dL (70-105) 05/01/18 05:45 Calcium 8.8 mg/dL (8.6-10.3) 05/01/18 05:45 Total Bilirubin 0.2 mg/dL (0.3-1.0) L 04/29/18 06:20 AST 11 U/L (13-39) L 04/29/18 06:20 ALT 8 U/L (7-52) 04/29/18 06:20 Alkaline Phosphatase 47 U/L (34-104) 04/29/18 06:20 Ammonia 53 umol/L (16-53) 04/29/18 06:20 B-Natriuretic Peptide 197.0 pg/mL (5.0-100.0) H 04/28/18 14:50 Total Protein 7.4 gm/dL (6.0-8.3) 04/29/18 06:20 Albumin 3.2 gm/dL (4.2-5.5) L 04/29/18 06:20 Globulin 4.2 gm/dL 04/29/18 06:20 Albumin/Globulin Ratio 0.8 (1.0-1.8) L 04/29/18 06:20 Vitamin B12 871 pg/mL (232-1245) 04/29/18 06:20 Folic Acid >20.0 ng/mL (>3.0) 04/29/18 06:20 TSH 1.42 uIU/ml (0.34-5.60) 04/29/18 06:20 Blood Type B POSITIVE 04/28/18 14:50 Antibody Screen NEGATIVE 04/28/18 14:50 Crossmatch See Detail 04/28/18 14:50 - Physical Exam Vitals and I&O: Vital Signs Temp 97.8 F 05/01/18 07:50 Pulse 53 05/01/18 07:50 Resp 18 05/01/18 07:50 BP 88/53 05/01/18 07:50 Pulse Ox 96 05/01/18 07:50 Intake & Output 04/30/18 05/01/18 05/01/18 18:59 06:59 18:59 Intake Total 1348 1000 Balance 1348 1000 Weight (lbs) 98 lb 98 lb Intake: Intake, IV Amount 848 1000 D5-0.9%Ns 1,000 ml @ 80 848 1000 mls/hr IV .[id number] [facility] Rx #:[id number] Oral 200 Tube Feeding 300 Other: # Voids 4 2 # Bowel Movements 0 Weight Source Bedscale Bedscale Active Medications: Current Medications Acetaminophen (Tylenol) 650 mg GT Q4H PRN PRN Reason: PAIN Stop: 06/27/18 19:57 Last Admin: 05/01/18 08:16 Dose: 650 mg Acetaminophen (Tylenol) 650 mg PO Q4H PRN PRN Reason: Pain Or Fever above 101 Stop: 06/27/18 19:59 Last Admin: 05/01/18 00:30 Dose: 650 mg Albuterol Sulfate (Albuterol 2.5mg/3ml Neb Ud) 2.5 mg HHN Q2HRT PRN PRN Reason: Shortness of Breath or Wheeze Stop: 06/27/18 19:59 Ascorbic Acid (Vitamin C) 500 mg GT HS KAM Stop: 06/27/18 20:59 Last Admin: 04/30/18 21:09 Dose: Not Given Ferrous Sulfate (Iron) 330 mg GT DAILY KAM Stop: 06/28/18 08:59 Last Admin: 05/01/18 08:46 Dose: 330 mg Dextrose/Sodium Chloride (D5-0.9%Ns) 1,000 mls @ 80 mls/hr IV .[id number] KAM Stop: 06/27/18 19:59 Last Admin: 05/01/18 06:47 Dose: 80 mls/hr Levothyroxine Sodium (Synthroid) 0.075 mg GT QDAC KAM Stop: 06/28/18 07:29 Last Admin: 05/01/18 08:16 Dose: 0.075 mg Multivitamins/Minerals (Theragran M) 15 ml GT DAILY KAM Stop: 06/28/18 08:59 Last Admin: 05/01/18 08:46 Dose: 15 ml Ondansetron HCl (Zofran) 4 mg IV Q8H PRN PRN Reason: Nausea / Vomiting Stop: 06/27/18 19:59 Pantoprazole Sodium (Protonix) 40 mg IVP BID KAM Stop: 06/28/18 08:59 Last Admin: 05/01/18 08:46 Dose: 40 mg Potassium Chloride (Klor-Con) 40 meq PO X1 ONE Stop: 05/01/18 10:48 General: weak, alert HEENT: NC/AT, PERRLA Neck: Supple Lungs: CTAB Cardiovascular: RRR, Normal S1, Normal S2, without murmur Abdomen: soft, non-distended, +GT Extremities: excoriation Neurological: alert - Procedures Procedures: Procedures Procedure Code Date DILATION OF LOWER ESOPHAGUS, ENDO [id number] 05/06/17 EGD BIOPSY SINGLE/MULTIPLE 05142 05/06/17 ESOPH EGD DILATION <30 MM 76992 05/06/17 EXCISION OF ESOPHAGUS, ENDO, DIAGN [id number] 05/06/17 Internal Medicine Assmt/Plan - Assessment Assessment: gi bleed-stable severe anemia hamilton esophagus hypothyroidism - Plan Plan: transfuse 2 units prbc replace potassium follow up labs in am continue current plan of care Nutritional Asmnt/Malnutr-PDOC - Dietary Evaluation Malnutrition Findings (Please click <Entered> for more info): Nutritional Asmnt/Malnutrition Start: 04/29/18 17: 00 Text: Status: Complete Freq: Protocol: Document 04/29/18 17:00 TIAN (Rec: 04/29/18 17:23 TIAN [email or web address]) Nutritional Asmnt/Malnutrition Patient General Information Nutritional Screening High Risk Diagnosis GI bleed, sever anemia Pertinent Medical Hx/Surgical Hx CVA, TIA, PUD/GERD, seizure, contracture Subjective Information Pt admitted d/t coffee ground emesis, waiting for EGD consent. Pt seen lying in bed, awake and confused, not able to understand pt speech. Pt appeared skinny Current Diet Order/ Nutrition Support NPO Pertinent Medications vit C, D5-0.9%ns, iron, synthroid, theragran, zofran, protonix Pertinent Labs 04/29 K 3.4, Cl 96, glucose 78, alb 3.2 Nutritional Hx/Data Height 5 ft 10 in Height (Calculated Centimeters) 177.8 Current Weight (lbs) 92 lb Weight (Calculated Kilograms) 41.7 Weight (Calculated Grams) 53485.5 [place] Body Weight 166 Body Mass Index (BMI) 13.1 Weight Status Underweight GI Symptoms GI Symptoms Vomitting Difficult in: None Skin Integrity/Comment: decubitus reddened to right hip Current %PO Negligible < 25% Estimated Nutritional Goals BEE in Kcals: Using Current wt Calories/Kcals/Kg 30-35 Kcals Calculated 9089-8587 Protein: Using Current wt Protein g/k.2-1.4 Protein Calculated 50-59 Fluid: ml 1260-1470ml (1ml/kcal) Nutritional Problem 2. Problem Problem altered GI function Etiology pt having ground coffee emesis Signs/Symptoms: pt on NPO 1. Problem Problem altered nutrition related labs Etiology electrolytes imbalance Signs/Symptoms: K 3.4, Cl 96 Malnutrition Alert Body Fat Depletion (Severe) Mod to Severe Depletion Muscle Mass (Non-Severe) Mild Depletion Is there a minimum of two criteria Yes selected? Query Text:Check all the applicable criteria. A minimum of two criteria are recommended for diagnosis of either severe or non-severe malnutrition. Malnutrition Related to Morbid Obesity Malnutrition related to morbid obesity No Intervention/Recommendation Comments 1. Recommend to start with clear liquid diet when medically appropriate 2. Monitor GI function, wt, labs and skin integrity 3. F/U as high risk in 2-3 days, 05/01-05/02 Expected Outcomes/Goals Expected Outcomes/Goals 1. PO intake to meet at least 75% of nutritional needs. 2. Wt stability, GI function to improve, skin to remain intact, labs to approach WNL.
[2018-05-01] MEDS ORDERED: Potassium Chloride 20 mEq ER Tab PO ONE (11:00)
[2018-05-02 06:49] LABS: % BASOPHILS 0.2 % (0.0-2.0); % EOSINOPHILS 0.7 % (0.0-5.0); % LYMPHOCYTES 13.4 % (20.0-50.0); % MONOCYTES 2.9 % (2.0-10.0); % NEUTROPHILS 82.8 % (40.0-80.0); EOSINOPHILE ABSOLUTE 0.1 Th/cmm (0.1-0.4); HEMATOCRIT 30.1 % (41.0-60); HEMOGLOBIN 9.8 gm/dL (12-16); LYMPHOCYTE ABSOLUTE 1.5 Th/cmm (1.5-3.0); MEAN CELL VOLUME 80.3 fl (80-99); MEAN CORPUSCULAR HEMOGLOBIN 26.1 pg (26.0-30.0); MEAN CORPUSCULAR HGB CONC 32.5 pg (28.0-36.0); MEAN PLATELET VOLUME 7.7 fl; MONOCYTE ABSOLUTE 0.3 Th/cmm (0.3-1.0); NEUTROPHILE ABSOLUTE 9.5 Th/cmm (1.8-8.0); PLATELET COUNT 374 Th/cmm (150-400); RED BLOOD COUNT 3.75 Mil/cmm (4.30-5.70); RED CELL DISTRIBUTION WIDTH 19.3 % (11.5-20.0); WHITE BLOOD COUNT 11.4 Th/cmm (4.8-10.8)
[2018-05-02 06:57] LABS: ANION GAP 7.5 (7.0-16.0); BUN - UREA NITROGEN 14 mg/dL (7-25); CALCIUM SERUM 8.9 mg/dL (8.6-10.3); CARBON DIOXIDE 24.1 mEq/L (21.0-31.0); CHLORIDE 107 mEq/L (98-107); CREATININE - SERUM 0.7 mg/dL (0.7-1.3); GFR AFRICAN-AMERICAN > 60.0 ml/min (>90); GFR NON AFRICAN-AMERICAN > 60.0 ml/min; GLUCOSE 93 mg/dL (70-105); POTASSIUM SERUM 3.6 mEq/L (3.5-5.1); SODIUM SERUM 135 mEq/L (136-145)
[2018-05-02] MEDS: Levothyroxine 0.075 Mg Tab GT SCH (07:37)
[2018-05-02] MEDS ORDERED: Sodium Chloride 0.9% 1,000 ML IV ONE (08:00)
[2018-05-02] MEDS ORDERED: Lidocaine 2% Gel 5 mL TP ONE (08:00)
[2018-05-02] MEDS: Multivitamin w/ Minerals 15 mL UDC GT SCH (08:03)
[2018-05-02] MEDS: Ferrous Sulfate 300 MG/5 ML UDC GT SCH (08:03)
--- NOTE | 2018-05-02 12:01 | Operative Report ---
DATE OF SURGERY: 05/02/2018 INPATIENT GASTROINTESTINAL PROCEDURE NAME OF PROCEDURE: EGD with biopsy and balloon dilation. REFERRNG PHYSICIAN: Dr. Sterling. CONSENT: Risks, benefits, alternatives, nature, indication, possible outcomes were discussed. Mentioned bleeding, infection, perforation, , disability, cardiopulmonary distress and arrest, missed lesion and cancers, need for surgery. The patient expressed understanding and provided informed consent. PREOPERATIVE DIAGNOSES: Upper gastrointestinal bleed, dysphagia. POSTOPERATIVE DIAGNOSES: Esophagitis and hiatal hernia, esophageal stricture, G-tube. MEDICATIONS: MAC provided by anesthesiologist. DESCRIPTION OF PROCEDURE: The patient was placed on his left side. Upper endoscope advanced from the mouth into the second portion of duodenum. Scope brought back into the stomach with retroflexion view of fundus, cardia, lesser curvature, hiatal hernia. Scope was straightened. G-tube was seen and appeared to be intact with normal surrounding tissue. Scope brought back into the esophagus where the esophagus seemed quite narrowed. There is esophagitis in this area. Biopsies were taken. A CRE balloon was used and inflated to 10, then to 11, then to 12 mm for a balloon dilatation with good effect. The balloon was deflated and was then removed. The scope could traverse the distal esophageal stricture very easily. Scope was then removed. COMPLICATIONS: None. FINDINGS: 1. GE junction at 40 cm with distal esophageal stricture, status post biopsy and balloon dilatation up to 12 mm balloon. 2. Distal esophagitis, likely source of upper GI bleeding, not active bleeding at this time. 3. G-tube in place. 4. Hiatal hernia. 5. Normal duodenum. RECOMMENDATIONS: 1. Follow H and H, transfuse as needed. 2. Continue Protonix. 3. Follow up on biopsy. 4. Consider repeating EGD in 3 months. Thank you for allowing me to participate. Please call me if any questions. JOB# [id number]
--- NOTE | 2018-05-02 13:34 | Internal Medicine Prog Note ---
Internal Medicine Subjective - Subjective Service Date: 05/02/18 Patient is:: awake, verbal, agitated Per staff patient has:: tolerating meds Internal Medicine Objective - Results Result Diagrams: 05/02/18 06:00 05/02/18 06:00 Recent Labs: Laboratory Last Values WBC 11.4 Th/cmm (4.8-10.8) H 05/02/18 06:00 RBC 3.75 Mil/cmm (4.30-5.70) L 05/02/18 06:00 Hgb 9.8 gm/dL (12-16) L 05/02/18 06:00 Hct 30.1 % (41.0-60) L 05/02/18 06:00 MCV 80.3 fl (80-99) 05/02/18 06:00 MCH 26.1 pg (26.0-30.0) 05/02/18 06:00 MCHC Differential 32.5 pg (28.0-36.0) 05/02/18 06:00 RDW 19.3 % (11.5-20.0) 05/02/18 06:00 Plt Count 374 Th/cmm (150-400) 05/02/18 06:00 MPV 7.7 fl 05/02/18 06:00 Add Manual Diff YES 05/01/18 05:45 Neutrophils % 82.8 % (40.0-80.0) H 05/02/18 06:00 Lymphocytes % 13.4 % (20.0-50.0) L 05/02/18 06:00 Monocytes % 2.9 % (2.0-10.0) 05/02/18 06:00 Eosinophils % 0.7 % (0.0-5.0) 05/02/18 06:00 Basophils % 0.2 % (0.0-2.0) 05/02/18 06:00 Neutrophils (Manual) 56 % (40-80) 05/01/18 05:45 Lymphocytes 38 % (20-50) 05/01/18 05:45 Monocytes 6 % (2-10) 05/01/18 05:45 Platelet Estimate INCREASED PLATELETS (NORMAL) 05/01/18 05:45 PT 10.7 SECONDS (9.5-11.5) 04/29/18 06:20 INR 1.03 (0.5-1.4) 04/29/18 06:20 PTT (Actin FS) 24.3 SECONDS (26.0-38.0) L 04/29/18 06:20 Sodium 135 mEq/L (136-145) L 05/02/18 06:00 Potassium 3.6 mEq/L (3.5-5.1) 05/02/18 06:00 Chloride 107 mEq/L (98-107) 05/02/18 06:00 Carbon Dioxide 24.1 mEq/L (21.0-31.0) 05/02/18 06:00 Anion Gap 7.5 (7.0-16.0) 05/02/18 06:00 BUN 14 mg/dL (7-25) 05/02/18 06:00 Creatinine 0.7 mg/dL (0.7-1.3) 05/02/18 06:00 Est GFR ( Amer) > 60.0 ml/min (>90) 05/02/18 06:00 Est GFR (Non-Af Amer) > 60.0 ml/min 05/02/18 06:00 BUN/Creatinine Ratio 20.0 05/02/18 06:00 Glucose 93 mg/dL (70-105) 05/02/18 06:00 POC Glucose 99 MG/DL (70 - 105) 05/02/18 05:56 Calcium 8.9 mg/dL (8.6-10.3) 05/02/18 06:00 Total Bilirubin 0.2 mg/dL (0.3-1.0) L 04/29/18 06:20 AST 11 U/L (13-39) L 04/29/18 06:20 ALT 8 U/L (7-52) 04/29/18 06:20 Alkaline Phosphatase 47 U/L (34-104) 04/29/18 06:20 Ammonia 53 umol/L (16-53) 04/29/18 06:20 B-Natriuretic Peptide 197.0 pg/mL (5.0-100.0) H 04/28/18 14:50 Total Protein 7.4 gm/dL (6.0-8.3) 04/29/18 06:20 Albumin 3.2 gm/dL (4.2-5.5) L 04/29/18 06:20 Globulin 4.2 gm/dL 04/29/18 06:20 Albumin/Globulin Ratio 0.8 (1.0-1.8) L 04/29/18 06:20 Vitamin B12 871 pg/mL (232-1245) 04/29/18 06:20 Folic Acid >20.0 ng/mL (>3.0) 04/29/18 06:20 TSH 1.42 uIU/ml (0.34-5.60) 04/29/18 06:20 Blood Type B POSITIVE 05/01/18 09:45 Antibody Screen NEGATIVE 05/01/18 09:45 Crossmatch See Detail 05/01/18 09:45 - Physical Exam Vitals and I&O: Vital Signs Temp 98.2 F 05/02/18 12:01 Pulse 60 05/02/18 12:01 Resp 18 05/02/18 12:01 BP 148/70 05/02/18 12:01 Pulse Ox 94 05/02/18 12:01 Intake & Output 05/01/18 05/02/18 05/02/18 18:59 06:59 18:59 Intake Total 80 Balance 80 Weight (lbs) 98 lb 104 lb Intake: Oral 80 Other: # Voids 2 # Bowel Movements 1 Weight Source Bedscale Bedscale Active Medications: Current Medications Acetaminophen (Tylenol) 650 mg GT Q4H PRN PRN Reason: PAIN Stop: 06/27/18 19:57 Last Admin: 05/01/18 08:16 Dose: 650 mg Acetaminophen (Tylenol) 650 mg PO Q4H PRN PRN Reason: Pain Or Fever above 101 Stop: 06/27/18 19:59 Last Admin: 05/02/18 13:04 Dose: 650 mg Albuterol Sulfate (Albuterol 2.5mg/3ml Neb Ud) 2.5 mg HHN Q2HRT PRN PRN Reason: Shortness of Breath or Wheeze Stop: 06/27/18 19:59 Ascorbic Acid (Vitamin C) 500 mg GT HS KAM Stop: 06/27/18 20:59 Last Admin: 05/01/18 21:03 Dose: 500 mg Ferrous Sulfate (Iron) 330 mg GT DAILY KAM Stop: 06/28/18 08:59 Last Admin: 05/02/18 08:03 Dose: Not Given Dextrose/Sodium Chloride (D5-0.9%Ns) 1,000 mls @ 80 mls/hr IV .[id number] KAM Stop: 06/27/18 19:59 Last Admin: 05/01/18 06:47 Dose: 80 mls/hr Levothyroxine Sodium (Synthroid) 0.075 mg GT QDAC [facility] Stop: 06/28/18 07:29 Last Admin: 05/02/18 07:37 Dose: Not Given Multivitamins/Minerals (Theragran M) 15 ml GT DAILY KAM Stop: 06/28/18 08:59 Last Admin: 05/02/18 08:03 Dose: Not Given Ondansetron HCl (Zofran) 4 mg IV Q8H PRN PRN Reason: Nausea / Vomiting Stop: 06/27/18 19:59 Pantoprazole Sodium (Protonix) 40 mg IVP BID [facility] Stop: 06/28/18 08:59 Last Admin: 05/02/18 08:04 Dose: Not Given General: weak, alert HEENT: NC/AT, PERRLA Neck: Supple Lungs: CTAB Cardiovascular: RRR, Normal S1, Normal S2, without murmur Abdomen: soft, non-distended, +GT Extremities: excoriation Neurological: alert - Procedures Procedures: Procedures Procedure Code Date DILATION OF LOWER ESOPHAGUS, ENDO [id number] 05/06/17 EGD BIOPSY SINGLE/MULTIPLE 59843 05/06/17 ESOPH EGD DILATION <30 MM 40113 05/06/17 EXCISION OF ESOPHAGUS, ENDO, DIAGN [id number] 05/06/17 Internal Medicine Assmt/Plan - Assessment Assessment: gi bleed-stable severe anemia hamilton esophagus hypothyroidism - Plan Plan: advance diet as tolerated follow up labs in am continue current plan of care Nutritional Asmnt/Malnutr-PDOC - Dietary Evaluation Malnutrition Findings (Please click <Entered> for more info): Nutritional Asmnt/Malnutrition Start: 04/29/18 17: 00 Text: Status: Complete Freq: Protocol: Document 04/29/18 17:00 ENRIQUE (Rec: 04/29/18 17:23 ANH [email or web address]) Nutritional Asmnt/Malnutrition Patient General Information Nutritional Screening High Risk Diagnosis GI bleed, sever anemia Pertinent Medical Hx/Surgical Hx CVA, TIA, PUD/GERD, seizure, contracture Subjective Information Pt admitted d/t coffee ground emesis, waiting for EGD consent. Pt seen lying in bed, awake and confused, not able to understand pt speech. Pt appeared skinny Current Diet Order/ Nutrition Support NPO Pertinent Medications vit C, D5-0.9%ns, iron, synthroid, theragran, zofran, protonix Pertinent Labs 04/29 K 3.4, Cl 96, glucose 78, alb 3.2 Nutritional Hx/Data Height 5 ft 10 in Height (Calculated Centimeters) 177.8 Current Weight (lbs) 92 lb Weight (Calculated Kilograms) 41.7 Weight (Calculated Grams) 27243.5 [place] Body Weight 166 Body Mass Index (BMI) 13.1 Weight Status Underweight GI Symptoms GI Symptoms Vomitting Difficult in: None Skin Integrity/Comment: decubitus reddened to right hip Current %PO Negligible < 25% Estimated Nutritional Goals BEE in Kcals: Using Current wt Calories/Kcals/Kg 30-35 Kcals Calculated 8092-9271 Protein: Using Current wt Protein g/k.2-1.4 Protein Calculated 50-59 Fluid: ml 1260-1470ml (1ml/kcal) Nutritional Problem 2. Problem Problem altered GI function Etiology pt having ground coffee emesis Signs/Symptoms: pt on NPO 1. Problem Problem altered nutrition related labs Etiology electrolytes imbalance Signs/Symptoms: K 3.4, Cl 96 Malnutrition Alert Body Fat Depletion (Severe) Mod to Severe Depletion Muscle Mass (Non-Severe) Mild Depletion Is there a minimum of two criteria Yes selected? Query Text:Check all the applicable criteria. A minimum of two criteria are recommended for diagnosis of either severe or non-severe malnutrition. Malnutrition Related to Morbid Obesity Malnutrition related to morbid obesity No Intervention/Recommendation Comments 1. Recommend to start with clear liquid diet when medically appropriate 2. Monitor GI function, wt, labs and skin integrity 3. F/U as high risk in 2-3 days, 05/01-05/02 Expected Outcomes/Goals Expected Outcomes/Goals 1. PO intake to meet at least 75% of nutritional needs. 2. Wt stability, GI function to improve, skin to remain intact, labs to approach WNL.
--- NOTE | 2018-05-03 00:24 | Progress Notes ---
DATE: 05/02/2018 FOLLOWUP NOTE SUBJECTIVE: A 47-year-old male who appears with developmental disability, alert and oriented to name, not place. He knows the year. He knows the month. Continues to deny having any medical problems, difficult to understand, sometimes doing some nonsensical statements. He has no idea why he is in the hospital, continues to state he has no medical problems whatsoever. Mood "okay." He has been redirectable, sometimes loud, but no agitation. PAST PSYCHIATRIC HISTORY: Noted. MENTAL STATUS EXAMINATION: Stated age. Poor dentition, fair eye contact, loud voice. Mood "okay." Affect flat. Thought processes were tangential, disoriented in regards to why he is in the hospital and in regards to his medical health and history. No SI, no HI, no current psychotic symptoms. Insight and judgment diminished. PROVISIONAL DIAGNOSES: Developmental disability. RECOMMENDATIONS AND PLAN: Continue to monitor. We will also monitor for any medication side effects. I am still concerned about the patient's decision making capacity as he completely denies having any medical problems and has no idea why he is in the hospital. JOB# [id number]
[2018-05-03] MEDS: Levothyroxine 0.075 Mg Tab GT SCH (06:33)
[2018-05-03] MEDS: Ferrous Sulfate 300 MG/5 ML UDC GT SCH (08:52)
[2018-05-03] MEDS: Multivitamin w/ Minerals 15 mL UDC GT SCH (08:53)
--- NOTE | 2018-05-03 16:06 | Discharge Summary ---
DATE OF DISCHARGE: 05/03/2018 CHIEF COMPLAINT: Coffee-ground emesis. FINAL DIAGNOSES: Anemia, transfusion, esophagitis/upper GI bleeding, dysphagia, Serna esophagus, hypothyroidism, secondary to dysphagia, severe mental disability. HISTORY: This is a 47-year-old -[place] male from nursing facility, brought in secondary coffee-ground emesis. The patient is a poor historian. The patient admitted for further management. PHYSICAL EXAMINATION: VITAL SIGNS: Blood pressure 95/68, respirations 18, pulse 96, and temperature 98.0. GENERAL: Elderly male, appears his age for chronically ill. NECK: Supple. No mass. LUNGS: Equal breath sounds, few rhonchi. HEART: Regular rate and rhythm. Systolic without appreciable murmur. ABDOMEN: Soft, globular. GENITOURINARY: Pus secretion. HOSPITAL COURSE: The patient was admitted to medical floor, continue on IV hydration. The patient was given red blood cell transfusion. The patient had upper endoscopy, showed esophagitis, gastritis. The patient continue to provide me inhibitor has remained stable. CONDITION ON DISCHARGE: Fair. DISCHARGE INSTRUCTIONS: The patient continue inhibitor and have his hemoglobin monitored closely overall prognosis is poor. JOB# [id number]
[2018-05-03] MEDS: Pantoprazole 40 mg EC Tab PO SCH ×2 (16:48→17:03)
[2018-05-04] MEDS ORDERED: Multivitamin w/ Minerals Tab GT SCH (09:00)
--- NOTE | 2018-05-05 15:26 | Pathology Report ---
[id number] Collection date: 05/02/2018 Surgeon: Dr. Tyler Cardenas Specimen Description: Esophageal biopsy Gross Description: Received in formal in are two rodriguez soft tissue fragments ranging from 0.1 to 0.2 cm in greatest dimension. Totally submitted in one cassette. Microscopic Description: The histologic sections show ulcerated esophageal squamous mucosa with acute and chronic inflammation present consisting of increased numbers of lymphocytes and neutrophils. The Alcian blue stain shows no significant abnormalities. The PAS stain shows no evidence for fungal organisms. Diagnosis: Ulcerated esophageal mucosa showing acute and chronic inflammation (esophageal biopsy). JOB# [id number] MTDD
== END 2018-05-03 17:36 | DRG 241 ==
LOC: ER 13:12 → TELE 16:57 → MSI 05-02 13:17
PROVIDERS: ADMIT Internal Medicine; ATTEND Internal Medicine
PROC: 30233N1 Transfusion of Nonautologous Red Blood Cells into Peripheral Vein, Percutaneous Approach (ICD-10-PCS; 2018-05-01)
PROC: 0DB58ZX Excision of Esophagus, Via Natural or Artificial Opening Endoscopic, Diagnostic (ICD-10-PCS; principal; 2018-05-02)
PROC: 0D758ZZ Dilation of Esophagus, Via Natural or Artificial Opening Endoscopic (ICD-10-PCS; 2018-05-02)
DX: K29.71 Gastritis, unspecified, with bleeding (principal); E44.0 Moderate protein-calorie malnutrition; K22.2 Esophageal obstruction; F03.90 Unspecified dementia, unspecified severity, without behavioral disturbance, psychotic disturbance, mood disturbance, and anxiety; R13.10 Dysphagia, unspecified; K21.0 Gastro-esophageal reflux disease with esophagitis; K22.70 Barrett's esophagus without dysplasia; E03.9 Hypothyroidism, unspecified; D50.9 Iron deficiency anemia, unspecified; G40.909 Epilepsy, unspecified, not intractable, without status epilepticus; K27.9 Peptic ulcer, site unspecified, unspecified as acute or chronic, without hemorrhage or perforation; M19.90 Unspecified osteoarthritis, unspecified site; F39 Unspecified mood [affective] disorder; F41.9 Anxiety disorder, unspecified; K44.9 Diaphragmatic hernia without obstruction or gangrene; Z68.1 Body mass index [BMI] 19.9 or less, adult; Z86.73 Personal history of transient ischemic attack (TIA), and cerebral infarction without residual deficits; Z93.1 Gastrostomy status
CPT/HCPCS: 36415-UA; 80048-TC; 80053-TC; 82140-TC; 82607-90; 82746-90; 82948-90; 83880-TC; 84443-TC; 85007-TC; 85025-TC; 85610-TC; 86850-TC; 86900-TC; 86901-TC; 86922-TC; 94760; C9113; J2405; J7030; P9016; Q0162; Z7506; Z7610